=== PATIENT | female | born 1940 | race Caucasian/White ===

== ENCOUNTER 2018-10-03 21:57 | Inpatient (IN) | payer MEDICARE, OTHER ==
[~2018-10-03] VITALS: Ht 160 cm; Wt 47.2 kg
--- NOTE | 2018-10-03 22:05 | NUR ---
ED Nurse Note: PT BIBA SQU[facility] from home c/o ALOC and generalized weakness, unable to care for herself, cannot remember last 24hr.
--- NOTE | 2018-10-03 22:10 | NUR ---
ED Nurse Note: IV ACCESS ESTABLISHED. BLOOD AND URINE COLLECTED; SENT DOWN TO LAB.
[2018-10-03 22:20] VITALS: BP 145/65
[2018-10-03] MEDS ORDERED: SLEEP AID25 MG PO (22:24)
[2018-10-03] MEDS ORDERED: ZETIA10 MG ORAL (22:24)
[2018-10-03] MEDS ORDERED: NORVASC5 MG ORAL (22:24)
[2018-10-03] MEDS ORDERED: METOPROLOL TART25 MG ORAL (22:24)
[2018-10-03] MEDS ORDERED: ASPIRIN-LOW81 MG ORAL (22:24)
[2018-10-03] MEDS ORDERED: NITROGLYCERIN2.5 MG SL (22:24)
[2018-10-03] MEDS ORDERED: MINOCYCLINE HCL50 MG PO (22:24)
[2018-10-03 22:49] LABS: APPEARANCE,URINE CLEAR; BILIRUBIN, URINE NEGATIVE (NEGATIVE); COLOR,URINE BROWN; GLUCOSE, URINE (UA) NEGATIVE (NEGATIVE); KETONES,URINE 2+ (NEGATIVE); LEUKOCYTE ESTERASE ,URINE 1+ (NEGATIVE); NITRITE,URINE NEGATIVE (NEGATIVE); PH,URINE 5 (4.5-8.0); PROTEIN,URINE 2+ (NEGATIVE); UROBILINOGEN,URINE NORMAL MG/DL (0.0-1.0)
[2018-10-03 22:50] LABS: BASOPHILS % (AUTO) 0.9 % (0.0-2.0); EOSINOPHILS % (AUTO) 0.2 % (0.0-3.0); HEMATOCRIT 48.7 % (37.0-47.0); HEMOGLOBIN 15.7 G/DL (12.0-16.0); LYMPHOCYTES % (AUTO) 9.8 % (20.0-45.0); MEAN CORPUSCULAR VOLUME 101 FL (80-99); MONOCYTES % (AUTO) 9.5 % (1.0-10.0); NEUTROPHILS % (AUTO) 79.7 % (45.0-75.0); PLATELET COUNT 283 K/UL (150-450); RED BLOOD COUNT 4.84 M/UL (4.20-5.40); RED CELL DISTRIBUTION WIDTH 14.5 % (11.6-14.8)
[2018-10-03 23:08] LABS: ANION GAP 4 mmol/L (5-15); BLOOD UREA NITROGEN 39 mg/dL (7-18); CALCIUM 9.5 MG/DL (8.5-10.1); CARBON DIOXIDE 38 MMOL/L (21-32); CHLORIDE 106 MMOL/L (98-107); CREATININE 0.8 MG/DL (0.55-1.30); POTASSIUM 4.2 MMOL/L (3.5-5.1); SODIUM 148 MMOL/L (136-145)
[2018-10-03 23:21] LABS: ASPARTATE AMINO TRANSFERASE 35 U/L (15-37); BILIRUBIN,TOTAL 0.5 MG/DL (0.2-1.0)
[2018-10-03 23:22] LABS: ALANINE AMINOTRANSFERASE 37 U/L (12-78); ALBUMIN 3.2 G/DL (3.4-5.0); ALBUMIN/GLOBULIN RATIO 0.9 (1.0-2.7); ALKALINE PHOSPHATASE 64 U/L (46-116); CKMB 7.9 NG/ML (0.0-3.6); CREATINE KINASE 139 U/L (26-308)
--- NOTE | 2018-10-03 23:26 | NUR ---
ED Nurse Note: RT AT BEDSIDE
[2018-10-03 23:30] VITALS: BP 163/78
[2018-10-03] MEDS ORDERED: Solu-MEDROL 125mg Inj IVP ONE (23:30)
[2018-10-03] MEDS ORDERED: Albuterol ud Inhalation HHN ONE (23:30)
[2018-10-03] MEDS ORDERED: Ipratropium 0.02% Inh Soln 2.5ml UD HHN ONE (23:30)
[2018-10-04] VITALS (20 sets, daily range): BP systolic 93–154; BP diastolic 56–89
--- NOTE | 2018-10-04 00:12 | NUR ---
ED Nurse Note: PATIENT REFUSED ASPIRIN. EXPLAINED RISK AND BENEFITS X3; PATIENT STILL REFUES. ERMD MADE AWARE. NO NEW ORDERS AT THIS TIME.
--- NOTE | 2018-10-04 02:00 | NUR ---
ED Nurse Note: DIANE PT PTT; SENT DOWN TO LAB.
--- NOTE | 2018-10-04 02:07 | NUR ---
ED Nurse Note: TELEPHONE REPORT GIVEN TO SLOANE DUMONT. PATIENT TO BE ADMITTED TO SDU 244-2 UNDER THE CARE OF MD RHIANNA. ENDORSED PENDING PT PTT; WILL UPDATE WHEN ERMD GIVES CLEARANCE FOR TRANSFER TO FLOOR.
[2018-10-04 02:33] LABS: INR 1.2 (0.9-1.1)
[2018-10-04] MEDS ORDERED: Heparin 25,000u/D5W 500ml 500 ML IV SCH ×3 (02:45→12:40)
[2018-10-04] MEDS ORDERED: Heparin 5000 units/ml inj IV ONE (02:45)
--- NOTE | 2018-10-04 02:50 | NUR ---
TRANSFER TO FLOOR: Patient transferred to SDU 244-2 as ordered, per MD RHIANNA. Report given to SLOANE DUMONT. HEPARIN DRIP ENDORSED. PATIENT IN STABLE CONDITION. AOR4. NAD. VSS. BELONGINGS LIST COMPLETED WITH RECEIVING RN.
--- NOTE | 2018-10-04 03:00 | NUR ---
NURSE NOTES: Admission from ER, Receiving report from Dewey Henderson RN. Patient is awake in bed, drowsy, confused, but able to talk. Pt has redness on her sacral, changed dressing with optifoam per protocol, pt bathed and position changed. Pt on NC on 4L saturating at 97%, applied tele monitor, no sign on acute distress at this time. Pt denied pain. Bed at its lowest position, call light in reach, and 3 bed rails up. Admission instruction was give. Belongings accounted for, recorded and at bedside. Smoking cessation applied. Patient's home medication was sent to pharmacy and patient was informed. Left forearm 20g IV site intact, right AC 20G IV site patent with no sign of infiltrate. Heparan drip running at 12U/kg/hr due to elevated Troponin level, 1.881. No sign of active bleeding observed. Left messages with Dr. Romo for admission order. Will continue to monitor.
--- NOTE | 2018-10-04 03:04 | Emergency Room Report ---
History of Present Illness General Chief Complaint: Generalized Weakness Source: Patient, EMS Present Illness HPI 78-year-old female presents ED for evaluation. Brought in by EMS from home. Noted to be feeling weak. States that she woke up after sleeping for 2 days. States that she lives alone. Denies fevers or chills. O2 sats low. Denies chest pain or shortness of breath. Patient states that her symptoms are because of Lyme disease. States she has not been adequately treated for this. Is currently on minocycline. Denies sick contacts or recent travel. No other aggravating relieving factors. Denies any other associated symptoms Allergies: Coded Allergies: RAMIPRIL (Verified Allergy, Unknown, 10/03/18) Uncoded Allergies: SULFA (Allergy, Unknown, 10/03/18) Patient History Past Medical History: HTN, COPD Past Surgical History: none Pertinent Family History: none Social History: Denies: smoking, alcohol use, drug use Now: No Immunizations: UTD Reviewed Nursing Documentation: PMH: Agreed; PSxH: Agreed Nursing Documentation-PMH Past Medical History: No History, Except For Hx Hypertension: Yes Review of Systems All Other Systems: negative except mentioned in HPI Physical Exam Vital Signs Date Time Temp Pulse Resp B/P (MAP) Pulse Ox O2 Delivery O2 Flow Rate FiO2 10/03/18 21:57 98.1 84 20 94 Nasal Cannula 4.0 10/03/18 22:20 145/65 10/03/18 23:55 28 Sp02 EP Interpretation: reviewed, normal General Appearance: GCS 15, non-toxic, mild distress, cachetic, thin Head: normocephalic, atraumatic Eyes: bilateral eye normal inspection, bilateral eye PERRL ENT: hearing grossly normal, normal pharynx, no angioedema, normal voice Neck: full range of motion, supple/symm/no masses Respiratory: decreased breath sounds, accessory muscle use, speaking full sentences Cardiovascular #1: regular rate, rhythm, no edema Cardiovascular #2: 2+ carotid (R), 2+ carotid (L), 2+ radial (R), 2+ radial (L) , 2+ dorsalis pedis (R), 2+ dorsalis pedis (L) Gastrointestinal: normal bowel sounds, non tender, soft, non-distended, no guarding, no rebound Rectal: deferred Genitourinary: normal inspection, no CVA tenderness Musculoskeletal: back normal, gait/station normal, normal range of motion, non- tender Neurologic: alert, oriented x3, responsive, motor strength/tone normal, sensory intact, speech normal Psychiatric: judgement/insight normal, memory normal, mood/affect normal, no suicidal/homicidal ideation Reflexes: 3+ bicep (R), 3+ bicep (L), 3+ tricep (R), 3+ tricep (L), 3+ knee (R) , 3+ knee (L) Skin: normal color, no rash, warm/dry, well hydrated Lymphatic: no adenopathy Procedures Critical Care Time Critical Care Time i. I feel this is a highly complex case requiring extensive working including EKG/Rhythm strip, Xray/CT/US, Blood/urine lab work, repeat exams while in ED, and administration of strong opiates/narcotics for pain control, admission to hospital or close patient follow up. Total time: 50 min bedside evaluation and treatment excludes procedures (EKG). Reason for critical care: NSTEMI, COPD Possible complications: hypotension, hypertension, OK, shock, arrhythmias, metabolic acidosis, end organ damage, respiratory failure. Interventions: labs, EKG, CXR, nebs. coags. abx. heparin Course: patient presenting with weakness. SOB. from home. O2 sats low. given breathing treatments. CXR shows hyperinflated lungs. Trop 1.887. patient denies chest pain. abx given. IVFs given. started on heparin. patient refused aspirin. Consultations: nursing staff, EMS, family Performed by: Dr Buckner Tolerated well condition = serious j. because of unstable vital signs this patient had a condition that could potentially threaten life or limb. I feel this is a critical patient who required my full attention while patient was considered critical. Total Critical Care Time excluding procedures was greater than 50 minutes Medical Decision Making Diagnostic Impression: Primary Impression: Episode of generalized weakness Additional Impressions: NSTEMI (non-ST elevated myocardial infarction) COPD (chronic obstructive pulmonary disease) Qualified Codes: J44.9 - Chronic obstructive pulmonary disease, unspecified ER Course Hospital Course 78 yo F presents with weakness, SOB. Differential diagnoses include: OK/unstable angina, contusion, muscle strain, PTX, rib fracture Clinical course placed on stretcher. After initial history and physical I ordered breathing treatments, labs, EKG, chest x-ray, IV fluids labs reviewed- noted leukocytosis, electrolytes ok, trop 1.887, BNP elevated EKG- NSR, no acute ischemic changes interpreted by me Chest x-ray- hyperinflated lungs Patient denies chest pain. Patient refuses aspirin. Heparin started. Antibiotics given. Case discussed with Dr. Naranjo and he agreed to accept the patient to his service for further care and support I. I feel this is a highly complex case requiring extensive working including EKG/Rhythm strip, Xray/CT/US, Blood/urine lab work, repeat exams while in ED, and administration of strong opiates/narcotics for pain control, admission to hospital or close patient follow up. Diagnosis - NSTEMI, episode of generalized weakness, COPD admitted to [facility] in serious condition Labs Test 10/03/18 22:00 10/04/18 02:00 White Blood Count 14.0 K/UL (4.8-10.8) Red Blood Count 4.84 M/UL (4.20-5.40) Hemoglobin 15.7 G/DL (12.0-16.0) Hematocrit 48.7 % (37.0-47.0) Mean Corpuscular Volume 101 FL (80-99) Mean Corpuscular Hemoglobin 32.4 PG (27.0-31.0) Mean Corpuscular Hemoglobin Concent 32.2 G/DL (32.0-36.0) Red Cell Distribution Width 14.5 % (11.6-14.8) Platelet Count 283 K/UL (150-450) Mean Platelet Volume 7.0 FL (6.5-10.1) Neutrophils (%) (Auto) 79.7 % (45.0-75.0) Lymphocytes (%) (Auto) 9.8 % (20.0-45.0) Monocytes (%) (Auto) 9.5 % (1.0-10.0) Eosinophils (%) (Auto) 0.2 % (0.0-3.0) Basophils (%) (Auto) 0.9 % (0.0-2.0) Urine Color Brown Urine Appearance Clear Urine pH 5 (4.5-8.0) Urine Specific [place] 1.020 (1.005-1.035) Urine Protein 2+ (NEGATIVE) Urine Glucose (UA) Negative (NEGATIVE) Urine Ketones 2+ (NEGATIVE) Urine Blood Negative (NEGATIVE) Urine Nitrite Negative (NEGATIVE) Urine Bilirubin Negative (NEGATIVE) Urine Urobilinogen Normal MG/DL (0.0-1.0) Urine Leukocyte Esterase 1+ (NEGATIVE) Urine RBC 0 /HPF (0 - 2) Urine WBC 0-2 /HPF (0 - 2) Urine Squamous Epithelial Cells None /LPF (NONE/OCC) Urine Bacteria Occasional /HPF (NONE) Sodium Level 148 MMOL/L (136-145) Potassium Level 4.2 MMOL/L (3.5-5.1) Chloride Level 106 MMOL/L (98-107) Carbon Dioxide Level 38 MMOL/L (21-32) Anion Gap 4 mmol/L (5-15) Blood Urea Nitrogen 39 mg/dL (7-18) Creatinine 0.8 MG/DL (0.55-1.30) Estimat Glomerular Filtration Rate mL/min (>60) Glucose Level 115 MG/DL (74-106) Lactic Acid Level 1.80 mmol/L (0.4-2.0) Calcium Level 9.5 MG/DL (8.5-10.1) Total Bilirubin 0.5 MG/DL (0.2-1.0) Aspartate Amino Transf (AST/SGOT) 35 U/L (15-37) Alanine Aminotransferase (ALT/SGPT) 37 U/L (12-78) Alkaline Phosphatase 64 U/L (46-116) Total Creatine Kinase 139 U/L (26-308) Creatine Kinase MB 7.9 NG/ML (0.0-3.6) Creatine Kinase MB Relative Index 5.6 Troponin I 1.887 ng/mL (0.000-0.056) Pro-B-Type Natriuretic Peptide 7008 pg/mL (0-125) Total Protein 6.8 G/DL (6.4-8.2) Albumin 3.2 G/DL (3.4-5.0) Globulin 3.6 g/dL Albumin/Globulin Ratio 0.9 (1.0-2.7) Urine Opiates Screen Negative (NEGATIVE) Urine Barbiturates Screen Negative (NEGATIVE) Phencyclidine (PCP) Screen Negative (NEGATIVE) Urine Amphetamines Screen Negative (NEGATIVE) Urine Benzodiazepines Screen Negative (NEGATIVE) Urine Cocaine Screen Negative (NEGATIVE) Urine Marijuana (THC) Screen Negative (NEGATIVE) Prothrombin Time 12.2 SEC (9.30-11.50) Prothromb Time International Ratio 1.2 (0.9-1.1) Activated Partial Thromboplast Time 30 SEC (23-33) EKG Diagnostic Results Rate: normal Rhythm: NSR ST Segments: no acute changes ASA given to the pt in ED: No - patient refused Rhythm Strip Diag. Results EP Interpretation: yes Rhythm: NSR, no PVC's, no ectopy Chest X-Ray Diagnostic Results Chest X-Ray Diagnostic Results : Chest X-Ray Ordered: Yes # of Views/Limited/Complete: 1 View Indication: Shortness of Breath EP Interpretation: Yes Interpretation: no consolidation, no effusion, no pneumothorax, other - hyperinflated lungs Impression: Other - copd Electronically Signed by: Electronically signed by Richie Buckner MD Last Vital Signs Date Time Temp Pulse Resp B/P (MAP) Pulse Ox O2 Delivery O2 Flow Rate FiO2 /09/19 01:00 98.1 88 18 120/68 98 Nasal Cannula 2.0 28 Status: improved Disposition: ADMITTED INPATIENT Condition: Serious Referrals: NOT CHOSEN IPA/,REFERRING (PCP) Richie Buckner MD October 04, 2018 03:04
--- NOTE | 2018-10-04 05:00 | NUR ---
NURSE NOTES: Patient sleeping on bed with no signs of distress. Vital sign stable with saturation at 96% with NC set at 4L. Will continue to monitor patient. Waiting for call back from MD for admission orders. Continue care of plan.
--- NOTE | 2018-10-04 05:45 | NUR ---
NURSE NOTES: Patient is lethargic with no response to verbal or mild pain. Pt opens eye to deep pain only. BP 128/62, temp 97.8, pulse 74, O2 sat 96, BS 137. Cardio monitor with SR at this time. Called ELECTRONICS TECHNOLOGY INSTRUCTOR. Collected ABG. 12 lead EKG applied to patient. Left message with Dr. Naranjo regarding patients change in condition.
--- NOTE | 2018-10-04 05:55 | NUR ---
NURSE NOTES: ABG pH 6.979, PCO1 155.7, PO2 110.9, HCO3 35.8, O2 saturation 95.9. AUTO DAMAGE ADJUSTER recommended transfer to ICU to intubate patient. Dr Naranjo called and left message as well as Dr Romo and awaiting call back. Patient transfer to ICU and report given to Robbie ANTON.
--- NOTE | 2018-10-04 06:00 | NUR ---
ORTHOPAEDIC DOCTOR Note: ORTHOPAEDIC DOCTOR was called at 0545 by sdu, and notified MD dr. quintana. Pt transferred to [id number] at . See ORTHOPAEDIC DOCTOR documentation form for full report.test lead called because of change in level of consciousness, very hard to arouse, abg, ekg done.
--- NOTE | 2018-10-04 06:10 | NUR ---
RESPIRATORY NOTE: Called to pt's room to assess pt. Per RN, pt became harder to arouse. Pt initially on 2L NC, alert/awake/talking, vitals on 2L w/in normal limits. Pt responds to pain, but still not able to arouse. Stat ABG drawn. pH & pCO2 results are critical (see lab for results). ASSEMBLER PRODUCTION LINE was called. Pt intubated by MD Dudley w/ ETT 7.5 @ 22cm lipline, secured by anchorfast. Pt placed on ventilator w/ settings: AC 22, 450VT, 100%, no PEEP. FiO2 to be titrated. B/S virgilio. clear, nonproductive cough. Vent plugged into red outlet, ambubag at bedside. Will continue to monitor pt.
--- NOTE | 2018-10-04 06:28 | NUR ---
NURSE NOTES: Patient received report from Juan R ANTON. Patient transferred to the ICU after RETAIL SELLING FLOOR LEADER was initiated. Patient was found to be lethargic and non verbal. When patient transferred to [facility] from ER, patient was verbal and able to communicate. ABG was done, CO2 was noted to be at 155 and ph 6.9. Patient did not respond to sternal rub, patient then was transferred to ICU where patient was intubated be ER MD. ETT 7.5/22cm, AC 22, 450tv, 100%, no peep. EKG was done, and showed abnormal EKG, see chart. Patient is on heparin gtt for NSTEMI. Patient has peripheral IV lines, bilateral AC 20G running heparin gtt and Barnhart catheter and OGT inserted. Allergies was noted. Patient skin is intact, no open wounds or DTI.
--- NOTE | 2018-10-04 06:40 | NUR ---
NURSE NOTES: CXR was done for post intubation and OGT placement VRE, CRE and MRSA swabs were also collected and sent.
--- NOTE | 2018-10-04 06:57 | NUR ---
NURSE NOTES: urine and sputum culture collected and sent to lab.
--- NOTE | 2018-10-04 07:02 | Emergency Room Report ---
History of Present Illness General Chief Complaint: Generalized Weakness Source: Patient, Medical Record Present Illness Allergies: Coded Allergies: RAMIPRIL (Verified Allergy, Unknown, 10/03/18) Uncoded Allergies: SULFA (Allergy, Unknown, 10/03/18) Patient History Now: No Nursing Documentation-[facility] Past Medical History: No History, Except For Hx Cardiac Problems: Yes Hx Hypertension: Yes Hx Cancer: No Hx Gastrointestinal Problems: No Hx Neurological Problems: No Physical Exam Vital Signs Date Time Temp Pulse Resp B/P (MAP) Pulse Ox O2 Delivery O2 Flow Rate FiO2 10/03/18 21:57 98.1 84 20 94 Nasal Cannula 4.0 10/03/18 22:20 145/65 10/03/18 23:55 28 Procedures Critical Care Time Critical Care Time i. I feel this is a highly complex case requiring extensive working including EKG/Rhythm strip, Xray/CT/US, Blood/urine lab work, repeat exams while in ED, and administration of strong opiates/narcotics for pain control, admission to hospital or close patient follow up. Total time: 30 min bedside evaluation and treatment excludes procedures (EKG). Reason for critical care: unresponsive. COPD. hypercapnia. acidosis Possible complications: hypotension, hypertension, CT, shock, arrhythmias, metabolic acidosis, end organ damage, respiratory failure. Interventions: ABG. intubation Course: patient became unresponsive. rapid response called. COPD. ABG shows acidosis, with hypercapnia. i evaluated patient and intubated Consultations: nursing staff, EMS, family Performed by: Dr Buckner Tolerated well condition = critical j. because of unstable vital signs this patient had a condition that could potentially threaten life or limb. I feel this is a critical patient who required my full attention while patient was considered critical. Total Critical Care Time excluding procedures was greater than 35 minutes Medical Decision Making Diagnostic Impression: Primary Impression: Episode of generalized weakness Additional Impressions: COPD (chronic obstructive pulmonary disease) Qualified Codes: J44.9 - Chronic obstructive pulmonary disease, unspecified NSTEMI (non-ST elevated myocardial infarction) ER Course I was called to evaluate this patient. rapid response called. h/o COPD. ABG performed which showed significant acidosis and hypercapnia. I evaluated the patient and made decision to intubate. patient intubated without difficulty. admitting physicians informed. Last Vital Signs Date Time Temp Pulse Resp B/P (MAP) Pulse Ox O2 Delivery O2 Flow Rate FiO2 10/04/18 06:10 97.8 85 22 93/61 (72) 97 10/04/18 06:00 Mechanical Ventilator 10/04/18 06:00 100 10/04/18 03:30 3.0 Status: improved Disposition: ADMITTED INPATIENT Condition: Critical Referrals: NOT CHOSEN IPA/,REFERRING (PCP) Richie Buckner MD October 04, 2018 07:02
--- NOTE | 2018-10-04 07:02 | Diagnostic Imaging Report ---
EXAM: XR Chest, 1 View CLINICAL HISTORY: S/P INTUB TECHNIQUE: Frontal view of the chest. COMPARISON: October 03, 2018 chest x-ray FINDINGS: Lungs: See below. Pleural space: Mild cardiac enlargement and prominence of the pulmonary vasculature is noted. No pneumothorax or pleural effusion. No focal infiltrates. No acute or aggressive osseous lesions. Heart: Unremarkable. No cardiomegaly. Mediastinum: Unremarkable. Bones/joints: Unremarkable. Tubes, lines and devices: Hyperinflated lungs showing interval endotracheal intubation with ET tube terminating 4.8 cm above the samreen, and placement of an enteric tube that passes below the diaphragms. Tip terminates in the left upper quadrant abdomen in apparent satisfactory position. IMPRESSION: Satisfactory interval endotracheal intubation with ET tube tip terminating 4.8 cm above the samreen, in satisfactory placement of an enteric tube terminating in the left upper quadrant abdomen.
--- NOTE | 2018-10-04 07:04 | NUR ---
NURSE NOTES: stat cbc/cmp/troponin ordered and collected.
[2018-10-04 07:26] LABS: HEMOGLOBIN 14.4 G/DL (12.0-16.0); MEAN CORPUSCULAR VOLUME 106 FL (80-99); PLATELET COUNT 247 K/UL (150-450); RED BLOOD COUNT 4.36 M/UL (4.20-5.40); RED CELL DISTRIBUTION WIDTH 15.1 % (11.6-14.8); WHITE BLOOD COUNT 15.4 K/UL (4.8-10.8)
--- NOTE | 2018-10-04 07:30 | NUR ---
NURSE NOTES: Received the patient from SLOANE Silva. s/p FINE PATCHER this morning, transferred from SDU. Patient opens eyes spontaneously, able to follow simple commands, able to communicate by nodding. Patient is orally intubated, ETT size 7.5, 22cm at lip line. AC 22, TV 450, FIO2 100%, PEEP 0, O2 sat 100%. No acute distress noted. SR noted on the monitor. OGT intact, pt kept NPO. HOB kept elevated. Barnhart cath intact, draining rex urine by gravity. Left AC 20G and right AC 20G intact, running 12units/kg/hr. No active bleeding noted. On bilateral soft wrist restraints. no skin breakdown noted. pulses present. Bed in lowest position, locked, side rails upx2. bed alarm on. call light within reach. Will continue to monitor. Addendum: 10/05/18 at 0726 by JIM GUPTA RN running heparin drip at 12units/kg/hr
[2018-10-04 07:37] LABS: ANION GAP 8 mmol/L (5-15); BLOOD UREA NITROGEN 36 mg/dL (7-18); CALCIUM 8.5 MG/DL (8.5-10.1); CARBON DIOXIDE 31 MMOL/L (21-32); CHLORIDE 111 MMOL/L (98-107); CREATININE 0.6 MG/DL (0.55-1.30); SODIUM 150 MMOL/L (136-145)
[2018-10-04 07:41] LABS: ALANINE AMINOTRANSFERASE 166 U/L (12-78); ALBUMIN 2.9 G/DL (3.4-5.0); ALBUMIN/GLOBULIN RATIO 0.9 (1.0-2.7); ALKALINE PHOSPHATASE 248 U/L (46-116); ASPARTATE AMINO TRANSFERASE 204 U/L (15-37); BILIRUBIN,TOTAL 0.9 MG/DL (0.2-1.0)
--- NOTE | 2018-10-04 07:55 | NUR ---
NURSE NOTES: vent settings changed to AC 16, TV 600, FIO2 55%, PEEP 0.
[2018-10-04] MEDS ORDERED: Morphine Sulfate 2mg/ml Inj(IV/IM USE ONLY) IVP PRN (08:00)
[2018-10-04] MEDS ORDERED: Nitroglycerin Subl 0.4mg tab SL PRN (08:00)
[2018-10-04] MEDS ORDERED: Albuterol/Ipratropium 3ml neb HHN PRN ×2 (08:00)
[2018-10-04] MEDS ORDERED: Morphine Sulfate 4mg/ml Inj (IV USE ONLY) IVP PRN (08:00)
[2018-10-04] MEDS ORDERED: Dextrose 50% 25ml Syringe IV PRN (08:00)
[2018-10-04] MEDS ORDERED: D5 1/2NS 1,000 ML IV SCH (08:00)
--- NOTE | 2018-10-04 08:10 | NUR ---
NURSE NOTES: Left a message to Dr. Romo regarding trop level 1.369 and heparin gtt and sq order, awaiting for callback.
--- NOTE | 2018-10-04 08:35 | NUR ---
NURSE NOTES: Dr. Naranjo here to see the patient, MD updated on pt's status. No New orders at this time.
--- NOTE | 2018-10-04 08:56 | Pulmonolgy Critical Care Note ---
Critical Care - Asmt/Plan Assessment/Plan: ASSESSMENT acute hypoxemic hypecapnic RF requiring intubation NSTEMI leukocytosis, possible sepsis COPD exacerbation REBECCA likely due to dehydration Hypernatremia Transaminitis Hx of HTN Lyme disease severe protein calorie malnutrition PLAN OF CARE ICU vent care, pulm toilet ( CPT and HHN) fup with ABG and CXR, optimize settings accordingly steroids and taper slowly Heparin gtt ECHO today troponin in am Nitro prn cardio eval pending hold on beta blockage for now due to COPD exacerbation lipid panel in am empiric abx fup with cx ID consult pending include Rx for Lyme disease as per ID recs ( was on Minocycline) gentle IVF, monitor renal paarmnerts and lytes , correct lytes prn , avoid nephrotoxic trend LFT, hepatitis panel hold statin due to elevated LFT GI prophylaxis BS management with SSI prn ( on steroids), check HgA1c nutritional support with NGT feeding, aspiration precautions dietary eval re protein supplements supportive care case discussed and evaluated by supervising physician Critical Care - Objective Last 24 Hour Vital Signs Date Time Temp Pulse Resp B/P (MAP) Pulse Ox O2 Delivery O2 Flow Rate FiO2 10/04/18 08:01 55 10/04/18 07:05 89 22 100 10/04/18 07:00 88 22 128/70 (89) 100 10/04/18 06:10 97.8 85 22 93/61 (72) 97 10/04/18 06:00 Mechanical Ventilator 10/04/18 06:00 97 22 100 10/04/18 06:00 100 10/04/18 06:00 87 10/04/18 06:00 89 22 Mechanical Ventilator 100 10/04/18 04:00 81 10/04/18 04:00 Nasal Cannula 4.0 10/04/18 03:30 Nasal Cannula 3.0 10/04/18 03:11 87 10/04/18 02:50 98.1 88 18 120/68 98 Nasal Cannula 2.0 28 10/04/18 02:00 98.1 84 18 133/86 98 Nasal Cannula 2.0 28 10/04/18 01:00 98.1 88 18 120/68 98 Nasal Cannula 2.0 28 10/03/18 23:55 74 18 98 Nasal Cannula 2.0 28 10/03/18 23:32 68 24 Nasal Cannula 4.0 10/03/18 23:32 68 24 Nasal Cannula 4.0 10/03/18 23:30 98.1 79 20 163/78 94 Nasal Cannula 4.0 10/03/18 22:20 98.1 84 20 145/65 94 Nasal Cannula 4.0 10/03/18 22:20 84 20 Nasal Cannula 4.0 10/03/18 21:57 98.1 84 20 94 Nasal Cannula 4.0 Status: sedated Condition: critical HEENT: atraumatic, other - OP with ET in palce, intact ; NGT Lungs: rhonchi - at bases , wheezing - scattered Heart: HR/BP stable Abdomen: soft, non-tender, active bowel sounds Extremities: no C/C/E Critical Care - Subjective ROS Limited/Unobtainable: Yes Interval Events: intubated on ICU Condition: critical EKG Rhythm: Sinus Rhythm FI02: 55 Vent Support Breath Rate: 16 Vent Support Mode: AC Vent Tidal Volume: 600 Sputum Amount: None PEEP: 0.0 PIP: 24 Fluids: D51/2 NS at 50 Drips: heparin gtt I&O: Intake and Output 10/03/18 10/04/18 19:00 07:00 Intake Total 1331.026 ml Output Total 60 ml Balance 1271.026 ml Intake IV Total 1331.026 ml Output Urine Total 60 ml # Voids 1 CXR: 10/03 Hyperinflated lungs showing interval endotracheal intubation with ET tube terminating 4.8 cm above the samreen, and placement of an enteric tube that passes below the diaphragms. ET-Tube: 7.5 ET Position: 22 Margaret Salcedo NP October 04, 2018 08:56
[2018-10-04] MEDS ORDERED: Heparin 5000 units/ml inj SUBQ SCH (09:00)
[2018-10-04] MEDS ORDERED: Pantoprazole Inj IV SCH (09:00)
[2018-10-04] MEDS: LORazepam Inj 2mg/ml 1ml IV PRN ×2 (09:01→20:18)
[2018-10-04] MEDS: Solu-MEDROL 125mg Inj IV SCH ×3 (09:02→20:18)
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
[2018-10-04] MEDS: Zosyn 3.375gm q8h **Extended infusion IVPB SCH ×4 (09:18→21:45)
--- NOTE | 2018-10-04 09:40 | NUR ---
NURSE NOTES: Spoke with pharmacist, hodan, regarding PTT level. To redraw ptt at 1200, continue heparin drip at 12unit/kg/hr. order placed.
--- NOTE | 2018-10-04 10:10 | NUR ---
NURSE NOTES: Started Jevity 1.2 at 20ml/hr via OGT, no residual. HOB kept elevated.
[2018-10-04] MEDS ORDERED: Etomidate 40mg/20ml Inj IV ONE (10:53)
[2018-10-04] MEDS ORDERED: NovoLOG Insulin Flexpen SUBQ SCH (11:30)
--- NOTE | 2018-10-04 11:30 | NUR ---
NURSE NOTES: Patient is resting in bed with eyes closed. No acute distress noted. O2 sat 100%.
--- NOTE | 2018-10-04 11:51 | Consultation ---
Consult Note Consult Note asked to eval for fluid management and electrolyte management 78-year-old female presents ED for evaluation. Brought in by EMS from home. Noted to be feeling weak. States that she woke up after sleeping for 2 days. States that she lives alone. Denies fevers or chills. O2 sats low. Denies chest pain or shortness of breath. Patient states that her symptoms are because of Lyme disease. States she has not been adequately treated for this. Is currently on minocycline. Denies sick contacts or recent travel. No other aggravating relieving factors. Denies any other associated symptoms Allergies: RAMIPRIL (Verified Allergy, Unknown, 10/03/18) SULFA (Allergy, Unknown, 10/03/18) Past Medical History: HTN, COPD Nursing Documentation-[facility] Past Medical History: No History, Except For Hx Hypertension: Yes Past Medical History: No History, Except For Hx Cardiac Problems: Yes Hx Hypertension: Yes examined in ICU intubated now on vent data reviewed Assessment/Plan Acute respiratory failure COPD Azotemia, High Na , elevated LFTs Elevated troponin Slow Hydrate Per cardiology Pulm management taper steroid as possible monitor renal parameters discussed with Robbie Gillis MD October 04, 2018 11:50
[2018-10-04 12:34] LABS: CHOLESTEROL 123 MG/DL (< 200); HDL CHOLESTEROL 41 MG/DL (40-60); TRIGLYCERIDES 73 MG/DL (30-150)
[2018-10-04] MEDS ORDERED: Heparin 5000 units/ml inj IV SCH (12:40)
[2018-10-04] MEDS: NovoLOG Insulin Flexpen SUBQ SCH ×3 (12:41→23:50)
--- NOTE | 2018-10-04 13:02 | NUR ---
NURSE NOTES: heparin iv bolus given and changed heparin drip 16unit/kg/hr. No active bleeding noted.
--- NOTE | 2018-10-04 13:10 | NUR ---
NURSE NOTES: pt's friend at bedside. Milka Gary [phone], cell [phone].
[2018-10-04] MEDS ORDERED: Piperacillin/Tazobactam 2.25 GM in D5W 55 ML IV SCH (14:00)
--- NOTE | 2018-10-04 15:30 | NUR ---
NURSE NOTES: Patient seen by Dr. Cortez. Informed MD that per pt's friend, Milka, pt had lyme disease for years. friend's contact number given to .
--- NOTE | 2018-10-04 15:53 | Cardiac Electrophysiology PN ---
Subjective Subjective [id number] Objective Last 24 Hour Vital Signs Date Time Temp Pulse Resp B/P (MAP) Pulse Ox O2 Delivery O2 Flow Rate FiO2 10/04/18 15:00 82 18 154/73 (100) 100 10/04/18 14:59 81 16 55 10/04/18 14:00 79 16 135/56 (82) 100 10/04/18 13:16 78 16 55 10/04/18 13:00 80 16 131/61 (84) 100 10/04/18 12:00 55 10/04/18 12:00 Mechanical Ventilator 10/04/18 12:00 98.6 82 16 143/67 (92) 100 10/04/18 12:00 87 10/04/18 11:08 82 16 55 10/04/18 11:00 82 16 128/59 (82) 100 10/04/18 10:00 88 16 118/89 (99) 100 10/04/18 09:00 95 16 114/59 (77) 100 10/04/18 08:57 112 18 100 10/04/18 08:01 55 10/04/18 08:00 98.5 88 16 123/61 (81) 100 10/04/18 08:00 Mechanical Ventilator 10/04/18 08:00 92 10/04/18 07:05 89 22 100 10/04/18 07:00 88 22 128/70 (89) 100 10/04/18 06:10 97.8 85 22 93/61 (72) 97 10/04/18 06:00 Mechanical Ventilator 10/04/18 06:00 97 22 100 10/04/18 06:00 100 10/04/18 06:00 87 10/04/18 06:00 89 22 Mechanical Ventilator 100 10/04/18 04:00 81 10/04/18 04:00 Nasal Cannula 4.0 10/04/18 03:30 Nasal Cannula 3.0 10/04/18 03:11 87 10/04/18 02:50 98.1 88 18 120/68 98 Nasal Cannula 2.0 28 10/04/18 02:00 98.1 84 18 133/86 98 Nasal Cannula 2.0 28 10/04/18 01:00 98.1 88 18 120/68 98 Nasal Cannula 2.0 28 10/03/18 23:55 74 18 98 Nasal Cannula 2.0 28 10/03/18 23:32 68 24 Nasal Cannula 4.0 10/03/18 23:32 68 24 Nasal Cannula 4.0 10/03/18 23:30 98.1 79 20 163/78 94 Nasal Cannula 4.0 10/03/18 22:20 98.1 84 20 145/65 94 Nasal Cannula 4.0 10/03/18 22:20 84 20 Nasal Cannula 4.0 10/03/18 21:57 98.1 84 20 94 Nasal Cannula 4.0 Intake and Output 10/03/18 10/04/18 19:00 07:00 Intake Total 1331.026 ml Output Total 60 ml Balance 1271.026 ml IV Total 1331.026 ml Output Urine Total 60 ml # Voids 1 Laboratory Tests Test 10/03/18 22:00 10/04/18 02:00 10/04/18 05:40 10/04/18 07:05 White Blood Count 14.0 K/UL (4.8-10.8) H 15.4 K/UL (4.8-10.8) H Red Blood Count 4.84 M/UL (4.20-5.40) 4.36 M/UL (4.20-5.40) Hemoglobin 15.7 G/DL (12.0-16.0) 14.4 G/DL (12.0-16.0) Hematocrit 48.7 % (37.0-47.0) H 46.0 % (37.0-47.0) Mean Corpuscular Volume 101 FL (80-99) H 106 FL (80-99) H Mean Corpuscular Hemoglobin 32.4 PG (27.0-31.0) H 33.0 PG (27.0-31.0) H Mean Corpuscular Hemoglobin Concent 32.2 G/DL (32.0-36.0) 31.3 G/DL (32.0-36.0) L Red Cell Distribution Width 14.5 % (11.6-14.8) 15.1 % (11.6-14.8) H Platelet Count 283 K/UL (150-450) 247 K/UL (150-450) Mean Platelet Volume 7.0 FL (6.5-10.1) 7.0 FL (6.5-10.1) Neutrophils (%) (Auto) 79.7 % (45.0-75.0) H % (45.0-75.0) Lymphocytes (%) (Auto) 9.8 % (20.0-45.0) L % (20.0-45.0) Monocytes (%) (Auto) 9.5 % (1.0-10.0) % (1.0-10.0) Eosinophils (%) (Auto) 0.2 % (0.0-3.0) % (0.0-3.0) Basophils (%) (Auto) 0.9 % (0.0-2.0) % (0.0-2.0) Urine Color Brown Urine Appearance Clear Urine pH 5 (4.5-8.0) Urine Specific [place] 1.020 (1.005-1.035) Urine Protein 2+ (NEGATIVE) H Urine Glucose (UA) Negative (NEGATIVE) Urine Ketones 2+ (NEGATIVE) H Urine Blood Negative (NEGATIVE) Urine Nitrite Negative (NEGATIVE) Urine Bilirubin Negative (NEGATIVE) Urine Urobilinogen Normal MG/DL (0.0-1.0) Urine Leukocyte Esterase 1+ (NEGATIVE) H Urine RBC 0 /HPF (0 - 2) Urine WBC 0-2 /HPF (0 - 2) Urine Squamous Epithelial Cells None /LPF (NONE/OCC) Urine Bacteria Occasional /HPF (NONE) Sodium Level 148 MMOL/L (136-145) H 150 MMOL/L (136-145) H Potassium Level 4.2 MMOL/L (3.5-5.1) 5.0 MMOL/L (3.5-5.1) Chloride Level 106 MMOL/L (98-107) 111 MMOL/L (98-107) H Carbon Dioxide Level 38 MMOL/L (21-32) H 31 MMOL/L (21-32) Anion Gap 4 mmol/L (5-15) L 8 mmol/L (5-15) Blood Urea Nitrogen 39 mg/dL (7-18) H 36 mg/dL (7-18) H Creatinine 0.8 MG/DL (0.55-1.30) 0.6 MG/DL (0.55-1.30) Estimat Glomerular Filtration Rate mL/min (>60) mL/min (>60) Glucose Level 115 MG/DL (74-106) H 171 MG/DL (74-106) H Lactic Acid Level 1.80 mmol/L (0.4-2.0) Calcium Level 9.5 MG/DL (8.5-10.1) 8.5 MG/DL (8.5-10.1) Total Bilirubin 0.5 MG/DL (0.2-1.0) 0.9 MG/DL (0.2-1.0) Aspartate Amino Transf (AST/SGOT) 35 U/L (15-37) 204 U/L (15-37) H Alanine Aminotransferase (ALT/SGPT) 37 U/L (12-78) 166 U/L (12-78) H Alkaline Phosphatase 64 U/L (46-116) 248 U/L (46-116) H Total Creatine Kinase 139 U/L (26-308) Creatine Kinase MB 7.9 NG/ML (0.0-3.6) H Creatine Kinase MB Relative Index 5.6 Troponin I 1.887 ng/mL (0.000-0.056) 1.369 ng/mL (0.000-0.056) Pro-B-Type Natriuretic Peptide 7008 pg/mL (0-125) H Total Protein 6.8 G/DL (6.4-8.2) 6.3 G/DL (6.4-8.2) L Albumin 3.2 G/DL (3.4-5.0) L 2.9 G/DL (3.4-5.0) L Globulin 3.6 g/dL 3.4 g/dL Albumin/Globulin Ratio 0.9 (1.0-2.7) L 0.9 (1.0-2.7) L Urine Opiates Screen Negative (NEGATIVE) Urine Barbiturates Screen Negative (NEGATIVE) Phencyclidine (PCP) Screen Negative (NEGATIVE) Urine Amphetamines Screen Negative (NEGATIVE) Urine Benzodiazepines Screen Negative (NEGATIVE) Urine Cocaine Screen Negative (NEGATIVE) Urine Marijuana (THC) Screen Negative (NEGATIVE) Prothrombin Time 12.2 SEC (9.30-11.50) H Prothromb Time International Ratio 1.2 (0.9-1.1) H Activated Partial Thromboplast Time 30 SEC (23-33) Arterial Blood pH 6.979 (7.350-7.450) Arterial Blood Partial Pressure CO2 155.7 mmHg (35.0-45.0) *H Arterial Blood Partial Pressure O2 110.9 mmHg (75.0-100.0) H Arterial Blood HCO3 35.8 mmol/L (22.0-26.0) H Arterial Blood Oxygen Saturation 95.9 % (95-100) Arterial Blood Base Excess -1.4 (-2-2) Clyde Test Positive Differential Total Cells Counted 100 Neutrophils % (Manual) 97 % (45-75) H Lymphocytes % (Manual) 2 % (20-45) L Monocytes % (Manual) 1 % (1-10) Eosinophils % (Manual) 0 % (0-3) Basophils % (Manual) 0 % (0-2) Band Neutrophils 0 % (0-8) Platelet Estimate Adequate Platelet Morphology Normal Anisocytosis 1+ Macrocytosis 1+ Test 10/04/18 07:50 10/04/18 09:00 10/04/18 11:55 Arterial Blood pH 7.347 (7.350-7.450) Arterial Blood Partial Pressure CO2 59.2 mmHg (35.0-45.0) *H Arterial Blood Partial Pressure O2 480.0 mmHg (75.0-100.0) H Arterial Blood HCO3 31.7 mmol/L (22.0-26.0) H Arterial Blood Oxygen Saturation 99.4 % (95-100) Arterial Blood Base Excess 4.3 (-2-2) H Clyde Test Positive Activated Partial Thromboplast Time 32 SEC (23-33) 32 SEC (23-33) Triglycerides Level 73 MG/DL (30-150) Cholesterol Level 123 MG/DL (< 200) LDL Cholesterol 70 mg/dL (<100) HDL Cholesterol 41 MG/DL (40-60) Cholesterol/HDL Ratio 3.0 (3.3-4.4) L Braulio Cruz MD October 04, 2018 15:53
--- NOTE | 2018-10-04 16:07 | NUR ---
NURSE NOTES: Patient is seen by Dr. Cruz. heparin gtt discontinued per MD.
--- NOTE | 2018-10-04 16:13 | Consultation ---
Consult Note Consult Note ID [id number] Celso Cortez MD October 04, 2018 16:13
--- NOTE | 2018-10-04 16:35 | NUR ---
NURSE NOTES: urine collected and sent down to lab.
--- NOTE | 2018-10-04 16:45 | History and Physical Report ---
DATE OF ADMISSION: 10/04/2018 CONSULTANTS: 1. Steven Romo M.D. 2. Braulio Cruz M.D. CHIEF COMPLAINT: Weakness and shortness of breath. BRIEF HISTORY: This is a 78-year-old female, who lives at home, presents with above shortness of breath and weakness. In the ER, became severely respiratory distress and was intubated and admitted to intensive care unit. Currently, intubated, sedated, and lethargic in ICU. REVIEW OF SYSTEMS: Unavailable. PAST MEDICAL HISTORY: Chronic obstructive pulmonary disease and weakness. PAST SURGICAL HISTORY: Unknown. MEDICATIONS: Include insulin, heparin, pantoprazole, Zosyn, albuterol, methylprednisolone, Zofran, lorazepam, and levofloxacin. ALLERGIES: Sulfa and ramipril. SOCIAL HISTORY: Unable to obtain secondary to the patient's condition. PHYSICAL EXAMINATION: GENERAL: Intubated, sedated, lethargic in intensive care unit. VITAL SIGNS: Temperature 97 degrees, pulse 89, respirations 22, and blood pressure 120/70. CARDIOVASCULAR: No murmurs. LUNGS: Poor air exchange. ABDOMEN: Bowel sounds distant. EXTREMITIES: No cyanosis, clubbing, or edema. NEUROLOGIC: The patient is flaccid in bed, not following directions. LABORATORY AND DIAGNOSTIC DATA: Labs, at this time, show white count of 15, otherwise CBC is normal. BMP shows sodium 150, chloride 111, BUN 36, and glucose 171. Troponin 1.369. Albumin 2.9. INR is 1.2. Urine tox is negative. Urinalysis, 1+ leukocyte esterase. ASSESSMENT: 1. Respiratory failure. 2. Chronic obstructive pulmonary disease. 3. Weakness. 4. Shortness of breath. 5. NSTEMI. 6. Urinary tract infection. 7. Elevated troponin. 8. Hypernatremia. 9. Diabetes mellitus. PLAN: 1. . 2. Antibiotics per Infectious Disease. 3. Troponin q.8 x3. 4. EKG in the a.m. 5. Blood pressure and blood sugar control. 6. Dietary followup. 7. ID and Nephrology evaluation. Osei Naranjo D.O. DR: LORNA JOB#: [id number] CC:
--- NOTE | 2018-10-04 17:18 | NUR ---
CASE MANAGEMENT: REVIEW 78Y/F BIBA FROM HOME CC: ALOC SI: SOB . RESPIRATORY FAILURE T 98.1 HR 87 RR 22 BP 93/61 SAT 100% MECH VENT FIO2 100 WBC 15.4 ABG: PH 6.979 PCO2 155.7 PO2 110.9 HCO3 35.8 IS: NS IVF BOLUS X1 SOLU MEDROL IV X1 ATROVENT HHN X1 ATROVENT HHN X1 ASA PO X1 LEVOFLOXACIN IV X1 PATIENT ADMITTED TO ICU 10/04/2018 DCP: PATIENT IS FROM HOME
--- NOTE | 2018-10-04 17:40 | NUR ---
NURSE NOTES: Patient resting in bed, opens eyes spontaneously. No acute distress noted. On bilateral soft wrist restraints, patient moving both arms. no skin breakdown noted, pulses present.
[2018-10-04] MEDS: Azithromycin 500 MG in D5W 275 ML IV SCH (17:45)
--- NOTE | 2018-10-04 19:13 | NUR ---
HAND-OFF: Report given to SLOANE Alex.
--- NOTE | 2018-10-04 20:00 | NUR ---
NURSE NOTES: Received pt in no acute distress; awake, alert, restless and agitated. Orally intubated with 7.5 ETT placed over left lip at 22cm with vent settings of AC16 TV600 fiO2.45 and saturating 100%. Oral secretions pinkish. chest sounds diminished at bases. Afebrile,NSR BP 146/77. OGT in situ, TF with Jevity 1.2 infuses at 20ml/h with 0 residuals. PIV sites on right and left AC intact; IVF of D5W infuses at 75ml/h. Bilateral soft wrist restraints on; skin intact. FC patent, draining 40-50ml/h. Ativan 2mg IVP given for restlessness and agitation.
[2018-10-04] MEDS: Metoprolol Tartrate 12.5mg TAB NG SCH (20:49)
[2018-10-04] MEDS: Pantoprazole Inj IV SCH (20:49)
[2018-10-04] MEDS: Heparin 5000 units/ml inj SUBQ SCH (20:51)
--- NOTE | 2018-10-04 22:00 | NUR ---
NURSE NOTES: Calm, asleep. VSS, no distress.
[2018-10-05] VITALS (24 sets, daily range): BP systolic 103–154; BP diastolic 48–97
--- NOTE | 2018-10-05 | NUR ---
NURSE NOTES: Oral care and suctioning done. Calm, passive, asleep. Afebrile; VSS. No distress
--- NOTE | 2018-10-05 01:30 | Consultation ---
DATE OF CONSULTATION: 10/04/2018 INFECTIOUS DISEASE CONSULTATION CONSULTING PHYSICIAN: Celso Cortez M.D. REQUESTING PHYSICIANS: 1. Osei Naranjo D.O. 2. Steven Romo M.D. REASON FOR CONSULTATION: Evaluation of the patient for sepsis, possible pneumonia, and antibiotic management. HISTORY OF PRESENT ILLNESS: The patient is a 78-year-old female, who is now admitted to intensive care unit, intubated, who was initially admitted to this medical center for weakness. The patient was found to be dehydrated and has some elevation of cardiac enzymes. Later, the patient developed respiratory distress, has developed CO2 retention, was intubated, and was placed in the ICU. Repeat EKG showed T-wave changes. The patient has been started on antibiotic for aspiration pneumonia. Also, the patient has history of Lyme disease 25 years ago. Apparently, the patient is on minocycline for that. I spoke to the patient's friend, who gave me this information. However, she did not know about the details of that, ____ is a treating physician. PAST MEDICAL HISTORY: 1. History of Lyme diagnosed 25 years ago. 2. Hyperlipidemia. MEDICATIONS: Intravenous Zosyn. ALLERGIES: Sulfa and ramipril. FAMILY HISTORY: Not available. REVIEW OF SYSTEMS: Unobtainable. PHYSICAL EXAMINATION: VITAL SIGNS: Temperature 98.6, pulse 86, respiratory rate 18, and blood pressure 154/73. HEENT: Mild pale conjunctivae. No icterus. NECK: No lymphadenopathy. CHEST: Coarse breathing sounds. HEART: S1 and S2. ABDOMEN: Soft. ABDOMEN: Soft. EXTREMITIES: No cyanosis. NEUROLOGIC: Sedated. LABORATORY DATA: UA unremarkable. BUN 56. LFT, at the time of admission, normal. However, the patient has AST of 24, ALT of 166, and alkaline phosphatase of 248. Troponin 1.369. BMP 7000. ProBNP 7000. Urine tox negative. Chest x-ray, status post intubation. ASSESSMENT: The patient is a 78-year-old female with history of Lyme disease 25 years ago. 1. Possible aspiration pneumonia. Chronic obstructive pulmonary disease exacerbation. 2. Abnormal liver function tests (acute). 3. Probable non-STEMI. PLAN: 1. We will continue the patient on Zosyn. Add Zithromax for atypical coverage and chronic obstructive pulmonary disease exacerbation. 2. Monitor CBC. 3. Monitor BMP. 4. Monitor liver function tests. 5. Ultrasound of the liver. 6. Hepatitis panel and Hep C PCR. 7. Monitor cultures (blood, urine, sputum). 8. We will follow Cardiology recommendations. 9. Based on the patient's clinical course and laboratories, we will do further recommendations. 10. No need for continuing minocycline at this point. Thank you, Dr. Naranjo and Dr. Romo, for allowing me to participate in the care of this patient. I will follow the patient with you during this hospitalization. Celso Cortez M.D. DR: DAYO JOB#: [id number] CC:
--- NOTE | 2018-10-05 02:00 | NUR ---
NURSE NOTES: Remains asleep; VSS
[2018-10-05] MEDS: Solu-MEDROL 125mg Inj IV SCH ×4 (02:07→21:34)
--- NOTE | 2018-10-05 04:00 | NUR ---
NURSE NOTES: Awake and mildly restless. Restraints renewed. Complete bed bath done. No BM. Tube feeding placed on hold; pt for US abdomen today. 12 lead EKG done; NSR on the scope. Afebrile, BP stable.
[2018-10-05 04:42] LABS: HEMATOCRIT 42.8 % (37.0-47.0); HEMOGLOBIN 14.3 G/DL (12.0-16.0); MEAN CORPUSCULAR VOLUME 99 FL (80-99); PLATELET COUNT 247 K/UL (150-450); RED BLOOD COUNT 4.31 M/UL (4.20-5.40); RED CELL DISTRIBUTION WIDTH 14.3 % (11.6-14.8); WHITE BLOOD COUNT 16.7 K/UL (4.8-10.8)
[2018-10-05 05:16] LABS: ALANINE AMINOTRANSFERASE 94 U/L (12-78); ALBUMIN 2.4 G/DL (3.4-5.0); ALBUMIN/GLOBULIN RATIO 0.8 (1.0-2.7); ALKALINE PHOSPHATASE 163 U/L (46-116); AMMONIA 17 umol/L (11-32); ANION GAP 5 mmol/L (5-15); ASPARTATE AMINO TRANSFERASE 48 U/L (15-37); BILIRUBIN,TOTAL 0.8 MG/DL (0.2-1.0); BLOOD UREA NITROGEN 28 mg/dL (7-18); CALCIUM 9.1 MG/DL (8.5-10.1); CARBON DIOXIDE 31 MMOL/L (21-32); CHLORIDE 106 MMOL/L (98-107); CREATININE 0.7 MG/DL (0.55-1.30); PHOSPHORUS 1.8 MG/DL (2.5-4.9); SODIUM 142 MMOL/L (136-145)
[2018-10-05 05:18] LABS: CREATINE KINASE 40 U/L (26-308); GAMMA GLUTAMYL TRANSPEPTIDASE 128 U/L (5-85)
[2018-10-05] MEDS: Zosyn 3.375gm q8h **Extended infusion IVPB SCH ×6 (05:46→21:34)
[2018-10-05] MEDS: NovoLOG Insulin Flexpen SUBQ SCH ×4 (05:47→23:27)
--- NOTE | 2018-10-05 07:14 | NUR ---
HAND-OFF: Report given to Curly ANTON.
--- NOTE | 2018-10-05 07:23 | NUR ---
NURSE NOTES: Received the patient from SLOANE Alex. Patient resting in bed with eyes closed. Patient is orally intubated, ETT size 7.5, 22cm at lip line. AC 22, TV 450, FIO2 100%, PEEP 0, O2 sat 100%. No acute distress noted. SR noted on the monitor. OGT intact, pt kept NPO for ABD US. HOB kept elevated. Barnhart cath intact, draining yellow urine by gravity. Right AC 20G intact, running D5W at 75ml/hr. On bilateral soft wrist restraints. no skin breakdown noted. pulses present. Bed in lowest position, locked, side rails upx2. bed alarm on. call light within reach. Will continue to monitor.
--- NOTE | 2018-10-05 07:30 | NUR ---
RESPIRATORY NOTE: Received pt on ordered vent settings. Pt endotracheal tube is patent and secured. Suctioned pt prn. vent alarms are on and audible. Vent is plugged into red outlet. Will monitor pt progress.
--- NOTE | 2018-10-05 08:07 | Pulmonolgy Critical Care Note ---
Critical Care - Asmt/Plan Assessment/Plan: ASSESSMENT acute hypoxemic hypecapnic RF requiring intubation elevated troponin, possible NSTEMI leukocytosis, possible sepsis COPD exacerbation REBECCA likely due to dehydration Hypernatremia -resolved Transaminitis Hx of HTN Lyme disease severe protein calorie malnutrition PLAN OF CARE ICU vent care, pulm toilet ( CPT and HHN) fup with ABG and CXR, optimize settings accordingly plan to start weaning protocol in am if stable ABG taper steroids and taper slowly off Heparin gtt as per cardio cardio follows troponin trending down, ECHO with pEF 55-60%, no WMA Nitro prn a/PLT therapy, BB lwo dose, cautiously due to COPD lipid panel stable restarted statin since LFT trending down empiric abx fup with cx UCX and BCX prel negative SCX pending ID follows also on Azithromycin ( for Lyme disease) include Rx for Lyme disease as per ID recs ( was on Minocycline) IVF with D5W, monitor renal paarmnerts and lytes , correct lytes prn , avoid nephrotoxic hyper Na resolved BUN trending down replace K, Mg stable trend LFT-trending down hepatitis panel pending DVT, GI prophylaxis BS management with SSI prn ( on steroids), HgA1c -6.2 nutritional support with NGT feeding, aspiration precautions dietary eval re protein supplements supportive care case discussed and evaluated by supervising physician Critical Care - Objective Last 24 Hour Vital Signs Date Time Temp Pulse Resp B/P (MAP) Pulse Ox O2 Delivery O2 Flow Rate FiO2 10/05/18 07:30 80 16 45 10/05/18 07:00 69 20 120/58 (78) 100 10/05/18 06:03 80 24 127/85 (99) 100 10/05/18 05:00 82 18 134/70 (91) 100 10/05/18 04:51 68 16 45 10/05/18 04:00 Mechanical Ventilator 10/05/18 04:00 98.0 74 18 144/69 (94) 100 10/05/18 04:00 74 10/05/18 04:00 45 10/05/18 03:30 67 16 45 10/05/18 03:00 66 16 134/60 (84) 100 10/05/18 02:00 69 16 127/66 (86) 100 10/05/18 01:30 70 16 45 10/05/18 01:00 75 17 143/64 (90) 100 10/05/18 00:00 Mechanical Ventilator 10/05/18 00:00 97.9 74 16 154/67 (96) 100 10/05/18 00:00 74 10/04/18 23:22 69 16 45 10/04/18 23:00 70 16 152/65 (94) 100 10/04/18 22:00 72 16 148/66 (93) 100 10/04/18 21:30 90 16 45 10/04/18 21:00 78 16 129/60 (83) 100 10/04/18 20:49 81 145/77 10/04/18 20:00 45 10/04/18 20:00 94 10/04/18 20:00 98.5 94 18 146/77 (100) 100 10/04/18 20:00 Mechanical Ventilator 10/04/18 19:30 93 16 45 10/04/18 19:00 88 17 145/72 (96) 100 10/04/18 18:00 89 18 153/73 (99) 100 10/04/18 17:20 84 16 45 10/04/18 17:00 85 21 145/69 (94) 100 10/04/18 16:00 83 10/04/18 16:00 Mechanical Ventilator 10/04/18 16:00 55 10/04/18 16:00 98.6 84 17 144/67 (92) 100 10/04/18 15:00 82 18 154/73 (100) 100 10/04/18 14:59 81 16 55 10/04/18 14:00 79 16 135/56 (82) 100 10/04/18 13:16 78 16 55 10/04/18 13:00 80 16 131/61 (84) 100 10/04/18 12:00 55 10/04/18 12:00 Mechanical Ventilator 10/04/18 12:00 98.6 82 16 143/67 (92) 100 10/04/18 12:00 87 10/04/18 11:08 82 16 55 10/04/18 11:00 82 16 128/59 (82) 100 10/04/18 10:00 88 16 118/89 (99) 100 10/04/18 09:00 95 16 114/59 (77) 100 10/04/18 08:57 112 18 100 Objective: Status: sedated Condition: critical HEENT: atraumatic, OP with ET in place, intact ; NGT Lungs: rhonchi at bases , few scattered wheezes Heart: HR/BP stable Abdomen: soft, non-tender, active bowel sounds Extremities: no C/C/E Micro: Microbiology Date/Time Source Procedure Growth Status 10/03/18 22:05 Blood Blood Culture - Preliminary NO GROWTH AFTER 24 HOURS Resulted 10/03/18 22:00 Blood Blood Culture - Preliminary NO GROWTH AFTER 24 HOURS Resulted 10/04/18 06:00 Sputum Gram Stain - Final Resulted 10/04/18 06:00 Sputum Sputum Culture Pending Resulted 10/04/18 06:00 Indwelling Cath Urine Culture - Preliminary NO GROWTH AFTER 24 HOURS Resulted Accucheck: 288 Critical Care - Subjective ROS Limited/Unobtainable: Yes Interval Events: remains intubated leukocytosis is small trend up, afebrile ABG stable on current settings potassium 3.0 proBNP trending down troponin trending down hepatin drip discontinued by glacing machine tender Condition: critical FI02: 45 Vent Support Breath Rate: 16 Vent Support Mode: AC Vent Tidal Volume: 600 Sputum Amount: Small PEEP: 0.0 PIP: 28 Tube Feeding Amount: 0 I&O: Intake and Output 10/04/18 10/05/18 19:00 07:00 Intake Total 1522.067 ml 1200.0 ml Output Total 850 ml 400 ml Balance 672.067 ml 800.0 ml Intake Free Water 200 ml IV Total 1122.067 ml 1010.0 ml Tube Feeding 200 ml 160 ml Other 30 ml Output Urine Total 850 ml 400 ml CXR: Hyperinflated lungs showing interval endotracheal intubation with ET tube terminating 4.8 cm above the samreen, and placement of an enteric tube that passes below the diaphragms. Tip terminates in the left upper quadrant abdomen in apparent satisfactory position. ET-Tube: 7.5 ET Position: 22 Margaret Salcedo NP October 05, 2018 08:07
[2018-10-05] MEDS: Pantoprazole Inj IV SCH ×2 (08:14→20:46)
[2018-10-05] MEDS: Metoprolol Tartrate 12.5mg TAB NG SCH ×2 (08:14→20:47)
[2018-10-05] MEDS: Aspirin Baby 81mg NG SCH (08:14)
[2018-10-05] MEDS: Heparin 5000 units/ml inj SUBQ SCH (08:16)
--- NOTE | 2018-10-05 08:40 | NUR ---
NURSE NOTES: Dr. Naranjo at bedside to assess the patient. Patient is awake and alert, anxious. Patient is able to follow commands, but impulsive and non-compliant. Patient on bilateral soft wrist restraints.
--- NOTE | 2018-10-05 08:48 | General Progress Note ---
Assessment/Plan Problem List: (1) Respiratory failure ICD Codes: J96.90 - Respiratory failure, unspecified, unspecified whether with hypoxia or hypercapnia SNOMED: 197609863 (2) UTI (urinary tract infection) ICD Codes: N39.0 - Urinary tract infection, site not specified SNOMED: 52067532 (3) Diabetes ICD Codes: E11.9 - Type 2 diabetes mellitus without complications SNOMED: 00329031 (4) Malnutrition ICD Codes: E46 - Unspecified protein-calorie malnutrition SNOMED: 70821182 (5) SOB (shortness of breath) ICD Codes: R06.02 - Shortness of breath SNOMED: 429384339 (6) COPD (chronic obstructive pulmonary disease) ICD Codes: J44.9 - Chronic obstructive pulmonary disease, unspecified SNOMED: 87183222 Qualifiers: Qualified Codes: J44.9 - Chronic obstructive pulmonary disease, unspecified (7) NSTEMI (non-ST elevated myocardial infarction) ICD Codes: I21.4 - Non-ST elevation (NSTEMI) myocardial infarction SNOMED: 09364506 (8) Episode of generalized weakness ICD Codes: R53.1 - Weakness SNOMED: 89579866 Status: unchanged Assessment/Plan: vent abx pain control cardio f/u cbc bmp am Subjective Constitutional: Reports: weakness Allergies: Coded Allergies: RAMIPRIL (Verified Allergy, Unknown, 10/03/18) Uncoded Allergies: SULFA (Allergy, Unknown, 10/03/18) All Systems: reviewed and negative except above Subjective intubated sl agitated in icu Objective Last 24 Hour Vital Signs Date Time Temp Pulse Resp B/P (MAP) Pulse Ox O2 Delivery O2 Flow Rate FiO2 10/05/18 08:14 81 146/64 10/05/18 08:00 97.6 82 19 146/64 (91) 100 10/05/18 08:00 35 10/05/18 07:30 80 16 45 10/05/18 07:00 69 20 120/58 (78) 100 10/05/18 06:03 80 24 127/85 (99) 100 10/05/18 05:00 82 18 134/70 (91) 100 10/05/18 04:51 68 16 45 10/05/18 04:00 Mechanical Ventilator 10/05/18 04:00 98.0 74 18 144/69 (94) 100 10/05/18 04:00 74 10/05/18 04:00 45 10/05/18 03:30 67 16 45 10/05/18 03:00 66 16 134/60 (84) 100 10/05/18 02:00 69 16 127/66 (86) 100 10/05/18 01:30 70 16 45 10/05/18 01:00 75 17 143/64 (90) 100 10/05/18 00:00 Mechanical Ventilator 10/05/18 00:00 97.9 74 16 154/67 (96) 100 10/05/18 00:00 74 10/04/18 23:22 69 16 45 10/04/18 23:00 70 16 152/65 (94) 100 10/04/18 22:00 72 16 148/66 (93) 100 10/04/18 21:30 90 16 45 10/04/18 21:00 78 16 129/60 (83) 100 10/04/18 20:49 81 145/77 10/04/18 20:00 45 10/04/18 20:00 94 10/04/18 20:00 98.5 94 18 146/77 (100) 100 10/04/18 20:00 Mechanical Ventilator 10/04/18 19:30 93 16 45 10/04/18 19:00 88 17 145/72 (96) 100 10/04/18 18:00 89 18 153/73 (99) 100 10/04/18 17:20 84 16 45 10/04/18 17:00 85 21 145/69 (94) 100 10/04/18 16:00 83 10/04/18 16:00 Mechanical Ventilator 10/04/18 16:00 55 10/04/18 16:00 98.6 84 17 144/67 (92) 100 10/04/18 15:00 82 18 154/73 (100) 100 10/04/18 14:59 81 16 55 10/04/18 14:00 79 16 135/56 (82) 100 10/04/18 13:16 78 16 55 10/04/18 13:00 80 16 131/61 (84) 100 10/04/18 12:00 55 10/04/18 12:00 Mechanical Ventilator 10/04/18 12:00 98.6 82 16 143/67 (92) 100 10/04/18 12:00 87 10/04/18 11:08 82 16 55 10/04/18 11:00 82 16 128/59 (82) 100 10/04/18 10:00 88 16 118/89 (99) 100 10/04/18 09:00 95 16 114/59 (77) 100 10/04/18 08:57 112 18 100 Intake and Output 10/04/18 10/05/18 19:00 07:00 Intake Total 1522.067 ml 1200.0 ml Output Total 850 ml 400 ml Balance 672.067 ml 800.0 ml Intake Free Water 200 ml IV Total 1122.067 ml 1010.0 ml Tube Feeding 200 ml 160 ml Other 30 ml Output Urine Total 850 ml 400 ml Laboratory Tests 10/04/18 09:00: Activated Partial Thromboplast Time 32 10/04/18 11:55: Activated Partial Thromboplast Time 32, Triglycerides Level 73, Cholesterol Level 123, LDL Cholesterol 70, HDL Cholesterol 41, Cholesterol/HDL Ratio 3.0L 10/04/18 16:30: Urine Legionella Antigen [Pending] 10/04/18 18:55: Legionella pneumophila Group 1 Ab [Pending], Legionella pneumophilia IgM Group 1 [Pending] 10/05/18 04:00: White Blood Count 16.7H, Red Blood Count 4.31, Hemoglobin 14.3, Hematocrit 42.8 , Mean Corpuscular Volume 99, Mean Corpuscular Hemoglobin 33.1H, Mean Corpuscular Hemoglobin Concent 33.3, Red Cell Distribution Width 14.3, Platelet Count 247, Mean Platelet Volume 7.6, Neutrophils (%) (Auto) , Lymphocytes (%) ( Auto) , Monocytes (%) (Auto) , Eosinophils (%) (Auto) , Basophils (%) (Auto) , Neutrophils % (Manual) [Pending], Lymphocytes % (Manual) [Pending], Platelet Estimate [Pending], Platelet Morphology [Pending], Erythrocyte Sedimentation Rate 10, Sodium Level 142, Potassium Level 3.0L, Chloride Level 106, Carbon Dioxide Level 31, Anion Gap 5, Blood Urea Nitrogen 28H, Creatinine 0.7, Estimat Glomerular Filtration Rate , Glucose Level 288#H, Hemoglobin A1c 6.2H, Uric Acid 4.6, Calcium Level 9.1, Phosphorus Level 1.8L, Magnesium Level 2.0, Ferritin 121, Total Bilirubin 0.8, Gamma Glutamyl Transpeptidase 128H, Aspartate Amino Transf (AST/SGOT) 48H, Alanine Aminotransferase (ALT/SGPT) 94H, Alkaline Phosphatase 163H, Ammonia 17, Total Creatine Kinase 40, Troponin I 1.430H, C-Reactive Protein, Quantitative 3.8H, Pro-B-Type Natriuretic Peptide 2974H, Total Protein 5.5L, Albumin 2.4L, Globulin 3.1, Albumin/Globulin Ratio 0.8L, Vitamin B12 Level 1123H, Folate 13.4, Thyroid Stimulating Hormone (TSH) 2.039, Hepatitis A IgM Antibody [Pending], Hepatitis B Surface Antigen [Pending] , Hepatitis B Core IgM Antibody [Pending], Hepatitis C Antibody [Pending] Height (Feet): 5 Height (Inches): 3.00 Weight (Pounds): 106 General Appearance: lethargic EENT: normal ENT inspection Neck: normal alignment Cardiovascular: normal peripheral pulses, normal rate, regular rhythm Respiratory/Chest: chest wall non-tender, lungs clear, normal breath sounds Abdomen: normal bowel sounds, non tender, soft Genitourinary/Rectal: heme negative stool Edema: no edema noted Arm (L), no edema noted Arm (R), no edema noted Leg (L), no edema noted Leg (R), no edema noted Pedal (L), no edema noted Pedal (R), no edema noted Generalized Neurologic: motor weakness Skin: normal pigmentation, warm/dry Osei Naranjo October 05, 2018 08:48
--- NOTE | 2018-10-05 09:35 | NUR ---
NURSE NOTES: ABG and abnormal lab results reported to MOO Robles. No new orders at this time.
--- NOTE | 2018-10-05 09:46 | NUR ---
RD ASSESSMENT & RECOMMENDATIONS SEE CARE ACTIVITY FOR COMPLETE ASSESSMENT DAILY ESTIMATED NEEDS: Needs based on Critical care, wound, wasting 49kg 25-30 kcals/kg 8568-4576 total kcals 1.25-2 g protein/kg 61-98 g total protein 25-30 mL/kg 2022-5413 total fluid mLs NUTRITION DIAGNOSIS: 1) Swallowing difficulty r/t resp status as evidenced by s/p RR, now orally intubated, on NGT feeds. 2) Altered nutrition related lab values r/t hyperglycemia as evidenced by elev BG (288), A1C 6.2, on D5 + steroidal meds. CURRENT TF: Jevity 1.2 @20ml ENTERAL NUTRITION RECOMMENDATIONS: REC TF CHANGE TO-> GLUCERNA 1.2 @50ML/HR x24HRS to provide 1200ml, 1440 kcal, 72g pro, 966ml free H2O - For improved glycemic control and to better meet est needs, rec TF change to Glucerna 1.2. - Start TF @20ml/hr for 6 hrs. Advance as tolerated 10ml/hr 24-6 hrs to goal - Flush per MD/ HOB over 30 degrees ------ ADDITIONAL RECOMMENDATIONS: 1) TF recs as above 2) Monitor BG, need for long acting insulin 3) Check lytes daily, replete as needed (LOW K, PHOS) 4) F/up w/ WC eval-> sacral partial thickness per documentation Add GAMAL BID via NGT 5) RECALIBRATE bed scale for accurate CBW
--- NOTE | 2018-10-05 11:50 | NUR ---
NURSE NOTES: Patient is awake, alert and oriented, communicating by writing. No acute distress noted. pt's friend at bedside. VSS.
--- NOTE | 2018-10-05 12:30 | NUR ---
NURSE NOTES: Patient reported that she is allergic to heparin by writing. Notified MOO Robles. Heaprin sq was discontinued.
--- NOTE | 2018-10-05 13:20 | NUR ---
NURSE NOTES: unable to perform ABD US today, tube feeding resumed. HOB kept elevated.
--- NOTE | 2018-10-05 14:30 | NUR ---
NURSE NOTES: Inserted left forearm 22G IV.
--- NOTE | 2018-10-05 15:00 | NUR ---
NURSE NOTES: Placed SCDs on bilateral lower extremities
[2018-10-05] MEDS ORDERED: Potassium Phosphate 30 MM in NS 275 ML IV SCH (16:00)
--- NOTE | 2018-10-05 16:50 | Nephrology Progress Note ---
Assessment/Plan Problem List: (1) Azotemia (2) NSTEMI (non-ST elevated myocardial infarction) (3) Respiratory failure (4) COPD (chronic obstructive pulmonary disease) Assessment Acute respiratory failure COPD Azotemia, High Na , elevated LFTs Elevated troponin Plan Slow Hydrate Per cardiology Pulm management taper steroid as possible monitor renal parameters discussed with RN Subjective ROS Limited/Unobtainable: Yes Objective Objective Last 24 Hour Vital Signs Date Time Temp Pulse Resp B/P (MAP) Pulse Ox O2 Delivery O2 Flow Rate FiO2 10/05/18 16:00 35 10/05/18 16:00 97.4 90 20 147/73 (97) 100 10/05/18 16:00 90 10/05/18 15:24 93 16 45 10/05/18 15:00 87 23 140/61 (87) 100 10/05/18 14:00 82 26 139/65 (89) 100 10/05/18 13:04 88 16 45 10/05/18 13:00 87 19 141/67 (91) 100 10/05/18 12:00 Mechanical Ventilator 10/05/18 12:00 35 10/05/18 12:00 98.2 88 22 153/78 (103) 100 10/05/18 12:00 94 10/05/18 11:07 74 16 45 10/05/18 11:00 90 20 108/89 (95) 99 10/05/18 10:00 65 16 120/60 (80) 100 10/05/18 09:16 72 16 45 10/05/18 09:00 74 18 131/48 (75) 100 10/05/18 08:14 81 146/64 10/05/18 08:00 79 10/05/18 08:00 97.6 82 19 146/64 (91) 100 10/05/18 08:00 Mechanical Ventilator 10/05/18 08:00 35 10/05/18 07:30 80 16 45 10/05/18 07:00 69 20 120/58 (78) 100 10/05/18 06:03 80 24 127/85 (99) 100 10/05/18 05:00 82 18 134/70 (91) 100 10/05/18 04:51 68 16 45 10/05/18 04:00 Mechanical Ventilator 10/05/18 04:00 98.0 74 18 144/69 (94) 100 10/05/18 04:00 74 10/05/18 04:00 45 10/05/18 03:30 67 16 45 10/05/18 03:00 66 16 134/60 (84) 100 10/05/18 02:00 69 16 127/66 (86) 100 10/05/18 01:30 70 16 45 10/05/18 01:00 75 17 143/64 (90) 100 10/05/18 00:00 Mechanical Ventilator 10/05/18 00:00 97.9 74 16 154/67 (96) 100 10/05/18 00:00 74 10/04/18 23:22 69 16 45 10/04/18 23:00 70 16 152/65 (94) 100 10/04/18 22:00 72 16 148/66 (93) 100 10/04/18 21:30 90 16 45 10/04/18 21:00 78 16 129/60 (83) 100 10/04/18 20:49 81 145/77 10/04/18 20:00 45 10/04/18 20:00 94 10/04/18 20:00 98.5 94 18 146/77 (100) 100 10/04/18 20:00 Mechanical Ventilator 10/04/18 19:30 93 16 45 10/04/18 19:00 88 17 145/72 (96) 100 10/04/18 18:00 89 18 153/73 (99) 100 10/04/18 17:20 84 16 45 10/04/18 17:00 85 21 145/69 (94) 100 Intake and Output 10/04/18 10/05/18 19:00 07:00 Intake Total 1522.067 ml 1200.0 ml Output Total 850 ml 400 ml Balance 672.067 ml 800.0 ml Intake Free Water 200 ml IV Total 1122.067 ml 1010.0 ml Tube Feeding 200 ml 160 ml Other 30 ml Output Urine Total 850 ml 400 ml Laboratory Tests 10/04/18 18:55: Legionella pneumophila Group 1 Ab [Pending], Legionella pneumophilia IgM Group 1 [Pending] 10/05/18 04:00: White Blood Count 16.7H, Red Blood Count 4.31, Hemoglobin 14.3, Hematocrit 42.8 , Mean Corpuscular Volume 99, Mean Corpuscular Hemoglobin 33.1H, Mean Corpuscular Hemoglobin Concent 33.3, Red Cell Distribution Width 14.3, Platelet Count 247, Mean Platelet Volume 7.6, Neutrophils (%) (Auto) , Lymphocytes (%) ( Auto) , Monocytes (%) (Auto) , Eosinophils (%) (Auto) , Basophils (%) (Auto) , Differential Total Cells Counted 100, Neutrophils % (Manual) 94H, Lymphocytes % (Manual) 3L, Monocytes % (Manual) 3, Eosinophils % (Manual) 0, Basophils % ( Manual) 0, Band Neutrophils 0, Platelet Estimate Adequate, Platelet Morphology Normal, Anisocytosis 1+, Erythrocyte Sedimentation Rate 10, Sodium Level 142, Potassium Level 3.0L, Chloride Level 106, Carbon Dioxide Level 31, Anion Gap 5, Blood Urea Nitrogen 28H, Creatinine 0.7, Estimat Glomerular Filtration Rate , Glucose Level 288#H, Hemoglobin A1c 6.2H, Uric Acid 4.6, Calcium Level 9.1, Phosphorus Level 1.8L, Magnesium Level 2.0, Ferritin 121, Total Bilirubin 0.8, Gamma Glutamyl Transpeptidase 128H, Aspartate Amino Transf (AST/SGOT) 48H, Alanine Aminotransferase (ALT/SGPT) 94H, Alkaline Phosphatase 163H, Ammonia 17, Total Creatine Kinase 40, Troponin I 1.430H, C-Reactive Protein, Quantitative 3.8H, Pro-B-Type Natriuretic Peptide 2974H, Total Protein 5.5L, Albumin 2.4L, Globulin 3.1, Albumin/Globulin Ratio 0.8L, Vitamin B12 Level 1123H, Folate 13.4 , Thyroid Stimulating Hormone (TSH) 2.039, Hepatitis A IgM Antibody [Pending], Hepatitis B Surface Antigen [Pending], Hepatitis B Core IgM Antibody [Pending], Hepatitis C Antibody [Pending] 10/05/18 09:06: Arterial Blood pH 7.504H, Arterial Blood Partial Pressure CO2 38.9, Arterial Blood Partial Pressure O2 99.2, Arterial Blood HCO3 29.9H, Arterial Blood Oxygen Saturation 97.9, Arterial Blood Base Excess 6.4H, Clyde Test Positive Height (Feet): 5 Height (Inches): 3.00 Weight (Pounds): 106 General Appearance: no apparent distress, agitated - at times EENT: other - vented Cardiovascular: tachycardia Respiratory/Chest: decreased breath sounds Abdomen: distended Fouladian,Robbie MD October 05, 2018 16:50
--- NOTE | 2018-10-05 17:11 | NUR ---
NURSE NOTES: Patient resting in bed with eyes closed. no acute distress noted. VSS. Will continue to monitor.
[2018-10-05] MEDS: Azithromycin 500 MG in D5W 275 ML IV SCH (17:43)
[2018-10-05] MEDS: Nitroglycerin Patch 0.4mg TDERMAL SCH (17:43)
--- NOTE | 2018-10-05 17:49 | Cardiac Electrophysiology PN ---
Assessment/Plan Assessment/Plan 1. NSTEMI. likely type 2. No acute ECG changes. EF nl and no WMA. On aspirin, Lopressor and lipitor 2. Resp Failure on the vent. 3. Lyme's disease 4. sepsis on Abx per ID Subjective Subjective Intubated in ICU. Failed weaning. Alert and responsive. RN at bedside Objective Last 24 Hour Vital Signs Date Time Temp Pulse Resp B/P (MAP) Pulse Ox O2 Delivery O2 Flow Rate FiO2 10/05/18 17:00 102 19 140/97 (111) 100 10/05/18 16:00 35 10/05/18 16:00 97.4 90 20 147/73 (97) 100 10/05/18 16:00 90 10/05/18 16:00 Mechanical Ventilator 10/05/18 15:24 93 16 45 10/05/18 15:00 87 23 140/61 (87) 100 10/05/18 14:00 82 26 139/65 (89) 100 10/05/18 13:04 88 16 45 10/05/18 13:00 87 19 141/67 (91) 100 10/05/18 12:00 Mechanical Ventilator 10/05/18 12:00 35 10/05/18 12:00 98.2 88 22 153/78 (103) 100 10/05/18 12:00 94 10/05/18 11:07 74 16 45 10/05/18 11:00 90 20 108/89 (95) 99 10/05/18 10:00 65 16 120/60 (80) 100 10/05/18 09:16 72 16 45 10/05/18 09:00 74 18 131/48 (75) 100 10/05/18 08:14 81 146/64 10/05/18 08:00 79 10/05/18 08:00 97.6 82 19 146/64 (91) 100 10/05/18 08:00 Mechanical Ventilator 10/05/18 08:00 35 10/05/18 07:30 80 16 45 10/05/18 07:00 69 20 120/58 (78) 100 10/05/18 06:03 80 24 127/85 (99) 100 10/05/18 05:00 82 18 134/70 (91) 100 10/05/18 04:51 68 16 45 10/05/18 04:00 Mechanical Ventilator 10/05/18 04:00 98.0 74 18 144/69 (94) 100 10/05/18 04:00 74 10/05/18 04:00 45 10/05/18 03:30 67 16 45 10/05/18 03:00 66 16 134/60 (84) 100 10/05/18 02:00 69 16 127/66 (86) 100 10/05/18 01:30 70 16 45 10/05/18 01:00 75 17 143/64 (90) 100 10/05/18 00:00 Mechanical Ventilator 10/05/18 00:00 97.9 74 16 154/67 (96) 100 10/05/18 00:00 74 10/04/18 23:22 69 16 45 10/04/18 23:00 70 16 152/65 (94) 100 10/04/18 22:00 72 16 148/66 (93) 100 10/04/18 21:30 90 16 45 10/04/18 21:00 78 16 129/60 (83) 100 10/04/18 20:49 81 145/77 10/04/18 20:00 45 10/04/18 20:00 94 10/04/18 20:00 98.5 94 18 146/77 (100) 100 10/04/18 20:00 Mechanical Ventilator 10/04/18 19:30 93 16 45 10/04/18 19:00 88 17 145/72 (96) 100 10/04/18 18:00 89 18 153/73 (99) 100 Intake and Output 10/04/18 10/05/18 19:00 07:00 Intake Total 1522.067 ml 1200.0 ml Output Total 850 ml 400 ml Balance 672.067 ml 800.0 ml Intake Free Water 200 ml IV Total 1122.067 ml 1010.0 ml Tube Feeding 200 ml 160 ml Other 30 ml Output Urine Total 850 ml 400 ml Laboratory Tests Test 10/04/18 18:55 10/05/18 04:00 10/05/18 09:06 Legionella pneumophila Group 1 Ab Pending Legionella pneumophilia IgM Group 1 Pending White Blood Count 16.7 K/UL (4.8-10.8) H Red Blood Count 4.31 M/UL (4.20-5.40) Hemoglobin 14.3 G/DL (12.0-16.0) Hematocrit 42.8 % (37.0-47.0) Mean Corpuscular Volume 99 FL (80-99) Mean Corpuscular Hemoglobin 33.1 PG (27.0-31.0) H Mean Corpuscular Hemoglobin Concent 33.3 G/DL (32.0-36.0) Red Cell Distribution Width 14.3 % (11.6-14.8) Platelet Count 247 K/UL (150-450) Mean Platelet Volume 7.6 FL (6.5-10.1) Neutrophils (%) (Auto) % (45.0-75.0) Lymphocytes (%) (Auto) % (20.0-45.0) Monocytes (%) (Auto) % (1.0-10.0) Eosinophils (%) (Auto) % (0.0-3.0) Basophils (%) (Auto) % (0.0-2.0) Differential Total Cells Counted 100 Neutrophils % (Manual) 94 % (45-75) H Lymphocytes % (Manual) 3 % (20-45) L Monocytes % (Manual) 3 % (1-10) Eosinophils % (Manual) 0 % (0-3) Basophils % (Manual) 0 % (0-2) Band Neutrophils 0 % (0-8) Platelet Estimate Adequate Platelet Morphology Normal Anisocytosis 1+ Erythrocyte Sedimentation Rate 10 MM/HR (0-30) Sodium Level 142 MMOL/L (136-145) Potassium Level 3.0 MMOL/L (3.5-5.1) L Chloride Level 106 MMOL/L (98-107) Carbon Dioxide Level 31 MMOL/L (21-32) Anion Gap 5 mmol/L (5-15) Blood Urea Nitrogen 28 mg/dL (7-18) H Creatinine 0.7 MG/DL (0.55-1.30) Estimat Glomerular Filtration Rate mL/min (>60) Glucose Level 288 MG/DL (74-106) #H Hemoglobin A1c 6.2 % (4.3-6.0) H Uric Acid 4.6 MG/DL (2.6-7.2) Calcium Level 9.1 MG/DL (8.5-10.1) Phosphorus Level 1.8 MG/DL (2.5-4.9) L Magnesium Level 2.0 MG/DL (1.8-2.4) Ferritin 121 NG/ML (8-388) Total Bilirubin 0.8 MG/DL (0.2-1.0) Gamma Glutamyl Transpeptidase 128 U/L (5-85) H Aspartate Amino Transf (AST/SGOT) 48 U/L (15-37) H Alanine Aminotransferase (ALT/SGPT) 94 U/L (12-78) H Alkaline Phosphatase 163 U/L (46-116) H Ammonia 17 umol/L (11-32) Total Creatine Kinase 40 U/L (26-308) Troponin I 1.430 ng/mL (0.000-0.056) C-Reactive Protein, Quantitative 3.8 mg/dL (0.00-0.90) H Pro-B-Type Natriuretic Peptide 2974 pg/mL (0-125) H Total Protein 5.5 G/DL (6.4-8.2) L Albumin 2.4 G/DL (3.4-5.0) L Globulin 3.1 g/dL Albumin/Globulin Ratio 0.8 (1.0-2.7) L Vitamin B12 Level 1123 PG/ML (193-986) H Folate 13.4 NG/ML (8.6-58.9) Thyroid Stimulating Hormone (TSH) 2.039 uiU/mL (0.358-3.740) Hepatitis A IgM Antibody Pending Hepatitis B Surface Antigen Pending Hepatitis B Core IgM Antibody Pending Hepatitis C Antibody Pending Arterial Blood pH 7.504 (7.350-7.450) Arterial Blood Partial Pressure CO2 38.9 mmHg (35.0-45.0) Arterial Blood Partial Pressure O2 99.2 mmHg (75.0-100.0) Arterial Blood HCO3 29.9 mmol/L (22.0-26.0) H Arterial Blood Oxygen Saturation 97.9 % (95-100) Arterial Blood Base Excess 6.4 (-2-2) H Clyde Test Positive Microbiology Date/Time Source Procedure Growth Status 10/03/18 22:05 Blood Blood Culture - Preliminary NO GROWTH AFTER 24 HOURS Resulted 10/03/18 22:00 Blood Blood Culture - Preliminary NO GROWTH AFTER 24 HOURS Resulted 10/04/18 06:00 Sputum Gram Stain - Final Resulted 10/04/18 06:00 Sputum Sputum Culture Pending Resulted 10/04/18 06:00 Indwelling Cath Urine Culture - Preliminary NO GROWTH AFTER 24 HOURS Resulted Objective Status: sedated Condition: critical HEENT: No JVD. Orally intubated. NGT Lungs: rhonchi at bases , few scattered wheezes Heart: HR/BP stable Abdomen: soft, non-tender, active bowel sounds Extremities: no C/C/E Braulio Cruz MD October 05, 2018 17:49
--- NOTE | 2018-10-05 18:09 | NUR ---
NURSE NOTES: Patient alert and oriented, able to follow commands, but impulsive, attempts to reach for ETT. On bilateral soft wrist restraints, no skin breakdown noted, pulses present. Patient education on restraints given.
--- NOTE | 2018-10-05 19:00 | NUR ---
HAND-OFF: Report given to SLOANE Alex.
--- NOTE | 2018-10-05 19:25 | NUR ---
RESPIRATORY NOTE: Patient received mechanically ventilated on PB 840 with current ordered vent settings. Patient is orally intubated with ETT tube size 7.5 with 22cm at the lip line that is secured with an anchor fast. Vent alarms are functional and audible. There is an ambu bag available at the bedside and the vent is connected to a red outlet. Patient appears comfortable at this time. Will continue to monitor.
--- NOTE | 2018-10-05 19:30 | NUR ---
NURSE NOTES: Received pt in no acute distress; awake, alert, oriented x3 but very anxious and slightly restless. Currently denies any pain, denies SOB. Remains orally intubated with #7.5 ETT placed over left lip at 22cm with vent settings of AC16 TV600 fiO2.35 with sats at 99-100%. Chest sounds with scattered rhonchi,secretions small amt white. OGT in situ and TF with Glucerna 1,2 running at 20ml/h with 0 residuals. PIV site on LFA patent with IVF of D5W running at 75ml/h. KPhos infusing via RAC at 47.5ml/h. Pt communicates by writing. Bilat soft wrist restraints maintained as pt tends to be impulsive. FC intact, UOP 30-35ml/h. Plan of care explained. Will continue to monitor
[2018-10-05] MEDS: LORazepam Inj 2mg/ml 1ml IV PRN (20:47)
--- NOTE | 2018-10-05 20:47 | NUR ---
NURSE NOTES: Restless, agitated, attempting to get up. Ativan 2mg IVP given
--- NOTE | 2018-10-05 22:00 | NUR ---
NURSE NOTES: Sleeping. No distress. Oral care and suctioning done. Tolerating TF.
--- NOTE | 2018-10-05 23:54 | Diagnostic Imaging Report ---
EXAM: XR Chest, 1 View CLINICAL HISTORY: DYSPNEA TECHNIQUE: Frontal view of the chest. COMPARISON: Chest x-ray, 10/04/18 613 FINDINGS: Lungs: Hyperinflated lungs of COPD. Mild interstitial/vascular, slightly improved. Pleural space: Unremarkable. No pneumothorax. Heart: Mild cardiomegaly. Mediastinum: Unremarkable. Bones/joints: Unremarkable. Tubes, lines and devices: Stable endotracheal tube and NG tube. IMPRESSION: Hyperinflated lungs of COPD. Mild interstitial/vascular prominence, slightly improved.
[2018-10-06] VITALS (24 sets, daily range): BP systolic 80–168; BP diastolic 44–99
--- NOTE | 2018-10-06 | NUR ---
NURSE NOTES: Calm, passive, asleep. Afebrile, BP stable; NSR. No distress. UOP picking up
--- NOTE | 2018-10-06 01:12 | NUR ---
NURSE NOTES: Awake, agitated and c/o pain/discomfort. Squirming,arched and difficult to comfort. Morphine 2mg IVP given
--- NOTE | 2018-10-06 02:00 | NUR ---
NURSE NOTES: TF held, pt for US of abdomen this morning. Sleeping, no distress.
--- NOTE | 2018-10-06 04:00 | NUR ---
NURSE NOTES: Had 1 small formed BM. Bathed, linen changed. Sacral area clean, dry, no redness noted. PIV sites intact. afebrile, BP stable; NSR. TF on hold. Non behavioral restraints renewed
[2018-10-06 05:01] LABS: HEMATOCRIT 41.7 % (37.0-47.0); HEMOGLOBIN 13.8 G/DL (12.0-16.0); MEAN CORPUSCULAR VOLUME 100 FL (80-99); PLATELET COUNT 247 K/UL (150-450); RED BLOOD COUNT 4.19 M/UL (4.20-5.40); RED CELL DISTRIBUTION WIDTH 14.5 % (11.6-14.8)
[2018-10-06 05:32] LABS: ALANINE AMINOTRANSFERASE 66 U/L (12-78); ALBUMIN 2.3 G/DL (3.4-5.0); ALBUMIN/GLOBULIN RATIO 0.7 (1.0-2.7); ALKALINE PHOSPHATASE 127 U/L (46-116); ANION GAP 5 mmol/L (5-15); ASPARTATE AMINO TRANSFERASE 21 U/L (15-37); BILIRUBIN,TOTAL 0.7 MG/DL (0.2-1.0); BLOOD UREA NITROGEN 21 mg/dL (7-18); CALCIUM 8.9 MG/DL (8.5-10.1); CARBON DIOXIDE 31 MMOL/L (21-32); CHLORIDE 102 MMOL/L (98-107); CREATININE 0.7 MG/DL (0.55-1.30); PHOSPHORUS 3.6 MG/DL (2.5-4.9); SODIUM 138 MMOL/L (136-145)
[2018-10-06 05:34] LABS: WHITE BLOOD COUNT 22.9 K/UL (4.8-10.8)
[2018-10-06] MEDS: Solu-MEDROL 125mg Inj IV SCH (05:40)
[2018-10-06] MEDS: Zosyn 3.375gm q8h **Extended infusion IVPB SCH ×6 (05:41→20:23)
[2018-10-06] MEDS: NovoLOG Insulin Flexpen SUBQ SCH ×4 (05:42→23:28)
--- NOTE | 2018-10-06 06:00 | NUR ---
NURSE NOTES: Extremely restless;agitated. Held off on sedation in lieu of weaning. Reassured, restraints maintained. Repositioned for comfort. Lab reports WBC of 22.9; called to Dr Cortez, awaiting response.
--- NOTE | 2018-10-06 07:19 | NUR ---
HAND-OFF: Report given to Jeffrey Nuñez RN.
--- NOTE | 2018-10-06 07:20 | NUR ---
NURSE NOTES: Report received from Isai ANTON. Pt alert and oriented x4, able to make needs known by writing. Pt very agitated and restless this am given, ativan prn anxiety. Pt connected to bus monitor, SR. Pt orally intubated with ETT 7.5, 22 cm at the lip line, Ac 16, TV 600, 35% fiO2 and 0 PEEP. OGT clamped, TF on hold for abdominal US today. Barnhart noted and intact draining clear, yellow urine to gravity. LFA 22 G noted and intact and RAC 20G with D5W @ 75 cc/hr. Bilateral wrist restraints noted, pt continues to attempt to get oob and pull out lines and tubes. Safety measures in place with bed locked and in lowest position, side rails x 3 up and bed alarm on. Will continue to monitor and contiue plan of care.
[2018-10-06] MEDS: LORazepam Inj 2mg/ml 1ml IV PRN ×4 (07:21→21:50)
--- NOTE | 2018-10-06 08:15 | Consultation ---
DATE OF CONSULTATION: 10/04/2018 CARDIOLOGY CONSULTATION CONSULTING PHYSICIAN: Braulio Cruz M.D. REFERRING PHYSICIAN: Osei Naranjo D.O. REASON FOR CONSULTATION: [id number] myocardial infarction. HISTORY OF PRESENT ILLNESS: The patient is a 78-year-old lady with history of hypertension and chronic obstructive pulmonary disease, was brought to the emergency room from home for feeling weak. The patient stated that she woke up after sleeping for two days. The patient lives at home alone. 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 The patient believes that her symptoms are because of Lyme disease and has not been adequately treated for this. The patient is on Minocycline. Denies any recent travel. The patient initially was admitted to [facility] and then had a respiratory failure and was intubated and brought to intensive care unit. Her troponin was also elevated and EKG showed lateral ST wave abnormalities. At the time of my evaluation, the patient is intubated in the intensive care unit and is not able to provide any information. PAST MEDICAL HISTORY: 1. Hypertension. 2. Chronic obstructive pulmonary disease. ALLERGIES: She is allergic to sulfa and ramipril. SOCIAL HISTORY: She lives at home. She is a psychologist. Does not smoke or drink alcohol. REVIEW OF SYSTEMS: Cannot be obtained. PHYSICAL EXAMINATION: VITAL SIGNS: Blood pressure 154/73, pulse 82, and respirations 18. HEAD AND NECK: She is orally intubated. 01:37 G-tube. LUNGS: Coarse rhonchi. CARDIOVASCULAR: Shows regular S1 and S2 with no gallop or murmur. ABDOMEN: Soft. EXTREMITIES: No pitting edema. LABORATORY AND DIAGNOSTIC DATA: Her labs show white count of 15.4, hemoglobin of 14.4, hematocrit of 46, and platelet count of 247,000. Sodium 142, potassium is 5, BUN of 30, creatinine 0.6, and glucose of 171. Her troponin is 1.88 and 1.369. Her BNP is more than 7000. AST, ALT, and alkaline phosphatase were elevated. Her urine toxicology screen was negative. INR is 1.2. Urinalysis was negative. ASSESSMENT AND PLAN: 1. [id number] myocardial infarction by elevated troponin and abnormal electrocardiogram. The troponin levels are coming down. I will discontinue heparin. Start the patient on aspirin and beta-gladys and statin. After stabilization, the patient likely would need cardiac catheterization for further evaluation. An echocardiogram was also performed that showed ejection fraction 55 to 60 percent. 2. Respiratory failure. Currently, on the ventilator. 3. Hypernatremia and azotemia. On IV fluid per Dr. Garza. 4. Elevated liver function tests. 5. History of Lyme disease. Thank you very much, Dr. Naranjo, for allowing me to participate in the care of this patient. Please do not hesitate to contact me for any questions regarding my evaluation. Braulio Cruz M.D. DR: [facility] JOB#: [id number] CC:
[2018-10-06] MEDS: Aspirin Baby 81mg NG SCH (08:16)
[2018-10-06] MEDS: Pantoprazole Inj IV SCH ×2 (08:16→20:22)
[2018-10-06] MEDS: Metoprolol Tartrate 12.5mg TAB NG SCH (08:17)
--- NOTE | 2018-10-06 09:41 | NUR ---
RADIOLOGY DEPT., CHEST X-RAY DONE.-P.DYE
--- NOTE | 2018-10-06 10:39 | NUR ---
NURSE NOTES: Dr Romo here to see pt. Pt getting abdominal US. No acute distress. Will continue to monitor.
--- NOTE | 2018-10-06 10:52 | Pulmonolgy Critical Care Note ---
Critical Care - Asmt/Plan Problems: (1) Acute respiratory failure (2) COPD (chronic obstructive pulmonary disease) (3) Diabetes (4) Severe protein-calorie malnutrition Respiratory: monitor respiratory rate, adjust FIO2, CXR Cardiac: continue to monitor HR/BP Renal: F/U I&O Infectious Disease: check cultures, continue antibiotics Gastrointestinal: continue feedings/current rate Endocrine: monitor blood sugar Hematologic: monitor H/H, transfuse if hgb<8.5 Neurologic: PRN Ativan, keep patient comfortable Affect: PRN ativan Prophylaxis: Protonix, Heparin Time Spent (Minutes): 40 Notes Reviewed: laborer [facility] house, cardio, ID Discussed with: nurses, consultants, director of casework departmentmortgage branch manager - Objective Last 24 Hour Vital Signs Date Time Temp Pulse Resp B/P (MAP) Pulse Ox O2 Delivery O2 Flow Rate FiO2 10/06/18 09:15 105 16 45 10/06/18 09:00 62 16 145/69 (94) 100 10/06/18 08:17 115 80/44 10/06/18 08:00 35 10/06/18 08:00 Mechanical Ventilator 10/06/18 08:00 76 10/06/18 08:00 97.7 71 16 93/53 (66) 100 10/06/18 07:07 115 17 45 10/06/18 07:00 86 16 80/44 (56) 99 10/06/18 06:04 104 16 152/70 (97) 100 10/06/18 05:15 68 16 45 10/06/18 05:00 71 18 112/64 (80) 100 10/06/18 04:00 Mechanical Ventilator 10/06/18 04:00 81 10/06/18 04:00 35 10/06/18 04:00 97.8 81 21 150/77 (101) 100 10/06/18 03:12 60 16 45 10/06/18 03:00 60 16 129/60 (83) 100 10/06/18 02:00 61 16 115/68 (84) 100 10/06/18 01:22 97 17 45 10/06/18 01:00 79 16 168/84 (112) 100 10/06/18 00:00 97.9 79 17 139/69 (92) 100 10/06/18 00:00 79 10/06/18 00:00 35 10/06/18 00:00 Mechanical Ventilator 10/05/18 23:18 83 16 45 10/05/18 23:00 84 19 143/91 (108) 100 10/05/18 22:00 69 16 103/54 (70) 100 10/05/18 21:00 95 17 117/88 (98) 100 10/05/18 20:53 104 16 45 10/05/18 20:47 103 130/89 10/05/18 20:00 35 10/05/18 20:00 Mechanical Ventilator 10/05/18 20:00 98.5 105 16 130/89 (103) 100 10/05/18 20:00 105 10/05/18 19:21 102 16 45 10/05/18 19:00 108 20 146/69 (94) 100 10/05/18 18:00 114 21 151/68 (95) 100 10/05/18 17:43 140/97 10/05/18 17:01 86 16 45 10/05/18 17:00 102 19 140/97 (111) 100 10/05/18 16:00 35 10/05/18 16:00 97.4 90 20 147/73 (97) 100 10/05/18 16:00 90 10/05/18 16:00 Mechanical Ventilator 10/05/18 15:24 93 16 45 10/05/18 15:00 87 23 140/61 (87) 100 10/05/18 14:00 82 26 139/65 (89) 100 10/05/18 13:04 88 16 45 10/05/18 13:00 87 19 141/67 (91) 100 10/05/18 12:00 Mechanical Ventilator 10/05/18 12:00 35 10/05/18 12:00 98.2 88 22 153/78 (103) 100 10/05/18 12:00 94 10/05/18 11:07 74 16 45 10/05/18 11:00 90 20 108/89 (95) 99 Status: awake HEENT: atraumatic Neck: full ROM Lungs: clear Heart: HR/BP stable, regular Abdomen: soft, non-tender Extremities: no C/C/E, edema Decubiti: location Micro: Microbiology Date/Time Source Procedure Growth Status 10/03/18 22:05 Blood Blood Culture - Preliminary NO GROWTH AFTER 48 HOURS Resulted 10/03/18 22:00 Blood Blood Culture - Preliminary NO GROWTH AFTER 48 HOURS Resulted 10/04/18 06:20 Nasal Nares MRSA Culture - Final NO METHICILLIN RESISTANT STAPH AUREUS... Complete 10/04/18 06:00 Sputum Gram Stain - Final Complete 10/04/18 06:00 Sputum Sputum Culture - Final NORMAL UPPER RESPIRATORY ART PRESENT Complete 10/04/18 06:00 Indwelling Cath Urine Culture - Final NO GROWTH AFTER 48 HOURS Complete 10/04/18 06:20 Rectum VRE Culture - Final NO VANCOMYCIN RESISTANT ENTEROCOCCUS ... Complete 10/04/18 06:20 Rectum - Final NO CARBAPENEM-RESISTANT ENTEROBACTERI... Complete Accucheck: 161 Critical Care - Subjective ROS Limited/Unobtainable: No Condition: critical EKG Rhythm: Sinus Rhythm FI02: 45 Vent Support Breath Rate: 16 Vent Support Mode: AC Vent Tidal Volume: 600 Sputum Amount: Scant PEEP: 0.0 PIP: 20 Tube Feeding Amount: 0 I&O: Intake and Output 10/05/18 10/06/18 19:00 07:00 Intake Total 2059.0 ml 1265.0 ml Output Total 355 ml 665 ml Balance 1704.0 ml 600.0 ml Intake Free Water 110 ml 60 ml IV Total 1909.0 ml 1105.0 ml Tube Feeding 40 ml 100 ml Output Urine Total 355 ml 665 ml # Bowel Movements 1 CXR: clear ET-Tube: 7.5 ET Position: 22 Labs: Laboratory Tests Test 10/06/18 03:50 10/06/18 08:20 White Blood Count 22.9 K/UL (4.8-10.8) *H Red Blood Count 4.19 M/UL (4.20-5.40) L Hemoglobin 13.8 G/DL (12.0-16.0) Hematocrit 41.7 % (37.0-47.0) Mean Corpuscular Volume 100 FL (80-99) H Mean Corpuscular Hemoglobin 33.0 PG (27.0-31.0) H Mean Corpuscular Hemoglobin Concent 33.2 G/DL (32.0-36.0) Red Cell Distribution Width 14.5 % (11.6-14.8) Platelet Count 247 K/UL (150-450) Mean Platelet Volume 8.2 FL (6.5-10.1) Neutrophils (%) (Auto) % (45.0-75.0) Lymphocytes (%) (Auto) % (20.0-45.0) Monocytes (%) (Auto) % (1.0-10.0) Eosinophils (%) (Auto) % (0.0-3.0) Basophils (%) (Auto) % (0.0-2.0) Differential Total Cells Counted 100 Neutrophils % (Manual) 96 % (45-75) H Lymphocytes % (Manual) 2 % (20-45) L Monocytes % (Manual) 2 % (1-10) Eosinophils % (Manual) 0 % (0-3) Basophils % (Manual) 0 % (0-2) Band Neutrophils 0 % (0-8) Platelet Estimate Adequate Platelet Morphology Normal Red Blood Cell Morphology Normal Sodium Level 138 MMOL/L (136-145) Potassium Level 4.0 MMOL/L (3.5-5.1) Chloride Level 102 MMOL/L (98-107) Carbon Dioxide Level 31 MMOL/L (21-32) Anion Gap 5 mmol/L (5-15) Blood Urea Nitrogen 21 mg/dL (7-18) H Creatinine 0.7 MG/DL (0.55-1.30) Estimat Glomerular Filtration Rate mL/min (>60) Glucose Level 161 MG/DL (74-106) #H Uric Acid 2.8 MG/DL (2.6-7.2) Calcium Level 8.9 MG/DL (8.5-10.1) Phosphorus Level 3.6 MG/DL (2.5-4.9) Magnesium Level 2.0 MG/DL (1.8-2.4) Total Bilirubin 0.7 MG/DL (0.2-1.0) Aspartate Amino Transf (AST/SGOT) 21 U/L (15-37) Alanine Aminotransferase (ALT/SGPT) 66 U/L (12-78) Alkaline Phosphatase 127 U/L (46-116) H C-Reactive Protein, Quantitative 1.7 mg/dL (0.00-0.90) H Pro-B-Type Natriuretic Peptide 2696 pg/mL (0-125) H Total Protein 5.4 G/DL (6.4-8.2) L Albumin 2.3 G/DL (3.4-5.0) L Globulin 3.1 g/dL Albumin/Globulin Ratio 0.7 (1.0-2.7) L Arterial Blood pH 7.470 (7.350-7.450) Arterial Blood Partial Pressure CO2 34.4 mmHg (35.0-45.0) L Arterial Blood Partial Pressure O2 90.0 mmHg (75.0-100.0) Arterial Blood HCO3 24.5 mmol/L (22.0-26.0) Arterial Blood Oxygen Saturation 96.9 % (95-100) Arterial Blood Base Excess 1.3 (-2-2) Clyde Test Positive Steven Romo MD October 06, 2018 10:52
[2018-10-06] MEDS ORDERED: NS 275ml ONE (11:20)
[2018-10-06] MEDS ORDERED: Sterile Water Irrig 1000ml IRRIG ONE (11:21)
--- NOTE | 2018-10-06 11:55 | Cardiac Electrophysiology PN ---
Assessment/Plan Assessment/Plan 1. NSTEMI. likely type 2. No acute ECG changes. EF nl and no WMA. On aspirin and lipitor. DC Lopressor in view of Low BP 2. Resp Failure on the vent. 3. Lyme's disease 4. Sepsis on Abx per ID Subjective Subjective Sedated and Intubated in ICU on the vent. No SVT or VT. RN at bedside Objective Last 24 Hour Vital Signs Date Time Temp Pulse Resp B/P (MAP) Pulse Ox O2 Delivery O2 Flow Rate FiO2 10/06/18 11:16 70 16 45 10/06/18 11:00 71 17 138/71 (93) 100 10/06/18 10:00 65 16 162/82 (108) 100 10/06/18 09:15 105 16 45 10/06/18 09:00 62 16 145/69 (94) 100 10/06/18 08:17 115 80/44 10/06/18 08:00 35 10/06/18 08:00 Mechanical Ventilator 10/06/18 08:00 76 10/06/18 08:00 97.7 71 16 93/53 (66) 100 10/06/18 07:07 115 17 45 10/06/18 07:00 86 16 80/44 (56) 99 10/06/18 06:04 104 16 152/70 (97) 100 10/06/18 05:15 68 16 45 10/06/18 05:00 71 18 112/64 (80) 100 10/06/18 04:00 Mechanical Ventilator 10/06/18 04:00 81 10/06/18 04:00 35 10/06/18 04:00 97.8 81 21 150/77 (101) 100 10/06/18 03:12 60 16 45 10/06/18 03:00 60 16 129/60 (83) 100 10/06/18 02:00 61 16 115/68 (84) 100 10/06/18 01:22 97 17 45 10/06/18 01:00 79 16 168/84 (112) 100 10/06/18 00:00 97.9 79 17 139/69 (92) 100 10/06/18 00:00 79 10/06/18 00:00 35 10/06/18 00:00 Mechanical Ventilator 10/05/18 23:18 83 16 45 10/05/18 23:00 84 19 143/91 (108) 100 10/05/18 22:00 69 16 103/54 (70) 100 10/05/18 21:00 95 17 117/88 (98) 100 10/05/18 20:53 104 16 45 10/05/18 20:47 103 130/89 10/05/18 20:00 35 10/05/18 20:00 Mechanical Ventilator 10/05/18 20:00 98.5 105 16 130/89 (103) 100 10/05/18 20:00 105 10/05/18 19:21 102 16 45 10/05/18 19:00 108 20 146/69 (94) 100 10/05/18 18:00 114 21 151/68 (95) 100 10/05/18 17:43 140/97 10/05/18 17:01 86 16 45 10/05/18 17:00 102 19 140/97 (111) 100 10/05/18 16:00 35 10/05/18 16:00 97.4 90 20 147/73 (97) 100 10/05/18 16:00 90 10/05/18 16:00 Mechanical Ventilator 10/05/18 15:24 93 16 45 10/05/18 15:00 87 23 140/61 (87) 100 10/05/18 14:00 82 26 139/65 (89) 100 10/05/18 13:04 88 16 45 10/05/18 13:00 87 19 141/67 (91) 100 10/05/18 12:00 Mechanical Ventilator 10/05/18 12:00 35 10/05/18 12:00 98.2 88 22 153/78 (103) 100 10/05/18 12:00 94 Intake and Output 10/05/18 10/06/18 19:00 07:00 Intake Total 2059.0 ml 1265.0 ml Output Total 355 ml 665 ml Balance 1704.0 ml 600.0 ml Intake Free Water 110 ml 60 ml IV Total 1909.0 ml 1105.0 ml Tube Feeding 40 ml 100 ml Output Urine Total 355 ml 665 ml # Bowel Movements 1 Laboratory Tests Test 10/06/18 03:50 10/06/18 08:20 White Blood Count 22.9 K/UL (4.8-10.8) *H Red Blood Count 4.19 M/UL (4.20-5.40) L Hemoglobin 13.8 G/DL (12.0-16.0) Hematocrit 41.7 % (37.0-47.0) Mean Corpuscular Volume 100 FL (80-99) H Mean Corpuscular Hemoglobin 33.0 PG (27.0-31.0) H Mean Corpuscular Hemoglobin Concent 33.2 G/DL (32.0-36.0) Red Cell Distribution Width 14.5 % (11.6-14.8) Platelet Count 247 K/UL (150-450) Mean Platelet Volume 8.2 FL (6.5-10.1) Neutrophils (%) (Auto) % (45.0-75.0) Lymphocytes (%) (Auto) % (20.0-45.0) Monocytes (%) (Auto) % (1.0-10.0) Eosinophils (%) (Auto) % (0.0-3.0) Basophils (%) (Auto) % (0.0-2.0) Differential Total Cells Counted 100 Neutrophils % (Manual) 96 % (45-75) H Lymphocytes % (Manual) 2 % (20-45) L Monocytes % (Manual) 2 % (1-10) Eosinophils % (Manual) 0 % (0-3) Basophils % (Manual) 0 % (0-2) Band Neutrophils 0 % (0-8) Platelet Estimate Adequate Platelet Morphology Normal Red Blood Cell Morphology Normal Sodium Level 138 MMOL/L (136-145) Potassium Level 4.0 MMOL/L (3.5-5.1) Chloride Level 102 MMOL/L (98-107) Carbon Dioxide Level 31 MMOL/L (21-32) Anion Gap 5 mmol/L (5-15) Blood Urea Nitrogen 21 mg/dL (7-18) H Creatinine 0.7 MG/DL (0.55-1.30) Estimat Glomerular Filtration Rate mL/min (>60) Glucose Level 161 MG/DL (74-106) #H Uric Acid 2.8 MG/DL (2.6-7.2) Calcium Level 8.9 MG/DL (8.5-10.1) Phosphorus Level 3.6 MG/DL (2.5-4.9) Magnesium Level 2.0 MG/DL (1.8-2.4) Total Bilirubin 0.7 MG/DL (0.2-1.0) Aspartate Amino Transf (AST/SGOT) 21 U/L (15-37) Alanine Aminotransferase (ALT/SGPT) 66 U/L (12-78) Alkaline Phosphatase 127 U/L (46-116) H C-Reactive Protein, Quantitative 1.7 mg/dL (0.00-0.90) H Pro-B-Type Natriuretic Peptide 2696 pg/mL (0-125) H Total Protein 5.4 G/DL (6.4-8.2) L Albumin 2.3 G/DL (3.4-5.0) L Globulin 3.1 g/dL Albumin/Globulin Ratio 0.7 (1.0-2.7) L Arterial Blood pH 7.470 (7.350-7.450) Arterial Blood Partial Pressure CO2 34.4 mmHg (35.0-45.0) L Arterial Blood Partial Pressure O2 90.0 mmHg (75.0-100.0) Arterial Blood HCO3 24.5 mmol/L (22.0-26.0) Arterial Blood Oxygen Saturation 96.9 % (95-100) Arterial Blood Base Excess 1.3 (-2-2) Clyde Test Positive Microbiology Date/Time Source Procedure Growth Status 10/03/18 22:05 Blood Blood Culture - Preliminary NO GROWTH AFTER 48 HOURS Resulted 10/03/18 22:00 Blood Blood Culture - Preliminary NO GROWTH AFTER 48 HOURS Resulted 10/04/18 06:20 Nasal Nares MRSA Culture - Final NO METHICILLIN RESISTANT STAPH AUREUS... Complete 10/04/18 06:00 Sputum Gram Stain - Final Complete 10/04/18 06:00 Sputum Sputum Culture - Final NORMAL UPPER RESPIRATORY ART PRESENT Complete 10/04/18 06:00 Indwelling Cath Urine Culture - Final NO GROWTH AFTER 48 HOURS Complete 10/04/18 06:20 Rectum VRE Culture - Final NO VANCOMYCIN RESISTANT ENTEROCOCCUS ... Complete 10/04/18 06:20 Rectum - Final NO CARBAPENEM-RESISTANT ENTEROBACTERI... Complete Objective Status: sedated Condition: critical HEENT: No JVD. Orally intubated. NGT Lungs: rhonchi at bases , few scattered wheezes Heart: RRR, No G/R/M Abdomen: soft, non-tender, active bowel sounds Extremities: no C/C/E Braulio Cruz MD October 06, 2018 11:55
--- NOTE | 2018-10-06 12:14 | Diagnostic Imaging Report ---
Indication:Abdominal pain Technique: Grayscale and duplex Doppler imaging of the abdomen performed. Comparison: None Findings: The liver is unremarkable. There is a 1.2 cm cyst in the left lobe of the liver. The gallbladder is unremarkable. The demonstrated part of the pancreas shows no obvious abnormalities. Aorta is calcified and ectatic. There is trace ascites. The kidneys a slightly echogenic. Correlate clinically. The spleen is normal in size. There is no biliary ductal dilatation identified. Subcentimeter cysts noted in the right kidney. Doppler evaluation of the main portal vein shows patency. There are small bilateral pleural effusions. No hydronephrosis seen. CBD is 4 mm. A Barnhart catheter is noted. Impression: Trace ascites. Bilateral pleural effusions Possible medical renal disease. Correlate clinically. Liver cyst. Tiny right renal cysts. Atherosclerotic vascular disease
--- NOTE | 2018-10-06 12:30 | NUR ---
NURSE NOTES: Pt agitated. Attempting to pull out lines and climb OOB. VSS. Will continue to monitor.
--- NOTE | 2018-10-06 12:43 | Diagnostic Imaging Report ---
Indication: Dyspnea Comparison: 10/05/2018 A single view chest radiograph was obtained. Findings: Tubes and lines are stable and satisfactory. Heart size is stable. Lungs remain clear. IMPRESSION: No change from one day earlier
--- NOTE | 2018-10-06 13:17 | NUR ---
RESPIRATORY NOTE: RECEIVED PT ON CURRENT VENT SETTINGS AC 16 600 FIO2 35%. PT DAVONTE CURRENT VENT SETTINGS WELL. ETT 7.5 AT 22LIPLINE SECURE AND PATENT. SX SMALL THIN CLEAR/FORTHY SECRETIONS. NO RESP DISTRESS NOTED. VENT PLUGGED INTO RED OUTLET. ALARMS ON AND AUDIBLE. SPARE TRACH AND AMBU BAG AT BEDSIDE. WILL CONTINUE MONITORING PT.
--- NOTE | 2018-10-06 13:49 | General Progress Note ---
Assessment/Plan Problem List: (1) UTI (urinary tract infection) ICD Codes: N39.0 - Urinary tract infection, site not specified SNOMED: 63693227 (2) Diabetes ICD Codes: E11.9 - Type 2 diabetes mellitus without complications SNOMED: 31986402 (3) COPD (chronic obstructive pulmonary disease) ICD Codes: J44.9 - Chronic obstructive pulmonary disease, unspecified SNOMED: 68752050 Qualifiers: Qualified Codes: J44.9 - Chronic obstructive pulmonary disease, unspecified (4) NSTEMI (non-ST elevated myocardial infarction) ICD Codes: I21.4 - Non-ST elevation (NSTEMI) myocardial infarction SNOMED: 72555878 (5) Episode of generalized weakness ICD Codes: R53.1 - Weakness SNOMED: 69178930 Status: unchanged Assessment/Plan: vent abx pain control cardio f/u cbc bmp am ltach eval Subjective Constitutional: Reports: weakness Allergies: Coded Allergies: HEPARIN (Verified Allergy, Unknown, 10/05/18) RAMIPRIL (Verified Allergy, Unknown, 10/03/18) SULFA (SULFONAMIDE ANTIBIOTICS) (Unverified Allergy, Unknown, 10/05/18) Uncoded Allergies: SULFA (Allergy, Unknown, 10/03/18) All Systems: reviewed and negative except above Subjective intubated sedated in icu Objective Last 24 Hour Vital Signs Date Time Temp Pulse Resp B/P (MAP) Pulse Ox O2 Delivery O2 Flow Rate FiO2 10/06/18 13:17 79 16 45 10/06/18 13:00 78 18 138/68 (91) 100 10/06/18 12:00 62 10/06/18 12:00 Mechanical Ventilator 10/06/18 12:00 97.7 62 16 138/68 (91) 100 10/06/18 12:00 35 10/06/18 11:16 70 16 45 10/06/18 11:00 71 17 138/71 (93) 100 10/06/18 10:00 65 16 162/82 (108) 100 10/06/18 09:15 105 16 45 10/06/18 09:00 62 16 145/69 (94) 100 10/06/18 08:17 115 80/44 10/06/18 08:00 35 10/06/18 08:00 Mechanical Ventilator 10/06/18 08:00 76 10/06/18 08:00 97.7 71 16 93/53 (66) 100 10/06/18 07:07 115 17 45 10/06/18 07:00 86 16 80/44 (56) 99 10/06/18 06:04 104 16 152/70 (97) 100 10/06/18 05:15 68 16 45 10/06/18 05:00 71 18 112/64 (80) 100 10/06/18 04:00 Mechanical Ventilator 10/06/18 04:00 81 10/06/18 04:00 35 10/06/18 04:00 97.8 81 21 150/77 (101) 100 10/06/18 03:12 60 16 45 10/06/18 03:00 60 16 129/60 (83) 100 10/06/18 02:00 61 16 115/68 (84) 100 10/06/18 01:22 97 17 45 10/06/18 01:00 79 16 168/84 (112) 100 10/06/18 00:00 97.9 79 17 139/69 (92) 100 10/06/18 00:00 79 10/06/18 00:00 35 10/06/18 00:00 Mechanical Ventilator 10/05/18 23:18 83 16 45 10/05/18 23:00 84 19 143/91 (108) 100 10/05/18 22:00 69 16 103/54 (70) 100 10/05/18 21:00 95 17 117/88 (98) 100 10/05/18 20:53 104 16 45 10/05/18 20:47 103 130/89 10/05/18 20:00 35 10/05/18 20:00 Mechanical Ventilator 10/05/18 20:00 98.5 105 16 130/89 (103) 100 10/05/18 20:00 105 10/05/18 19:21 102 16 45 10/05/18 19:00 108 20 146/69 (94) 100 10/05/18 18:00 114 21 151/68 (95) 100 10/05/18 17:43 140/97 10/05/18 17:01 86 16 45 10/05/18 17:00 102 19 140/97 (111) 100 10/05/18 16:00 35 10/05/18 16:00 97.4 90 20 147/73 (97) 100 10/05/18 16:00 90 10/05/18 16:00 Mechanical Ventilator 10/05/18 15:24 93 16 45 10/05/18 15:00 87 23 140/61 (87) 100 10/05/18 14:00 82 26 139/65 (89) 100 Intake and Output 10/05/18 10/06/18 19:00 07:00 Intake Total 2059.0 ml 1265.0 ml Output Total 355 ml 665 ml Balance 1704.0 ml 600.0 ml Intake Free Water 110 ml 60 ml IV Total 1909.0 ml 1105.0 ml Tube Feeding 40 ml 100 ml Output Urine Total 355 ml 665 ml # Bowel Movements 1 Laboratory Tests 10/06/18 03:50: White Blood Count 22.9*H, Red Blood Count 4.19L, Hemoglobin 13.8, Hematocrit 41.7, Mean Corpuscular Volume 100H, Mean Corpuscular Hemoglobin 33.0H, Mean Corpuscular Hemoglobin Concent 33.2, Red Cell Distribution Width 14.5, Platelet Count 247, Mean Platelet Volume 8.2, Neutrophils (%) (Auto) , Lymphocytes (%) ( Auto) , Monocytes (%) (Auto) , Eosinophils (%) (Auto) , Basophils (%) (Auto) , Differential Total Cells Counted 100, Neutrophils % (Manual) 96H, Lymphocytes % (Manual) 2L, Monocytes % (Manual) 2, Eosinophils % (Manual) 0, Basophils % ( Manual) 0, Band Neutrophils 0, Platelet Estimate Adequate, Platelet Morphology Normal, Red Blood Cell Morphology Normal, Sodium Level 138, Potassium Level 4.0 , Chloride Level 102, Carbon Dioxide Level 31, Anion Gap 5, Blood Urea Nitrogen 21H, Creatinine 0.7, Estimat Glomerular Filtration Rate , Glucose Level 161#H, Uric Acid 2.8, Calcium Level 8.9, Phosphorus Level 3.6, Magnesium Level 2.0, Total Bilirubin 0.7, Aspartate Amino Transf (AST/SGOT) 21, Alanine Aminotransferase (ALT/SGPT) 66, Alkaline Phosphatase 127H, C-Reactive Protein, Quantitative 1.7H, Pro-B-Type Natriuretic Peptide 2696H, Total Protein 5.4L, Albumin 2.3L, Globulin 3.1, Albumin/Globulin Ratio 0.7L 10/06/18 08:20: Arterial Blood pH 7.470H, Arterial Blood Partial Pressure CO2 34.4L, Arterial Blood Partial Pressure O2 90.0, Arterial Blood HCO3 24.5, Arterial Blood Oxygen Saturation 96.9, Arterial Blood Base Excess 1.3, Clyde Test Positive Height (Feet): 5 Height (Inches): 3.00 Weight (Pounds): 108 General Appearance: lethargic EENT: normal ENT inspection Neck: normal alignment Cardiovascular: normal peripheral pulses, normal rate, regular rhythm Respiratory/Chest: chest wall non-tender, lungs clear, normal breath sounds Abdomen: normal bowel sounds, non tender, soft Extremities: normal inspection Edema: no edema noted Arm (L), no edema noted Arm (R), no edema noted Leg (L), no edema noted Leg (R), no edema noted Pedal (L), no edema noted Pedal (R), no edema noted Generalized Neurologic: motor weakness Skin: normal pigmentation, warm/dry Osei Naranjo DO October 06, 2018 13:49
--- NOTE | 2018-10-06 14:10 | Infectious Diseases Prog Note ---
Assessment/Plan Assessment/Plan ASSESSMENT: The patient is a 78-year-old female with history of Lyme disease 25 years ago. 1. Possible aspiration pneumonia. Chronic obstructive pulmonary disease exacerbation. -CXR: Lungs remain clear. -sp cx normal resp storm 2. Abnormal liver function tests (acute), SP -hep serologies neg -Abd US: Trace ascites.Bilateral pleural effusions. Possible medical renal disease. Correlate clinically. Liver cyst. Tiny right renal cysts. Atherosclerotic vascular disease 3. Probable non-STEMI. 4. Leukocytosis, increased (s/p high dose steroids) -u/a neg, ucx NTD -Bcx NTD PLAN: 1. We will continue the patient on Zosyn #3 and Zithromax #3for atypical coverage and chronic obstructive pulmonary disease exacerbation. -10/04 SP LEvaquin #2 2. Monitor CBC. 3. Monitor BMP. 4. Monitor liver function tests. 5. Influenza sc, Cdiff if diarrhea 6. f/u Hep C PCR. 7. Monitor cultures (blood, urine, sputum). 8. We will follow Cardiology recommendations. 9. Based on the patient's clinical course and laboratories, we will do further recommendations. 10. No need for continuing minocycline at this point. : Subjective Allergies: Coded Allergies: HEPARIN (Verified Allergy, Unknown, 10/05/18) RAMIPRIL (Verified Allergy, Unknown, 10/03/18) SULFA (SULFONAMIDE ANTIBIOTICS) (Unverified Allergy, Unknown, 10/05/18) Uncoded Allergies: SULFA (Allergy, Unknown, 10/03/18) Subjective afebrile at 40% wbc increased high dose steroids d/c'ed today cx NTD Objective Vital Signs Last 24 Hour Vital Signs Date Time Temp Pulse Resp B/P (MAP) Pulse Ox O2 Delivery O2 Flow Rate FiO2 10/06/18 13:17 79 16 45 10/06/18 13:00 78 18 138/68 (91) 100 10/06/18 12:00 62 10/06/18 12:00 Mechanical Ventilator 10/06/18 12:00 97.7 62 16 138/68 (91) 100 10/06/18 12:00 35 10/06/18 11:16 70 16 45 10/06/18 11:00 71 17 138/71 (93) 100 10/06/18 10:00 65 16 162/82 (108) 100 10/06/18 09:15 105 16 45 10/06/18 09:00 62 16 145/69 (94) 100 10/06/18 08:17 115 80/44 10/06/18 08:00 35 10/06/18 08:00 Mechanical Ventilator 10/06/18 08:00 76 10/06/18 08:00 97.7 71 16 93/53 (66) 100 10/06/18 07:07 115 17 45 10/06/18 07:00 86 16 80/44 (56) 99 10/06/18 06:04 104 16 152/70 (97) 100 10/06/18 05:15 68 16 45 10/06/18 05:00 71 18 112/64 (80) 100 10/06/18 04:00 Mechanical Ventilator 10/06/18 04:00 81 10/06/18 04:00 35 10/06/18 04:00 97.8 81 21 150/77 (101) 100 10/06/18 03:12 60 16 45 10/06/18 03:00 60 16 129/60 (83) 100 10/06/18 02:00 61 16 115/68 (84) 100 10/06/18 01:22 97 17 45 10/06/18 01:00 79 16 168/84 (112) 100 10/06/18 00:00 97.9 79 17 139/69 (92) 100 10/06/18 00:00 79 10/06/18 00:00 35 10/06/18 00:00 Mechanical Ventilator 10/05/18 23:18 83 16 45 10/05/18 23:00 84 19 143/91 (108) 100 10/05/18 22:00 69 16 103/54 (70) 100 10/05/18 21:00 95 17 117/88 (98) 100 10/05/18 20:53 104 16 45 10/05/18 20:47 103 130/89 10/05/18 20:00 35 10/05/18 20:00 Mechanical Ventilator 10/05/18 20:00 98.5 105 16 130/89 (103) 100 10/05/18 20:00 105 10/05/18 19:21 102 16 45 10/05/18 19:00 108 20 146/69 (94) 100 10/05/18 18:00 114 21 151/68 (95) 100 10/05/18 17:43 140/97 10/05/18 17:01 86 16 45 10/05/18 17:00 102 19 140/97 (111) 100 10/05/18 16:00 35 10/05/18 16:00 97.4 90 20 147/73 (97) 100 10/05/18 16:00 90 10/05/18 16:00 Mechanical Ventilator 10/05/18 15:24 93 16 45 10/05/18 15:00 87 23 140/61 (87) 100 10/05/18 14:00 82 26 139/65 (89) 100 Height (Feet): 5 Height (Inches): 3.00 Weight (Pounds): 108 Objective HEENT: Mild pale conjunctivae. No icterus. NECK: No lymphadenopathy. CHEST: Coarse breathing sounds. HEART: S1 and S2. ABDOMEN: Soft. ABDOMEN: Soft. EXTREMITIES: No cyanosis. NEUROLOGIC: Sedated. Microbiology Date/Time Source Procedure Growth Status 10/03/18 22:05 Blood Blood Culture - Preliminary NO GROWTH AFTER 48 HOURS Resulted 10/03/18 22:00 Blood Blood Culture - Preliminary NO GROWTH AFTER 48 HOURS Resulted 10/04/18 06:20 Nasal Nares MRSA Culture - Final NO METHICILLIN RESISTANT STAPH AUREUS... Complete 10/04/18 06:00 Sputum Gram Stain - Final Complete 10/04/18 06:00 Sputum Sputum Culture - Final NORMAL UPPER RESPIRATORY STORM PRESENT Complete 10/04/18 06:00 Indwelling Cath Urine Culture - Final NO GROWTH AFTER 48 HOURS Complete 10/04/18 06:20 Rectum VRE Culture - Final NO VANCOMYCIN RESISTANT ENTEROCOCCUS ... Complete 10/04/18 06:20 Rectum - Final NO CARBAPENEM-RESISTANT ENTEROBACTERI... Complete Laboratory Tests Test 10/06/18 03:50 10/06/18 08:20 White Blood Count 22.9 K/UL (4.8-10.8) *H Red Blood Count 4.19 M/UL (4.20-5.40) L Hemoglobin 13.8 G/DL (12.0-16.0) Hematocrit 41.7 % (37.0-47.0) Mean Corpuscular Volume 100 FL (80-99) H Mean Corpuscular Hemoglobin 33.0 PG (27.0-31.0) H Mean Corpuscular Hemoglobin Concent 33.2 G/DL (32.0-36.0) Red Cell Distribution Width 14.5 % (11.6-14.8) Platelet Count 247 K/UL (150-450) Mean Platelet Volume 8.2 FL (6.5-10.1) Neutrophils (%) (Auto) % (45.0-75.0) Lymphocytes (%) (Auto) % (20.0-45.0) Monocytes (%) (Auto) % (1.0-10.0) Eosinophils (%) (Auto) % (0.0-3.0) Basophils (%) (Auto) % (0.0-2.0) Differential Total Cells Counted 100 Neutrophils % (Manual) 96 % (45-75) H Lymphocytes % (Manual) 2 % (20-45) L Monocytes % (Manual) 2 % (1-10) Eosinophils % (Manual) 0 % (0-3) Basophils % (Manual) 0 % (0-2) Band Neutrophils 0 % (0-8) Platelet Estimate Adequate Platelet Morphology Normal Red Blood Cell Morphology Normal Sodium Level 138 MMOL/L (136-145) Potassium Level 4.0 MMOL/L (3.5-5.1) Chloride Level 102 MMOL/L (98-107) Carbon Dioxide Level 31 MMOL/L (21-32) Anion Gap 5 mmol/L (5-15) Blood Urea Nitrogen 21 mg/dL (7-18) H Creatinine 0.7 MG/DL (0.55-1.30) Estimat Glomerular Filtration Rate mL/min (>60) Glucose Level 161 MG/DL (74-106) #H Uric Acid 2.8 MG/DL (2.6-7.2) Calcium Level 8.9 MG/DL (8.5-10.1) Phosphorus Level 3.6 MG/DL (2.5-4.9) Magnesium Level 2.0 MG/DL (1.8-2.4) Total Bilirubin 0.7 MG/DL (0.2-1.0) Aspartate Amino Transf (AST/SGOT) 21 U/L (15-37) Alanine Aminotransferase (ALT/SGPT) 66 U/L (12-78) Alkaline Phosphatase 127 U/L (46-116) H C-Reactive Protein, Quantitative 1.7 mg/dL (0.00-0.90) H Pro-B-Type Natriuretic Peptide 2696 pg/mL (0-125) H Total Protein 5.4 G/DL (6.4-8.2) L Albumin 2.3 G/DL (3.4-5.0) L Globulin 3.1 g/dL Albumin/Globulin Ratio 0.7 (1.0-2.7) L Arterial Blood pH 7.470 (7.350-7.450) Arterial Blood Partial Pressure CO2 34.4 mmHg (35.0-45.0) L Arterial Blood Partial Pressure O2 90.0 mmHg (75.0-100.0) Arterial Blood HCO3 24.5 mmol/L (22.0-26.0) Arterial Blood Oxygen Saturation 96.9 % (95-100) Arterial Blood Base Excess 1.3 (-2-2) Clyde Test Positive Current Medications Medications (Trade) Dose Ordered Sig/Aleah Route PRN Reason Start Time Stop Time Status Last Admin Dose Admin Albuterol/ Ipratropium (Albuterol/ Ipratropium) 3 ml Q4H PRN HHN dyspnea 10/04/18 08:00 10/09/18 07:59 Aspirin (ASA) 81 mg DAILY NG 10/05/18 09:00 11/04/18 08:59 10/05/18 08:14 Atorvastatin Calcium (Lipitor) 10 mg BEDTIME ORAL 10/04/18 21:00 11/03/18 20:59 10/05/18 20:47 Azithromycin 500 mg/Dextrose 275 ml @ 275 mls/hr Q24H IV 10/04/18 18:00 10/10/18 18:59 10/05/18 17:43 Dextrose (Dextrose 50%) 25 ml Q30M PRN IV Hypoglycemia 10/04/18 08:00 11/03/18 07:53 Dextrose (Dextrose 50%) 50 ml Q30M PRN IV hypoglycemia 10/04/18 08:00 11/03/18 07:59 Insulin Aspart (NovoLOG) Q6HR SUBQ 10/04/18 12:00 11/03/18 11:29 10/06/18 05:42 Lorazepam (Ativan 2mg/ml 1ml) 2 mg Q4H PRN IV For Anxiety 10/04/18 08:00 10/11/18 07:59 10/06/18 12:28 Morphine Sulfate (Morphine Sulfate) 2 mg Q4H PRN IVP Moderate Pain (Pain Scale 4-6) 10/04/18 08:00 10/11/18 07:59 10/06/18 01:12 Morphine Sulfate (Morphine Sulfate) 4 mg Q4H PRN IVP Severe Pain (Pain Scale 7-10) 10/04/18 08:00 10/11/18 07:59 Nitroglycerin (Ntg) 1 patch Q24H TDERMAL 10/05/18 18:00 11/04/18 17:59 10/05/18 17:43 Pantoprazole (Protonix) 40 mg Q12HR IV 10/04/18 21:00 11/03/18 08:59 10/06/18 08:16 Piperacillin Sod/ Tazobactam Sod 3.375 gm/Sodium Chloride 110 ml @ 27.5 mls/hr EVERY 8 HOURS IVPB 10/04/18 09:00 10/11/18 08:59 10/06/18 05:41 Clementina Flor M.D. October 06, 2018 14:10
--- NOTE | 2018-10-06 15:04 | NUR ---
NURSE NOTES: Turned and repositioned pt. VSS. No acute distress. Will continue to monitor.
--- NOTE | 2018-10-06 17:00 | NUR ---
NURSE NOTES: Pt restless and agitated. VSS. Given another dose of ativan. Will continue to monitor.
[2018-10-06] MEDS: Azithromycin 500 MG in D5W 275 ML IV SCH (17:20)
[2018-10-06] MEDS: Nitroglycerin Patch 0.4mg TDERMAL SCH (17:21)
--- NOTE | 2018-10-06 17:57 | Nephrology Progress Note ---
Assessment/Plan Problem List: (1) NSTEMI (non-ST elevated myocardial infarction) (2) COPD (chronic obstructive pulmonary disease) Assessment Acute respiratory failure COPD Azotemia, High Na , elevated LFTs Elevated troponin Plan Slow Hydrate Per cardiology Pulm management taper steroid as possible monitor renal parameters discussed with RN Subjective ROS Limited/Unobtainable: Yes Objective Objective Last 24 Hour Vital Signs Date Time Temp Pulse Resp B/P (MAP) Pulse Ox O2 Delivery O2 Flow Rate FiO2 10/06/18 17:21 153/72 10/06/18 17:08 91 16 35 10/06/18 17:00 90 16 153/72 (99) 100 10/06/18 16:00 82 10/06/18 16:00 Mechanical Ventilator 10/06/18 16:00 98.0 99 17 139/76 (97) 100 10/06/18 16:00 35 10/06/18 15:12 84 16 35 10/06/18 15:00 84 16 161/76 (104) 100 10/06/18 14:00 102 19 119/82 (94) 99 10/06/18 13:17 79 16 35 10/06/18 13:00 78 18 138/68 (91) 100 10/06/18 12:00 62 10/06/18 12:00 Mechanical Ventilator 10/06/18 12:00 97.7 62 16 138/68 (91) 100 10/06/18 12:00 35 10/06/18 11:16 70 16 45 10/06/18 11:00 71 17 138/71 (93) 100 10/06/18 10:00 65 16 162/82 (108) 100 10/06/18 09:15 105 16 45 10/06/18 09:00 62 16 145/69 (94) 100 10/06/18 08:17 115 80/44 10/06/18 08:00 35 10/06/18 08:00 Mechanical Ventilator 10/06/18 08:00 76 10/06/18 08:00 97.7 71 16 93/53 (66) 100 10/06/18 07:07 115 17 45 10/06/18 07:00 86 16 80/44 (56) 99 10/06/18 06:04 104 16 152/70 (97) 100 10/06/18 05:15 68 16 45 10/06/18 05:00 71 18 112/64 (80) 100 10/06/18 04:00 Mechanical Ventilator 10/06/18 04:00 81 10/06/18 04:00 35 10/06/18 04:00 97.8 81 21 150/77 (101) 100 10/06/18 03:12 60 16 45 10/06/18 03:00 60 16 129/60 (83) 100 10/06/18 02:00 61 16 115/68 (84) 100 10/06/18 01:22 97 17 45 10/06/18 01:00 79 16 168/84 (112) 100 10/06/18 00:00 97.9 79 17 139/69 (92) 100 10/06/18 00:00 79 10/06/18 00:00 35 10/06/18 00:00 Mechanical Ventilator 10/05/18 23:18 83 16 45 10/05/18 23:00 84 19 143/91 (108) 100 10/05/18 22:00 69 16 103/54 (70) 100 10/05/18 21:00 95 17 117/88 (98) 100 10/05/18 20:53 104 16 45 10/05/18 20:47 103 130/89 10/05/18 20:00 35 10/05/18 20:00 Mechanical Ventilator 10/05/18 20:00 98.5 105 16 130/89 (103) 100 10/05/18 20:00 105 10/05/18 19:21 102 16 45 10/05/18 19:00 108 20 146/69 (94) 100 10/05/18 18:00 114 21 151/68 (95) 100 Intake and Output 10/05/18 10/06/18 19:00 07:00 Intake Total 2059.0 ml 1265.0 ml Output Total 355 ml 665 ml Balance 1704.0 ml 600.0 ml Intake Free Water 110 ml 60 ml IV Total 1909.0 ml 1105.0 ml Tube Feeding 40 ml 100 ml Output Urine Total 355 ml 665 ml # Bowel Movements 1 Laboratory Tests 10/06/18 03:50: White Blood Count 22.9*H, Red Blood Count 4.19L, Hemoglobin 13.8, Hematocrit 41.7, Mean Corpuscular Volume 100H, Mean Corpuscular Hemoglobin 33.0H, Mean Corpuscular Hemoglobin Concent 33.2, Red Cell Distribution Width 14.5, Platelet Count 247, Mean Platelet Volume 8.2, Neutrophils (%) (Auto) , Lymphocytes (%) ( Auto) , Monocytes (%) (Auto) , Eosinophils (%) (Auto) , Basophils (%) (Auto) , Differential Total Cells Counted 100, Neutrophils % (Manual) 96H, Lymphocytes % (Manual) 2L, Monocytes % (Manual) 2, Eosinophils % (Manual) 0, Basophils % ( Manual) 0, Band Neutrophils 0, Platelet Estimate Adequate, Platelet Morphology Normal, Red Blood Cell Morphology Normal, Sodium Level 138, Potassium Level 4.0 , Chloride Level 102, Carbon Dioxide Level 31, Anion Gap 5, Blood Urea Nitrogen 21H, Creatinine 0.7, Estimat Glomerular Filtration Rate , Glucose Level 161#H, Uric Acid 2.8, Calcium Level 8.9, Phosphorus Level 3.6, Magnesium Level 2.0, Total Bilirubin 0.7, Aspartate Amino Transf (AST/SGOT) 21, Alanine Aminotransferase (ALT/SGPT) 66, Alkaline Phosphatase 127H, C-Reactive Protein, Quantitative 1.7H, Pro-B-Type Natriuretic Peptide 2696H, Total Protein 5.4L, Albumin 2.3L, Globulin 3.1, Albumin/Globulin Ratio 0.7L 10/06/18 08:20: Arterial Blood pH 7.470H, Arterial Blood Partial Pressure CO2 34.4L, Arterial Blood Partial Pressure O2 90.0, Arterial Blood HCO3 24.5, Arterial Blood Oxygen Saturation 96.9, Arterial Blood Base Excess 1.3, Clyde Test Positive Height (Feet): 5 Height (Inches): 3.00 Weight (Pounds): 108 General Appearance: no apparent distress, other - sedated Cardiovascular: tachycardia Respiratory/Chest: decreased breath sounds Abdomen: soft Robbie Garza MD October 06, 2018 17:57
--- NOTE | 2018-10-06 18:46 | NUR ---
CASE MANAGEMENT: REVIEW SI: SOB . RESPIRATORY FAILURE T 98.0 HR 99 RR 16 BP 153/72 SAT 100% MECH VENT FIO2 35 WBC 22.9 BUN 21 BNP 2696 IS: AZITHROMYCIN IV Q24HR ZOSYN IV Q8HR ATIVAN IV PRN ICU STATUS DCP: PATIENT IS FROM HOME
--- NOTE | 2018-10-06 19:11 | NUR ---
CASE MANAGEMENT: DCPNOTE PER MD ORDER PATIENT REFERRED TO EUSEBIO DOMINGO CM WILL FOLLOW UP
--- NOTE | 2018-10-06 19:15 | NUR ---
HAND-OFF: Report given to Ricardo ANTON.
--- NOTE | 2018-10-06 20:00 | NUR ---
NURSE NOTES: Report received from Savannah RN. Pt alert and oriented x4, able to make needs known by writing. Pt very agitated and restless, ativan prn given. 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 Pt orally intubated with ETT 7.5, 22 cm at the lip line, Ac 16, TV 600, 35% fiO2 and 0 PEEP. OGT clamped, TF on hold for abdominal US today. Barnhart noted and intact draining clear, yellow urine to gravity. LFA 22 G noted and intact and RAC 20G with D5W @ 75 cc/hr. Bilateral wrist restraints noted, pt continues to attempt to get oob and pull out lines and tubes. Safety measures in place with bed locked and in lowest position, side rails x 3 up and bed alarm on. Will continue to monitor and contiue plan of care.
--- NOTE | 2018-10-06 22:00 | NUR ---
NURSE NOTES: Patient repositioned and given oral care. Releases restraints to give patient active range of motions to her arms. Pulses noted, no swelling at wrist sites, skin remains intact. NO BM yet. IV lines remains intact.
[2018-10-07] VITALS (24 sets, daily range): BP systolic 118–172; BP diastolic 67–97
--- NOTE | 2018-10-07 | NUR ---
NURSE NOTES: Repositioned and given oral care. Passive range of motion provided. Patient Vitals remains stable, afebrile. Will continue to monitor.
--- NOTE | 2018-10-07 02:00 | NUR ---
NURSE NOTES: Patient repositioned. Patient is agitated at times but vitals remains stable. No BM yet. Feeds ongoing. IV remains patent and intact.
--- NOTE | 2018-10-07 04:00 | NUR ---
NURSE NOTES: Patient cleaned and repositioned. 60ml h2o flush. Patient is wide awake and able to write needs. Passive range of motion given, blood drawn and sent to lab.
[2018-10-07 05:33] LABS: HEMATOCRIT 44.3 % (37.0-47.0); HEMOGLOBIN 14.6 G/DL (12.0-16.0); MEAN CORPUSCULAR VOLUME 98 FL (80-99); PLATELET COUNT 247 K/UL (150-450); RED BLOOD COUNT 4.51 M/UL (4.20-5.40); RED CELL DISTRIBUTION WIDTH 14.3 % (11.6-14.8)
[2018-10-07 05:41] LABS: WHITE BLOOD COUNT 23.3 K/UL (4.8-10.8)
[2018-10-07] MEDS: NovoLOG Insulin Flexpen SUBQ SCH ×3 (05:43→17:58)
[2018-10-07] MEDS: Zosyn 3.375gm q8h **Extended infusion IVPB SCH ×4 (05:43→18:22)
--- NOTE | 2018-10-07 06:00 | NUR ---
NURSE NOTES: Patient repositioned. New linen applied. Vitals remains stable.
[2018-10-07 06:06] LABS: ALANINE AMINOTRANSFERASE 60 U/L (12-78); ALBUMIN 2.5 G/DL (3.4-5.0); ALBUMIN/GLOBULIN RATIO 0.8 (1.0-2.7); ALKALINE PHOSPHATASE 111 U/L (46-116); ANION GAP 6 mmol/L (5-15); ASPARTATE AMINO TRANSFERASE 27 U/L (15-37); BILIRUBIN,TOTAL 0.9 MG/DL (0.2-1.0); BLOOD UREA NITROGEN 14 mg/dL (7-18); CALCIUM 9.1 MG/DL (8.5-10.1); CARBON DIOXIDE 31 MMOL/L (21-32); CHLORIDE 106 MMOL/L (98-107); CREATININE 0.6 MG/DL (0.55-1.30); PHOSPHORUS 3.4 MG/DL (2.5-4.9); POTASSIUM 3.5 MMOL/L (3.5-5.1); SODIUM 142 MMOL/L (136-145)
--- NOTE | 2018-10-07 07:00 | NUR ---
Received Patient on Vent settings ACVC RR 16, VT 600, FIO2 30%, PEEP +0. Intubated with a 7.5 ETT with a lip line at 22cm, secured by anchorfast. Bilateral clear breath sounds heard throughout lung ortiz. Suction small amount of thick yellow secretions. Alarms are on and audible. Vent plugged into red outlet. Will continue to closely monitor throughout the day.
--- NOTE | 2018-10-07 08:00 | NUR ---
NURSE NOTES: Received patient opens eyes, makes needs known by pointing, writing. 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 Intubated on 10/04. ETT 7.5 22 cm lipline AC 16 VT 600 Fio2 35% no peep. Yesterday did not tolerate weaning. OGT Jevity 1.2 at 20 no residual noted. Krueger intact SKin intact. L forearm 22, R wrist 20. WBC count reported to Dr. Jung. Lung sounds diminished bilaterally. No distress noted at this time. Will continue plan of care. Bilat restraints intact. Peripheral pulses present, active range of motion present, bed on lowest position, bed alarm on for safety. No new orders at this time. Will continue to monitor patient.
--- NOTE | 2018-10-07 09:03 | NUR ---
Weaning criteria passed. Weaning started at 902. PS +8 PEEP +0 FIO2 30%. RN Macie aware. Will continue to closely monitor.
[2018-10-07] MEDS: Pantoprazole Inj IV SCH ×2 (09:13→21:07)
[2018-10-07] MEDS: Aspirin Baby 81mg NG SCH (09:13)
--- NOTE | 2018-10-07 09:14 | NUR ---
Weaning stopped at 0914 due to increase in BP. Rn Ani aware. Placed back onto previous settings.
--- NOTE | 2018-10-07 10:02 | NUR ---
NURSE NOTES: Patient turned and repositioned. No new orders at this time. Will continue to monitor patient.
--- NOTE | 2018-10-07 10:09 | NUR ---
RADIOLOGY DEPT., CHEST X-RAY COMPLETED.-P.DYE
--- NOTE | 2018-10-07 10:40 | Cardiac Electrophysiology PN ---
Assessment/Plan Assessment/Plan 1. NSTEMI. likely type 2. No acute ECG changes. EF nl and no WMA. On aspirin and lipitor. 2. Resp Failure on the vent. 3. Lyme's disease 4. Sepsis on Abx per ID Subjective Subjective Sedated and Intubated in ICU. No SVT or VT. RN at bedside Objective Last 24 Hour Vital Signs Date Time Temp Pulse Resp B/P (MAP) Pulse Ox O2 Delivery O2 Flow Rate FiO2 10/07/18 10:33 71 16 30 10/07/18 09:17 100 10/07/18 09:14 84 16 30 10/07/18 09:03 92 14 30 30 10/07/18 09:00 74 20 140/75 (96) 100 10/07/18 08:00 78 10/07/18 08:00 99.2 84 20 138/70 (92) 100 10/07/18 08:00 Mechanical Ventilator 10/07/18 08:00 35 10/07/18 07:03 72 16 30 10/07/18 07:00 77 20 130/68 (88) 100 10/07/18 06:00 70 20 134/71 (92) 100 10/07/18 05:24 93 16 30 35 10/07/18 05:00 96 22 172/90 (117) 100 10/07/18 04:00 Mechanical Ventilator 10/07/18 04:00 79 10/07/18 04:00 35 10/07/18 04:00 99.0 80 19 145/85 (105) 100 10/07/18 03:05 92 18 30 35 10/07/18 03:00 100.1 97 19 137/67 (90) 100 10/07/18 02:00 96 19 133/75 (94) 100 10/07/18 01:00 103 19 152/81 (104) 100 10/07/18 00:49 106 16 30 35 10/07/18 00:00 Mechanical Ventilator 10/07/18 00:00 35 10/07/18 00:00 99.6 104 17 118/78 (91) 100 10/07/18 00:00 116 10/06/18 23:00 102 15 151/75 (100) 100 10/06/18 22:50 104 16 30 35 10/06/18 22:00 94 16 130/76 (94) 100 10/06/18 21:09 80 16 30 35 10/06/18 21:00 80 16 138/72 (94) 100 10/06/18 20:00 35 10/06/18 20:00 70 10/06/18 20:00 98.9 70 14 116/61 (79) 100 10/06/18 20:00 Mechanical Ventilator 10/06/18 19:29 86 16 30 35 10/06/18 19:00 94 16 156/78 (104) 100 10/06/18 18:00 91 20 140/99 (113) 100 10/06/18 17:21 153/72 10/06/18 17:08 91 16 35 10/06/18 17:00 90 16 153/72 (99) 100 10/06/18 16:00 82 10/06/18 16:00 Mechanical Ventilator 10/06/18 16:00 98.0 99 17 139/76 (97) 100 10/06/18 16:00 35 10/06/18 15:12 84 16 35 10/06/18 15:00 84 16 161/76 (104) 100 10/06/18 14:00 102 19 119/82 (94) 99 10/06/18 13:17 79 16 35 10/06/18 13:00 78 18 138/68 (91) 100 10/06/18 12:00 62 10/06/18 12:00 Mechanical Ventilator 10/06/18 12:00 97.7 62 16 138/68 (91) 100 10/06/18 12:00 35 10/06/18 11:16 70 16 45 10/06/18 11:00 71 17 138/71 (93) 100 Intake and Output 10/06/18 10/07/18 19:00 07:00 Intake Total 545 ml 460 ml Output Total 420 ml 780 ml Balance 125 ml -320 ml Intake Free Water 110 ml IV Total 385 ml 110 ml Tube Feeding 160 ml 240 ml Output Urine Total 420 ml 780 ml Laboratory Tests Test 10/07/18 04:15 10/07/18 08:00 White Blood Count 23.3 K/UL (4.8-10.8) *H Red Blood Count 4.51 M/UL (4.20-5.40) Hemoglobin 14.6 G/DL (12.0-16.0) Hematocrit 44.3 % (37.0-47.0) Mean Corpuscular Volume 98 FL (80-99) Mean Corpuscular Hemoglobin 32.5 PG (27.0-31.0) H Mean Corpuscular Hemoglobin Concent 33.0 G/DL (32.0-36.0) Red Cell Distribution Width 14.3 % (11.6-14.8) Platelet Count 247 K/UL (150-450) Mean Platelet Volume 7.9 FL (6.5-10.1) Neutrophils (%) (Auto) % (45.0-75.0) Lymphocytes (%) (Auto) % (20.0-45.0) Monocytes (%) (Auto) % (1.0-10.0) Eosinophils (%) (Auto) % (0.0-3.0) Basophils (%) (Auto) % (0.0-2.0) Differential Total Cells Counted 100 Neutrophils % (Manual) 86 % (45-75) H Lymphocytes % (Manual) 6 % (20-45) L Monocytes % (Manual) 8 % (1-10) Eosinophils % (Manual) 0 % (0-3) Basophils % (Manual) 0 % (0-2) Band Neutrophils 0 % (0-8) Platelet Estimate Adequate Platelet Morphology Normal Red Blood Cell Morphology Normal Sodium Level 142 MMOL/L (136-145) Potassium Level 3.5 MMOL/L (3.5-5.1) Chloride Level 106 MMOL/L (98-107) Carbon Dioxide Level 31 MMOL/L (21-32) Anion Gap 6 mmol/L (5-15) Blood Urea Nitrogen 14 mg/dL (7-18) Creatinine 0.6 MG/DL (0.55-1.30) Estimat Glomerular Filtration Rate mL/min (>60) Glucose Level 80 MG/DL (74-106) Calcium Level 9.1 MG/DL (8.5-10.1) Phosphorus Level 3.4 MG/DL (2.5-4.9) Magnesium Level 2.0 MG/DL (1.8-2.4) Total Bilirubin 0.9 MG/DL (0.2-1.0) Aspartate Amino Transf (AST/SGOT) 27 U/L (15-37) Alanine Aminotransferase (ALT/SGPT) 60 U/L (12-78) Alkaline Phosphatase 111 U/L (46-116) Total Protein 5.7 G/DL (6.4-8.2) L Albumin 2.5 G/DL (3.4-5.0) L Globulin 3.2 g/dL Albumin/Globulin Ratio 0.8 (1.0-2.7) L Arterial Blood pH 7.526 (7.350-7.450) Arterial Blood Partial Pressure CO2 32.2 mmHg (35.0-45.0) L Arterial Blood Partial Pressure O2 68.6 mmHg (75.0-100.0) L Arterial Blood HCO3 26.1 mmol/L (22.0-26.0) H Arterial Blood Oxygen Saturation 94.7 % (95-100) L Arterial Blood Base Excess 3.9 (-2-2) H Clyde Test Positive Objective HEENT: No JVD. Orally intubated. NGT Lungs: rhonchi at bases , few scattered wheezes Heart: RRR, No G/R/M Abdomen: soft, non-tender, active bowel sounds Extremities: no C/C/E Braulio Cruz MD October 07, 2018 10:40
--- NOTE | 2018-10-07 11:00 | Pulmonolgy Critical Care Note ---
Critical Care - Asmt/Plan Problems: (1) Acute respiratory failure (2) COPD (chronic obstructive pulmonary disease) (3) Diabetes (4) Severe protein-calorie malnutrition Respiratory: monitor respiratory rate, adjust FIO2, CXR Cardiac: start pressors, continue pressors, continue to monitor HR/BP Renal: F/U I&O, check electrolytes Infectious Disease: check cultures, add antibiotics Gastrointestinal: continue feedings/current rate Endocrine: monitor blood sugar, check HgA1C Hematologic: monitor H/H Neurologic: PRN Morphine Affect: PRN ativan Prophylaxis: Heparin Time Spent (Minutes): 40 Notes Reviewed: airset caster, cardio, renal Discussed with: nurses, consultants, case managersmanager of tires sales - Objective Last 24 Hour Vital Signs Date Time Temp Pulse Resp B/P (MAP) Pulse Ox O2 Delivery O2 Flow Rate FiO2 10/07/18 10:33 71 16 30 10/07/18 09:17 100 10/07/18 09:14 84 16 30 10/07/18 09:03 92 14 30 30 10/07/18 09:00 74 20 140/75 (96) 100 10/07/18 08:00 78 10/07/18 08:00 99.2 84 20 138/70 (92) 100 10/07/18 08:00 Mechanical Ventilator 10/07/18 08:00 35 10/07/18 07:03 72 16 30 10/07/18 07:00 77 20 130/68 (88) 100 10/07/18 06:00 70 20 134/71 (92) 100 10/07/18 05:24 93 16 30 35 10/07/18 05:00 96 22 172/90 (117) 100 10/07/18 04:00 Mechanical Ventilator 10/07/18 04:00 79 10/07/18 04:00 35 10/07/18 04:00 99.0 80 19 145/85 (105) 100 10/07/18 03:05 92 18 30 35 10/07/18 03:00 100.1 97 19 137/67 (90) 100 10/07/18 02:00 96 19 133/75 (94) 100 10/07/18 01:00 103 19 152/81 (104) 100 10/07/18 00:49 106 16 30 35 10/07/18 00:00 Mechanical Ventilator 10/07/18 00:00 35 10/07/18 00:00 99.6 104 17 118/78 (91) 100 10/07/18 00:00 116 10/06/18 23:00 102 15 151/75 (100) 100 10/06/18 22:50 104 16 30 35 10/06/18 22:00 94 16 130/76 (94) 100 10/06/18 21:09 80 16 30 35 10/06/18 21:00 80 16 138/72 (94) 100 10/06/18 20:00 35 10/06/18 20:00 70 10/06/18 20:00 98.9 70 14 116/61 (79) 100 10/06/18 20:00 Mechanical Ventilator 10/06/18 19:29 86 16 30 35 10/06/18 19:00 94 16 156/78 (104) 100 10/06/18 18:00 91 20 140/99 (113) 100 10/06/18 17:21 153/72 10/06/18 17:08 91 16 35 10/06/18 17:00 90 16 153/72 (99) 100 10/06/18 16:00 82 10/06/18 16:00 Mechanical Ventilator 10/06/18 16:00 98.0 99 17 139/76 (97) 100 10/06/18 16:00 35 10/06/18 15:12 84 16 35 10/06/18 15:00 84 16 161/76 (104) 100 10/06/18 14:00 102 19 119/82 (94) 99 10/06/18 13:17 79 16 35 10/06/18 13:00 78 18 138/68 (91) 100 10/06/18 12:00 62 10/06/18 12:00 Mechanical Ventilator 10/06/18 12:00 97.7 62 16 138/68 (91) 100 10/06/18 12:00 35 10/06/18 11:16 70 16 45 10/06/18 11:00 71 17 138/71 (93) 100 Status: awake Condition: critical HEENT: atraumatic, normocephalic Neck: full ROM Lungs: clear Heart: HR/BP stable Abdomen: soft, non-tender, feeding tube Extremities: edema Accucheck: 88 Critical Care - Subjective ROS Limited/Unobtainable: Yes Condition: critical EKG Rhythm: Sinus Rhythm FI02: 30 Vent Support Breath Rate: 16 Vent Support Mode: AC Vent Tidal Volume: 600 Sputum Amount: Scant PEEP: 0.0 PIP: 32 Tube Feeding Amount: 20 I&O: Intake and Output 10/06/18 10/07/18 19:00 07:00 Intake Total 545 ml 460 ml Output Total 420 ml 780 ml Balance 125 ml -320 ml Intake Free Water 110 ml IV Total 385 ml 110 ml Tube Feeding 160 ml 240 ml Output Urine Total 420 ml 780 ml CXR: ET in good position ET-Tube: 7.5 ET Position: 22 Labs: Laboratory Tests Test 10/07/18 04:15 10/07/18 08:00 White Blood Count 23.3 K/UL (4.8-10.8) *H Red Blood Count 4.51 M/UL (4.20-5.40) Hemoglobin 14.6 G/DL (12.0-16.0) Hematocrit 44.3 % (37.0-47.0) Mean Corpuscular Volume 98 FL (80-99) Mean Corpuscular Hemoglobin 32.5 PG (27.0-31.0) H Mean Corpuscular Hemoglobin Concent 33.0 G/DL (32.0-36.0) Red Cell Distribution Width 14.3 % (11.6-14.8) Platelet Count 247 K/UL (150-450) Mean Platelet Volume 7.9 FL (6.5-10.1) Neutrophils (%) (Auto) % (45.0-75.0) Lymphocytes (%) (Auto) % (20.0-45.0) Monocytes (%) (Auto) % (1.0-10.0) Eosinophils (%) (Auto) % (0.0-3.0) Basophils (%) (Auto) % (0.0-2.0) Differential Total Cells Counted 100 Neutrophils % (Manual) 86 % (45-75) H Lymphocytes % (Manual) 6 % (20-45) L Monocytes % (Manual) 8 % (1-10) Eosinophils % (Manual) 0 % (0-3) Basophils % (Manual) 0 % (0-2) Band Neutrophils 0 % (0-8) Platelet Estimate Adequate Platelet Morphology Normal Red Blood Cell Morphology Normal Sodium Level 142 MMOL/L (136-145) Potassium Level 3.5 MMOL/L (3.5-5.1) Chloride Level 106 MMOL/L (98-107) Carbon Dioxide Level 31 MMOL/L (21-32) Anion Gap 6 mmol/L (5-15) Blood Urea Nitrogen 14 mg/dL (7-18) Creatinine 0.6 MG/DL (0.55-1.30) Estimat Glomerular Filtration Rate mL/min (>60) Glucose Level 80 MG/DL (74-106) Calcium Level 9.1 MG/DL (8.5-10.1) Phosphorus Level 3.4 MG/DL (2.5-4.9) Magnesium Level 2.0 MG/DL (1.8-2.4) Total Bilirubin 0.9 MG/DL (0.2-1.0) Aspartate Amino Transf (AST/SGOT) 27 U/L (15-37) Alanine Aminotransferase (ALT/SGPT) 60 U/L (12-78) Alkaline Phosphatase 111 U/L (46-116) Total Protein 5.7 G/DL (6.4-8.2) L Albumin 2.5 G/DL (3.4-5.0) L Globulin 3.2 g/dL Albumin/Globulin Ratio 0.8 (1.0-2.7) L Arterial Blood pH 7.526 (7.350-7.450) Arterial Blood Partial Pressure CO2 32.2 mmHg (35.0-45.0) L Arterial Blood Partial Pressure O2 68.6 mmHg (75.0-100.0) L Arterial Blood HCO3 26.1 mmol/L (22.0-26.0) H Arterial Blood Oxygen Saturation 94.7 % (95-100) L Arterial Blood Base Excess 3.9 (-2-2) H Clyde Test Positive Steven Romo MD October 07, 2018 10:59
--- NOTE | 2018-10-07 11:37 | Infectious Diseases Prog Note ---
Assessment/Plan Assessment/Plan ASSESSMENT: The patient is a 78-year-old female with history of Lyme disease 25 years ago. 1. Possible aspiration pneumonia. Chronic obstructive pulmonary disease exacerbation. -CXR: Lungs remain clear. -sp cx normal resp storm 2. Abnormal liver function tests (acute), SP -hep serologies neg -Abd US: Trace ascites.Bilateral pleural effusions. Possible medical renal disease. Correlate clinically. Liver cyst. Tiny right renal cysts. Atherosclerotic vascular disease 3. Probable non-STEMI. 4. Leukocytosis, increasing (s/p high dose steroids) -u/a neg, ucx NTD -Bcx NTD Fever PLAN: 1. We will continue the patient on Zosyn #4 and Zithromax #4 for atypical coverage and chronic obstructive pulmonary disease exacerbation. Start empiric Vancomycin pending repeat cultures -5 SP LEvaquin #2 2. Monitor CBC/CMP 3. Bcx x2, u/a w/ reflex 4. Monitor liver function tests. 5. Influenza sc, Cdiff if diarrhea 6. f/u Hep C PCR. 7. Monitor cultures (blood, urine, sputum). 8. We will follow Cardiology recommendations. 9. Based on the patient's clinical course and laboratories, we will do further recommendations. 10. No need for continuing minocycline at this point. : Subjective Allergies: Coded Allergies: HEPARIN (Verified Allergy, Unknown, 10/05/18) RAMIPRIL (Verified Allergy, Unknown, 10/03/18) SULFA (SULFONAMIDE ANTIBIOTICS) (Unverified Allergy, Unknown, 10/05/18) Uncoded Allergies: SULFA (Allergy, Unknown, 10/03/18) Subjective Tm 100.1 wbc increasing Objective Vital Signs Last 24 Hour Vital Signs Date Time Temp Pulse Resp B/P (MAP) Pulse Ox O2 Delivery O2 Flow Rate FiO2 10/07/18 11:00 78 20 150/75 (100) 100 10/07/18 10:33 71 16 30 10/07/18 10:00 77 20 145/74 (97) 100 10/07/18 09:17 100 10/07/18 09:14 84 16 30 10/07/18 09:03 92 14 30 30 10/07/18 09:00 74 20 140/75 (96) 100 10/07/18 08:00 78 10/07/18 08:00 99.2 84 20 138/70 (92) 100 5/7/19 08:00 Mechanical Ventilator 10/07/18 08:00 35 10/07/18 07:03 72 16 30 10/07/18 07:00 77 20 130/68 (88) 100 10/07/18 06:00 70 20 134/71 (92) 100 10/07/18 05:24 93 16 30 35 10/07/18 05:00 96 22 172/90 (117) 100 10/07/18 04:00 Mechanical Ventilator 10/07/18 04:00 79 10/07/18 04:00 35 10/07/18 04:00 99.0 80 19 145/85 (105) 100 10/07/18 03:05 92 18 30 35 10/07/18 03:00 100.1 97 19 137/67 (90) 100 10/07/18 02:00 96 19 133/75 (94) 100 10/07/18 01:00 103 19 152/81 (104) 100 10/07/18 00:49 106 16 30 35 10/07/18 00:00 Mechanical Ventilator 10/07/18 00:00 35 10/07/18 00:00 99.6 104 17 118/78 (91) 100 10/07/18 00:00 116 10/06/18 23:00 102 15 151/75 (100) 100 10/06/18 22:50 104 16 30 35 10/06/18 22:00 94 16 130/76 (94) 100 10/06/18 21:09 80 16 30 35 10/06/18 21:00 80 16 138/72 (94) 100 10/06/18 20:00 35 10/06/18 20:00 70 10/06/18 20:00 98.9 70 14 116/61 (79) 100 10/06/18 20:00 Mechanical Ventilator 10/06/18 19:29 86 16 30 35 10/06/18 19:00 94 16 156/78 (104) 100 10/06/18 18:00 91 20 140/99 (113) 100 10/06/18 17:21 153/72 10/06/18 17:08 91 16 35 10/06/18 17:00 90 16 153/72 (99) 100 10/06/18 16:00 82 10/06/18 16:00 Mechanical Ventilator 10/06/18 16:00 98.0 99 17 139/76 (97) 100 10/06/18 16:00 35 10/06/18 15:12 84 16 35 10/06/18 15:00 84 16 161/76 (104) 100 10/06/18 14:00 102 19 119/82 (94) 99 10/06/18 13:17 79 16 35 10/06/18 13:00 78 18 138/68 (91) 100 10/06/18 12:00 62 10/06/18 12:00 Mechanical Ventilator 10/06/18 12:00 97.7 62 16 138/68 (91) 100 10/06/18 12:00 35 Height (Feet): 5 Height (Inches): 3.00 Weight (Pounds): 110 Objective HEENT: Mild pale conjunctivae. No icterus. NECK: No lymphadenopathy. CHEST: Coarse breathing sounds. HEART: S1 and S2. ABDOMEN: Soft. ABDOMEN: Soft. EXTREMITIES: No cyanosis. NEUROLOGIC: Sedated. Laboratory Tests Test 10/07/18 04:15 10/07/18 08:00 White Blood Count 23.3 K/UL (4.8-10.8) *H Red Blood Count 4.51 M/UL (4.20-5.40) Hemoglobin 14.6 G/DL (12.0-16.0) Hematocrit 44.3 % (37.0-47.0) Mean Corpuscular Volume 98 FL (80-99) Mean Corpuscular Hemoglobin 32.5 PG (27.0-31.0) H Mean Corpuscular Hemoglobin Concent 33.0 G/DL (32.0-36.0) Red Cell Distribution Width 14.3 % (11.6-14.8) Platelet Count 247 K/UL (150-450) Mean Platelet Volume 7.9 FL (6.5-10.1) Neutrophils (%) (Auto) % (45.0-75.0) Lymphocytes (%) (Auto) % (20.0-45.0) Monocytes (%) (Auto) % (1.0-10.0) Eosinophils (%) (Auto) % (0.0-3.0) Basophils (%) (Auto) % (0.0-2.0) Differential Total Cells Counted 100 Neutrophils % (Manual) 86 % (45-75) H Lymphocytes % (Manual) 6 % (20-45) L Monocytes % (Manual) 8 % (1-10) Eosinophils % (Manual) 0 % (0-3) Basophils % (Manual) 0 % (0-2) Band Neutrophils 0 % (0-8) Platelet Estimate Adequate Platelet Morphology Normal Red Blood Cell Morphology Normal Sodium Level 142 MMOL/L (136-145) Potassium Level 3.5 MMOL/L (3.5-5.1) Chloride Level 106 MMOL/L (98-107) Carbon Dioxide Level 31 MMOL/L (21-32) Anion Gap 6 mmol/L (5-15) Blood Urea Nitrogen 14 mg/dL (7-18) Creatinine 0.6 MG/DL (0.55-1.30) Estimat Glomerular Filtration Rate mL/min (>60) Glucose Level 80 MG/DL (74-106) Calcium Level 9.1 MG/DL (8.5-10.1) Phosphorus Level 3.4 MG/DL (2.5-4.9) Magnesium Level 2.0 MG/DL (1.8-2.4) Total Bilirubin 0.9 MG/DL (0.2-1.0) Aspartate Amino Transf (AST/SGOT) 27 U/L (15-37) Alanine Aminotransferase (ALT/SGPT) 60 U/L (12-78) Alkaline Phosphatase 111 U/L (46-116) Total Protein 5.7 G/DL (6.4-8.2) L Albumin 2.5 G/DL (3.4-5.0) L Globulin 3.2 g/dL Albumin/Globulin Ratio 0.8 (1.0-2.7) L Arterial Blood pH 7.526 (7.350-7.450) Arterial Blood Partial Pressure CO2 32.2 mmHg (35.0-45.0) L Arterial Blood Partial Pressure O2 68.6 mmHg (75.0-100.0) L Arterial Blood HCO3 26.1 mmol/L (22.0-26.0) H Arterial Blood Oxygen Saturation 94.7 % (95-100) L Arterial Blood Base Excess 3.9 (-2-2) H Clyde Test Positive Current Medications Medications (Trade) Dose Ordered Sig/Aleah Route PRN Reason Start Time Stop Time Status Last Admin Dose Admin Albuterol/ Ipratropium (Albuterol/ Ipratropium) 3 ml Q4H PRN HHN dyspnea 10/04/18 08:00 10/09/18 07:59 Aspirin (ASA) 81 mg DAILY NG 10/05/18 09:00 11/04/18 08:59 10/07/18 09:13 Atorvastatin Calcium (Lipitor) 10 mg BEDTIME ORAL 10/04/18 21:00 11/03/18 20:59 10/06/18 20:22 Azithromycin 500 mg/Dextrose 275 ml @ 275 mls/hr Q24H IV 10/04/18 18:00 10/10/18 18:59 10/06/18 17:20 Dextrose (Dextrose 50%) 25 ml Q30M PRN IV Hypoglycemia 10/04/18 08:00 11/03/18 07:53 Dextrose (Dextrose 50%) 50 ml Q30M PRN IV hypoglycemia 10/04/18 08:00 11/03/18 07:59 Insulin Aspart (NovoLOG) Q6HR SUBQ 10/04/18 12:00 11/03/18 11:29 10/06/18 17:24 Lorazepam (Ativan 2mg/ml 1ml) 2 mg Q4H PRN IV For Anxiety 10/04/18 08:00 10/11/18 07:59 10/06/18 21:50 Morphine Sulfate (Morphine Sulfate) 2 mg Q4H PRN IVP Moderate Pain (Pain Scale 4-6) 10/04/18 08:00 10/11/18 07:59 10/06/18 01:12 Morphine Sulfate (Morphine Sulfate) 4 mg Q4H PRN IVP Severe Pain (Pain Scale 7-10) 10/04/18 08:00 10/11/18 07:59 Nitroglycerin (Ntg) 1 patch Q24H TDERMAL 10/05/18 18:00 11/04/18 17:59 10/06/18 17:21 Pantoprazole (Protonix) 40 mg Q12HR IV 10/04/18 21:00 11/03/18 08:59 10/07/18 09:13 Piperacillin Sod/ Tazobactam Sod 3.375 gm/Sodium Chloride 110 ml @ 27.5 mls/hr EVERY 8 HOURS IVPB 10/04/18 09:00 10/11/18 08:59 10/07/18 05:43 Clementina Flor M.D. October 07, 2018 11:37
--- NOTE | 2018-10-07 11:40 | NUR ---
NURSE NOTES: Restraints removed one at a time to allow active range of motion. Peripheral pulses present. Patient continues to reach for tubes despite bedside education to not pull on devices. Restraints will remain on.
--- NOTE | 2018-10-07 11:41 | NUR ---
NURSE NOTES: Received patient opens eyes, makes needs known by pointing, writing. Patient case monitor showing SR. Intubated on 10/04. ETT 7.5 22 cm lipline AC 16 VT 600 Fio2 35% no peep. Yesterday did not tolerate weaning. OGT Jevity 1.2 at 20 no residual noted. Krueger intact SKin intact. L forearm 22, R wrist 20. WBC count reported to Dr. Jung. Lung sounds diminished bilaterally. No distress noted at this time. Will continue plan of care. Bilat restraints intact. Peripheral pulses present, active range of motion present, bed on lowest position, bed alarm on for safety. No new orders at this time. Will continue to monitor patient. Addendum: 10/07/18 at 1146 by NIDA BENSON RN 8:00 AM note
--- NOTE | 2018-10-07 12:16 | Diagnostic Imaging Report ---
Indication: Dyspnea Comparison: 10/06/2018 A single view chest radiograph was obtained. Findings: Lungs remain clear. Heart is mildly enlarged. Tubes and lines are satisfactory and stable. IMPRESSION: No change from the prior day
[2018-10-07] MEDS: Vancomycin 750mg/NS 275ml IVPB SCH ×2 (14:00)
--- NOTE | 2018-10-07 14:00 | NUR ---
NURSE NOTES: a&o x3 able to make needs known. Cooperative but forgetful, reaches for tubes. Turned and repositioned. No new orders at this time.
--- NOTE | 2018-10-07 14:00 | Nephrology Progress Note ---
Assessment/Plan Problem List: (1) Severe protein-calorie malnutrition (2) NSTEMI (non-ST elevated myocardial infarction) (3) COPD (chronic obstructive pulmonary disease) (4) Acute respiratory failure Assessment Acute respiratory failure COPD Azotemia, High Na , elevated LFTs Elevated troponin Plan Slow Hydrate Per cardiology Pulm management taper steroid as possible monitor renal parameters discussed with RN Subjective ROS Limited/Unobtainable: Yes Objective Objective Last 24 Hour Vital Signs Date Time Temp Pulse Resp B/P (MAP) Pulse Ox O2 Delivery O2 Flow Rate FiO2 10/07/18 13:01 74 16 30 10/07/18 13:00 72 20 139/70 (93) 100 10/07/18 12:00 64 10/07/18 12:00 99.0 80 20 135/78 (97) 100 10/07/18 12:00 Mechanical Ventilator 10/07/18 12:00 35 10/07/18 11:00 78 20 150/75 (100) 100 10/07/18 10:33 71 16 30 10/07/18 10:00 77 20 145/74 (97) 100 10/07/18 09:17 100 10/07/18 09:14 84 16 30 10/07/18 09:03 92 14 30 30 10/07/18 09:00 74 20 140/75 (96) 100 10/07/18 08:00 78 10/07/18 08:00 99.2 84 20 138/70 (92) 100 10/07/18 08:00 Mechanical Ventilator 10/07/18 08:00 35 10/07/18 07:03 72 16 30 10/07/18 07:00 77 20 130/68 (88) 100 10/07/18 06:00 70 20 134/71 (92) 100 10/07/18 05:24 93 16 30 35 10/07/18 05:00 96 22 172/90 (117) 100 10/07/18 04:00 Mechanical Ventilator 10/07/18 04:00 79 10/07/18 04:00 35 10/07/18 04:00 99.0 80 19 145/85 (105) 100 10/07/18 03:05 92 18 30 35 10/07/18 03:00 100.1 97 19 137/67 (90) 100 10/07/18 02:00 96 19 133/75 (94) 100 10/07/18 01:00 103 19 152/81 (104) 100 10/07/18 00:49 106 16 30 35 10/07/18 00:00 Mechanical Ventilator 10/07/18 00:00 35 10/07/18 00:00 99.6 104 17 118/78 (91) 100 10/07/18 00:00 116 10/06/18 23:00 102 15 151/75 (100) 100 10/06/18 22:50 104 16 30 35 10/06/18 22:00 94 16 130/76 (94) 100 10/06/18 21:09 80 16 30 35 10/06/18 21:00 80 16 138/72 (94) 100 10/06/18 20:00 35 10/06/18 20:00 70 10/06/18 20:00 98.9 70 14 116/61 (79) 100 10/06/18 20:00 Mechanical Ventilator 10/06/18 19:29 86 16 30 35 10/06/18 19:00 94 16 156/78 (104) 100 10/06/18 18:00 91 20 140/99 (113) 100 10/06/18 17:21 153/72 10/06/18 17:08 91 16 35 10/06/18 17:00 90 16 153/72 (99) 100 10/06/18 16:00 82 10/06/18 16:00 Mechanical Ventilator 10/06/18 16:00 98.0 99 17 139/76 (97) 100 10/06/18 16:00 35 10/06/18 15:12 84 16 35 10/06/18 15:00 84 16 161/76 (104) 100 10/06/18 14:00 102 19 119/82 (94) 99 Intake and Output 10/06/18 10/07/18 19:00 07:00 Intake Total 545 ml 460 ml Output Total 420 ml 780 ml Balance 125 ml -320 ml Intake Free Water 110 ml IV Total 385 ml 110 ml Tube Feeding 160 ml 240 ml Output Urine Total 420 ml 780 ml Laboratory Tests 10/07/18 04:15: White Blood Count 23.3*H, Red Blood Count 4.51, Hemoglobin 14.6, Hematocrit 44.3 , Mean Corpuscular Volume 98, Mean Corpuscular Hemoglobin 32.5H, Mean Corpuscular Hemoglobin Concent 33.0, Red Cell Distribution Width 14.3, Platelet Count 247, Mean Platelet Volume 7.9, Neutrophils (%) (Auto) , Lymphocytes (%) ( Auto) , Monocytes (%) (Auto) , Eosinophils (%) (Auto) , Basophils (%) (Auto) , Differential Total Cells Counted 100, Neutrophils % (Manual) 86H, Lymphocytes % (Manual) 6L, Monocytes % (Manual) 8, Eosinophils % (Manual) 0, Basophils % ( Manual) 0, Band Neutrophils 0, Platelet Estimate Adequate, Platelet Morphology Normal, Red Blood Cell Morphology Normal, Sodium Level 142, Potassium Level 3.5 , Chloride Level 106, Carbon Dioxide Level 31, Anion Gap 6, Blood Urea Nitrogen 14, Creatinine 0.6, Estimat Glomerular Filtration Rate , Glucose Level 80, Calcium Level 9.1, Phosphorus Level 3.4, Magnesium Level 2.0, Total Bilirubin 0.9, Aspartate Amino Transf (AST/SGOT) 27, Alanine Aminotransferase (ALT/SGPT) 60, Alkaline Phosphatase 111, Total Protein 5.7L, Albumin 2.5L, Globulin 3.2, Albumin/Globulin Ratio 0.8L 10/07/18 08:00: Arterial Blood pH 7.526H, Arterial Blood Partial Pressure CO2 32.2L, Arterial Blood Partial Pressure O2 68.6L, Arterial Blood HCO3 26.1H, Arterial Blood Oxygen Saturation 94.7L, Arterial Blood Base Excess 3.9H, Clyde Test Positive Height (Feet): 5 Height (Inches): 3.00 Weight (Pounds): 110 General Appearance: no apparent distress Objective no change Robbie Garza MD October 07, 2018 14:00
--- NOTE | 2018-10-07 14:20 | NUR ---
Social Service Note FANNIE met with patient to obtain contact information and prior medical history. Patient is alert, oriented and able to answer questions by writing and mouthing words. Patient is orally intubated. Patient's purse is at bedside. FANNIE provided purse to patient. Patient able to locate emergency contact Cal Comer [phone]. FANNIE spoke with Cal who is a friend and colleague of patient. 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 Patient doesn't have children and her only known family member Ravi Pascual her father has . Cal states she has a friend Milka who visited patient on Saturday. Cal believes her contact number is [phone]. FANNIE unable to reach Milka and leave a message. Both and patient and Cal arauz patient has received all her medical care at [facility]. Cal states patient has had a heart attack and has been debilitated by [place] disease on many occasions. Cal would like to be contact as needed. Cal states he was the person who called 911 after speaking to patient he was very concerned. Prior to admission patient lived alone and was independent. Patient may require short term rehab upon discharge. FANNIE informed MD and consults of prior medical history. Patient is a full code. Will continue to monitor and follow up.
--- NOTE | 2018-10-07 14:57 | Cardiology Report ---
APPROVED REPORT EXAM: Two-dimensional and M-mode echocardiogram with Doppler and color Doppler. INDICATION LV FUNCTION M-Mode DIMENSIONS IVSd0.9 (0.7-1.1cm)Left Atrium (MM)3.0 (1.6-4.0cm) LVDd4.6 (3.5-5.6cm)Aortic Root2.8 (2.0-3.7cm) PWd0.6 (0.7-1.1cm)Aortic Cusp Exc.1.7 (1.5-2.0cm) IVSs1.1 cm LVDs2.8 (2.5-4.0cm) PWs0.9 cm Other Information Technically limited study due to poor acoustical windows . Normal left ventricular chamber size, systolic function and wall motion to extent visualized. Left ventricular ejection fraction estimated to be 55-60%. No evidence of left ventricular hypertrophy . Anterior Echo-free space, may be due to pericardial fat or effusion. All other cardiac chamber sizes are within normal limits. Aortic valve calcification with normal cusp excursion . Mildly thickened mitral valve leaflets with normal excursion. Mild mitral annulus and aortic root calcification. Pulmonic valve not well visualized. IVC dilated at 2.3 cm without physiologic collapse suggestive of increased RA pressure. A color flow and spectral Doppler study was performed and revealed: No aortic insufficiency . Mitral diastolic velocities suggest reduced left ventricular relaxation c/w mild LV diastolic dysfunction (Grade I ) Mild mitral regurgitation. Trace tricuspid regurgitation. Tricuspid systolic velocities suggests peak right ventricular systolic pressure of 28 mmHg.
--- NOTE | 2018-10-07 15:04 | General Progress Note ---
Assessment/Plan Problem List: (1) UTI (urinary tract infection) ICD Codes: N39.0 - Urinary tract infection, site not specified SNOMED: 98043735 (2) Diabetes ICD Codes: E11.9 - Type 2 diabetes mellitus without complications SNOMED: 10522818 (3) COPD (chronic obstructive pulmonary disease) ICD Codes: J44.9 - Chronic obstructive pulmonary disease, unspecified SNOMED: 33095784 Qualifiers: Qualified Codes: J44.9 - Chronic obstructive pulmonary disease, unspecified (4) NSTEMI (non-ST elevated myocardial infarction) ICD Codes: I21.4 - Non-ST elevation (NSTEMI) myocardial infarction SNOMED: 60653870 (5) Episode of generalized weakness ICD Codes: R53.1 - Weakness SNOMED: 38678475 Status: unchanged Assessment/Plan: vent abx pain control cardio f/u cbc bmp am ltach eval Subjective Constitutional: Reports: weakness Allergies: Coded Allergies: HEPARIN (Verified Allergy, Unknown, 10/05/18) RAMIPRIL (Verified Allergy, Unknown, 10/03/18) SULFA (SULFONAMIDE ANTIBIOTICS) (Unverified Allergy, Unknown, 10/05/18) Uncoded Allergies: SULFA (Allergy, Unknown, 10/03/18) All Systems: reviewed and negative except above Subjective intubated sedated in icu Objective Last 24 Hour Vital Signs Date Time Temp Pulse Resp B/P (MAP) Pulse Ox O2 Delivery O2 Flow Rate FiO2 10/07/18 14:00 75 20 130/72 (91) 100 10/07/18 13:01 74 16 30 10/07/18 13:00 72 20 139/70 (93) 100 10/07/18 12:00 64 10/07/18 12:00 99.0 80 20 135/78 (97) 100 10/07/18 12:00 Mechanical Ventilator 10/07/18 12:00 35 10/07/18 11:00 78 20 150/75 (100) 100 10/07/18 10:33 71 16 30 10/07/18 10:00 77 20 145/74 (97) 100 10/07/18 09:17 100 10/07/18 09:14 84 16 30 10/07/18 09:03 92 14 30 30 10/07/18 09:00 74 20 140/75 (96) 100 10/07/18 08:00 78 10/07/18 08:00 99.2 84 20 138/70 (92) 100 10/07/18 08:00 Mechanical Ventilator 10/07/18 08:00 35 10/07/18 07:03 72 16 30 10/07/18 07:00 77 20 130/68 (88) 100 10/07/18 06:00 70 20 134/71 (92) 100 10/07/18 05:24 93 16 30 35 10/07/18 05:00 96 22 172/90 (117) 100 10/07/18 04:00 Mechanical Ventilator 10/07/18 04:00 79 10/07/18 04:00 35 10/07/18 04:00 99.0 80 19 145/85 (105) 100 10/07/18 03:05 92 18 30 35 10/07/18 03:00 100.1 97 19 137/67 (90) 100 10/07/18 02:00 96 19 133/75 (94) 100 10/07/18 01:00 103 19 152/81 (104) 100 10/07/18 00:49 106 16 30 35 10/07/18 00:00 Mechanical Ventilator 10/07/18 00:00 35 10/07/18 00:00 99.6 104 17 118/78 (91) 100 10/07/18 00:00 116 10/06/18 23:00 102 15 151/75 (100) 100 10/06/18 22:50 104 16 30 35 10/06/18 22:00 94 16 130/76 (94) 100 10/06/18 21:09 80 16 30 35 10/06/18 21:00 80 16 138/72 (94) 100 10/06/18 20:00 35 10/06/18 20:00 70 10/06/18 20:00 98.9 70 14 116/61 (79) 100 10/06/18 20:00 Mechanical Ventilator 10/06/18 19:29 86 16 30 35 10/06/18 19:00 94 16 156/78 (104) 100 10/06/18 18:00 91 20 140/99 (113) 100 10/06/18 17:21 153/72 10/06/18 17:08 91 16 35 10/06/18 17:00 90 16 153/72 (99) 100 10/06/18 16:00 82 10/06/18 16:00 Mechanical Ventilator 10/06/18 16:00 98.0 99 17 139/76 (97) 100 10/06/18 16:00 35 10/06/18 15:12 84 16 35 Intake and Output 10/06/18 10/07/18 19:00 07:00 Intake Total 545 ml 460 ml Output Total 420 ml 780 ml Balance 125 ml -320 ml Intake Free Water 110 ml IV Total 385 ml 110 ml Tube Feeding 160 ml 240 ml Output Urine Total 420 ml 780 ml Laboratory Tests 10/07/18 04:15: White Blood Count 23.3*H, Red Blood Count 4.51, Hemoglobin 14.6, Hematocrit 44.3 , Mean Corpuscular Volume 98, Mean Corpuscular Hemoglobin 32.5H, Mean Corpuscular Hemoglobin Concent 33.0, Red Cell Distribution Width 14.3, Platelet Count 247, Mean Platelet Volume 7.9, Neutrophils (%) (Auto) , Lymphocytes (%) ( Auto) , Monocytes (%) (Auto) , Eosinophils (%) (Auto) , Basophils (%) (Auto) , Differential Total Cells Counted 100, Neutrophils % (Manual) 86H, Lymphocytes % (Manual) 6L, Monocytes % (Manual) 8, Eosinophils % (Manual) 0, Basophils % ( Manual) 0, Band Neutrophils 0, Platelet Estimate Adequate, Platelet Morphology Normal, Red Blood Cell Morphology Normal, Sodium Level 142, Potassium Level 3.5 , Chloride Level 106, Carbon Dioxide Level 31, Anion Gap 6, Blood Urea Nitrogen 14, Creatinine 0.6, Estimat Glomerular Filtration Rate , Glucose Level 80, Calcium Level 9.1, Phosphorus Level 3.4, Magnesium Level 2.0, Total Bilirubin 0.9, Aspartate Amino Transf (AST/SGOT) 27, Alanine Aminotransferase (ALT/SGPT) 60, Alkaline Phosphatase 111, Total Protein 5.7L, Albumin 2.5L, Globulin 3.2, Albumin/Globulin Ratio 0.8L 10/07/18 08:00: Arterial Blood pH 7.526H, Arterial Blood Partial Pressure CO2 32.2L, Arterial Blood Partial Pressure O2 68.6L, Arterial Blood HCO3 26.1H, Arterial Blood Oxygen Saturation 94.7L, Arterial Blood Base Excess 3.9H, Clyde Test Positive Height (Feet): 5 Height (Inches): 3.00 Weight (Pounds): 110 General Appearance: lethargic EENT: normal ENT inspection Neck: normal alignment Cardiovascular: normal peripheral pulses, normal rate, regular rhythm Respiratory/Chest: chest wall non-tender, lungs clear, normal breath sounds Abdomen: normal bowel sounds, non tender, soft Extremities: normal inspection Edema: no edema noted Arm (L), no edema noted Arm (R), no edema noted Leg (L), no edema noted Leg (R), no edema noted Pedal (L), no edema noted Pedal (R), no edema noted Generalized Neurologic: motor weakness Skin: normal pigmentation, warm/dry Osei Naranjo DO October 07, 2018 15:04
--- NOTE | 2018-10-07 16:00 | NUR ---
NURSE NOTES: VSS no changes in patient condition will continue to monitor patient.
--- NOTE | 2018-10-07 18:00 | NUR ---
NURSE NOTES: VSS. No distress noted. Turned and repositioned. Will continue plan of care.
[2018-10-07] MEDS: Nitroglycerin Patch 0.4mg TDERMAL SCH (18:22)
--- NOTE | 2018-10-07 19:20 | NUR ---
RESPIRATORY NOTE: Received pt on AC 16, 600VT, 30%, no PEEP. Pt intubated w/ ETT 7.5 @ 22cm lipline, secured by anchorfast. Pt alert/awake, follows commands. Both hands on soft-restraints to prevent pt from self-extubation. B/S virgilio. clear, sxn minimal amounts of thick/thin, pale-yellow secretions. Vent plugged into red outlet, ambubag at bedside. Pt in no apparent distress at this time. Denies SOB/chest pain. Will continue to monitor pt.
--- NOTE | 2018-10-07 19:30 | NUR ---
NURSE NOTES: Received pt in no apparent distress. Awake, alert, oriented x3 but non verbal 2/2 ETT. Pt anxious, mildly restless. Remains orally intubated with #7.5ETT placed over left lip at 22cm with vent settings of AC16TV 600 FiO2.35 and saturating 99%. Secretions tannish small amt; chest sounds with scattered rhonchi. OGT in situ; Tf with Jevity 1.2 running at 20ml/h with 0 residuals. PIV site on RFA intact, right arm slightly swollen but IV in place, patent with good blood return. HL on LFA intact. FC patent; skin warm dry and intact. NSR, afebrile, BP stable. Pt communicates by writing. Carter soft wrist restraints maintained. will continue to monitor
[2018-10-07] MEDS: Azithromycin 500 MG in D5W 275 ML IV SCH (20:08)
--- NOTE | 2018-10-07 22:00 | NUR ---
NURSE NOTES: Calm, passive, asleep; no distress, VSS
[2018-10-08] VITALS (24 sets, daily range): BP systolic 120–190; BP diastolic 51–154
--- NOTE | 2018-10-08 | NUR ---
NURSE NOTES: Sleeps on and off; HOB elevated, frequent oral care and suctioning done. BS 99; no coverage. UOP 80-100ml/h, Tolerates feeding.Afebrile, ST on the monitor
--- NOTE | 2018-10-08 01:15 | History and Physical Report ---
DATE OF ADMISSION: 10/04/2018 ADDENDUM Apparently upon admission on 10/04/2018, the patient was initially admitted to step-down and went into respiratory arrest . A rapid response was called. She was intubated and hence transferred to ICU. Osei Nraanjo D.O. DR: LORNA JOB#: [id number] CC:
[2018-10-08] MEDS: Zosyn 3.375gm q8h **Extended infusion IVPB SCH ×6 (01:27→18:11)
[2018-10-08] MEDS: Vancomycin 750mg/NS 275ml IVPB SCH ×4 (01:31→13:37)
--- NOTE | 2018-10-08 02:00 | NUR ---
NURSE NOTES: Awake, mildly anxious. Reassured. Trial for restraint removal. Assured that if she doesn't attempt to pull the tubes, restraints will be dc'd. Pt agrees. Taught how to suction self with yankauer tip.
--- NOTE | 2018-10-08 04:00 | NUR ---
NURSE NOTES: Pt calm, cooperative and more relaxed with restraints off. DC'd restraints. Complete bed bath done. Skin intact but dry, HL on LFA dc'd as it is clotted. No BM. Denies pain. Afebrile. VSS
[2018-10-08 05:37] LABS: HEMATOCRIT 43.4 % (37.0-47.0); HEMOGLOBIN 14.3 G/DL (12.0-16.0); MEAN CORPUSCULAR VOLUME 98 FL (80-99); PLATELET COUNT 222 K/UL (150-450); RED BLOOD COUNT 4.42 M/UL (4.20-5.40); RED CELL DISTRIBUTION WIDTH 14.1 % (11.6-14.8); WHITE BLOOD COUNT 18.2 K/UL (4.8-10.8)
[2018-10-08 05:49] LABS: ALANINE AMINOTRANSFERASE 48 U/L (12-78); ALBUMIN 2.5 G/DL (3.4-5.0); ALBUMIN/GLOBULIN RATIO 0.8 (1.0-2.7); ALKALINE PHOSPHATASE 105 U/L (46-116); ANION GAP 6 mmol/L (5-15); ASPARTATE AMINO TRANSFERASE 23 U/L (15-37); BILIRUBIN,TOTAL 1.3 MG/DL (0.2-1.0); BLOOD UREA NITROGEN 11 mg/dL (7-18); CALCIUM 8.7 MG/DL (8.5-10.1); CARBON DIOXIDE 31 MMOL/L (21-32); CHLORIDE 108 MMOL/L (98-107); CREATININE 0.6 MG/DL (0.55-1.30); PHOSPHORUS 3.2 MG/DL (2.5-4.9); POTASSIUM 2.9 MMOL/L (3.5-5.1); SODIUM 144 MMOL/L (136-145)
[2018-10-08 05:50] LABS: BILIRUBIN,DIRECT 0.2 MG/DL (0.0-0.3)
[2018-10-08 05:51] LABS: AMYLASE 42 U/L (25-115)
[2018-10-08] MEDS: NovoLOG Insulin Flexpen SUBQ SCH ×4 (06:00→18:00)
--- NOTE | 2018-10-08 07:26 | NUR ---
HAND-OFF: Report given to SLOANE Lewis.
--- NOTE | 2018-10-08 07:50 | NUR ---
NURSE NOTES: Weaning started,pt put on CPAP PS 10,tolerate well.Deep breathing exercises provided.Will continue to monitor.
--- NOTE | 2018-10-08 08:10 | NUR ---
NURSE NOTES: Report received from SLOANE Alex. Asleep when received, easily arousal to verbal and tactile stimuli.ETT in place 7.10/22 left lip line , AC 16 Vt 600 Fio2 30%. On weaning trial,sedation on hold at this time.RFA peripheral line with TKO.NGT in place patent and placement intact.Residual at 5cc.Barnhart catheter intact draining yellowish urine by gravity with no apparent sediment.Turned and repositioned,mouth care done.Kept clean dry and comfortable.Call light within easy reach.Will continue to monitor.
[2018-10-08] MEDS: Aspirin Baby 81mg NG SCH (08:32)
[2018-10-08] MEDS: Pantoprazole Inj IV SCH ×2 (08:32→22:03)
--- NOTE | 2018-10-08 09:18 | NUR ---
NURSE NOTES: Seen by treatment nurse, will follow up with new orders
--- NOTE | 2018-10-08 09:20 | NUR ---
RADIOLOGY DEPT., CHEST X-RAY DONE.-P.DYE
[2018-10-08] MEDS ORDERED: Sodium Chloride for KCL Premix X 4hrs IV SCH (09:30)
--- NOTE | 2018-10-08 09:51 | NUR ---
RD ASSESSMENT & RECOMMENDATIONS SEE CARE ACTIVITY FOR COMPLETE ASSESSMENT DAILY ESTIMATED NEEDS: Needs based on Critical care, wound, wasting 49kg 25-30 kcals/kg 2274-5411 total kcals 1.25-2 g protein/kg 61-98 g total protein 25-30 mL/kg 1399-9214 total fluid mLs NUTRITION DIAGNOSIS: 1) Swallowing difficulty r/t resp status as evidenced by s/p RR, now orally intubated, on OGT feeds. 2) Altered nutrition related lab values r/t hyperglyemia as evidenced by elev BG (288-> now wnl), A1C 6.2, now off D5 + steroidal meds. CURRENT DIET: CURRENT TF: Jevity 1.2 @20ml PO DIET RECOMMENDATIONS: FIELD ENUMERATOR evaluation post extubation ENTERAL NUTRITION RECOMMENDATIONS: REC TF CHANGE TO-> GLUCERNA 1.2 @50ML/HR x24HRS to provide 1200ml, 1440 kcal, 72g pro, 966ml free H2O - For improved glycemic control and to better meet est needs, rec TF change to Glucerna 1.2. - Start TF @20ml/hr for 6 hrs. Advance as tolerated 10ml/hr 24-6 hrs to goal - Flush per MD/ HOB over 30 degrees ADDITIONAL RECOMMENDATIONS: 1) TF recs as above 2) Check lytes daily, replete as needed (LOW K) 3) RECALIBRATE bed scale for accurate CBW 4) F/up w/ WC eval-> sacral partial thickness per documentation Add GAMAL BID via OGT .
--- NOTE | 2018-10-08 10:01 | NUR ---
NURSE NOTES: Seen by Dr Romo,will follow up with new orders.Turned and repositioned,kept clean and dry.HOB elevated to prevent aspiration,mouth care provided and patient suctioned as tolerated.Will continue to monitor
--- NOTE | 2018-10-08 10:28 | Pulmonolgy Critical Care Note ---
Critical Care - Asmt/Plan Problems: (1) Acute respiratory failure (2) COPD (chronic obstructive pulmonary disease) (3) Diabetes (4) Severe protein-calorie malnutrition Respiratory: monitor respiratory rate, adjust FIO2, CXR Cardiac: continue to monitor HR/BP Renal: F/U I&O, keep IV fluid, check electrolytes Infectious Disease: check cultures, continue antibiotics Gastrointestinal: continue feedings/current rate Endocrine: monitor blood sugar, continue sliding scale insulin Hematologic: transfuse if hgb<8.5 Neurologic: PRN Ativan, PRN Morphine, keep patient comfortable Affect: PRN ativan Prophylaxis: Protonix Time Spent (Minutes): 40 Notes 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, 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, 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 Discussed with: nurses, consultants, medical case workeratm manager - Objective Last 24 Hour Vital Signs Date Time Temp Pulse Resp B/P (MAP) Pulse Ox O2 Delivery O2 Flow Rate FiO2 10/08/18 09:13 118 19 30 10/08/18 09:00 106 19 175/137 (150) 100 10/08/18 08:00 93 19 180/154 (163) 100 10/08/18 08:00 Mechanical Ventilator 10/08/18 08:00 35 10/08/18 08:00 75 10/08/18 07:57 97 12 30 30 10/08/18 07:06 97 16 30 10/08/18 07:00 98.0 104 16 121/74 (90) 98 10/08/18 06:04 104 19 156/94 (114) 100 10/08/18 05:10 102 19 30 10/08/18 05:00 106 18 140/81 (100) 96 10/08/18 04:00 98.5 98 18 142/85 (104) 99 10/08/18 04:00 35 10/08/18 04:00 98 10/08/18 04:00 Mechanical Ventilator 10/08/18 03:02 105 19 30 10/08/18 03:00 95 21 129/115 (120) 98 10/08/18 02:00 105 21 159/86 (110) 99 10/08/18 01:00 110 19 190/81 (117) 98 10/08/18 00:58 118 17 30 10/08/18 00:00 Mechanical Ventilator 10/08/18 00:00 109 10/08/18 00:00 35 10/08/18 00:00 98.1 109 17 144/81 (102) 98 10/07/18 23:12 92 16 30 10/07/18 23:00 91 26 122/72 (89) 97 10/07/18 22:00 97 16 129/67 (87) 98 10/07/18 21:00 97 16 139/71 (93) 97 10/07/18 20:45 99 16 30 10/07/18 20:00 35 10/07/18 20:00 99.0 98 16 154/97 (116) 99 10/07/18 20:00 Mechanical Ventilator 10/07/18 20:00 98 10/07/18 19:14 92 16 30 10/07/18 19:00 95 16 145/77 (99) 98 10/07/18 18:22 160/87 10/07/18 18:00 95 22 162/78 (106) 100 10/07/18 17:28 112 18 30 10/07/18 17:00 98 22 158/80 (106) 100 10/07/18 16:00 98.9 88 22 140/78 (98) 100 10/07/18 16:00 35 10/07/18 16:00 77 10/07/18 16:00 Mechanical Ventilator 10/07/18 15:16 81 16 30 10/07/18 15:00 80 22 136/75 (95) 100 10/07/18 14:00 75 20 130/72 (91) 100 10/07/18 13:01 74 16 30 10/07/18 13:00 72 20 139/70 (93) 100 10/07/18 12:00 64 10/07/18 12:00 99.0 80 20 135/78 (97) 100 10/07/18 12:00 Mechanical Ventilator 10/07/18 12:00 35 10/07/18 11:00 78 20 150/75 (100) 100 10/07/18 10:33 71 16 30 Status: awake Condition: critical, improving HEENT: atraumatic Neck: full ROM Lungs: clear Heart: HR/BP stable Abdomen: soft Extremities: no C/C/E Decubiti: location Accucheck: 98 Critical Care - Subjective ROS Limited/Unobtainable: No Condition: critical EKG Rhythm: Sinus Rhythm FI02: 30 Vent Support Breath Rate: 16 Vent Support Mode: CPAP Vent Tidal Volume: 600 Sputum Amount: Scant PEEP: 0.0 PIP: 11 Tube Feeding Amount: 20 I&O: Intake and Output 10/07/18 10/08/18 18:59 06:59 Intake Total 631.000 ml 1010.000 ml Output Total 1000 ml 900 ml Balance -369.000 ml 110.000 ml IV Total 391.000 ml 770.000 ml Tube Feeding 240 ml 240 ml Output Urine Total 1000 ml 900 ml CXR: ET ok, no change ET-Tube: 7.5 ET Position: 22 Labs: Laboratory Tests Test 10/08/18 04:05 10/08/18 07:45 10/08/18 09:34 White Blood Count 18.2 K/UL (4.8-10.8) H Red Blood Count 4.42 M/UL (4.20-5.40) Hemoglobin 14.3 G/DL (12.0-16.0) Hematocrit 43.4 % (37.0-47.0) Mean Corpuscular Volume 98 FL (80-99) Mean Corpuscular Hemoglobin 32.4 PG (27.0-31.0) H Mean Corpuscular Hemoglobin Concent 33.0 G/DL (32.0-36.0) Red Cell Distribution Width 14.1 % (11.6-14.8) Platelet Count 222 K/UL (150-450) Mean Platelet Volume 7.6 FL (6.5-10.1) Neutrophils (%) (Auto) % (45.0-75.0) Lymphocytes (%) (Auto) % (20.0-45.0) Monocytes (%) (Auto) % (1.0-10.0) Eosinophils (%) (Auto) % (0.0-3.0) Basophils (%) (Auto) % (0.0-2.0) Neutrophils % (Manual) Pending Lymphocytes % (Manual) Pending Platelet Estimate Pending Platelet Morphology Pending Sodium Level 144 MMOL/L (136-145) Potassium Level 2.9 MMOL/L (3.5-5.1) L Chloride Level 108 MMOL/L (98-107) H Carbon Dioxide Level 31 MMOL/L (21-32) Anion Gap 6 mmol/L (5-15) Blood Urea Nitrogen 11 mg/dL (7-18) Creatinine 0.6 MG/DL (0.55-1.30) Estimat Glomerular Filtration Rate mL/min (>60) Glucose Level 98 MG/DL (74-106) Calcium Level 8.7 MG/DL (8.5-10.1) Phosphorus Level 3.2 MG/DL (2.5-4.9) Magnesium Level 2.0 MG/DL (1.8-2.4) Total Bilirubin 1.3 MG/DL (0.2-1.0) H Direct Bilirubin 0.2 MG/DL (0.0-0.3) Aspartate Amino Transf (AST/SGOT) 23 U/L (15-37) Alanine Aminotransferase (ALT/SGPT) 48 U/L (12-78) Alkaline Phosphatase 105 U/L (46-116) Total Protein 5.6 G/DL (6.4-8.2) L Albumin 2.5 G/DL (3.4-5.0) L Globulin 3.1 g/dL Albumin/Globulin Ratio 0.8 (1.0-2.7) L Amylase Level 42 U/L (25-115) Lipase 151 U/L (73-393) Arterial Blood pH 7.499 (7.350-7.450) 7.406 (7.350-7.450) Arterial Blood Partial Pressure CO2 35.2 mmHg (35.0-45.0) 47.8 mmHg (35.0-45.0) H Arterial Blood Partial Pressure O2 66.4 mmHg (75.0-100.0) L 73.6 mmHg (75.0-100.0) L Arterial Blood HCO3 26.8 mmol/L (22.0-26.0) H 29.3 mmol/L (22.0-26.0) H Arterial Blood Oxygen Saturation 93.9 % (95-100) L 94.1 % (95-100) L Arterial Blood Base Excess 3.8 (-2-2) H 3.7 (-2-2) H Clyde Test Positive Positive Steven Romo MD October 08, 2018 10:28
[2018-10-08] MEDS ORDERED: Albuterol/Ipratropium 3ml neb HHN PRN ×2 (11:00→14:15)
--- NOTE | 2018-10-08 11:09 | NUR ---
NURSE NOTES: Order received from dr Romo to extubate,RT made aware
--- NOTE | 2018-10-08 11:25 | NUR ---
NURSE NOTES: Patient extubated.Deep breathing exercises provided, on oxygen mask at 50% and saturate well 98% at this time.Will continue to monitor, tolerate well.
--- NOTE | 2018-10-08 11:38 | Cardiac Electrophysiology PN ---
Assessment/Plan Assessment/Plan 1. NSTEMI. likely type 2. No acute ECG changes. EF nl and no WMA. On aspirin and lipitor. 2. Resp Failure on the vent.Extubation pending 3. Lyme's disease 4. Sepsis on Abx per ID DW RN Subjective Subjective Sedated and Intubated in ICU. No SVT or VT. RN at bedside. Extubation pending today. Objective Last 24 Hour Vital Signs Date Time Temp Pulse Resp B/P (MAP) Pulse Ox O2 Delivery O2 Flow Rate FiO2 10/08/18 11:00 105 19 128/60 (82) 100 10/08/18 10:00 106 19 159/73 (101) 100 10/08/18 09:13 118 19 30 10/08/18 09:00 106 19 175/137 (150) 100 10/08/18 08:00 93 19 180/154 (163) 100 10/08/18 08:00 Mechanical Ventilator 10/08/18 08:00 35 10/08/18 08:00 75 10/08/18 07:57 97 12 30 30 10/08/18 07:06 97 16 30 10/08/18 07:00 98.0 104 16 121/74 (90) 98 10/08/18 06:04 104 19 156/94 (114) 100 10/08/18 05:10 102 19 30 10/08/18 05:00 106 18 140/81 (100) 96 10/08/18 04:00 98.5 98 18 142/85 (104) 99 10/08/18 04:00 35 10/08/18 04:00 98 10/08/18 04:00 Mechanical Ventilator 10/08/18 03:02 105 19 30 10/08/18 03:00 95 21 129/115 (120) 98 10/08/18 02:00 105 21 159/86 (110) 99 10/08/18 01:00 110 19 190/81 (117) 98 10/08/18 00:58 118 17 30 10/08/18 00:00 Mechanical Ventilator 10/08/18 00:00 109 10/08/18 00:00 35 10/08/18 00:00 98.1 109 17 144/81 (102) 98 10/07/18 23:12 92 16 30 10/07/18 23:00 91 26 122/72 (89) 97 10/07/18 22:00 97 16 129/67 (87) 98 10/07/18 21:00 97 16 139/71 (93) 97 10/07/18 20:45 99 16 30 10/07/18 20:00 35 10/07/18 20:00 99.0 98 16 154/97 (116) 99 10/07/18 20:00 Mechanical Ventilator 10/07/18 20:00 98 10/07/18 19:14 92 16 30 10/07/18 19:00 95 16 145/77 (99) 98 10/07/18 18:22 160/87 10/07/18 18:00 95 22 162/78 (106) 100 10/07/18 17:28 112 18 30 10/07/18 17:00 98 22 158/80 (106) 100 10/07/18 16:00 98.9 88 22 140/78 (98) 100 10/07/18 16:00 35 10/07/18 16:00 77 10/07/18 16:00 Mechanical Ventilator 10/07/18 15:16 81 16 30 10/07/18 15:00 80 22 136/75 (95) 100 10/07/18 14:00 75 20 130/72 (91) 100 10/07/18 13:01 74 16 30 10/07/18 13:00 72 20 139/70 (93) 100 10/07/18 12:00 64 10/07/18 12:00 99.0 80 20 135/78 (97) 100 10/07/18 12:00 Mechanical Ventilator 10/07/18 12:00 35 Intake and Output 10/07/18 10/08/18 18:59 06:59 Intake Total 631.000 ml 1010.000 ml Output Total 1000 ml 900 ml Balance -369.000 ml 110.000 ml IV Total 391.000 ml 770.000 ml Tube Feeding 240 ml 240 ml Output Urine Total 1000 ml 900 ml Laboratory Tests Test 10/08/18 04:05 10/08/18 07:45 10/08/18 09:34 White Blood Count 18.2 K/UL (4.8-10.8) H Red Blood Count 4.42 M/UL (4.20-5.40) Hemoglobin 14.3 G/DL (12.0-16.0) Hematocrit 43.4 % (37.0-47.0) Mean Corpuscular Volume 98 FL (80-99) Mean Corpuscular Hemoglobin 32.4 PG (27.0-31.0) H Mean Corpuscular Hemoglobin Concent 33.0 G/DL (32.0-36.0) Red Cell Distribution Width 14.1 % (11.6-14.8) Platelet Count 222 K/UL (150-450) Mean Platelet Volume 7.6 FL (6.5-10.1) Neutrophils (%) (Auto) % (45.0-75.0) Lymphocytes (%) (Auto) % (20.0-45.0) Monocytes (%) (Auto) % (1.0-10.0) Eosinophils (%) (Auto) % (0.0-3.0) Basophils (%) (Auto) % (0.0-2.0) Differential Total Cells Counted 100 Neutrophils % (Manual) 77 % (45-75) H Lymphocytes % (Manual) 18 % (20-45) L Monocytes % (Manual) 4 % (1-10) Eosinophils % (Manual) 1 % (0-3) Basophils % (Manual) 0 % (0-2) Band Neutrophils 0 % (0-8) Platelet Estimate Adequate Platelet Morphology Normal Red Blood Cell Morphology Normal Sodium Level 144 MMOL/L (136-145) Potassium Level 2.9 MMOL/L (3.5-5.1) L Chloride Level 108 MMOL/L (98-107) H Carbon Dioxide Level 31 MMOL/L (21-32) Anion Gap 6 mmol/L (5-15) Blood Urea Nitrogen 11 mg/dL (7-18) Creatinine 0.6 MG/DL (0.55-1.30) Estimat Glomerular Filtration Rate mL/min (>60) Glucose Level 98 MG/DL (74-106) Calcium Level 8.7 MG/DL (8.5-10.1) Phosphorus Level 3.2 MG/DL (2.5-4.9) Magnesium Level 2.0 MG/DL (1.8-2.4) Total Bilirubin 1.3 MG/DL (0.2-1.0) H Direct Bilirubin 0.2 MG/DL (0.0-0.3) Aspartate Amino Transf (AST/SGOT) 23 U/L (15-37) Alanine Aminotransferase (ALT/SGPT) 48 U/L (12-78) Alkaline Phosphatase 105 U/L (46-116) Total Protein 5.6 G/DL (6.4-8.2) L Albumin 2.5 G/DL (3.4-5.0) L Globulin 3.1 g/dL Albumin/Globulin Ratio 0.8 (1.0-2.7) L Amylase Level 42 U/L (25-115) Lipase 151 U/L (73-393) Arterial Blood pH 7.499 (7.350-7.450) 7.406 (7.350-7.450) Arterial Blood Partial Pressure CO2 35.2 mmHg (35.0-45.0) 47.8 mmHg (35.0-45.0) H Arterial Blood Partial Pressure O2 66.4 mmHg (75.0-100.0) L 73.6 mmHg (75.0-100.0) L Arterial Blood HCO3 26.8 mmol/L (22.0-26.0) H 29.3 mmol/L (22.0-26.0) H Arterial Blood Oxygen Saturation 93.9 % (95-100) L 94.1 % (95-100) L Arterial Blood Base Excess 3.8 (-2-2) H 3.7 (-2-2) H Clyde Test Positive Positive Objective HEENT: No JVD. Orally intubated. NGT Lungs: Rhonchi at bases, few scattered wheezes Heart: RRR, No G/R/M Abdomen: soft, non-tender, active bowel sounds Extremities: no C/C/E Braulio Cruz MD October 08, 2018 11:38
--- NOTE | 2018-10-08 12:02 | Nephrology Progress Note ---
Assessment/Plan Problem List: (1) Severe protein-calorie malnutrition (2) NSTEMI (non-ST elevated myocardial infarction) (3) COPD (chronic obstructive pulmonary disease) (4) Acute respiratory failure Assessment Acute respiratory failure COPD Azotemia, High Na , elevated LFTs Elevated troponin Plan K IV Slow Hydrate Per cardiology Pulm management taper steroid as possible monitor renal parameters discussed with RN Subjective ROS Limited/Unobtainable: Yes Objective Objective Last 24 Hour Vital Signs Date Time Temp Pulse Resp B/P (MAP) Pulse Ox O2 Delivery O2 Flow Rate FiO2 10/08/18 11:41 101 22 Venturi Mask 12.0 40 10/08/18 11:40 Venturi Mask 12.0 40 10/08/18 11:38 101 22 Venturi Mask 12.0 40 10/08/18 11:36 100 10/08/18 11:25 Venturi Mask 12.0 40 10/08/18 11:00 105 19 128/60 (82) 100 10/08/18 10:00 106 19 159/73 (101) 100 10/08/18 09:13 118 19 30 10/08/18 09:00 106 19 175/137 (150) 100 10/08/18 08:00 93 19 180/154 (163) 100 10/08/18 08:00 Mechanical Ventilator 10/08/18 08:00 35 10/08/18 08:00 75 10/08/18 07:57 97 12 30 30 10/08/18 07:06 97 16 30 10/08/18 07:00 98.0 104 16 121/74 (90) 98 10/08/18 06:04 104 19 156/94 (114) 100 10/08/18 05:10 102 19 30 10/08/18 05:00 106 18 140/81 (100) 96 10/08/18 04:00 98.5 98 18 142/85 (104) 99 10/08/18 04:00 35 10/08/18 04:00 98 10/08/18 04:00 Mechanical Ventilator 10/08/18 03:02 105 19 30 10/08/18 03:00 95 21 129/115 (120) 98 10/08/18 02:00 105 21 159/86 (110) 99 10/08/18 01:00 110 19 190/81 (117) 98 5/8/19 00:58 118 17 30 10/08/18 00:00 Mechanical Ventilator 10/08/18 00:00 109 10/08/18 00:00 35 10/08/18 00:00 98.1 109 17 144/81 (102) 98 10/07/18 23:12 92 16 30 10/07/18 23:00 91 26 122/72 (89) 97 10/07/18 22:00 97 16 129/67 (87) 98 10/07/18 21:00 97 16 139/71 (93) 97 10/07/18 20:45 99 16 30 10/07/18 20:00 35 10/07/18 20:00 99.0 98 16 154/97 (116) 99 10/07/18 20:00 Mechanical Ventilator 10/07/18 20:00 98 10/07/18 19:14 92 16 30 10/07/18 19:00 95 16 145/77 (99) 98 10/07/18 18:22 160/87 10/07/18 18:00 95 22 162/78 (106) 100 10/07/18 17:28 112 18 30 10/07/18 17:00 98 22 158/80 (106) 100 10/07/18 16:00 98.9 88 22 140/78 (98) 100 10/07/18 16:00 35 10/07/18 16:00 77 10/07/18 16:00 Mechanical Ventilator 10/07/18 15:16 81 16 30 10/07/18 15:00 80 22 136/75 (95) 100 10/07/18 14:00 75 20 130/72 (91) 100 10/07/18 13:01 74 16 30 10/07/18 13:00 72 20 139/70 (93) 100 Intake and Output 10/07/18 10/08/18 18:59 06:59 Intake Total 631.000 ml 1010.000 ml Output Total 1000 ml 900 ml Balance -369.000 ml 110.000 ml IV Total 391.000 ml 770.000 ml Tube Feeding 240 ml 240 ml Output Urine Total 1000 ml 900 ml Laboratory Tests 10/08/18 04:05: White Blood Count 18.2H, Red Blood Count 4.42, Hemoglobin 14.3, Hematocrit 43.4 , Mean Corpuscular Volume 98, Mean Corpuscular Hemoglobin 32.4H, Mean Corpuscular Hemoglobin Concent 33.0, Red Cell Distribution Width 14.1, Platelet Count 222, Mean Platelet Volume 7.6, Neutrophils (%) (Auto) , Lymphocytes (%) ( Auto) , Monocytes (%) (Auto) , Eosinophils (%) (Auto) , Basophils (%) (Auto) , Differential Total Cells Counted 100, Neutrophils % (Manual) 77H, Lymphocytes % (Manual) 18L, Monocytes % (Manual) 4, Eosinophils % (Manual) 1, Basophils % ( Manual) 0, Band Neutrophils 0, Platelet Estimate Adequate, Platelet Morphology Normal, Red Blood Cell Morphology Normal, Sodium Level 144, Potassium Level 2.9L , Chloride Level 108H, Carbon Dioxide Level 31, Anion Gap 6, Blood Urea Nitrogen 11, Creatinine 0.6, Estimat Glomerular Filtration Rate , Glucose Level 98, Calcium Level 8.7, Phosphorus Level 3.2, Magnesium Level 2.0, Total Bilirubin 1.3H, Direct Bilirubin 0.2, Aspartate Amino Transf (AST/SGOT) 23, Alanine Aminotransferase (ALT/SGPT) 48, Alkaline Phosphatase 105, Total Protein 5.6L, Albumin 2.5L, Globulin 3.1, Albumin/Globulin Ratio 0.8L, Amylase Level 42 , Lipase 151 10/08/18 07:45: Arterial Blood pH 7.499H, Arterial Blood Partial Pressure CO2 35.2, Arterial Blood Partial Pressure O2 66.4L, Arterial Blood HCO3 26.8H, Arterial Blood Oxygen Saturation 93.9L, Arterial Blood Base Excess 3.8H, Clyde Test Positive 10/08/18 09:34: Arterial Blood pH 7.406, Arterial Blood Partial Pressure CO2 47.8H, Arterial Blood Partial Pressure O2 73.6L, Arterial Blood HCO3 29.3H, Arterial Blood Oxygen Saturation 94.1L, Arterial Blood Base Excess 3.7H, Clyde Test Positive Height (Feet): 5 Height (Inches): 3.00 Weight (Pounds): 109 General Appearance: no apparent distress EENT: other Cardiovascular: tachycardia Respiratory/Chest: decreased breath sounds Abdomen: distended Objective no change Robbie Garza MD October 08, 2018 12:02
--- NOTE | 2018-10-08 12:04 | NUR ---
NURSE NOTES: Patient turned and repositioned.Mouth care done,kept clean dry and comfortable.Call light within easy reach.
--- NOTE | 2018-10-08 12:10 | Diagnostic Imaging Report ---
Indication: Dyspnea Technique: XRAY Chest 1v Comparison: 10/07/2018 Findings: Endotracheal and enteric tubes stable. Heart size and mediastinal contours stable. Worsening aeration with development of hazy bilateral airspace opacities thought to be related to layering pleural effusions. No pneumothorax. Osseous structures stable. Impression: Development of hazy bibasilar opacities which may be related to layering small pleural effusions versus airspace disease. Attention on follow-up recommended. Enteric and endotracheal tubes remain in place.
[2018-10-08] MEDS ORDERED: Tubing IV Secondary IV ONE (13:24)
[2018-10-08] MEDS ORDERED: NS 275ml ONE (13:25)
--- NOTE | 2018-10-08 13:42 | General Progress Note ---
Assessment/Plan Problem List: (1) UTI (urinary tract infection) ICD Codes: N39.0 - Urinary tract infection, site not specified SNOMED: 56974894 (2) Diabetes ICD Codes: E11.9 - Type 2 diabetes mellitus without complications SNOMED: 39992749 (3) COPD (chronic obstructive pulmonary disease) ICD Codes: J44.9 - Chronic obstructive pulmonary disease, unspecified SNOMED: 70809179 Qualifiers: Qualified Codes: J44.9 - Chronic obstructive pulmonary disease, unspecified (4) NSTEMI (non-ST elevated myocardial infarction) ICD Codes: I21.4 - Non-ST elevation (NSTEMI) myocardial infarction SNOMED: 84190312 (5) Episode of generalized weakness ICD Codes: R53.1 - Weakness SNOMED: 55122014 Status: progressing Assessment/Plan: vent abx pain control cardio f/u cbc bmp am ltach eval Subjective Constitutional: Reports: weakness Respiratory: Reports: shortness of breath Allergies: Coded Allergies: HEPARIN (Verified Allergy, Unknown, 10/05/18) RAMIPRIL (Verified Allergy, Unknown, 10/03/18) SULFA (SULFONAMIDE ANTIBIOTICS) (Unverified Allergy, Unknown, 10/05/18) Uncoded Allergies: SULFA (Allergy, Unknown, 10/03/18) All Systems: reviewed and negative except above Subjective o2 mask in icu Objective Last 24 Hour Vital Signs Date Time Temp Pulse Resp B/P (MAP) Pulse Ox O2 Delivery O2 Flow Rate FiO2 10/08/18 13:00 98 19 165/70 (101) 100 10/08/18 12:00 112 10/08/18 12:00 98.0 116 16 150/74 (99) 98 10/08/18 12:00 Simple Mask 10.0 Simple Mask 10.0 10/08/18 12:00 50 10/08/18 11:41 101 22 Venturi Mask 12.0 40 10/08/18 11:40 Venturi Mask 12.0 40 10/08/18 11:38 101 22 Venturi Mask 12.0 40 10/08/18 11:36 100 10/08/18 11:25 Venturi Mask 12.0 40 10/08/18 11:00 105 19 128/60 (82) 100 10/08/18 10:00 106 19 159/73 (101) 100 10/08/18 09:13 118 19 30 10/08/18 09:00 106 19 175/137 (150) 100 10/08/18 08:00 93 19 180/154 (163) 100 10/08/18 08:00 Mechanical Ventilator 10/08/18 08:00 35 10/08/18 08:00 75 10/08/18 07:57 97 12 30 30 10/08/18 07:06 97 16 30 10/08/18 07:00 98.0 104 16 121/74 (90) 98 10/08/18 06:04 104 19 156/94 (114) 100 10/08/18 05:10 102 19 30 10/08/18 05:00 106 18 140/81 (100) 96 10/08/18 04:00 98.5 98 18 142/85 (104) 99 10/08/18 04:00 35 10/08/18 04:00 98 10/08/18 04:00 Mechanical Ventilator 10/08/18 03:02 105 19 30 10/08/18 03:00 95 21 129/115 (120) 98 10/08/18 02:00 105 21 159/86 (110) 99 10/08/18 01:00 110 19 190/81 (117) 98 10/08/18 00:58 118 17 30 10/08/18 00:00 Mechanical Ventilator 10/08/18 00:00 109 10/08/18 00:00 35 10/08/18 00:00 98.1 109 17 144/81 (102) 98 10/07/18 23:12 92 16 30 10/07/18 23:00 91 26 122/72 (89) 97 10/07/18 22:00 97 16 129/67 (87) 98 10/07/18 21:00 97 16 139/71 (93) 97 10/07/18 20:45 99 16 30 10/07/18 20:00 35 10/07/18 20:00 99.0 98 16 154/97 (116) 99 10/07/18 20:00 Mechanical Ventilator 10/07/18 20:00 98 10/07/18 19:14 92 16 30 10/07/18 19:00 95 16 145/77 (99) 98 10/07/18 18:22 160/87 10/07/18 18:00 95 22 162/78 (106) 100 10/07/18 17:28 112 18 30 10/07/18 17:00 98 22 158/80 (106) 100 10/07/18 16:00 98.9 88 22 140/78 (98) 100 10/07/18 16:00 35 10/07/18 16:00 77 10/07/18 16:00 Mechanical Ventilator 10/07/18 15:16 81 16 30 10/07/18 15:00 80 22 136/75 (95) 100 10/07/18 14:00 75 20 130/72 (91) 100 Intake and Output 10/07/18 10/08/18 19:00 07:00 Intake Total 603.500 ml 1110.000 ml Output Total 1040 ml 980 ml Balance -436.500 ml 130.000 ml Intake Free Water 100 ml IV Total 363.500 ml 770.000 ml Tube Feeding 240 ml 240 ml Output Urine Total 1040 ml 980 ml Laboratory Tests 10/08/18 04:05: White Blood Count 18.2H, Red Blood Count 4.42, Hemoglobin 14.3, Hematocrit 43.4 , Mean Corpuscular Volume 98, Mean Corpuscular Hemoglobin 32.4H, Mean Corpuscular Hemoglobin Concent 33.0, Red Cell Distribution Width 14.1, Platelet Count 222, Mean Platelet Volume 7.6, Neutrophils (%) (Auto) , Lymphocytes (%) ( Auto) , Monocytes (%) (Auto) , Eosinophils (%) (Auto) , Basophils (%) (Auto) , Differential Total Cells Counted 100, Neutrophils % (Manual) 77H, Lymphocytes % (Manual) 18L, Monocytes % (Manual) 4, Eosinophils % (Manual) 1, Basophils % ( Manual) 0, Band Neutrophils 0, Platelet Estimate Adequate, Platelet Morphology Normal, Red Blood Cell Morphology Normal, Sodium Level 144, Potassium Level 2.9L , Chloride Level 108H, Carbon Dioxide Level 31, Anion Gap 6, Blood Urea Nitrogen 11, Creatinine 0.6, Estimat Glomerular Filtration Rate , Glucose Level 98, Calcium Level 8.7, Phosphorus Level 3.2, Magnesium Level 2.0, Total Bilirubin 1.3H, Direct Bilirubin 0.2, Aspartate Amino Transf (AST/SGOT) 23, Alanine Aminotransferase (ALT/SGPT) 48, Alkaline Phosphatase 105, Total Protein 5.6L, Albumin 2.5L, Globulin 3.1, Albumin/Globulin Ratio 0.8L, Amylase Level 42 , Lipase 151 10/08/18 07:45: Arterial Blood pH 7.499H, Arterial Blood Partial Pressure CO2 35.2, Arterial Blood Partial Pressure O2 66.4L, Arterial Blood HCO3 26.8H, Arterial Blood Oxygen Saturation 93.9L, Arterial Blood Base Excess 3.8H, Clyde Test Positive 10/08/18 09:34: Arterial Blood pH 7.406, Arterial Blood Partial Pressure CO2 47.8H, Arterial Blood Partial Pressure O2 73.6L, Arterial Blood HCO3 29.3H, Arterial Blood Oxygen Saturation 94.1L, Arterial Blood Base Excess 3.7H, Clyde Test Positive Height (Feet): 5 Height (Inches): 3.00 Weight (Pounds): 109 General Appearance: lethargic EENT: normal ENT inspection Neck: non-tender, normal alignment, supple Cardiovascular: normal peripheral pulses, normal rate, regular rhythm Respiratory/Chest: chest wall non-tender, decreased breath sounds Abdomen: normal bowel sounds, non tender, soft Extremities: normal inspection Edema: no edema noted Arm (L), no edema noted Arm (R), no edema noted Leg (L), no edema noted Leg (R), no edema noted Pedal (L), no edema noted Pedal (R), no edema noted Generalized Neurologic: motor weakness Skin: normal pigmentation, warm/dry Osei Naranjo DO October 08, 2018 13:42
--- NOTE | 2018-10-08 14:07 | NUR ---
NURSE NOTES: Patient asleep,visitor at bedside.Post intubated and saturate at 98% on simple mask.Call light within easy reach.will continue to monitor.
--- NOTE | 2018-10-08 14:21 | NUR ---
NURSE NOTES:WOUND CARE NOTES:Pt presented on admission with non-blanchable erythema buttocks . At present sacrum and buttocks resolving less erythema noted. Pt denied tenderness when sacrum palpated. Both heels are pink and blanchable .no other skin concerns noted .Pt educated on wound prevention. encouraged to frequently shift and off-lift buttocks from bed . Encouraged to keep heels floated off mattress. Triad paste applied to sacral area ,covered with Optifoam drsg. Cavilon Skin Barrier applied to both heels.Each heel covered with Optifoam drsgs and both heels off-loaded with pillows. Recommendations:Apply TRiad paste to sacrum. Cover with Optifoam drsg. Change every 3 days and prn. Apply Cavilon Skin Barrier to Both heels. Cover each heel with Optifoam drsg. Change every 7 days and PRN. Encourage and assist as needed with repositioning at least every 2hours or as tolerated. Off-loasd heels with pillow. .
--- NOTE | 2018-10-08 14:54 | Cardiology Report ---
APPROVED REPORT EKG Measurement Heart [id number] HI 140P71 [id number] Normal sinus rhythm Septal infarct, age undetermined Abnormal ECG
--- NOTE | 2018-10-08 15:50 | Cardiology Report ---
APPROVED REPORT EKG Measurement Heart [id number] IN 144P80 [id number] Normal sinus rhythm Nonspecific ST and T wave abnormality Abnormal ECG
--- NOTE | 2018-10-08 16:11 | NUR ---
NURSE NOTES: ADls done,mouth care performed.HOB elevated to prevent aspiration.Kept clean and dry.Call light within easy reach.Left message to ST for swallow eval. Ice chips given to patient.
--- NOTE | 2018-10-08 18:02 | NUR ---
NURSE NOTES: ADLs sone,kept clean and dry.Turned and repositioned.Kept clean and comfortable.
[2018-10-08] MEDS: Nitroglycerin Patch 0.4mg TDERMAL SCH (18:11)
--- NOTE | 2018-10-08 18:38 | Infectious Diseases Prog Note ---
Assessment/Plan Assessment/Plan ASSESSMENT: The patient is a 78-year-old female with history of Lyme disease 25 years ago. 1. Possible aspiration pneumonia. Chronic obstructive pulmonary disease exacerbation. -10/08 CXR: Development of hazy bibasilar opacities which may be related to layering small pleural effusions versus airspace disease. Attention on follow- up recommended. -CXR: Lungs remain clear. -sp cx normal resp storm -legionella ag urine 2. Abnormal liver function tests (acute), SP -hep serologies neg -Abd US: Trace ascites.Bilateral pleural effusions. Possible medical renal disease. Correlate clinically. Liver cyst. Tiny right renal cysts. Atherosclerotic vascular disease 3. Probable non-STEMI. 4. Leukocytosis, increased (s/p high dose steroids)- now improving -u/a neg, ucx NTD -Bcx NTD Fever; improving Acute respiratory failure s/p intubation 10/04, sp extubated 10/08 PLAN: 1. We will continue the patient on Zosyn #5 and Zithromax #5/5 for atypical coverage and chronic obstructive pulmonary disease exacerbation. Start empiric Vancomycin #2 pending repeat cultures -10/04 SP LEvaquin #2 2. Monitor CBC/CMP 3. f/u Bcx x2, u/a w/ reflex 4. Monitor liver function tests. 5. Sp cx 6. f/u Hep C PCR. 7. Monitor cultures (blood, urine, sputum). 8. We will follow Cardiology recommendations. 9. Based on the patient's clinical course and laboratories, we will do further recommendations. 10. No need for continuing minocycline at this point. : Subjective Allergies: Coded Allergies: HEPARIN (Verified Allergy, Unknown, 10/05/18) RAMIPRIL (Verified Allergy, Unknown, 10/03/18) SULFA (SULFONAMIDE ANTIBIOTICS) (Unverified Allergy, Unknown, 10/05/18) Uncoded Allergies: SULFA (Allergy, Unknown, 10/03/18) Subjective afebrile >36hs wbc improving extubated today Objective Vital Signs Last 24 Hour Vital Signs Date Time Temp Pulse Resp B/P (MAP) Pulse Ox O2 Delivery O2 Flow Rate FiO2 10/08/18 18:11 168/76 10/08/18 18:00 115 24 138/76 (96) 99 10/08/18 17:10 137 22 100 Simple Mask 12.0 40 10/08/18 17:00 115 19 147/67 (93) 100 10/08/18 17:00 130 20 100 Room Air 21 10/08/18 16:00 120 10/08/18 16:00 2.0 10/08/18 16:00 97.6 108 19 169/112 (131) 100 10/08/18 16:00 Simple Mask 10.0 Simple Mask 10.0 10/08/18 15:00 112 19 171/73 (105) 100 10/08/18 14:00 101 19 130/52 (78) 100 10/08/18 13:00 98 19 165/70 (101) 100 10/08/18 12:00 112 10/08/18 12:00 98.0 116 16 150/74 (99) 98 10/08/18 12:00 Simple Mask 10.0 Simple Mask 10.0 10/08/18 12:00 50 10/08/18 11:41 101 22 Venturi Mask 12.0 40 10/08/18 11:40 Venturi Mask 12.0 40 10/08/18 11:38 101 22 Venturi Mask 12.0 40 10/08/18 11:36 100 10/08/18 11:25 Venturi Mask 12.0 40 10/08/18 11:00 105 19 128/60 (82) 100 10/08/18 10:00 106 19 159/73 (101) 100 10/08/18 09:13 118 19 30 10/08/18 09:00 106 19 175/137 (150) 100 10/08/18 08:00 93 19 180/154 (163) 100 10/08/18 08:00 Mechanical Ventilator 10/08/18 08:00 35 10/08/18 08:00 75 10/08/18 07:57 97 12 30 30 10/08/18 07:06 97 16 30 10/08/18 07:00 98.0 104 16 121/74 (90) 98 10/08/18 06:04 104 19 156/94 (114) 100 10/08/18 05:10 102 19 30 10/08/18 05:00 106 18 140/81 (100) 96 10/08/18 04:00 98.5 98 18 142/85 (104) 99 10/08/18 04:00 35 10/08/18 04:00 98 10/08/18 04:00 Mechanical Ventilator 10/08/18 03:02 105 19 30 10/08/18 03:00 95 21 129/115 (120) 98 10/08/18 02:00 105 21 159/86 (110) 99 10/08/18 01:00 110 19 190/81 (117) 98 10/08/18 00:58 118 17 30 10/08/18 00:00 Mechanical Ventilator 10/08/18 00:00 109 10/08/18 00:00 35 10/08/18 00:00 98.1 109 17 144/81 (102) 98 10/07/18 23:12 92 16 30 10/07/18 23:00 91 26 122/72 (89) 97 10/07/18 22:00 97 16 129/67 (87) 98 10/07/18 21:00 97 16 139/71 (93) 97 10/07/18 20:45 99 16 30 10/07/18 20:00 35 10/07/18 20:00 99.0 98 16 154/97 (116) 99 10/07/18 20:00 Mechanical Ventilator 10/07/18 20:00 98 10/07/18 19:14 92 16 30 10/07/18 19:00 95 16 145/77 (99) 98 Height (Feet): 5 Height (Inches): 3.00 Weight (Pounds): 109 Objective HEENT: Mild pale conjunctivae. No icterus. NECK: No lymphadenopathy. CHEST: Coarse breathing sounds. HEART: S1 and S2. ABDOMEN: Soft. ABDOMEN: Soft. EXTREMITIES: No cyanosis. NEUROLOGIC: Sedated. Laboratory Tests Test 10/08/18 04:05 10/08/18 07:45 10/08/18 09:34 White Blood Count 18.2 K/UL (4.8-10.8) H Red Blood Count 4.42 M/UL (4.20-5.40) Hemoglobin 14.3 G/DL (12.0-16.0) Hematocrit 43.4 % (37.0-47.0) Mean Corpuscular Volume 98 FL (80-99) Mean Corpuscular Hemoglobin 32.4 PG (27.0-31.0) H Mean Corpuscular Hemoglobin Concent 33.0 G/DL (32.0-36.0) Red Cell Distribution Width 14.1 % (11.6-14.8) Platelet Count 222 K/UL (150-450) Mean Platelet Volume 7.6 FL (6.5-10.1) Neutrophils (%) (Auto) % (45.0-75.0) Lymphocytes (%) (Auto) % (20.0-45.0) Monocytes (%) (Auto) % (1.0-10.0) Eosinophils (%) (Auto) % (0.0-3.0) Basophils (%) (Auto) % (0.0-2.0) Differential Total Cells Counted 100 Neutrophils % (Manual) 77 % (45-75) H Lymphocytes % (Manual) 18 % (20-45) L Monocytes % (Manual) 4 % (1-10) Eosinophils % (Manual) 1 % (0-3) Basophils % (Manual) 0 % (0-2) Band Neutrophils 0 % (0-8) Platelet Estimate Adequate Platelet Morphology Normal Red Blood Cell Morphology Normal Sodium Level 144 MMOL/L (136-145) Potassium Level 2.9 MMOL/L (3.5-5.1) L Chloride Level 108 MMOL/L (98-107) H Carbon Dioxide Level 31 MMOL/L (21-32) Anion Gap 6 mmol/L (5-15) Blood Urea Nitrogen 11 mg/dL (7-18) Creatinine 0.6 MG/DL (0.55-1.30) Estimat Glomerular Filtration Rate mL/min (>60) Glucose Level 98 MG/DL (74-106) Calcium Level 8.7 MG/DL (8.5-10.1) Phosphorus Level 3.2 MG/DL (2.5-4.9) Magnesium Level 2.0 MG/DL (1.8-2.4) Total Bilirubin 1.3 MG/DL (0.2-1.0) H Direct Bilirubin 0.2 MG/DL (0.0-0.3) Aspartate Amino Transf (AST/SGOT) 23 U/L (15-37) Alanine Aminotransferase (ALT/SGPT) 48 U/L (12-78) Alkaline Phosphatase 105 U/L (46-116) Total Protein 5.6 G/DL (6.4-8.2) L Albumin 2.5 G/DL (3.4-5.0) L Globulin 3.1 g/dL Albumin/Globulin Ratio 0.8 (1.0-2.7) L Amylase Level 42 U/L (25-115) Lipase 151 U/L (73-393) Arterial Blood pH 7.499 (7.350-7.450) 7.406 (7.350-7.450) Arterial Blood Partial Pressure CO2 35.2 mmHg (35.0-45.0) 47.8 mmHg (35.0-45.0) H Arterial Blood Partial Pressure O2 66.4 mmHg (75.0-100.0) L 73.6 mmHg (75.0-100.0) L Arterial Blood HCO3 26.8 mmol/L (22.0-26.0) H 29.3 mmol/L (22.0-26.0) H Arterial Blood Oxygen Saturation 93.9 % (95-100) L 94.1 % (95-100) L Arterial Blood Base Excess 3.8 (-2-2) H 3.7 (-2-2) H Clyde Test Positive Positive Current Medications Medications (Trade) Dose Ordered Sig/Aleah Route PRN Reason Start Time Stop Time Status Last Admin Dose Admin Albuterol/ Ipratropium (Albuterol/ Ipratropium) 3 ml Q4H PRN HHN Shortness of Breath 10/08/18 14:15 10/13/18 14:14 10/08/18 17:01 Aspirin (ASA) 81 mg DAILY NG 10/05/18 09:00 11/04/18 08:59 10/08/18 08:32 Atorvastatin Calcium (Lipitor) 10 mg BEDTIME ORAL 10/04/18 21:00 11/03/18 20:59 10/07/18 21:08 Azithromycin 500 mg/Dextrose 275 ml @ 275 mls/hr Q24H IV 10/07/18 20:00 10/10/18 20:59 10/07/18 20:08 Dextrose (Dextrose 50%) 25 ml Q30M PRN IV Hypoglycemia 10/04/18 08:00 11/03/18 07:53 Dextrose (Dextrose 50%) 50 ml Q30M PRN IV hypoglycemia 10/04/18 08:00 11/03/18 07:59 Insulin Aspart (NovoLOG) Q6HR SUBQ 10/04/18 12:00 11/03/18 11:29 10/06/18 17:24 Lorazepam (Ativan 2mg/ml 1ml) 2 mg Q4H PRN IV For Anxiety 10/04/18 08:00 10/11/18 07:59 10/06/18 21:50 Morphine Sulfate (Morphine Sulfate) 2 mg Q4H PRN IVP Moderate Pain (Pain Scale 4-6) 10/04/18 08:00 10/11/18 07:59 10/06/18 01:12 Morphine Sulfate (Morphine Sulfate) 4 mg Q4H PRN IVP Severe Pain (Pain Scale 7-10) 10/04/18 08:00 10/11/18 07:59 Nitroglycerin (Ntg) 1 patch Q24H TDERMAL 10/05/18 18:00 11/04/18 17:59 10/08/18 18:11 Pantoprazole (Protonix) 40 mg Q12HR IV 10/04/18 21:00 11/03/18 08:59 10/08/18 08:32 Piperacillin Sod/ Tazobactam Sod 3.375 gm/Sodium Chloride 110 ml @ 27.5 mls/hr Q8H IVPB 10/08/18 02:00 10/15/18 01:59 10/08/18 18:11 Vancomycin HCl (Vanco rx to dose) 1 ea DAILY PRN MISC Per rx protocol 10/07/18 11:45 11/06/18 11:44 Vancomycin HCl 750 mg/Sodium Chloride 275 ml @ 183.333 mls/hr Q12HR@0200,1400 IVPB 10/07/18 14:00 10/12/18 13:59 10/08/18 13:37 Clementina Flor M.D. October 08, 2018 18:38
--- NOTE | 2018-10-08 19:26 | NUR ---
HAND-OFF: Report given to SLOANE Deng.
[2018-10-08] MEDS: Azithromycin 500 MG in D5W 275 ML IV SCH (19:54)
--- NOTE | 2018-10-08 20:00 | NUR ---
NURSE NOTES: pt awake RESPONSE TO COMMAND ON [facility] 35 0/0 FIO2 O2SAT 95-100O/O NO ACUTE RESP DISTRESS NOTED REPOSITION AND SUCTION
--- NOTE | 2018-10-08 22:00 | NUR ---
NURSE NOTES: SLEEPING AT INTERVALVS STABLE
[2018-10-09] VITALS (24 sets, daily range): BP systolic 121–163; BP diastolic 53–117
--- NOTE | 2018-10-09 | NUR ---
NURSE NOTES: NO ACUTE DISTRESS NOTED URINARY OUT PUT GOOD
--- NOTE | 2018-10-09 | NUR ---
NURSE NOTES: CONDITION UN CHANGE BS 93 NO COVERAGE
--- NOTE | 2018-10-09 02:00 | NUR ---
NURSE NOTES: VANCO LEVEL 12.3 SAME DOSE VANCO IVPB PER PHARMACY
[2018-10-09] MEDS: Vancomycin 750mg/NS 275ml IVPB SCH ×2 (02:18)
[2018-10-09] MEDS: Zosyn 3.375gm q8h **Extended infusion IVPB SCH ×6 (02:19→17:51)
[2018-10-09 04:56] LABS: BASOPHILS % (AUTO) 0.4 % (0.0-2.0); HEMOGLOBIN 14.7 G/DL (12.0-16.0); MEAN CORPUSCULAR VOLUME 101 FL (80-99); MONOCYTES % (AUTO) 8.6 % (1.0-10.0); NEUTROPHILS % (AUTO) 83.1 % (45.0-75.0); PLATELET COUNT 217 K/UL (150-450); RED BLOOD COUNT 4.47 M/UL (4.20-5.40); RED CELL DISTRIBUTION WIDTH 14.3 % (11.6-14.8); WHITE BLOOD COUNT 15.3 K/UL (4.8-10.8)
[2018-10-09 05:29] LABS: ALANINE AMINOTRANSFERASE 45 U/L (12-78); ALBUMIN 2.5 G/DL (3.4-5.0); ALBUMIN/GLOBULIN RATIO 0.7 (1.0-2.7); ALKALINE PHOSPHATASE 90 U/L (46-116); ANION GAP 2 mmol/L (5-15); ASPARTATE AMINO TRANSFERASE 20 U/L (15-37); BILIRUBIN,TOTAL 0.8 MG/DL (0.2-1.0); BLOOD UREA NITROGEN 5 mg/dL (7-18); CALCIUM 8.7 MG/DL (8.5-10.1); CARBON DIOXIDE 35 MMOL/L (21-32); CHLORIDE 108 MMOL/L (98-107); CREATININE 0.5 MG/DL (0.55-1.30); POTASSIUM 3.7 MMOL/L (3.5-5.1); SODIUM 145 MMOL/L (136-145)
--- NOTE | 2018-10-09 08:20 | NUR ---
HAND-OFF: Report given to boni north.NURSE NOTES:
--- NOTE | 2018-10-09 08:21 | NUR ---
NURSE NOTES: Received patient from SLOANE Licea. Patient VS stable at this time with no sign of acute distress. Patient sleeping at this time. Patient on simple mask at 30% FiO2. Patient oxygen saturation stable at 98%. Patient was extubated yesterday. Her ABG this morning showed high pCO2. Will notify Dr Romo. Patient has an order for speech therapy evaluation today. Will follow up. Patient has a gayle for urine retention. Patient skin intact. Patient has one left forearm 20G PIV and one left forearm 22G PIV. Both are patent, asymptomatic, and saline locked at this time. Patient bed in low position with bed alarm on and call light in reach at this time.
--- NOTE | 2018-10-09 08:28 | NUR ---
NURSE NOTES: Notified Dr Romo regarding ABG result this morning. Dr Romo ordered BiPAP 15/5 35% FiO2. RT Vaishnavi notified and will set up the machine at this time.
--- NOTE | 2018-10-09 09:01 | NUR ---
RESPIRATORY NOTE: Placed pt on Bipap per Dr. Romo's order post ABG result. Pt is on 15/5, back up rate 12, 35% FiO2. Pt is alert, awake and follow commands. No redness or skin breakdown upon applying the mask. Gel tape in place to prevent skin breakdown. Alarms are set and audible, Bipap is plugged into the red outlet, ambu bag is at bedside. No SOB or resp distress noted, will continue to monitor pt.
--- NOTE | 2018-10-09 09:36 | NUR ---
RADIOLOGY DEPT., CHEST X-RAY DONE.-P.DYE
[2018-10-09] MEDS: Pantoprazole Inj IV SCH ×2 (09:58→21:43)
[2018-10-09] MEDS: Aspirin Baby 81mg NG SCH (09:58)
--- NOTE | 2018-10-09 10:45 | Cardiac Electrophysiology PN ---
Assessment/Plan Assessment/Plan 1. NSTEMI. likely type 2. No acute ECG changes. EF nl and no WMA. On aspirin and lipitor. 2. S/P Resp Failure, extubated 3. Lyme's disease 4. Sepsis on Abx per ID DW RN Subjective Subjective Extubated in ICU. No SVT or VT. RN at bedside. Objective Last 24 Hour Vital Signs Date Time Temp Pulse Resp B/P (MAP) Pulse Ox O2 Delivery O2 Flow Rate FiO2 10/09/18 10:36 98 99 10/09/18 09:01 97 23 96 Facial 35 10/09/18 07:00 87 18 Venturi Mask 10.0 35 10/09/18 07:00 Venturi Mask 10.0 35 10/09/18 07:00 86 18 140/59 (86) 91 10/09/18 07:00 93 Venturi Mask 10.0 35 10/09/18 06:00 84 19 130/55 (80) 94 10/09/18 05:00 86 21 126/54 (78) 95 10/09/18 04:00 110 10/09/18 04:00 30.0 10/09/18 04:00 92 21 155/70 (98) 99 10/09/18 04:00 Simple Mask 10.0 Simple Mask 10.0 10/09/18 03:00 86 19 125/59 (81) 95 10/09/18 03:00 86 19 125/59 (81) 95 10/09/18 02:00 99 17 154/62 (92) 94 10/09/18 02:00 99 17 154/62 (92) 94 10/09/18 01:00 102 22 147/60 (89) 92 10/09/18 01:00 102 22 147/60 (89) 92 10/09/18 00:00 100 25 158/67 (97) 98 10/09/18 00:00 100 25 158/67 (97) 98 10/09/18 00:00 Simple Mask 10.0 Simple Mask 10.0 10/09/18 00:00 30.0 10/09/18 00:00 112 10/08/18 23:00 93 22 132/51 (78) 95 10/08/18 22:00 102 23 148/66 (93) 10/08/18 21:00 106 21 120/61 (80) 97 10/08/18 20:56 100 Venturi Mask 10.0 35 10/08/18 20:00 101 20 Venturi Mask 10.0 35 10/08/18 20:00 Simple Mask 10.0 Simple Mask 10.0 10/08/18 20:00 97.8 106 26 156/71 (99) 100 10/08/18 20:00 Venturi Mask 10.0 35 10/08/18 20:00 110 10/08/18 20:00 2.0 10/08/18 19:00 105 23 134/60 (84) 100 10/08/18 19:00 101 27 134/60 (84) 99 10/08/18 18:11 168/76 10/08/18 18:00 115 24 138/76 (96) 99 10/08/18 17:10 137 22 100 Simple Mask 12.0 40 10/08/18 17:00 115 19 147/67 (93) 100 10/08/18 17:00 130 20 100 Room Air 21 10/08/18 16:00 120 10/08/18 16:00 2.0 10/08/18 16:00 97.6 108 19 169/112 (131) 100 10/08/18 16:00 Simple Mask 10.0 Simple Mask 10.0 10/08/18 15:00 112 19 171/73 (105) 100 10/08/18 14:00 101 19 130/52 (78) 100 10/08/18 13:00 98 19 165/70 (101) 100 10/08/18 12:00 112 10/08/18 12:00 98.0 116 16 150/74 (99) 98 10/08/18 12:00 Simple Mask 10.0 Simple Mask 10.0 10/08/18 12:00 50 10/08/18 11:41 101 22 Venturi Mask 12.0 40 10/08/18 11:40 Venturi Mask 12.0 40 10/08/18 11:38 101 22 Venturi Mask 12.0 40 10/08/18 11:36 100 10/08/18 11:25 Venturi Mask 12.0 40 10/08/18 11:00 105 19 128/60 (82) 100 Intake and Output 10/08/18 10/09/18 18:59 06:59 Intake Total 1385.000 ml 455.0 ml Output Total 3270 ml 1040 ml Balance -1885.000 ml -585.0 ml Intake Oral 50 ml 70 ml Free Water 100 ml IV Total 1135.000 ml 385.0 ml Tube Feeding 100 ml Output Urine Total 3270 ml 1040 ml # Bowel Movements 2 Laboratory Tests Test 10/09/18 01:00 10/09/18 04:30 10/09/18 06:26 Vancomycin Level Trough 12.3 ug/mL (5.0-12.0) H White Blood Count 15.3 K/UL (4.8-10.8) H Red Blood Count 4.47 M/UL (4.20-5.40) Hemoglobin 14.7 G/DL (12.0-16.0) Hematocrit 45.0 % (37.0-47.0) Mean Corpuscular Volume 101 FL (80-99) H Mean Corpuscular Hemoglobin 32.8 PG (27.0-31.0) H Mean Corpuscular Hemoglobin Concent 32.6 G/DL (32.0-36.0) Red Cell Distribution Width 14.3 % (11.6-14.8) Platelet Count 217 K/UL (150-450) Mean Platelet Volume 7.8 FL (6.5-10.1) Neutrophils (%) (Auto) 83.1 % (45.0-75.0) H Lymphocytes (%) (Auto) 7.0 % (20.0-45.0) L Monocytes (%) (Auto) 8.6 % (1.0-10.0) Eosinophils (%) (Auto) 1.0 % (0.0-3.0) Basophils (%) (Auto) 0.4 % (0.0-2.0) Sodium Level 145 MMOL/L (136-145) Potassium Level 3.7 MMOL/L (3.5-5.1) Chloride Level 108 MMOL/L (98-107) H Carbon Dioxide Level 35 MMOL/L (21-32) H Anion Gap 2 mmol/L (5-15) L Blood Urea Nitrogen 5 mg/dL (7-18) L Creatinine 0.5 MG/DL (0.55-1.30) L Estimat Glomerular Filtration Rate mL/min (>60) Glucose Level 93 MG/DL (74-106) Calcium Level 8.7 MG/DL (8.5-10.1) Phosphorus Level 3.0 MG/DL (2.5-4.9) Magnesium Level 2.0 MG/DL (1.8-2.4) Total Bilirubin 0.8 MG/DL (0.2-1.0) Aspartate Amino Transf (AST/SGOT) 20 U/L (15-37) Alanine Aminotransferase (ALT/SGPT) 45 U/L (12-78) Alkaline Phosphatase 90 U/L (46-116) Total Protein 5.9 G/DL (6.4-8.2) L Albumin 2.5 G/DL (3.4-5.0) L Globulin 3.4 g/dL Albumin/Globulin Ratio 0.7 (1.0-2.7) L Arterial Blood pH 7.323 (7.350-7.450) Arterial Blood Partial Pressure CO2 62.1 mmHg (35.0-45.0) *H Arterial Blood Partial Pressure O2 60.5 mmHg (75.0-100.0) L Arterial Blood HCO3 31.5 mmol/L (22.0-26.0) H Arterial Blood Oxygen Saturation 91.0 % (95-100) L Arterial Blood Base Excess 3.5 (-2-2) H Clyde Test Positive Microbiology Date/Time Source Procedure Growth Status 10/07/18 12:15 Blood Blood Culture - Preliminary NO GROWTH AFTER 24 HOURS Resulted 10/07/18 12:05 Blood Blood Culture - Preliminary NO GROWTH AFTER 24 HOURS Resulted 10/09/18 00:00 Sputum Induced Gram Stain - Final Resulted 10/09/18 00:00 Sputum Induced Sputum Culture Pending Resulted Objective HEENT: No JVD. Lungs: Rhonchi at bases, few scattered wheezes Heart: RRR, No G/R/M Abdomen: soft, non-tender, active bowel sounds Extremities: no C/C/E Braulio Cruz MD October 09, 2018 10:45
--- NOTE | 2018-10-09 10:52 | Nephrology Progress Note ---
Assessment/Plan Problem List: (1) Severe protein-calorie malnutrition (2) NSTEMI (non-ST elevated myocardial infarction) (3) COPD (chronic obstructive pulmonary disease) (4) Acute respiratory failure Assessment Acute respiratory failure COPD Azotemia, High Na , elevated LFTs Elevated troponin Plan extubated K IV as needed as needed Hydrate Per cardiology Pulm management taper steroid as possible monitor renal parameters discussed with RN Subjective ROS Limited/Unobtainable: No Objective Objective Last 24 Hour Vital Signs Date Time Temp Pulse Resp B/P (MAP) Pulse Ox O2 Delivery O2 Flow Rate FiO2 10/09/18 10:36 98 99 10/09/18 09:01 97 23 96 Facial 35 10/09/18 07:00 87 18 Venturi Mask 10.0 35 10/09/18 07:00 Venturi Mask 10.0 35 10/09/18 07:00 86 18 140/59 (86) 91 10/09/18 07:00 93 Venturi Mask 10.0 35 10/09/18 06:00 84 19 130/55 (80) 94 10/09/18 05:00 86 21 126/54 (78) 95 10/09/18 04:00 110 10/09/18 04:00 30.0 10/09/18 04:00 92 21 155/70 (98) 99 10/09/18 04:00 Simple Mask 10.0 Simple Mask 10.0 10/09/18 03:00 86 19 125/59 (81) 95 10/09/18 03:00 86 19 125/59 (81) 95 10/09/18 02:00 99 17 154/62 (92) 94 10/09/18 02:00 99 17 154/62 (92) 94 10/09/18 01:00 102 22 147/60 (89) 92 10/09/18 01:00 102 22 147/60 (89) 92 10/09/18 00:00 100 25 158/67 (97) 98 10/09/18 00:00 100 25 158/67 (97) 98 10/09/18 00:00 Simple Mask 10.0 Simple Mask 10.0 10/09/18 00:00 30.0 10/09/18 00:00 112 10/08/18 23:00 93 22 132/51 (78) 95 10/08/18 22:00 102 23 148/66 (93) 10/08/18 21:00 106 21 120/61 (80) 97 10/08/18 20:56 100 Venturi Mask 10.0 35 10/08/18 20:00 101 20 Venturi Mask 10.0 35 10/08/18 20:00 Simple Mask 10.0 Simple Mask 10.0 10/08/18 20:00 97.8 106 26 156/71 (99) 100 10/08/18 20:00 Venturi Mask 10.0 35 10/08/18 20:00 110 10/08/18 20:00 2.0 10/08/18 19:00 105 23 134/60 (84) 100 10/08/18 19:00 101 27 134/60 (84) 99 10/08/18 18:11 168/76 10/08/18 18:00 115 24 138/76 (96) 99 10/08/18 17:10 137 22 100 Simple Mask 12.0 40 10/08/18 17:00 115 19 147/67 (93) 100 10/08/18 17:00 130 20 100 Room Air 21 10/08/18 16:00 120 10/08/18 16:00 2.0 10/08/18 16:00 97.6 108 19 169/112 (131) 100 10/08/18 16:00 Simple Mask 10.0 Simple Mask 10.0 10/08/18 15:00 112 19 171/73 (105) 100 10/08/18 14:00 101 19 130/52 (78) 100 10/08/18 13:00 98 19 165/70 (101) 100 10/08/18 12:00 112 10/08/18 12:00 98.0 116 16 150/74 (99) 98 10/08/18 12:00 Simple Mask 10.0 Simple Mask 10.0 10/08/18 12:00 50 10/08/18 11:41 101 22 Venturi Mask 12.0 40 10/08/18 11:40 Venturi Mask 12.0 40 10/08/18 11:38 101 22 Venturi Mask 12.0 40 10/08/18 11:36 100 10/08/18 11:25 Venturi Mask 12.0 40 10/08/18 11:00 105 19 128/60 (82) 100 Intake and Output 10/08/18 10/09/18 18:59 06:59 Intake Total 1385.000 ml 455.0 ml Output Total 3270 ml 1040 ml Balance -1885.000 ml -585.0 ml Intake Oral 50 ml 70 ml Free Water 100 ml IV Total 1135.000 ml 385.0 ml Tube Feeding 100 ml Output Urine Total 3270 ml 1040 ml # Bowel Movements 2 Laboratory Tests 10/09/18 01:00: Vancomycin Level Trough 12.3H 10/09/18 04:30: White Blood Count 15.3H, Red Blood Count 4.47, Hemoglobin 14.7, Hematocrit 45.0 , Mean Corpuscular Volume 101H, Mean Corpuscular Hemoglobin 32.8H, Mean Corpuscular Hemoglobin Concent 32.6, Red Cell Distribution Width 14.3, Platelet Count 217, Mean Platelet Volume 7.8, Neutrophils (%) (Auto) 83.1H, Lymphocytes ( %) (Auto) 7.0L, Monocytes (%) (Auto) 8.6, Eosinophils (%) (Auto) 1.0, Basophils (%) (Auto) 0.4, Sodium Level 145, Potassium Level 3.7, Chloride Level 108H, Carbon Dioxide Level 35H, Anion Gap 2L, Blood Urea Nitrogen 5L, Creatinine 0.5L , Estimat Glomerular Filtration Rate , Glucose Level 93, Calcium Level 8.7, Phosphorus Level 3.0, Magnesium Level 2.0, Total Bilirubin 0.8, Aspartate Amino Transf (AST/SGOT) 20, Alanine Aminotransferase (ALT/SGPT) 45, Alkaline Phosphatase 90, Total Protein 5.9L, Albumin 2.5L, Globulin 3.4, Albumin/ Globulin Ratio 0.7L 10/09/18 06:26: Arterial Blood pH 7.323L, Arterial Blood Partial Pressure CO2 62.1*H, Arterial Blood Partial Pressure O2 60.5L, Arterial Blood HCO3 31.5H, Arterial Blood Oxygen Saturation 91.0L, Arterial Blood Base Excess 3.5H, Clyde Test Positive Height (Feet): 5 Height (Inches): 3.00 Weight (Pounds): 120 General Appearance: no apparent distress, other - now extubated Cardiovascular: tachycardia Respiratory/Chest: decreased breath sounds Abdomen: distended Objective no change Robbie Garza MD October 09, 2018 10:52
--- NOTE | 2018-10-09 11:00 | NUR ---
NURSE NOTES: Patient VS stable at this time. Patient eating a snack at this time. Patient passed her swallow evaluation. Patient is on 4L NC with saturation of 99%. Will be placed BiPAP 30min after she is finished with her snack. Patient now has a diet order. Bed in low position with bed alarm on and call light in reach at this time.
--- NOTE | 2018-10-09 11:09 | Pulmonolgy Critical Care Note ---
Critical Care - Asmt/Plan Problems: (1) Acute respiratory failure (2) COPD (chronic obstructive pulmonary disease) (3) Diabetes (4) Severe protein-calorie malnutrition Respiratory: monitor respiratory rate, adjust FIO2, other - bipap prn Cardiac: continue to monitor HR/BP Renal: F/U I&O, check electrolytes Infectious Disease: check cultures, continue antibiotics Gastrointestinal: continue feedings/current rate Endocrine: monitor blood sugar Hematologic: monitor H/H Neurologic: PRN Ativan Prophylaxis: Protonix Disposition: keep in ICU Notes Reviewed: tubular riveter, cardio, renal Critical Care - Objective Last 24 Hour Vital Signs Date Time Temp Pulse Resp B/P (MAP) Pulse Ox O2 Delivery O2 Flow Rate FiO2 10/09/18 10:36 98 99 10/09/18 09:01 97 23 96 Facial 35 10/09/18 07:00 87 18 Venturi Mask 10.0 35 10/09/18 07:00 Venturi Mask 10.0 35 10/09/18 07:00 86 18 140/59 (86) 91 10/09/18 07:00 93 Venturi Mask 10.0 35 10/09/18 06:00 84 19 130/55 (80) 94 10/09/18 05:00 86 21 126/54 (78) 95 10/09/18 04:00 110 10/09/18 04:00 30.0 10/09/18 04:00 92 21 155/70 (98) 99 10/09/18 04:00 Simple Mask 10.0 Simple Mask 10.0 10/09/18 03:00 86 19 125/59 (81) 95 10/09/18 03:00 86 19 125/59 (81) 95 10/09/18 02:00 99 17 154/62 (92) 94 10/09/18 02:00 99 17 154/62 (92) 94 10/09/18 01:00 102 22 147/60 (89) 92 10/09/18 01:00 102 22 147/60 (89) 92 10/09/18 00:00 100 25 158/67 (97) 98 10/09/18 00:00 100 25 158/67 (97) 98 10/09/18 00:00 Simple Mask 10.0 Simple Mask 10.0 10/09/18 00:00 30.0 10/09/18 00:00 112 10/08/18 23:00 93 22 132/51 (78) 95 10/08/18 22:00 102 23 148/66 (93) 10/08/18 21:00 106 21 120/61 (80) 97 10/08/18 20:56 100 Venturi Mask 10.0 35 10/08/18 20:00 101 20 Venturi Mask 10.0 35 10/08/18 20:00 Simple Mask 10.0 Simple Mask 10.0 10/08/18 20:00 97.8 106 26 156/71 (99) 100 10/08/18 20:00 Venturi Mask 10.0 35 10/08/18 20:00 110 10/08/18 20:00 2.0 10/08/18 19:00 105 23 134/60 (84) 100 10/08/18 19:00 101 27 134/60 (84) 99 10/08/18 18:11 168/76 10/08/18 18:00 115 24 138/76 (96) 99 10/08/18 17:10 137 22 100 Simple Mask 12.0 40 10/08/18 17:00 115 19 147/67 (93) 100 10/08/18 17:00 130 20 100 Room Air 21 10/08/18 16:00 120 10/08/18 16:00 2.0 10/08/18 16:00 97.6 108 19 169/112 (131) 100 10/08/18 16:00 Simple Mask 10.0 Simple Mask 10.0 10/08/18 15:00 112 19 171/73 (105) 100 10/08/18 14:00 101 19 130/52 (78) 100 10/08/18 13:00 98 19 165/70 (101) 100 10/08/18 12:00 112 10/08/18 12:00 98.0 116 16 150/74 (99) 98 10/08/18 12:00 Simple Mask 10.0 Simple Mask 10.0 10/08/18 12:00 50 10/08/18 11:41 101 22 Venturi Mask 12.0 40 10/08/18 11:40 Venturi Mask 12.0 40 10/08/18 11:38 101 22 Venturi Mask 12.0 40 10/08/18 11:36 100 10/08/18 11:25 Venturi Mask 12.0 40 Status: awake Condition: critical Neck: full ROM Lungs: clear Heart: HR/BP stable Abdomen: soft, active bowel sounds Extremities: no C/C/E Micro: Microbiology Date/Time Source Procedure Growth Status 10/07/18 12:15 Blood Blood Culture - Preliminary NO GROWTH AFTER 24 HOURS Resulted 10/07/18 12:05 Blood Blood Culture - Preliminary NO GROWTH AFTER 24 HOURS Resulted 10/09/18 00:00 Sputum Induced Gram Stain - Final Resulted 10/09/18 00:00 Sputum Induced Sputum Culture Pending Resulted Accucheck: 90 Critical Care - Subjective ROS Limited/Unobtainable: No ICU Day: 5 Interval Events: tolerating extubation eating well FI02: 35 Vent Support Breath Rate: 16 Vent Support Mode: CPAP Vent Tidal Volume: 600 Sputum Amount: None PEEP: 0.0 PIP: 11 Tube Feeding Amount: 20 I&O: Intake and Output 10/08/18 10/09/18 18:59 06:59 Intake Total 1385.000 ml 455.0 ml Output Total 3270 ml 1040 ml Balance -1885.000 ml -585.0 ml Intake Oral 50 ml 70 ml Free Water 100 ml IV Total 1135.000 ml 385.0 ml Tube Feeding 100 ml Output Urine Total 3270 ml 1040 ml # Bowel Movements 2 CXR: no change ET-Tube: 7.5 ET Position: 22 Labs: Laboratory Tests Test 10/09/18 01:00 10/09/18 04:30 10/09/18 06:26 Vancomycin Level Trough 12.3 ug/mL (5.0-12.0) H White Blood Count 15.3 K/UL (4.8-10.8) H Red Blood Count 4.47 M/UL (4.20-5.40) Hemoglobin 14.7 G/DL (12.0-16.0) Hematocrit 45.0 % (37.0-47.0) Mean Corpuscular Volume 101 FL (80-99) H Mean Corpuscular Hemoglobin 32.8 PG (27.0-31.0) H Mean Corpuscular Hemoglobin Concent 32.6 G/DL (32.0-36.0) Red Cell Distribution Width 14.3 % (11.6-14.8) Platelet Count 217 K/UL (150-450) Mean Platelet Volume 7.8 FL (6.5-10.1) Neutrophils (%) (Auto) 83.1 % (45.0-75.0) H Lymphocytes (%) (Auto) 7.0 % (20.0-45.0) L Monocytes (%) (Auto) 8.6 % (1.0-10.0) Eosinophils (%) (Auto) 1.0 % (0.0-3.0) Basophils (%) (Auto) 0.4 % (0.0-2.0) Sodium Level 145 MMOL/L (136-145) Potassium Level 3.7 MMOL/L (3.5-5.1) Chloride Level 108 MMOL/L (98-107) H Carbon Dioxide Level 35 MMOL/L (21-32) H Anion Gap 2 mmol/L (5-15) L Blood Urea Nitrogen 5 mg/dL (7-18) L Creatinine 0.5 MG/DL (0.55-1.30) L Estimat Glomerular Filtration Rate mL/min (>60) Glucose Level 93 MG/DL (74-106) Calcium Level 8.7 MG/DL (8.5-10.1) Phosphorus Level 3.0 MG/DL (2.5-4.9) Magnesium Level 2.0 MG/DL (1.8-2.4) Total Bilirubin 0.8 MG/DL (0.2-1.0) Aspartate Amino Transf (AST/SGOT) 20 U/L (15-37) Alanine Aminotransferase (ALT/SGPT) 45 U/L (12-78) Alkaline Phosphatase 90 U/L (46-116) Total Protein 5.9 G/DL (6.4-8.2) L Albumin 2.5 G/DL (3.4-5.0) L Globulin 3.4 g/dL Albumin/Globulin Ratio 0.7 (1.0-2.7) L Arterial Blood pH 7.323 (7.350-7.450) Arterial Blood Partial Pressure CO2 62.1 mmHg (35.0-45.0) *H Arterial Blood Partial Pressure O2 60.5 mmHg (75.0-100.0) L Arterial Blood HCO3 31.5 mmol/L (22.0-26.0) H Arterial Blood Oxygen Saturation 91.0 % (95-100) L Arterial Blood Base Excess 3.5 (-2-2) H Clyde Test Positive Steven Romo MD October 09, 2018 11:09
--- NOTE | 2018-10-09 11:14 | NUR ---
ST NOTE: BEDSIDE SWALLOW EVAL RECEIVED BEDSIDE SWALLOW EVAL ORDER CHART REVIEWED PRIOR THE EVALUATION PT IS A 78-YEAR-OLD FEMALE WHO WAS ADMITTED DUE TO WEAKNESS AND SHORTNESS OF BREATH. PT WAS INTUBATED FOR 3 DAYS AND EXTUBATED ON 10/08/18. PT HAS H/O LYME DISEASE, AND PER PT, IT TOOK 7-YEAR TO DIAGNOSE HER LYME DISEASE. PT REPORTED THAT SHE HAD MILD HEART ATTACK LAST YEAR AND WAS TREATED(PROBABLE DUE TO THE LYME DISEASE). PT ALSO HAS H/O HTN, SEVERE PROTEIN-CALORIE MALNUTRITION, COPD. PT LIVES AT HOME BY HERSELF. 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 PER PT, SHE GETS OLDER, NOTICED THAT HARDER FOR HER TO SWALLOW BIG PILLS, OTHERWISE, NO SWALLOWING DIFFICULTY WAS NOTED. CURRENT STATUS: PT SEEN AT BEDSIDE IN AM. PT WAS PUT BACK ON BIPAP DUE TO CO2 RETENTION. WHEN SEEING PT, BIPAP WAS REMOVED AND PT WAS PUT ON NASAL CANNULA, O2: 98%. PT ALERT, COOPERATIVE, ORIENTED, FOLLOWS DIRECTIONS. VOICE IS CLEAR; MILDLY SHORTNESS OF BREATH. ORAL MOTOR EXAMINATION: FUNCTIONAL GIVEN PO TRIALS: THIN(CUP-SELF), NECTAR THICK(CUP-SELF), PUREE(TSP) AND CRACKER. INITIAL IMPRESSION: GOOD DENTITION SLOW BUT FUNCTIONAL MASTICATION TIME, GOOD ORAL TRANSIT TIME, ADEQUATE LARYNGEAL ELEVATION, NO OVERT S/S OF ASPIRATION. OVERALL, PT'S SWALLOWING SEEMS FUNCTIONAL. HAS RISK FOR ASPIRATION DUE TO PT RESP ISSUE. RECOMMENDATIONS: 1. SLOWLY INITIATE LOW NA SOFT, EASY CHEW WITH THIN LIQUIDS. 2. ASPIRATION PRECAUTIONS 3. SKILLED ST TO FOLLOW UP 4. MODIFIED BARIUM SWALLOW STUDY ONLY IF NEEDED. D/W PT, RN, KRISTIN AND RDYONAS. PER RD, RECOMMENDED LOW NA DIET FOR NOW. IF PT EATS WELL, CONSIDER TO CHANGE TO CCHO(MEDIUM) DIET. POSTED ASPIRATION PRECAUTIONS SIGN.
--- NOTE | 2018-10-09 11:31 | Diagnostic Imaging Report ---
Indication: Dyspnea Comparison: 10/08/2018 A single view chest radiograph was obtained. Findings: The diaphragm is better seen on the current exam. Costophrenic angles are slightly blunted. Heart size remains stable. Patient has been extubated. IMPRESSION: Postextubation. Suspect small bilateral pleural effusions shifted or decreased since the last day.
[2018-10-09] MEDS: NovoLOG Insulin Flexpen SUBQ SCH ×3 (12:00→18:01)
--- NOTE | 2018-10-09 12:15 | General Progress Note ---
Assessment/Plan Problem List: (1) UTI (urinary tract infection) ICD Codes: N39.0 - Urinary tract infection, site not specified SNOMED: 97796395 (2) Diabetes ICD Codes: E11.9 - Type 2 diabetes mellitus without complications SNOMED: 06772343 (3) COPD (chronic obstructive pulmonary disease) ICD Codes: J44.9 - Chronic obstructive pulmonary disease, unspecified SNOMED: 99257973 Qualifiers: Qualified Codes: J44.9 - Chronic obstructive pulmonary disease, unspecified (4) NSTEMI (non-ST elevated myocardial infarction) ICD Codes: I21.4 - Non-ST elevation (NSTEMI) myocardial infarction SNOMED: 81977044 (5) Episode of generalized weakness ICD Codes: R53.1 - Weakness SNOMED: 41256496 Status: unchanged Assessment/Plan: vent abx pain control cardio f/u cbc bmp am ltach eval Subjective Constitutional: Reports: weakness Respiratory: Reports: shortness of breath Allergies: Coded Allergies: HEPARIN (Verified Allergy, Unknown, 10/05/18) RAMIPRIL (Verified Allergy, Unknown, 10/03/18) SULFA (SULFONAMIDE ANTIBIOTICS) (Unverified Allergy, Unknown, 10/05/18) Uncoded Allergies: SULFA (Allergy, Unknown, 10/03/18) All Systems: reviewed and negative except above Subjective o2 mask in icu Objective Last 24 Hour Vital Signs Date Time Temp Pulse Resp B/P (MAP) Pulse Ox O2 Delivery O2 Flow Rate FiO2 10/09/18 11:47 98 15 99 Facial 35 10/09/18 10:36 98 99 10/09/18 09:01 97 23 96 Facial 35 10/09/18 07:00 87 18 Venturi Mask 10.0 35 10/09/18 07:00 Venturi Mask 10.0 35 10/09/18 07:00 86 18 140/59 (86) 91 10/09/18 07:00 93 Venturi Mask 10.0 35 10/09/18 06:00 84 19 130/55 (80) 94 10/09/18 05:00 86 21 126/54 (78) 95 10/09/18 04:00 110 10/09/18 04:00 30.0 10/09/18 04:00 92 21 155/70 (98) 99 10/09/18 04:00 Simple Mask 10.0 Simple Mask 10.0 5/9/19 03:00 86 19 125/59 (81) 95 10/09/18 03:00 86 19 125/59 (81) 95 10/09/18 02:00 99 17 154/62 (92) 94 10/09/18 02:00 99 17 154/62 (92) 94 10/09/18 01:00 102 22 147/60 (89) 92 10/09/18 01:00 102 22 147/60 (89) 92 10/09/18 00:00 100 25 158/67 (97) 98 10/09/18 00:00 100 25 158/67 (97) 98 10/09/18 00:00 Simple Mask 10.0 Simple Mask 10.0 10/09/18 00:00 30.0 10/09/18 00:00 112 10/08/18 23:00 93 22 132/51 (78) 95 10/08/18 22:00 102 23 148/66 (93) 10/08/18 21:00 106 21 120/61 (80) 97 10/08/18 20:56 100 Venturi Mask 10.0 35 10/08/18 20:00 101 20 Venturi Mask 10.0 35 10/08/18 20:00 Simple Mask 10.0 Simple Mask 10.0 10/08/18 20:00 97.8 106 26 156/71 (99) 100 10/08/18 20:00 Venturi Mask 10.0 35 10/08/18 20:00 110 10/08/18 20:00 2.0 10/08/18 19:00 105 23 134/60 (84) 100 10/08/18 19:00 101 27 134/60 (84) 99 10/08/18 18:11 168/76 10/08/18 18:00 115 24 138/76 (96) 99 10/08/18 17:10 137 22 100 Simple Mask 12.0 40 10/08/18 17:00 115 19 147/67 (93) 100 10/08/18 17:00 130 20 100 Room Air 21 10/08/18 16:00 120 10/08/18 16:00 2.0 10/08/18 16:00 97.6 108 19 169/112 (131) 100 10/08/18 16:00 Simple Mask 10.0 Simple Mask 10.0 10/08/18 15:00 112 19 171/73 (105) 100 10/08/18 14:00 101 19 130/52 (78) 100 10/08/18 13:00 98 19 165/70 (101) 100 Intake and Output 10/08/18 10/09/18 18:59 06:59 Intake Total 1385.000 ml 455.0 ml Output Total 3270 ml 1040 ml Balance -1885.000 ml -585.0 ml Intake Oral 50 ml 70 ml Free Water 100 ml IV Total 1135.000 ml 385.0 ml Tube Feeding 100 ml Output Urine Total 3270 ml 1040 ml # Bowel Movements 2 Laboratory Tests 10/09/18 01:00: Vancomycin Level Trough 12.3H 10/09/18 04:30: White Blood Count 15.3H, Red Blood Count 4.47, Hemoglobin 14.7, Hematocrit 45.0 , Mean Corpuscular Volume 101H, Mean Corpuscular Hemoglobin 32.8H, Mean Corpuscular Hemoglobin Concent 32.6, Red Cell Distribution Width 14.3, Platelet Count 217, Mean Platelet Volume 7.8, Neutrophils (%) (Auto) 83.1H, Lymphocytes ( %) (Auto) 7.0L, Monocytes (%) (Auto) 8.6, Eosinophils (%) (Auto) 1.0, Basophils (%) (Auto) 0.4, Sodium Level 145, Potassium Level 3.7, Chloride Level 108H, Carbon Dioxide Level 35H, Anion Gap 2L, Blood Urea Nitrogen 5L, Creatinine 0.5L , Estimat Glomerular Filtration Rate , Glucose Level 93, Calcium Level 8.7, Phosphorus Level 3.0, Magnesium Level 2.0, Total Bilirubin 0.8, Aspartate Amino Transf (AST/SGOT) 20, Alanine Aminotransferase (ALT/SGPT) 45, Alkaline Phosphatase 90, Total Protein 5.9L, Albumin 2.5L, Globulin 3.4, Albumin/ Globulin Ratio 0.7L 10/09/18 06:26: Arterial Blood pH 7.323L, Arterial Blood Partial Pressure CO2 62.1*H, Arterial Blood Partial Pressure O2 60.5L, Arterial Blood HCO3 31.5H, Arterial Blood Oxygen Saturation 91.0L, Arterial Blood Base Excess 3.5H, Clyde Test Positive Height (Feet): 5 Height (Inches): 3.00 Weight (Pounds): 120 General Appearance: lethargic EENT: normal ENT inspection Neck: normal alignment Cardiovascular: normal peripheral pulses, normal rate, regular rhythm Respiratory/Chest: chest wall non-tender, lungs clear, normal breath sounds Abdomen: normal bowel sounds, non tender, soft Extremities: normal inspection Edema: no edema noted Arm (L), no edema noted Arm (R), no edema noted Leg (L), no edema noted Leg (R), no edema noted Pedal (L), no edema noted Pedal (R), no edema noted Generalized Neurologic: motor weakness Skin: normal pigmentation, warm/dry Osei Naranjo DO October 09, 2018 12:15
[2018-10-09] MEDS: Vancomycin 1gm/D5W 275ml IVPB SCH ×4 (12:39→23:58)
--- NOTE | 2018-10-09 12:51 | NUR ---
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 97.8 HR 106 RR 21 B/P 148/76 BIPAP 20/5 FIO2 35% PH 7.32 PCO2 62.1 PO2 60.5 HCO3 37.5 O2 91 WBC 15.3 CXR= SUSPECTED SMALL AMINATA PLEURAL EFFUSION IS: VANCO IV ZITHROMAX IV AMIKACIN IV ALB HHN ICU STATUS
--- NOTE | 2018-10-09 13:00 | NUR ---
NURSE NOTES: VS stable at this time. Patient eating lunch at this time. Patient complaining of pain in her IV site. Will replace PIV at this time.
--- NOTE | 2018-10-09 13:23 | NUR ---
NURSE NOTES: Patient reported that she has had bad side effects from statin medications in the past. I told the patient that she is taking Lipitor at this time. She asked if she could take the medication that she was taking at home instead. I asked Dr Cruz and he ordered for the medication to be switched to the patient's home medication which is Ezetimibe 10mg PO QHS.
--- NOTE | 2018-10-09 14:00 | NUR ---
NURSE NOTES: Patient has a new PIV 22G on right wrist that is patent, asymptomatic, and running Zosyn at this time. The IV that was causing the patient pain has been removed. Patient now has one 22G PIV On the left forearm and one 22G PIV on the right wrist. Patient bed in low position with bed alarm on and call light in reach at this time.
--- NOTE | 2018-10-09 14:14 | Infectious Diseases Prog Note ---
Assessment/Plan Assessment/Plan ASSESSMENT: The patient is a 78-year-old female with history of Lyme disease 25 years ago. 1. Possible aspiration pneumonia. Chronic obstructive pulmonary disease exacerbation. -10/08 CXR: Development of hazy bibasilar opacities which may be related to layering small pleural effusions versus airspace disease. Attention on follow- up recommended. -CXR: Lungs remain clear. -sp cx normal resp storm -legionella ag urine 2. Abnormal liver function tests (acute), SP -hep serologies neg -Abd US: Trace ascites.Bilateral pleural effusions. Possible medical renal disease. Correlate clinically. Liver cyst. Tiny right renal cysts. Atherosclerotic vascular disease 3. Probable non-STEMI. 4. Leukocytosis, increased (s/p high dose steroids)- now improving -u/a neg, ucx NTD -Bcx NTD Fever; improving Acute respiratory failure s/p intubation 10/04, sp extubated 10/08 PLAN: 1. We will continue the patient on Zosyn #6 and empiric Vancomycin #3 pending repeat cultures -10/08 SP Zithromax #5 -10/04 SP LEvaquin #2 2. Monitor CBC/CMP 3. f/u Bcx x2, u/a w/ reflex 4. Monitor liver function tests. 5. Sp cx 6. f/u Hep C PCR. 7. Monitor cultures (blood, urine, sputum). 8. We will follow Cardiology recommendations. 9. Based on the patient's clinical course and laboratories, we will do further recommendations. 10. No need for continuing minocycline at this point. : Subjective Allergies: Coded Allergies: HEPARIN (Verified Allergy, Unknown, 10/05/18) RAMIPRIL (Verified Allergy, Unknown, 10/03/18) SULFA (SULFONAMIDE ANTIBIOTICS) (Unverified Allergy, Unknown, 10/05/18) Uncoded Allergies: SULFA (Allergy, Unknown, 10/03/18) Subjective afebrile >48hs wbc improving on bipap Bcx NTD Objective Vital Signs Last 24 Hour Vital Signs Date Time Temp Pulse Resp B/P (MAP) Pulse Ox O2 Delivery O2 Flow Rate FiO2 10/09/18 13:00 102 20 145/95 (112) 99 10/09/18 12:30 101 22 99 10/09/18 12:00 100 10/09/18 12:00 Bi-pap 10/09/18 12:00 98.9 102 20 144/57 (86) 99 10/09/18 11:47 98 15 99 Facial 35 10/09/18 11:00 100 19 130/65 (86) 99 10/09/18 10:36 98 99 10/09/18 10:00 100 20 136/117 (123) 100 10/09/18 09:01 97 23 96 Facial 35 10/09/18 09:00 94 14 137/67 (90) 100 10/09/18 08:00 83 10/09/18 08:00 98.2 95 18 140/59 (86) 99 10/09/18 08:00 Simple Mask 10.0 10/09/18 07:00 87 18 Venturi Mask 10.0 35 10/09/18 07:00 Venturi Mask 10.0 35 10/09/18 07:00 86 18 140/59 (86) 91 10/09/18 07:00 93 Venturi Mask 10.0 35 10/09/18 06:00 84 19 130/55 (80) 94 10/09/18 05:00 86 21 126/54 (78) 95 10/09/18 04:00 110 10/09/18 04:00 30.0 10/09/18 04:00 92 21 155/70 (98) 99 10/09/18 04:00 Simple Mask 10.0 Simple Mask 10.0 10/09/18 03:00 86 19 125/59 (81) 95 10/09/18 03:00 86 19 125/59 (81) 95 10/09/18 02:00 99 17 154/62 (92) 94 10/09/18 02:00 99 17 154/62 (92) 94 10/09/18 01:00 102 22 147/60 (89) 92 10/09/18 01:00 102 22 147/60 (89) 92 10/09/18 00:00 100 25 158/67 (97) 98 10/09/18 00:00 100 25 158/67 (97) 98 10/09/18 00:00 Simple Mask 10.0 Simple Mask 10.0 10/09/18 00:00 30.0 10/09/18 00:00 112 10/08/18 23:00 93 22 132/51 (78) 95 10/08/18 22:00 102 23 148/66 (93) 10/08/18 21:00 106 21 120/61 (80) 97 10/08/18 20:56 100 Venturi Mask 10.0 35 10/08/18 20:00 101 20 Venturi Mask 10.0 35 10/08/18 20:00 Simple Mask 10.0 Simple Mask 10.0 10/08/18 20:00 97.8 106 26 156/71 (99) 100 10/08/18 20:00 Venturi Mask 10.0 35 10/08/18 20:00 110 10/08/18 20:00 2.0 10/08/18 19:00 105 23 134/60 (84) 100 10/08/18 19:00 101 27 134/60 (84) 99 10/08/18 18:11 168/76 10/08/18 18:00 115 24 138/76 (96) 99 10/08/18 17:10 137 22 100 Simple Mask 12.0 40 10/08/18 17:00 115 19 147/67 (93) 100 10/08/18 17:00 130 20 100 Room Air 21 10/08/18 16:00 120 10/08/18 16:00 2.0 10/08/18 16:00 97.6 108 19 169/112 (131) 100 10/08/18 16:00 Simple Mask 10.0 Simple Mask 10.0 10/08/18 15:00 112 19 171/73 (105) 100 Height (Feet): 5 Height (Inches): 3.00 Weight (Pounds): 120 Objective HEENT: Mild pale conjunctivae. No icterus. NECK: No lymphadenopathy. CHEST: Coarse breathing sounds. HEART: S1 and S2. ABDOMEN: Soft. ABDOMEN: Soft. EXTREMITIES: No cyanosis. NEUROLOGIC: Sedated. Microbiology Date/Time Source Procedure Growth Status 10/07/18 12:15 Blood Blood Culture - Preliminary NO GROWTH AFTER 24 HOURS Resulted 10/07/18 12:05 Blood Blood Culture - Preliminary NO GROWTH AFTER 24 HOURS Resulted 10/09/18 00:00 Sputum Induced Gram Stain - Final Resulted 10/09/18 00:00 Sputum Induced Sputum Culture Pending Resulted Laboratory Tests Test 10/09/18 01:00 10/09/18 04:30 10/09/18 06:26 Vancomycin Level Trough 12.3 ug/mL (5.0-12.0) H White Blood Count 15.3 K/UL (4.8-10.8) H Red Blood Count 4.47 M/UL (4.20-5.40) Hemoglobin 14.7 G/DL (12.0-16.0) Hematocrit 45.0 % (37.0-47.0) Mean Corpuscular Volume 101 FL (80-99) H Mean Corpuscular Hemoglobin 32.8 PG (27.0-31.0) H Mean Corpuscular Hemoglobin Concent 32.6 G/DL (32.0-36.0) Red Cell Distribution Width 14.3 % (11.6-14.8) Platelet Count 217 K/UL (150-450) Mean Platelet Volume 7.8 FL (6.5-10.1) Neutrophils (%) (Auto) 83.1 % (45.0-75.0) H Lymphocytes (%) (Auto) 7.0 % (20.0-45.0) L Monocytes (%) (Auto) 8.6 % (1.0-10.0) Eosinophils (%) (Auto) 1.0 % (0.0-3.0) Basophils (%) (Auto) 0.4 % (0.0-2.0) Sodium Level 145 MMOL/L (136-145) Potassium Level 3.7 MMOL/L (3.5-5.1) Chloride Level 108 MMOL/L (98-107) H Carbon Dioxide Level 35 MMOL/L (21-32) H Anion Gap 2 mmol/L (5-15) L Blood Urea Nitrogen 5 mg/dL (7-18) L Creatinine 0.5 MG/DL (0.55-1.30) L Estimat Glomerular Filtration Rate mL/min (>60) Glucose Level 93 MG/DL (74-106) Calcium Level 8.7 MG/DL (8.5-10.1) Phosphorus Level 3.0 MG/DL (2.5-4.9) Magnesium Level 2.0 MG/DL (1.8-2.4) Total Bilirubin 0.8 MG/DL (0.2-1.0) Aspartate Amino Transf (AST/SGOT) 20 U/L (15-37) Alanine Aminotransferase (ALT/SGPT) 45 U/L (12-78) Alkaline Phosphatase 90 U/L (46-116) Total Protein 5.9 G/DL (6.4-8.2) L Albumin 2.5 G/DL (3.4-5.0) L Globulin 3.4 g/dL Albumin/Globulin Ratio 0.7 (1.0-2.7) L Arterial Blood pH 7.323 (7.350-7.450) Arterial Blood Partial Pressure CO2 62.1 mmHg (35.0-45.0) *H Arterial Blood Partial Pressure O2 60.5 mmHg (75.0-100.0) L Arterial Blood HCO3 31.5 mmol/L (22.0-26.0) H Arterial Blood Oxygen Saturation 91.0 % (95-100) L Arterial Blood Base Excess 3.5 (-2-2) H Clyde Test Positive Current Medications Medications (Trade) Dose Ordered Sig/Aleah Route PRN Reason Start Time Stop Time Status Last Admin Dose Admin Albuterol/ Ipratropium (Albuterol/ Ipratropium) 3 ml Q4H PRN HHN Shortness of Breath 10/08/18 14:15 10/13/18 14:14 10/08/18 17:01 Aspirin (ASA) 81 mg DAILY NG 10/05/18 09:00 11/04/18 08:59 10/09/18 09:58 Atorvastatin Calcium (Lipitor) 10 mg BEDTIME ORAL 10/04/18 21:00 11/03/18 20:59 10/08/18 22:03 Azithromycin 500 mg/Dextrose 275 ml @ 275 mls/hr Q24H IV 10/07/18 20:00 10/10/18 20:59 10/08/18 19:54 Dextrose (Dextrose 50%) 25 ml Q30M PRN IV Hypoglycemia 10/04/18 08:00 11/03/18 07:53 Dextrose (Dextrose 50%) 50 ml Q30M PRN IV hypoglycemia 10/04/18 08:00 11/03/18 07:59 Insulin Aspart (NovoLOG) Q6HR SUBQ 10/04/18 12:00 11/03/18 11:29 10/06/18 17:24 Lorazepam (Ativan 2mg/ml 1ml) 2 mg Q4H PRN IV For Anxiety 10/04/18 08:00 10/11/18 07:59 10/06/18 21:50 Morphine Sulfate (Morphine Sulfate) 2 mg Q4H PRN IVP Moderate Pain (Pain Scale 4-6) 10/04/18 08:00 10/11/18 07:59 10/06/18 01:12 Morphine Sulfate (Morphine Sulfate) 4 mg Q4H PRN IVP Severe Pain (Pain Scale 7-10) 10/04/18 08:00 10/11/18 07:59 Nitroglycerin (Ntg) 1 patch Q24H TDERMAL 10/05/18 18:00 11/04/18 17:59 10/08/18 18:11 Pantoprazole (Protonix) 40 mg Q12HR IV 10/04/18 21:00 11/03/18 08:59 10/09/18 09:58 Piperacillin Sod/ Tazobactam Sod 3.375 gm/Sodium Chloride 110 ml @ 27.5 mls/hr Q8H IVPB 10/08/18 02:00 10/15/18 01:59 10/09/18 09:59 Vancomycin HCl (Vanco rx to dose) 1 ea DAILY PRN MISC Per rx protocol 10/07/18 11:45 11/06/18 11:44 Vancomycin HCl 1 gm/Dextrose 275 ml @ 183.708 mls/hr Q12HR@0000,1200 IVPB 10/09/18 12:00 10/14/18 11:59 10/09/18 12:39 Clementina Flor M.D. October 09, 2018 14:13
--- NOTE | 2018-10-09 15:00 | NUR ---
NURSE NOTES: Patient speaking with Dr Jung regarding her concerns about her history of chenega disease.
--- NOTE | 2018-10-09 16:00 | NUR ---
NURSE NOTES: Patient VS stable at this time. Patient is being assisted by the socially responsible investment adviser to pay some bills over the phone at this time. A landline has been set up in the room for the patient. Bed in low position with bed alarm on and call light in reach at this time.
--- NOTE | 2018-10-09 16:50 | NUR ---
RESPIRATORY NOTE: Pt's been coughing up small to moderate thick yellow/green secretions. So Pt refused to be on Bipap because she's afraid she would get aspirated. Talked to the pt about her concern, she stated that she wanted to sleep right now, she would back on Bipap when she woke up, so she could take off the mask when she needed to spit the secretions out. SLOANE Vieyra also talk to the pt. Pt is on 4L NC 36%, no SOB or resp distress noted. Will continue to monitor pt.
--- NOTE | 2018-10-09 17:00 | NUR ---
NURSE NOTES: Patient VS stable at this time with no sign of acute distress. Patient has been talking on the phone. Patient was ready to be placed back on the BiPAP but is afraid she will not be able to get it off when she needs to cough up phlegm. She does not want to have the BiPAP on right now as she is afraid she will throw up in it. She is on 4L NC at this time. Oxygen saturation is 99-100%. Patient denies discomfort at this time. Bed in low position with bed alarm on and call light in reach at this time.
[2018-10-09] MEDS: Nitroglycerin Patch 0.4mg TDERMAL SCH (17:51)
--- NOTE | 2018-10-09 19:15 | NUR ---
HAND-OFF: Report given to SLOANE Delcid. Patient VS stable at this time with no sign of acute distress.
--- NOTE | 2018-10-09 19:20 | NUR ---
NURSE NOTES: Received report from Azalia Self Patient in bed awake,alert able top make needs known to staff. On 4L oxygen via N/C satting 100%. HOB elevated. Offered BIPAP explained the importance v/s risk and benefits per patient she will try later. Instructed patient to use call light for assistance. No complain of pain or discomfort. SR on the monitor. Barnhart draining with clear yellow urine. IV site intact no s/s of infiltration. Bed alarm on. Bed locked and in low position. Will continue plan of care.
--- NOTE | 2018-10-09 21:20 | NUR ---
NURSE NOTES: Patient with episode of x1 loose bowel movement, kept clean and dry. Repositioned. All needs attended promptly. Will continue plan of care.
--- NOTE | 2018-10-09 23:20 | NUR ---
HAND-OFF: Report given to Jarvis ANTON.patient in bed resting comfortably. On 4L oxygen via N/C satting 100%. denies any pain or discomfort. Call light within easy reach. Will continue plan of care.
--- NOTE | 2018-10-09 23:21 | NUR ---
NURSE NOTES: Endorsement received from SLOANE Delcid for continuity of care. Patient asleep. Arousable by voice. On 4LPM nasal cannula,refusing BiPAP. Explained risks and benefits, still refused. No shortness of breath. With left forearm g 22 and right wrist g22. Barnhart catheter draining to urimeter. Head of bed elevated. Bed locked an in low position. Bed alarm on. Call light within reach. Reminded to use call light for assistance.
[2018-10-10] VITALS (21 sets, daily range): BP systolic 110–179; BP diastolic 49–83
[2018-10-10] MEDS: Zosyn 3.375gm q8h **Extended infusion IVPB SCH ×6 (01:47→17:09)
--- NOTE | 2018-10-10 02:00 | NUR ---
NURSE NOTES: Patient asleep at this time. Periodically wakes up. Talkative when awake. Encouraged to get rest and sleep.
--- NOTE | 2018-10-10 05:00 | NUR ---
NURSE NOTES: Assisted patient with bedpan. Passed soft brown stool. Bed bath, change of linens done. No redness noted at sacral area
[2018-10-10 06:02] LABS: BASOPHILS % (AUTO) 0.6 % (0.0-2.0); EOSINOPHILS % (AUTO) 5.9 % (0.0-3.0); HEMATOCRIT 42.7 % (37.0-47.0); HEMOGLOBIN 13.7 G/DL (12.0-16.0); LYMPHOCYTES % (AUTO) 8.2 % (20.0-45.0); MEAN CORPUSCULAR VOLUME 101 FL (80-99); MONOCYTES % (AUTO) 8.5 % (1.0-10.0); NEUTROPHILS % (AUTO) 76.9 % (45.0-75.0); PLATELET COUNT 200 K/UL (150-450); RED BLOOD COUNT 4.21 M/UL (4.20-5.40); RED CELL DISTRIBUTION WIDTH 13.6 % (11.6-14.8)
[2018-10-10 06:24] LABS: ALANINE AMINOTRANSFERASE 29 U/L (12-78); ALBUMIN 2.2 G/DL (3.4-5.0); ALBUMIN/GLOBULIN RATIO 0.7 (1.0-2.7); ALKALINE PHOSPHATASE 89 U/L (46-116); ANION GAP -2 mmol/L (5-15); ASPARTATE AMINO TRANSFERASE 15 U/L (15-37); BILIRUBIN,TOTAL 0.4 MG/DL (0.2-1.0); BLOOD UREA NITROGEN 9 mg/dL (7-18); CALCIUM 8.4 MG/DL (8.5-10.1); CARBON DIOXIDE 37 MMOL/L (21-32); CHLORIDE 104 MMOL/L (98-107); CREATININE 0.7 MG/DL (0.55-1.30); POTASSIUM 3.1 MMOL/L (3.5-5.1); SODIUM 139 MMOL/L (136-145)
--- NOTE | 2018-10-10 06:50 | NUR ---
RESPIRATORY NOTE: Pt has been refusing using Bipap last night, concerning she would get aspirated since she has been coughing a lots of secretions. Pt agreed to be back on Bipap after breakfast. Bipap is standby, ambu bag is at bedside. Pt is on 4L NC 36%, saturates at 100%, no SOB or resp distress noted. RN notified. Will continue to monitor.
[2018-10-10] MEDS: NovoLOG Insulin Flexpen SUBQ SCH ×4 (06:57→20:52)
--- NOTE | 2018-10-10 07:30 | NUR ---
NURSE NOTES: Received report from Shannan ANTON. Patient in bed awake,alert, very talkative. HR 93, BP 137/59, RR20 O2SAT 100%On 4L oxygen via N/C sating 100%. diet soft chew.HOB elevated. Instructed patient to use call light for assistance. No complain of pain or discomfort. SR on the monitor. Barnhart draining with clear yellow urine. IV site intact no s/s of infiltration. Bed alarm on. Bed locked and in low position. Will continue plan of care.
--- NOTE | 2018-10-10 07:34 | NUR ---
HAND-OFF: Report given to SLOANE Mohmaud.
[2018-10-10] MEDS ORDERED: Sodium Chloride for KCL Premix X 4hrs IV SCH ×2 (08:15→09:00)
[2018-10-10] MEDS: Pantoprazole Inj IV SCH ×2 (09:54→20:50)
[2018-10-10] MEDS: Aspirin Baby 81mg NG SCH (09:54)
--- NOTE | 2018-10-10 10:23 | Pulmonolgy Critical Care Note ---
Critical Care - Asmt/Plan Problems: (1) Acute respiratory failure (2) COPD (chronic obstructive pulmonary disease) (3) Diabetes (4) Severe protein-calorie malnutrition Respiratory: monitor respiratory rate, adjust FIO2, CXR, other - titrate BIPAP Cardiac: continue to monitor HR/BP Renal: F/U I&O, keep IV fluid Infectious Disease: check cultures Gastrointestinal: continue feedings/current rate Endocrine: monitor blood sugar Hematologic: monitor H/H Neurologic: PRN Morphine Prophylaxis: Protonix Disposition: transfer to - best Critical Care - Objective Last 24 Hour Vital Signs Date Time Temp Pulse Resp B/P (MAP) Pulse Ox O2 Delivery O2 Flow Rate FiO2 10/10/18 09:00 99 17 100 10/10/18 06:50 100 Nasal Cannula 4.0 36 10/10/18 06:50 Nasal Cannula 4.0 36 10/10/18 06:50 95 22 100 10/10/18 06:00 96 20 144/63 (90) 100 10/10/18 05:30 98 19 100 10/10/18 05:00 94 20 137/56 (83) 100 10/10/18 04:00 4.0 10/10/18 04:00 87 10/10/18 04:00 98.0 100 20 137/56 (83) 100 10/10/18 04:00 Nasal Cannula 4.0 10/10/18 03:00 100 20 149/73 (98) 100 10/10/18 02:59 97 18 100 10/10/18 02:00 94 20 143/49 (80) 100 10/10/18 01:00 99 20 137/56 (83) 100 10/10/18 01:00 98 23 100 10/10/18 00:00 98 10/10/18 00:00 4.0 10/10/18 00:00 Nasal Cannula 4.0 10/10/18 00:00 97.9 94 20 149/64 (92) 100 10/09/18 23:15 94 20 100 10/09/18 23:00 94 20 129/58 (81) 100 10/09/18 22:52 98 23 100 10/09/18 22:00 101 21 137/64 (88) 99 10/09/18 21:00 97 22 128/56 (80) 100 10/09/18 20:00 101 10/09/18 20:00 97.9 99 19 148/57 (87) 100 10/09/18 20:00 4.0 10/09/18 19:17 100 Nasal Cannula 4.0 36 10/09/18 19:17 Nasal Cannula 4.0 36 10/09/18 19:17 98 18 100 10/09/18 19:10 Bi-pap 10/09/18 19:00 100 27 163/63 (96) 100 10/09/18 18:00 100 17 149/88 (108) 99 10/09/18 17:51 121/63 10/09/18 17:00 98 20 149/88 (108) 100 10/09/18 16:50 97 19 98 10/09/18 16:00 97.9 100 20 121/63 (82) 99 10/09/18 16:00 4.0 10/09/18 16:00 Bi-pap 10/09/18 16:00 111 10/09/18 15:06 98 10/09/18 15:00 107 20 129/73 (91) 99 10/09/18 14:00 98 20 134/53 (80) 100 10/09/18 13:00 102 20 145/95 (112) 99 10/09/18 12:30 101 22 99 10/09/18 12:00 4.0 10/09/18 12:00 100 10/09/18 12:00 Bi-pap 10/09/18 12:00 98.9 102 20 144/57 (86) 99 10/09/18 11:47 98 15 99 Facial 35 10/09/18 11:00 100 19 130/65 (86) 99 10/09/18 10:36 98 99 Status: awake Condition: critical HEENT: atraumatic Neck: full ROM Lungs: clear Heart: HR/BP stable Abdomen: soft, non-tender Extremities: no C/C/E Decubiti: location Micro: Microbiology Date/Time Source Procedure Growth Status 10/07/18 12:15 Blood Blood Culture - Preliminary NO GROWTH AFTER 48 HOURS Resulted 10/07/18 12:05 Blood Blood Culture - Preliminary NO GROWTH AFTER 48 HOURS Resulted 10/09/18 00:00 Sputum Induced Gram Stain - Final Resulted 10/09/18 00:00 Sputum Induced Sputum Culture - Preliminary NO GROWTH AFTER 24 HOURS Resulted Accucheck: 131 Critical Care - Subjective ROS Limited/Unobtainable: Yes Condition: critical EKG Rhythm: Sinus Rhythm FI02: 36 Vent Support Breath Rate: 16 Vent Support Mode: CPAP Vent Tidal Volume: 600 Sputum Amount: None PEEP: 0.0 PIP: 11 Tube Feeding Amount: 20 I&O: Intake and Output 10/09/18 10/10/18 19:00 07:00 Intake Total 1020.598 ml 590.000 ml Output Total 720 ml 555 ml Balance 300.598 ml 35.000 ml Intake Oral 580 ml 150 ml IV Total 440.598 ml 440.000 ml Output Urine Total 720 ml 555 ml # Bowel Movements 4 CXR: RIP ET-Tube: 7.5 ET Position: 22 Labs: Laboratory Tests Test 10/10/18 05:25 White Blood Count 17.0 K/UL (4.8-10.8) H Red Blood Count 4.21 M/UL (4.20-5.40) Hemoglobin 13.7 G/DL (12.0-16.0) Hematocrit 42.7 % (37.0-47.0) Mean Corpuscular Volume 101 FL (80-99) H Mean Corpuscular Hemoglobin 32.5 PG (27.0-31.0) H Mean Corpuscular Hemoglobin Concent 32.1 G/DL (32.0-36.0) Red Cell Distribution Width 13.6 % (11.6-14.8) Platelet Count 200 K/UL (150-450) Mean Platelet Volume 7.7 FL (6.5-10.1) Neutrophils (%) (Auto) 76.9 % (45.0-75.0) H Lymphocytes (%) (Auto) 8.2 % (20.0-45.0) L Monocytes (%) (Auto) 8.5 % (1.0-10.0) Eosinophils (%) (Auto) 5.9 % (0.0-3.0) H Basophils (%) (Auto) 0.6 % (0.0-2.0) Sodium Level 139 MMOL/L (136-145) Potassium Level 3.1 MMOL/L (3.5-5.1) L Chloride Level 104 MMOL/L (98-107) Carbon Dioxide Level 37 MMOL/L (21-32) H Anion Gap -2 mmol/L (5-15) L Blood Urea Nitrogen 9 mg/dL (7-18) Creatinine 0.7 MG/DL (0.55-1.30) Estimat Glomerular Filtration Rate mL/min (>60) Glucose Level 182 MG/DL (74-106) H Calcium Level 8.4 MG/DL (8.5-10.1) L Total Bilirubin 0.4 MG/DL (0.2-1.0) Aspartate Amino Transf (AST/SGOT) 15 U/L (15-37) Alanine Aminotransferase (ALT/SGPT) 29 U/L (12-78) Alkaline Phosphatase 89 U/L (46-116) Pro-B-Type Natriuretic Peptide 3861 pg/mL (0-125) H Total Protein 5.4 G/DL (6.4-8.2) L Albumin 2.2 G/DL (3.4-5.0) L Globulin 3.2 g/dL Albumin/Globulin Ratio 0.7 (1.0-2.7) L Steven Romo MD October 10, 2018 10:23
--- NOTE | 2018-10-10 10:32 | NUR ---
RD ASSESSMENT & RECOMMENDATIONS SEE CARE ACTIVITY FOR COMPLETE ASSESSMENT DAILY ESTIMATED NEEDS: Needs based on Pulmonary, wound, wasting 49kg 25-35 kcals/kg 9499-8790 total kcals 1.25-1.5 g protein/kg 61-74 g total protein 25-30 mL/kg 6058-9321 total fluid mLs NUTRITION DIAGNOSIS: 1) Increased kcal and pro needs r/t wound healing as evidenced by non-blanchable erythema buttocks 2) Swallowing difficulty r/t resp status as evidenced by s/p RR, now extubated, on soft easy chew diet w/ thin liquids per TELEGRAPH OPERATOR recs. 3) Altered nutrition related lab values r/t hyperglycemia as evidenced by elev BG (288-> now wnl), A1C 6.2, now off D5 + steroidal meds. CURRENT DIET: Low Na soft easy chew w/ Thin liquids PO DIET RECOMMENDATIONS: Low Na diet (texture per TELEGRAPH OPERATOR) ADDITIONAL RECOMMENDATIONS: 1) Maintain Low Na diet-> REC TO ADD CCHO DIET W/ CONSISTENTLY ELEV BLOOD SUGARS 2) Check lytes daily, replete as needed (LOW K) 3) RECALIBRATE bed scale for accurate CBW 4) Wound care: Add GAMAL BID + Vit C 250mg daily .
--- NOTE | 2018-10-10 10:40 | NUR ---
NURSE NOTES: P.T HERE TO WORK WITH PT. PT REQUESTED COME BACK AFTER FINISH LUNCH. WILL RETURN LATER.
--- NOTE | 2018-10-10 11:00 | NUR ---
NURSE NOTES: P.T HERE TO WORK WITH PT. OOB STANDING WITH ASSISTANCE. NO DISTRESS AT THIS TIME.
--- NOTE | 2018-10-10 12:13 | Cardiac Electrophysiology PN ---
Assessment/Plan Assessment/Plan 1. NSTEMI. likely type 2. No acute ECG changes. EF nl and no WMA. On aspirin and lipitor. 2. S/P Resp Failure, extubated 3. Lyme's disease 4. Sepsis on Abx per ID DW shuffle board operator out of ICU Subjective Subjective Extubated in ICU. No SVT or VT. Walked with the therapist with walker Objective Last 24 Hour Vital Signs Date Time Temp Pulse Resp B/P (MAP) Pulse Ox O2 Delivery O2 Flow Rate FiO2 10/10/18 11:00 99 22 148/83 (104) 99 10/10/18 10:45 99 23 100 10/10/18 10:00 103 23 130/54 (79) 99 10/10/18 09:00 104 21 161/66 (97) 99 10/10/18 09:00 99 17 100 10/10/18 08:00 Nasal Cannula 4.0 10/10/18 08:00 92 10/10/18 08:00 4.0 10/10/18 08:00 93 20 126/54 (78) 100 10/10/18 07:00 97.7 93 20 137/59 (85) 100 10/10/18 06:50 100 Nasal Cannula 4.0 36 10/10/18 06:50 Nasal Cannula 4.0 36 10/10/18 06:50 95 22 100 10/10/18 06:00 96 20 144/63 (90) 100 10/10/18 05:30 98 19 100 10/10/18 05:00 94 20 137/56 (83) 100 10/10/18 04:00 4.0 10/10/18 04:00 87 10/10/18 04:00 98.0 100 20 137/56 (83) 100 10/10/18 04:00 Nasal Cannula 4.0 10/10/18 03:00 100 20 149/73 (98) 100 10/10/18 02:59 97 18 100 10/10/18 02:00 94 20 143/49 (80) 100 10/10/18 01:00 99 20 137/56 (83) 100 10/10/18 01:00 98 23 100 10/10/18 00:00 98 10/10/18 00:00 4.0 10/10/18 00:00 Nasal Cannula 4.0 10/10/18 00:00 97.9 94 20 149/64 (92) 100 10/09/18 23:15 94 20 100 10/09/18 23:00 94 20 129/58 (81) 100 10/09/18 22:52 98 23 100 10/09/18 22:00 101 21 137/64 (88) 99 10/09/18 21:00 97 22 128/56 (80) 100 10/09/18 20:00 101 10/09/18 20:00 97.9 99 19 148/57 (87) 100 10/09/18 20:00 4.0 10/09/18 19:17 100 Nasal Cannula 4.0 36 10/09/18 19:17 Nasal Cannula 4.0 36 10/09/18 19:17 98 18 100 10/09/18 19:10 Bi-pap 10/09/18 19:00 100 27 163/63 (96) 100 10/09/18 18:00 100 17 149/88 (108) 99 10/09/18 17:51 121/63 10/09/18 17:00 98 20 149/88 (108) 100 10/09/18 16:50 97 19 98 10/09/18 16:00 97.9 100 20 121/63 (82) 99 10/09/18 16:00 4.0 10/09/18 16:00 Bi-pap 10/09/18 16:00 111 10/09/18 15:06 98 10/09/18 15:00 107 20 129/73 (91) 99 10/09/18 14:00 98 20 134/53 (80) 100 10/09/18 13:00 102 20 145/95 (112) 99 10/09/18 12:30 101 22 99 Intake and Output 10/09/18 10/10/18 19:00 07:00 Intake Total 1020.598 ml 590.000 ml Output Total 720 ml 555 ml Balance 300.598 ml 35.000 ml Intake Oral 580 ml 150 ml IV Total 440.598 ml 440.000 ml Output Urine Total 720 ml 555 ml # Bowel Movements 4 Laboratory Tests Test 10/10/18 05:25 White Blood Count 17.0 K/UL (4.8-10.8) H Red Blood Count 4.21 M/UL (4.20-5.40) Hemoglobin 13.7 G/DL (12.0-16.0) Hematocrit 42.7 % (37.0-47.0) Mean Corpuscular Volume 101 FL (80-99) H Mean Corpuscular Hemoglobin 32.5 PG (27.0-31.0) H Mean Corpuscular Hemoglobin Concent 32.1 G/DL (32.0-36.0) Red Cell Distribution Width 13.6 % (11.6-14.8) Platelet Count 200 K/UL (150-450) Mean Platelet Volume 7.7 FL (6.5-10.1) Neutrophils (%) (Auto) 76.9 % (45.0-75.0) H Lymphocytes (%) (Auto) 8.2 % (20.0-45.0) L Monocytes (%) (Auto) 8.5 % (1.0-10.0) Eosinophils (%) (Auto) 5.9 % (0.0-3.0) H Basophils (%) (Auto) 0.6 % (0.0-2.0) Sodium Level 139 MMOL/L (136-145) Potassium Level 3.1 MMOL/L (3.5-5.1) L Chloride Level 104 MMOL/L (98-107) Carbon Dioxide Level 37 MMOL/L (21-32) H Anion Gap -2 mmol/L (5-15) L Blood Urea Nitrogen 9 mg/dL (7-18) Creatinine 0.7 MG/DL (0.55-1.30) Estimat Glomerular Filtration Rate mL/min (>60) Glucose Level 182 MG/DL (74-106) H Calcium Level 8.4 MG/DL (8.5-10.1) L Total Bilirubin 0.4 MG/DL (0.2-1.0) Aspartate Amino Transf (AST/SGOT) 15 U/L (15-37) Alanine Aminotransferase (ALT/SGPT) 29 U/L (12-78) Alkaline Phosphatase 89 U/L (46-116) Pro-B-Type Natriuretic Peptide 3861 pg/mL (0-125) H Total Protein 5.4 G/DL (6.4-8.2) L Albumin 2.2 G/DL (3.4-5.0) L Globulin 3.2 g/dL Albumin/Globulin Ratio 0.7 (1.0-2.7) L Microbiology Date/Time Source Procedure Growth Status 10/07/18 12:15 Blood Blood Culture - Preliminary NO GROWTH AFTER 48 HOURS Resulted 10/09/18 00:00 Sputum Induced Gram Stain - Final Resulted 10/09/18 00:00 Sputum Induced Sputum Culture - Preliminary NO GROWTH AFTER 24 HOURS Resulted Objective HEENT: No JVD. Lungs: Rhonchi at bases, few scattered wheezes Heart: RRR, No G/R/M Abdomen: soft, non-tender, active bowel sounds Extremities: no C/C/E Braulio Cruz MD October 10, 2018 12:13
[2018-10-10] MEDS: Vancomycin 1gm/D5W 275ml IVPB SCH ×2 (12:27)
--- NOTE | 2018-10-10 12:55 | NUR ---
NURSE NOTES: SPEECH THERAPIST HERE TO RE-EVAL PT AND WORK OF BREATHING. OFFERED LUNCH TRAY, HAD EATEN BREAKFAST LATE, BUT WILL TRY TO EAT MORE. HOB>35. WILL CONTINUE TO FOLLOW PT PROGRESS.
--- NOTE | 2018-10-10 13:16 | Nephrology Progress Note ---
Assessment/Plan Problem List: (1) Severe protein-calorie malnutrition (2) NSTEMI (non-ST elevated myocardial infarction) (3) COPD (chronic obstructive pulmonary disease) (4) Acute respiratory failure Assessment Acute respiratory failure COPD Azotemia, High Na , elevated LFTs Elevated troponin Plan extubated K IV as needed as needed Hydrate Per cardiology Pulm management taper steroid as possible monitor renal parameters discussed with RN Subjective ROS Limited/Unobtainable: No Constitutional: Reports: malaise Objective Objective Last 24 Hour Vital Signs Date Time Temp Pulse Resp B/P (MAP) Pulse Ox O2 Delivery O2 Flow Rate FiO2 10/10/18 13:13 98 15 100 10/10/18 11:00 99 22 148/83 (104) 99 10/10/18 10:45 99 23 100 10/10/18 10:00 103 23 130/54 (79) 99 10/10/18 09:00 104 21 161/66 (97) 99 10/10/18 09:00 99 17 100 10/10/18 08:00 Nasal Cannula 4.0 10/10/18 08:00 92 10/10/18 08:00 4.0 10/10/18 08:00 93 20 126/54 (78) 100 10/10/18 07:00 97.7 93 20 137/59 (85) 100 10/10/18 06:50 100 Nasal Cannula 4.0 36 10/10/18 06:50 Nasal Cannula 4.0 36 10/10/18 06:50 95 22 100 10/10/18 06:00 96 20 144/63 (90) 100 10/10/18 05:30 98 19 100 10/10/18 05:00 94 20 137/56 (83) 100 10/10/18 04:00 4.0 10/10/18 04:00 87 10/10/18 04:00 98.0 100 20 137/56 (83) 100 10/10/18 04:00 Nasal Cannula 4.0 10/10/18 03:00 100 20 149/73 (98) 100 10/10/18 02:59 97 18 100 10/10/18 02:00 94 20 143/49 (80) 100 10/10/18 01:00 99 20 137/56 (83) 100 10/10/18 01:00 98 23 100 10/10/18 00:00 98 10/10/18 00:00 4.0 10/10/18 00:00 Nasal Cannula 4.0 10/10/18 00:00 97.9 94 20 149/64 (92) 100 10/09/18 23:15 94 20 100 10/09/18 23:00 94 20 129/58 (81) 100 10/09/18 22:52 98 23 100 10/09/18 22:00 101 21 137/64 (88) 99 10/09/18 21:00 97 22 128/56 (80) 100 10/09/18 20:00 101 10/09/18 20:00 97.9 99 19 148/57 (87) 100 10/09/18 20:00 4.0 10/09/18 19:17 100 Nasal Cannula 4.0 36 10/09/18 19:17 Nasal Cannula 4.0 36 10/09/18 19:17 98 18 100 10/09/18 19:10 Bi-pap 10/09/18 19:00 100 27 163/63 (96) 100 10/09/18 18:00 100 17 149/88 (108) 99 10/09/18 17:51 121/63 10/09/18 17:00 98 20 149/88 (108) 100 10/09/18 16:50 97 19 98 10/09/18 16:00 97.9 100 20 121/63 (82) 99 10/09/18 16:00 4.0 10/09/18 16:00 Bi-pap 10/09/18 16:00 111 10/09/18 15:06 98 10/09/18 15:00 107 20 129/73 (91) 99 10/09/18 14:00 98 20 134/53 (80) 100 Intake and Output 10/09/18 10/10/18 18:59 06:59 Intake Total 993.098 ml 617.500 ml Output Total 720 ml 555 ml Balance 273.098 ml 62.500 ml Intake Oral 580 ml 150 ml IV Total 413.098 ml 467.500 ml Output Urine Total 720 ml 555 ml # Bowel Movements 4 Laboratory Tests 10/10/18 05:25: White Blood Count 17.0H, Red Blood Count 4.21, Hemoglobin 13.7, Hematocrit 42.7 , Mean Corpuscular Volume 101H, Mean Corpuscular Hemoglobin 32.5H, Mean Corpuscular Hemoglobin Concent 32.1, Red Cell Distribution Width 13.6, Platelet Count 200, Mean Platelet Volume 7.7, Neutrophils (%) (Auto) 76.9H, Lymphocytes ( %) (Auto) 8.2L, Monocytes (%) (Auto) 8.5, Eosinophils (%) (Auto) 5.9H, Basophils (%) (Auto) 0.6, Sodium Level 139, Potassium Level 3.1L, Chloride Level 104, Carbon Dioxide Level 37H, Anion Gap -2L, Blood Urea Nitrogen 9, Creatinine 0.7, Estimat Glomerular Filtration Rate , Glucose Level 182H, Calcium Level 8.4L, Total Bilirubin 0.4, Aspartate Amino Transf (AST/SGOT) 15, Alanine Aminotransferase (ALT/SGPT) 29, Alkaline Phosphatase 89, Pro-B-Type Natriuretic Peptide 3861H, Total Protein 5.4L, Albumin 2.2L, Globulin 3.2, Albumin/Globulin Ratio 0.7L Height (Feet): 5 Height (Inches): 3.00 Weight (Pounds): 112 General Appearance: other - remains extubated Cardiovascular: tachycardia Respiratory/Chest: decreased breath sounds Abdomen: distended Objective no change Robbie Garza MD October 10, 2018 13:16
--- NOTE | 2018-10-10 13:27 | Infectious Diseases Prog Note ---
Assessment/Plan Assessment/Plan ASSESSMENT: The patient is a 78-year-old female with history of Lyme disease 25 years ago. 1. Possible aspiration pneumonia. Chronic obstructive pulmonary disease exacerbation. -10/08 CXR: Development of hazy bibasilar opacities which may be related to layering small pleural effusions versus airspace disease. Attention on follow- up recommended. -CXR: Lungs remain clear. -10/04 sp cx normal resp storm; 10/09 sp cx normal storm to date -legionella ag urine 2. Abnormal liver function tests (acute), SP -hep serologies neg -Abd US: Trace ascites.Bilateral pleural effusions. Possible medical renal disease. Correlate clinically. Liver cyst. Tiny right renal cysts. Atherosclerotic vascular disease 3. Probable non-STEMI. 4. Leukocytosis, increased (s/p high dose steroids)- now improving -u/a neg, ucx NTD -Bcx NTD Fever; SP Acute respiratory failure s/p intubation 10/04, sp extubated 10/08 PLAN: 1. We will continue the patient on Zosyn #7/10 and d/c empiric Vancomycin #4 -10/08 SP Zithromax #5 -10/04 SP LEvaquin #2 2. Monitor CBC/CMP 3. f/u Bcx x2 4. Monitor liver function tests. 5.f/u Sp cx 6. f/u Hep C PCR. 7. Monitor cultures (blood, urine, sputum). 8. We will follow Cardiology recommendations. 9. Based on the patient's clinical course and laboratories, we will do further recommendations. 10. No need for continuing minocycline at this point. : Subjective Allergies: Coded Allergies: HEPARIN (Verified Allergy, Unknown, 10/05/18) RAMIPRIL (Verified Allergy, Unknown, 10/03/18) SULFA (SULFONAMIDE ANTIBIOTICS) (Unverified Allergy, Unknown, 10/05/18) Uncoded Allergies: SULFA (Allergy, Unknown, 10/03/18) Subjective afebrile >72 hs wbc overall improved on 4 l NC now Bcx NTD Objective Vital Signs Last 24 Hour Vital Signs Date Time Temp Pulse Resp B/P (MAP) Pulse Ox O2 Delivery O2 Flow Rate FiO2 10/10/18 11:00 99 22 148/83 (104) 99 10/10/18 10:45 99 23 100 10/10/18 10:00 103 23 130/54 (79) 99 10/10/18 09:00 104 21 161/66 (97) 99 10/10/18 09:00 99 17 100 10/10/18 08:00 Nasal Cannula 4.0 10/10/18 08:00 92 10/10/18 08:00 4.0 10/10/18 08:00 93 20 126/54 (78) 100 10/10/18 07:00 97.7 93 20 137/59 (85) 100 10/10/18 06:50 100 Nasal Cannula 4.0 36 10/10/18 06:50 Nasal Cannula 4.0 36 10/10/18 06:50 95 22 100 10/10/18 06:00 96 20 144/63 (90) 100 10/10/18 05:30 98 19 100 10/10/18 05:00 94 20 137/56 (83) 100 10/10/18 04:00 4.0 10/10/18 04:00 87 10/10/18 04:00 98.0 100 20 137/56 (83) 100 10/10/18 04:00 Nasal Cannula 4.0 10/10/18 03:00 100 20 149/73 (98) 100 10/10/18 02:59 97 18 100 10/10/18 02:00 94 20 143/49 (80) 100 10/10/18 01:00 99 20 137/56 (83) 100 10/10/18 01:00 98 23 100 10/10/18 00:00 98 10/10/18 00:00 4.0 10/10/18 00:00 Nasal Cannula 4.0 10/10/18 00:00 97.9 94 20 149/64 (92) 100 10/09/18 23:15 94 20 100 10/09/18 23:00 94 20 129/58 (81) 100 10/09/18 22:52 98 23 100 10/09/18 22:00 101 21 137/64 (88) 99 10/09/18 21:00 97 22 128/56 (80) 100 10/09/18 20:00 101 10/09/18 20:00 97.9 99 19 148/57 (87) 100 10/09/18 20:00 4.0 10/09/18 19:17 100 Nasal Cannula 4.0 36 10/09/18 19:17 Nasal Cannula 4.0 36 10/09/18 19:17 98 18 100 10/09/18 19:10 Bi-pap 10/09/18 19:00 100 27 163/63 (96) 100 10/09/18 18:00 100 17 149/88 (108) 99 10/09/18 17:51 121/63 10/09/18 17:00 98 20 149/88 (108) 100 10/09/18 16:50 97 19 98 10/09/18 16:00 97.9 100 20 121/63 (82) 99 10/09/18 16:00 4.0 10/09/18 16:00 Bi-pap 10/09/18 16:00 111 10/09/18 15:06 98 10/09/18 15:00 107 20 129/73 (91) 99 10/09/18 14:00 98 20 134/53 (80) 100 Height (Feet): 5 Height (Inches): 3.00 Weight (Pounds): 112 Objective HEENT: Mild pale conjunctivae. No icterus. NECK: No lymphadenopathy. CHEST: Coarse breathing sounds. HEART: S1 and S2. ABDOMEN: Soft. ABDOMEN: Soft. EXTREMITIES: No cyanosis. NEUROLOGIC: Sedated. Microbiology Date/Time Source Procedure Growth Status 10/09/18 00:00 Sputum Induced Gram Stain - Final Resulted 10/09/18 00:00 Sputum Induced Sputum Culture - Preliminary NO GROWTH AFTER 24 HOURS Resulted Laboratory Tests Test 10/10/18 05:25 White Blood Count 17.0 K/UL (4.8-10.8) H Red Blood Count 4.21 M/UL (4.20-5.40) Hemoglobin 13.7 G/DL (12.0-16.0) Hematocrit 42.7 % (37.0-47.0) Mean Corpuscular Volume 101 FL (80-99) H Mean Corpuscular Hemoglobin 32.5 PG (27.0-31.0) H Mean Corpuscular Hemoglobin Concent 32.1 G/DL (32.0-36.0) Red Cell Distribution Width 13.6 % (11.6-14.8) Platelet Count 200 K/UL (150-450) Mean Platelet Volume 7.7 FL (6.5-10.1) Neutrophils (%) (Auto) 76.9 % (45.0-75.0) H Lymphocytes (%) (Auto) 8.2 % (20.0-45.0) L Monocytes (%) (Auto) 8.5 % (1.0-10.0) Eosinophils (%) (Auto) 5.9 % (0.0-3.0) H Basophils (%) (Auto) 0.6 % (0.0-2.0) Sodium Level 139 MMOL/L (136-145) Potassium Level 3.1 MMOL/L (3.5-5.1) L Chloride Level 104 MMOL/L (98-107) Carbon Dioxide Level 37 MMOL/L (21-32) H Anion Gap -2 mmol/L (5-15) L Blood Urea Nitrogen 9 mg/dL (7-18) Creatinine 0.7 MG/DL (0.55-1.30) Estimat Glomerular Filtration Rate mL/min (>60) Glucose Level 182 MG/DL (74-106) H Calcium Level 8.4 MG/DL (8.5-10.1) L Total Bilirubin 0.4 MG/DL (0.2-1.0) Aspartate Amino Transf (AST/SGOT) 15 U/L (15-37) Alanine Aminotransferase (ALT/SGPT) 29 U/L (12-78) Alkaline Phosphatase 89 U/L (46-116) Pro-B-Type Natriuretic Peptide 3861 pg/mL (0-125) H Total Protein 5.4 G/DL (6.4-8.2) L Albumin 2.2 G/DL (3.4-5.0) L Globulin 3.2 g/dL Albumin/Globulin Ratio 0.7 (1.0-2.7) L Current Medications Medications (Trade) Dose Ordered Sig/Aleah Route PRN Reason Start Time Stop Time Status Last Admin Dose Admin Albuterol/ Ipratropium (Albuterol/ Ipratropium) 3 ml Q4H PRN HHN Shortness of Breath 10/08/18 14:15 10/13/18 14:14 10/08/18 17:01 Aspirin (ASA) 81 mg DAILY NG 10/05/18 09:00 11/04/18 08:59 10/10/18 09:54 Dextrose (Dextrose 50%) 25 ml Q30M PRN IV Hypoglycemia 10/04/18 08:00 11/03/18 07:53 Dextrose (Dextrose 50%) 50 ml Q30M PRN IV hypoglycemia 10/04/18 08:00 11/03/18 07:59 EZETIMIBE (Zetia) 10 mg BEDTIME ORAL 10/09/18 21:00 11/08/18 20:59 10/09/18 21:43 Insulin Aspart (NovoLOG) AC+HS SUBQ 10/10/18 06:30 11/03/18 11:29 10/10/18 06:57 Lorazepam (Ativan 2mg/ml 1ml) 2 mg Q4H PRN IV For Anxiety 10/04/18 08:00 10/11/18 07:59 10/06/18 21:50 Morphine Sulfate (Morphine Sulfate) 2 mg Q4H PRN IVP Moderate Pain (Pain Scale 4-6) 10/04/18 08:00 10/11/18 07:59 10/06/18 01:12 Morphine Sulfate (Morphine Sulfate) 4 mg Q4H PRN IVP Severe Pain (Pain Scale 7-10) 10/04/18 08:00 10/11/18 07:59 Nitroglycerin (Ntg) 1 patch Q24H TDERMAL 10/05/18 18:00 11/04/18 17:59 10/09/18 17:51 Pantoprazole (Protonix) 40 mg Q12HR IV 10/04/18 21:00 11/03/18 08:59 10/10/18 09:54 Piperacillin Sod/ Tazobactam Sod 3.375 gm/Sodium Chloride 110 ml @ 27.5 mls/hr Q8H IVPB 10/08/18 02:00 10/15/18 01:59 10/10/18 09:56 Vancomycin HCl (Vanco rx to dose) 1 ea DAILY PRN MISC Per rx protocol 10/07/18 11:45 11/06/18 11:44 Vancomycin HCl 1 gm/Dextrose 275 ml @ 183.708 mls/hr Q12HR@0000,1200 IVPB 10/09/18 12:00 10/14/18 11:59 10/10/18 12:27 Clementina Flor M.D. October 10, 2018 13:27
--- NOTE | 2018-10-10 13:41 | NUR ---
PT Note PT claudette completed, treatment initiated. Patient was able to stand and take small steps at the EOB. She c/o dizziness upon sitting at the EOB. Patient needs PT services to increase her muscle strength and balance and educate don proper breathing and energy conservation techniques to improve her functional mobility and gait. Addendum: 10/10/18 at 1341 by JAMES VAUGHN PT Amended: Links added.
--- NOTE | 2018-10-10 14:50 | General Progress Note ---
Assessment/Plan Problem List: (1) UTI (urinary tract infection) ICD Codes: N39.0 - Urinary tract infection, site not specified SNOMED: 62887247 (2) Diabetes ICD Codes: E11.9 - Type 2 diabetes mellitus without complications SNOMED: 35931684 (3) COPD (chronic obstructive pulmonary disease) ICD Codes: J44.9 - Chronic obstructive pulmonary disease, unspecified SNOMED: 08717198 Qualifiers: Qualified Codes: J44.9 - Chronic obstructive pulmonary disease, unspecified (4) NSTEMI (non-ST elevated myocardial infarction) ICD Codes: I21.4 - Non-ST elevation (NSTEMI) myocardial infarction SNOMED: 50757591 (5) Episode of generalized weakness ICD Codes: R53.1 - Weakness SNOMED: 63779621 Status: stable, progressing Assessment/Plan: vent abx pain control cardio f/u cbc bmp am aru eval Subjective Allergies: Coded Allergies: HEPARIN (Verified Allergy, Unknown, 10/05/18) RAMIPRIL (Verified Allergy, Unknown, 10/03/18) SULFA (SULFONAMIDE ANTIBIOTICS) (Unverified Allergy, Unknown, 10/05/18) Uncoded Allergies: SULFA (Allergy, Unknown, 10/03/18) All Systems: reviewed and negative except above Subjective o2 nc in icu Objective Last 24 Hour Vital Signs Date Time Temp Pulse Resp B/P (MAP) Pulse Ox O2 Delivery O2 Flow Rate FiO2 10/10/18 13:13 98 15 100 10/10/18 13:00 98 21 155/63 (93) 99 10/10/18 12:00 97.8 101 20 110/53 (72) 100 10/10/18 12:00 4.0 10/10/18 12:00 Nasal Cannula 4.0 10/10/18 11:00 99 22 148/83 (104) 99 10/10/18 10:45 99 23 100 10/10/18 10:00 103 23 130/54 (79) 99 10/10/18 09:00 104 21 161/66 (97) 99 10/10/18 09:00 99 17 100 10/10/18 08:00 Nasal Cannula 4.0 10/10/18 08:00 92 10/10/18 08:00 4.0 10/10/18 08:00 93 20 126/54 (78) 100 10/10/18 07:00 97.7 93 20 137/59 (85) 100 10/10/18 06:50 100 Nasal Cannula 4.0 36 10/10/18 06:50 Nasal Cannula 4.0 36 10/10/18 06:50 95 22 100 10/10/18 06:00 96 20 144/63 (90) 100 10/10/18 05:30 98 19 100 10/10/18 05:00 94 20 137/56 (83) 100 10/10/18 04:00 4.0 10/10/18 04:00 87 10/10/18 04:00 98.0 100 20 137/56 (83) 100 10/10/18 04:00 Nasal Cannula 4.0 10/10/18 03:00 100 20 149/73 (98) 100 10/10/18 02:59 97 18 100 10/10/18 02:00 94 20 143/49 (80) 100 10/10/18 01:00 99 20 137/56 (83) 100 10/10/18 01:00 98 23 100 10/10/18 00:00 98 10/10/18 00:00 4.0 10/10/18 00:00 Nasal Cannula 4.0 10/10/18 00:00 97.9 94 20 149/64 (92) 100 10/09/18 23:15 94 20 100 10/09/18 23:00 94 20 129/58 (81) 100 10/09/18 22:52 98 23 100 10/09/18 22:00 101 21 137/64 (88) 99 10/09/18 21:00 97 22 128/56 (80) 100 10/09/18 20:00 101 10/09/18 20:00 97.9 99 19 148/57 (87) 100 10/09/18 20:00 4.0 10/09/18 19:17 100 Nasal Cannula 4.0 36 10/09/18 19:17 Nasal Cannula 4.0 36 10/09/18 19:17 98 18 100 10/09/18 19:10 Bi-pap 10/09/18 19:00 100 27 163/63 (96) 100 10/09/18 18:00 100 17 149/88 (108) 99 10/09/18 17:51 121/63 10/09/18 17:00 98 20 149/88 (108) 100 10/09/18 16:50 97 19 98 10/09/18 16:00 97.9 100 20 121/63 (82) 99 10/09/18 16:00 4.0 10/09/18 16:00 Bi-pap 10/09/18 16:00 111 10/09/18 15:06 98 10/09/18 15:00 107 20 129/73 (91) 99 Intake and Output 10/09/18 10/10/18 18:59 06:59 Intake Total 993.098 ml 617.500 ml Output Total 720 ml 555 ml Balance 273.098 ml 62.500 ml Intake Oral 580 ml 150 ml IV Total 413.098 ml 467.500 ml Output Urine Total 720 ml 555 ml # Bowel Movements 4 Laboratory Tests 10/10/18 05:25: White Blood Count 17.0H, Red Blood Count 4.21, Hemoglobin 13.7, Hematocrit 42.7 , Mean Corpuscular Volume 101H, Mean Corpuscular Hemoglobin 32.5H, Mean Corpuscular Hemoglobin Concent 32.1, Red Cell Distribution Width 13.6, Platelet Count 200, Mean Platelet Volume 7.7, Neutrophils (%) (Auto) 76.9H, Lymphocytes ( %) (Auto) 8.2L, Monocytes (%) (Auto) 8.5, Eosinophils (%) (Auto) 5.9H, Basophils (%) (Auto) 0.6, Sodium Level 139, Potassium Level 3.1L, Chloride Level 104, Carbon Dioxide Level 37H, Anion Gap -2L, Blood Urea Nitrogen 9, Creatinine 0.7, Estimat Glomerular Filtration Rate , Glucose Level 182H, Calcium Level 8.4L, Total Bilirubin 0.4, Aspartate Amino Transf (AST/SGOT) 15, Alanine Aminotransferase (ALT/SGPT) 29, Alkaline Phosphatase 89, Pro-B-Type Natriuretic Peptide 3861H, Total Protein 5.4L, Albumin 2.2L, Globulin 3.2, Albumin/Globulin Ratio 0.7L Height (Feet): 5 Height (Inches): 3.00 Weight (Pounds): 112 General Appearance: lethargic EENT: normal ENT inspection Neck: normal alignment Cardiovascular: normal peripheral pulses, normal rate, regular rhythm Respiratory/Chest: chest wall non-tender, decreased breath sounds Abdomen: normal bowel sounds, non tender, soft Extremities: normal inspection Edema: no edema noted Arm (L), no edema noted Arm (R), no edema noted Leg (L), no edema noted Leg (R), no edema noted Pedal (L), no edema noted Pedal (R), no edema noted Generalized Neurologic: responsive, motor weakness Skin: normal pigmentation, warm/dry Osei Naranjo DO October 10, 2018 14:50
--- NOTE | 2018-10-10 15:00 | NUR ---
NURSE NOTES: Patient with episode of x1 loose bowel movement, kept clean and dry. Repositioned. Will continue plan of care.
--- NOTE | 2018-10-10 15:37 | NUR ---
ST NOTE: SWALLOW/SPEECH/LANGUAGE/COGNITION STATUS S: PT SEEN AT BEDSIDE DURING LUNCH. PT ALERT, COOPERATIVE, PT WITH NC(4L). O2: 98%, BUT SHALLOW BREATHING WAS NOTED. O: ASSESS PT'S SWALLOWING FUNCTION DURING MEAL. A: PT TOLERATED CURRENT DIET(SOFT, EASY CHEW WITH THIN LIQUIDS) WITHOUT OVERT S/S OF ASPIRATION DURING MEAL. EDUCATED AND TRAINED PT RE: ASPIRATION PRECAUTIONS DURING MEAL. PER MD NOTE, POSSIBLE ASPIRATION PNA. AND PT HAS SHORTNESS OF BREATH OVERALL. COMPLETED BREATHING EXS WITH PT PRIOR THE MEAL. A: CONTINUE CURRENT POC. CONSIDER MBSS. D/W RNCURT, RT AND PT.
--- NOTE | 2018-10-10 16:30 | NUR ---
NURSE NOTES: BLOOD SUGAR 118, PT REFUSED NOVOLOG.
[2018-10-10] MEDS: Nitroglycerin Patch 0.4mg TDERMAL SCH (17:10)
--- NOTE | 2018-10-10 18:29 | NUR ---
CASE MANAGEMENT: REVIEW SI: SOB . RESPIRATORY FAILURE T 97.8 HR 103 RR 26 BP 143/56 SAT 99% NC/4L WBC 17.0 BNP 3861 IS: KCl 10mEq IVF @100ML/HR NS IVF @ 100ML/HR ZOSYN IV Q8HR ICU STATUS DCP: PATIENT IS FROM HOME
--- NOTE | 2018-10-10 19:41 | NUR ---
HAND-OFF: Report given to Kashif, ENDORSED TRANSFER TO SDU 238. PT IN NO ACUTE DISTRESS.
--- NOTE | 2018-10-10 19:50 | NUR ---
TRANSFER TO FLOOR: Patient transferred to [address] [facility], per hospital bed. Report given to SLOANE Cruz. Report, belongings and medications given to staff. Family and or S/O informed of transfer.
--- NOTE | 2018-10-10 19:58 | NUR ---
NURSE NOTES: BEDSIDE REPORT RECEIVED FROM SLOANE RODRIGUEZ. PT IS X4, VERY TALKATIVE, ABLE TO MAKE NEEDS KNOWN. LEAN SIX SIGMA BLACK BELT SHOWING NSR. 4L NC SATING IN 90'S. SKIN IS CLEAN, DRY, DRESSINGS INTACT. LFA 22, RW 22; ASYMPTOMATIC SL. LABS OK PER RN, 40 MEQ POTASSIUM GIVEN ON AM SHIFT. BED IS LOCKED IN LOWEST POSITION, SR X3, BED ALARM ON, CALL PAYAN W/ IN REACH. WILL CONTINUE TO MONITOR AND FOLLOW W/ PLAN OF CARE.
[2018-10-10] MEDS ORDERED: Morphine Sulfate 2mg/ml Inj(IV/IM USE ONLY) IVP PRN (20:00)
[2018-10-10] MEDS ORDERED: Morphine Sulfate 4mg/ml Inj (IV USE ONLY) IVP PRN (20:00)
[2018-10-10] MEDS ORDERED: LORazepam Inj 2mg/ml 1ml IV PRN (20:00)
[2018-10-10] MEDS ORDERED: Albuterol/Ipratropium 3ml neb HHN PRN (21:00)
[2018-10-11] VITALS: BP_SYST 144; BP_SYST 161; BP_DIAS 63; BP_DIAS 73
[2018-10-11] MEDS: Piperacillin/Tazobactam 3.375 GM in NS 110 ML IVPB SCH ×3 (01:52→18:19)
[2018-10-11 04:00] VITALS: BP 147/72
[2018-10-11 05:34] LABS: BASOPHILS % (AUTO) 0.5 % (0.0-2.0); EOSINOPHILS % (AUTO) 4.9 % (0.0-3.0); HEMATOCRIT 47.5 % (37.0-47.0); LYMPHOCYTES % (AUTO) 9.1 % (20.0-45.0); MEAN CORPUSCULAR VOLUME 101 FL (80-99); MONOCYTES % (AUTO) 8.8 % (1.0-10.0); NEUTROPHILS % (AUTO) 76.8 % (45.0-75.0); PLATELET COUNT 264 K/UL (150-450); RED BLOOD COUNT 4.69 M/UL (4.20-5.40); RED CELL DISTRIBUTION WIDTH 13.7 % (11.6-14.8); WHITE BLOOD COUNT 13.5 K/UL (4.8-10.8)
[2018-10-11] MEDS: NovoLOG Insulin Flexpen SUBQ SCH ×4 (05:35→20:49)
[2018-10-11 05:59] LABS: ALANINE AMINOTRANSFERASE 28 U/L (12-78); ALBUMIN 2.5 G/DL (3.4-5.0); ALBUMIN/GLOBULIN RATIO 0.7 (1.0-2.7); ALKALINE PHOSPHATASE 79 U/L (46-116); ANION GAP -1 mmol/L (5-15); ASPARTATE AMINO TRANSFERASE 12 U/L (15-37); BILIRUBIN,TOTAL 0.5 MG/DL (0.2-1.0); BLOOD UREA NITROGEN 5 mg/dL (7-18); CALCIUM 8.9 MG/DL (8.5-10.1); CARBON DIOXIDE 40 MMOL/L (21-32); CHLORIDE 104 MMOL/L (98-107); CREATININE 0.5 MG/DL (0.55-1.30); PHOSPHORUS 1.7 MG/DL (2.5-4.9); SODIUM 143 MMOL/L (136-145)
--- NOTE | 2018-10-11 07:46 | NUR ---
HAND-OFF: Report given to SLOANE Barclay.
--- NOTE | 2018-10-11 07:47 | NUR ---
HAND-OFF: Report given to SLOANE Barclay.
[2018-10-11 08:00] VITALS: BP 150/70
--- NOTE | 2018-10-11 08:15 | NUR ---
NURSE NOTES: received pt in the bed, awake, alert, oriented, vital signs stable, no co pain, no SOB, o2 3l, skin warm and dry to touch, intact, bed in low position, call light within reach.
[2018-10-11] MEDS: Pantoprazole Inj IV SCH (08:48)
[2018-10-11] MEDS ORDERED: Aspirin Baby 81mg NG SCH (09:00)
--- NOTE | 2018-10-11 09:01 | General Progress Note ---
Assessment/Plan Problem List: (1) UTI (urinary tract infection) ICD Codes: N39.0 - Urinary tract infection, site not specified SNOMED: 39025944 (2) Diabetes ICD Codes: E11.9 - Type 2 diabetes mellitus without complications SNOMED: 42570078 (3) COPD (chronic obstructive pulmonary disease) ICD Codes: J44.9 - Chronic obstructive pulmonary disease, unspecified SNOMED: 78054440 Qualifiers: Qualified Codes: J44.9 - Chronic obstructive pulmonary disease, unspecified (4) NSTEMI (non-ST elevated myocardial infarction) ICD Codes: I21.4 - Non-ST elevation (NSTEMI) myocardial infarction SNOMED: 84910122 (5) Episode of generalized weakness ICD Codes: R53.1 - Weakness SNOMED: 06325565 Status: stable, progressing Assessment/Plan: vent abx pain control cardio f/u cbc bmp am aru eval Subjective Constitutional: Reports: weakness Respiratory: Reports: shortness of breath Allergies: Coded Allergies: HEPARIN (Verified Allergy, Unknown, 10/05/18) RAMIPRIL (Verified Allergy, Unknown, 10/03/18) SULFA (SULFONAMIDE ANTIBIOTICS) (Unverified Allergy, Unknown, 10/05/18) Uncoded Allergies: SULFA (Allergy, Unknown, 10/03/18) All Systems: reviewed and negative except above Subjective o2 nc calm Objective Last 24 Hour Vital Signs Date Time Temp Pulse Resp B/P (MAP) Pulse Ox O2 Delivery O2 Flow Rate FiO2 10/11/18 08:00 3.0 10/11/18 08:00 Nasal Cannula 3.0 10/11/18 08:00 98.1 91 18 150/70 (96) 96 10/11/18 07:19 2.0 28 10/11/18 07:08 97 Nasal Cannula 2.0 28 10/11/18 07:08 Nasal Cannula 2.0 28 10/11/18 05:05 2.0 28 10/11/18 04:00 97 10/11/18 04:00 3.0 10/11/18 04:00 98.0 95 20 147/72 (97) 98 10/11/18 04:00 Nasal Cannula 3.0 10/11/18 03:05 2.0 28 10/11/18 00:31 2.0 28 10/11/18 00:00 Nasal Cannula 3.0 10/11/18 00:00 3.0 10/11/18 00:00 96.8 93 20 144/73 (96) 95 10/11/18 00:00 93 10/11/18 00:00 96 20 161/63 (95) 98 10/10/18 22:44 96 26 95 Facial 2.0 30 10/10/18 21:29 78 24 96 2.0 28 10/10/18 20:00 92 10/10/18 20:00 3.0 10/10/18 20:00 97.6 98 18 156/77 (103) 100 10/10/18 20:00 Nasal Cannula 4.0 10/10/18 19:00 76 22 97 2.0 28 10/10/18 19:00 98.0 99 22 160/65 (96) 100 10/10/18 19:00 Nasal Cannula 2.0 28 10/10/18 19:00 96 Nasal Cannula 2.0 28 10/10/18 18:00 99 22 174/65 (101) 100 10/10/18 17:10 143/56 10/10/18 17:00 96 21 179/63 (101) 100 10/10/18 16:58 103 26 100 10/10/18 16:00 4.0 10/10/18 16:00 97 10/10/18 16:00 Nasal Cannula 4.0 10/10/18 16:00 97.8 100 22 143/56 (85) 98 10/10/18 15:00 99 22 136/58 (84) 99 10/10/18 14:38 102 21 98 10/10/18 14:00 103 21 150/52 (84) 98 10/10/18 13:13 98 15 100 10/10/18 13:00 98 21 155/63 (93) 99 10/10/18 12:00 97.8 101 20 110/53 (72) 100 10/10/18 12:00 4.0 10/10/18 12:00 Nasal Cannula 4.0 10/10/18 11:00 99 22 148/83 (104) 99 10/10/18 10:45 99 23 100 10/10/18 10:00 103 23 130/54 (79) 99 Intake and Output 10/10/18 10/11/18 19:00 07:00 Intake Total 923.708 ml 310.0 ml Output Total 580 ml 800 ml Balance 343.708 ml -490.0 ml Intake Oral 330 ml 200 ml IV Total 593.708 ml 110.0 ml Output Urine Total 580 ml 800 ml # Bowel Movements 2 Laboratory Tests 10/11/18 05:22: White Blood Count 13.5H, Red Blood Count 4.69, Hemoglobin 15.0, Hematocrit 47.5H , Mean Corpuscular Volume 101H, Mean Corpuscular Hemoglobin 32.0H, Mean Corpuscular Hemoglobin Concent 31.6L, Red Cell Distribution Width 13.7, Platelet Count 264, Mean Platelet Volume 7.2, Neutrophils (%) (Auto) 76.8H, Lymphocytes (%) (Auto) 9.1L, Monocytes (%) (Auto) 8.8, Eosinophils (%) (Auto) 4.9H, Basophils (%) (Auto) 0.5, Erythrocyte Sedimentation Rate 15, Sodium Level 143, Potassium Level 3.0L, Chloride Level 104, Carbon Dioxide Level 40H, Anion Gap -1L, Blood Urea Nitrogen 5L, Creatinine 0.5L, Estimat Glomerular Filtration Rate , Glucose Level 102, Calcium Level 8.9, Phosphorus Level 1.7L, Magnesium Level 2.0, Total Bilirubin 0.5, Aspartate Amino Transf (AST/SGOT) 12L, Alanine Aminotransferase (ALT/SGPT) 28, Alkaline Phosphatase 79, C-Reactive Protein, Quantitative 1.8H, Total Protein 5.9L, Albumin 2.5L, Globulin 3.4, Albumin/ Globulin Ratio 0.7L Height (Feet): 5 Height (Inches): 3.00 Weight (Pounds): 114 General Appearance: lethargic EENT: normal ENT inspection Neck: normal alignment Cardiovascular: normal peripheral pulses, normal rate, regular rhythm Respiratory/Chest: chest wall non-tender, decreased breath sounds Abdomen: normal bowel sounds, non tender, soft Extremities: normal inspection Edema: no edema noted Arm (L), no edema noted Arm (R), no edema noted Leg (L), no edema noted Leg (R), no edema noted Pedal (L), no edema noted Pedal (R), no edema noted Generalized Neurologic: responsive, motor weakness Skin: normal pigmentation, warm/dry Osei NaranjoRadha October 11, 2018 09:01
[2018-10-11] MEDS ORDERED: Tubing IV Secondary IV ONE ×3 (09:03→19:53)
[2018-10-11] MEDS ORDERED: 1/2 NS 1000ml IV ONE (09:03)
[2018-10-11] MEDS ORDERED: NS 275ml ONE ×2 (09:03→19:53)
--- NOTE | 2018-10-11 10:24 | Infectious Diseases Prog Note ---
Assessment/Plan Assessment/Plan ASSESSMENT: The patient is a 78-year-old female with history of Lyme disease 25 years ago. 1. Possible aspiration pneumonia. Chronic obstructive pulmonary disease exacerbation. -10/08 CXR: Development of hazy bibasilar opacities which may be related to layering small pleural effusions versus airspace disease. Attention on follow- up recommended. -CXR: Lungs remain clear. -10/04 sp cx normal resp storm; 10/09 sp cx normal storm and yeast -legionella ag urine 2. Abnormal liver function tests (acute), SP -hep serologies neg -Abd US: Trace ascites.Bilateral pleural effusions. Possible medical renal disease. Correlate clinically. Liver cyst. Tiny right renal cysts. Atherosclerotic vascular disease 3. Probable non-STEMI. 4. Leukocytosis, increased (s/p high dose steroids)- now improving -u/a neg, ucx NTD -Bcx NTD Fever; SP Acute respiratory failure s/p intubation 10/04, sp extubated 10/08 PLAN: 1. We will continue the patient on Zosyn # / -10/10 sp Vancomycin #4 -10/08 SP Zithromax #5 -10/04 SP LEvaquin #2 2. Monitor CBC/CMP 3. f/u Bcx x2 4. Monitor liver function tests. 5.f/u Sp cx 6. f/u Hep C PCR. 7. Monitor cultures (blood, urine, sputum). 8. We will follow Cardiology recommendations. 9. Based on the patient's clinical course and laboratories, we will do further recommendations. 10. No need for continuing minocycline at this point. Subjective Allergies: Coded Allergies: HEPARIN (Verified Allergy, Unknown, 10/05/18) RAMIPRIL (Verified Allergy, Unknown, 10/03/18) SULFA (SULFONAMIDE ANTIBIOTICS) (Unverified Allergy, Unknown, 10/05/18) Uncoded Allergies: SULFA (Allergy, Unknown, 10/03/18) Subjective Comfortable Objective Vital Signs Last 24 Hour Vital Signs Date Time Temp Pulse Resp B/P (MAP) Pulse Ox O2 Delivery O2 Flow Rate FiO2 10/11/18 09:04 2.0 28 10/11/18 08:00 3.0 10/11/18 08:00 Nasal Cannula 3.0 10/11/18 08:00 98.1 91 18 150/70 (96) 96 10/11/18 07:48 88 10/11/18 07:19 2.0 28 10/11/18 07:08 97 Nasal Cannula 2.0 28 10/11/18 07:08 Nasal Cannula 2.0 28 10/11/18 05:05 2.0 28 10/11/18 04:00 97 10/11/18 04:00 3.0 10/11/18 04:00 98.0 95 20 147/72 (97) 98 10/11/18 04:00 Nasal Cannula 3.0 10/11/18 03:05 2.0 28 10/11/18 00:31 2.0 28 10/11/18 00:00 Nasal Cannula 3.0 10/11/18 00:00 3.0 10/11/18 00:00 96.8 93 20 144/73 (96) 95 10/11/18 00:00 93 10/11/18 00:00 96 20 161/63 (95) 98 10/10/18 22:44 96 26 95 Facial 2.0 30 10/10/18 21:29 78 24 96 2.0 28 10/10/18 20:00 92 10/10/18 20:00 3.0 10/10/18 20:00 97.6 98 18 156/77 (103) 100 10/10/18 20:00 Nasal Cannula 4.0 10/10/18 19:00 76 22 97 2.0 28 10/10/18 19:00 98.0 99 22 160/65 (96) 100 10/10/18 19:00 Nasal Cannula 2.0 28 10/10/18 19:00 96 Nasal Cannula 2.0 28 10/10/18 18:00 99 22 174/65 (101) 100 10/10/18 17:10 143/56 10/10/18 17:00 96 21 179/63 (101) 100 10/10/18 16:58 103 26 100 10/10/18 16:00 4.0 10/10/18 16:00 97 10/10/18 16:00 Nasal Cannula 4.0 10/10/18 16:00 97.8 100 22 143/56 (85) 98 10/10/18 15:00 99 22 136/58 (84) 99 10/10/18 14:38 102 21 98 10/10/18 14:00 103 21 150/52 (84) 98 10/10/18 13:13 98 15 100 10/10/18 13:00 98 21 155/63 (93) 99 10/10/18 12:00 97.8 101 20 110/53 (72) 100 10/10/18 12:00 4.0 10/10/18 12:00 Nasal Cannula 4.0 10/10/18 11:00 99 22 148/83 (104) 99 10/10/18 10:45 99 23 100 Height (Feet): 5 Height (Inches): 3.00 Weight (Pounds): 114 HEENT: atraumatic Respiratory/Chest: normal breath sounds Cardiovascular: normal rate Abdomen: soft, non tender Microbiology Date/Time Source Procedure Growth Status 10/09/18 00:00 Sputum Induced Gram Stain - Final Resulted 10/09/18 00:00 Sputum Culture - Preliminary Yeast Species Resulted Laboratory Tests Test 10/11/18 05:22 White Blood Count 13.5 K/UL (4.8-10.8) H Red Blood Count 4.69 M/UL (4.20-5.40) Hemoglobin 15.0 G/DL (12.0-16.0) Hematocrit 47.5 % (37.0-47.0) H Mean Corpuscular Volume 101 FL (80-99) H Mean Corpuscular Hemoglobin 32.0 PG (27.0-31.0) H Mean Corpuscular Hemoglobin Concent 31.6 G/DL (32.0-36.0) L Red Cell Distribution Width 13.7 % (11.6-14.8) Platelet Count 264 K/UL (150-450) Mean Platelet Volume 7.2 FL (6.5-10.1) Neutrophils (%) (Auto) 76.8 % (45.0-75.0) H Lymphocytes (%) (Auto) 9.1 % (20.0-45.0) L Monocytes (%) (Auto) 8.8 % (1.0-10.0) Eosinophils (%) (Auto) 4.9 % (0.0-3.0) H Basophils (%) (Auto) 0.5 % (0.0-2.0) Erythrocyte Sedimentation Rate 15 MM/HR (0-30) Sodium Level 143 MMOL/L (136-145) Potassium Level 3.0 MMOL/L (3.5-5.1) L Chloride Level 104 MMOL/L (98-107) Carbon Dioxide Level 40 MMOL/L (21-32) H Anion Gap -1 mmol/L (5-15) L Blood Urea Nitrogen 5 mg/dL (7-18) L Creatinine 0.5 MG/DL (0.55-1.30) L Estimat Glomerular Filtration Rate mL/min (>60) Glucose Level 102 MG/DL (74-106) Calcium Level 8.9 MG/DL (8.5-10.1) Phosphorus Level 1.7 MG/DL (2.5-4.9) L Magnesium Level 2.0 MG/DL (1.8-2.4) Total Bilirubin 0.5 MG/DL (0.2-1.0) Aspartate Amino Transf (AST/SGOT) 12 U/L (15-37) L Alanine Aminotransferase (ALT/SGPT) 28 U/L (12-78) Alkaline Phosphatase 79 U/L (46-116) C-Reactive Protein, Quantitative 1.8 mg/dL (0.00-0.90) H Total Protein 5.9 G/DL (6.4-8.2) L Albumin 2.5 G/DL (3.4-5.0) L Globulin 3.4 g/dL Albumin/Globulin Ratio 0.7 (1.0-2.7) L Current Medications Medications (Trade) Dose Ordered Sig/Aleah Route PRN Reason Start Time Stop Time Status Last Admin Dose Admin Albuterol/ Ipratropium (Albuterol/ Ipratropium) 3 ml Q4H PRN HHN Shortness of Breath 10/10/18 21:00 10/13/18 20:59 Aspirin (ASA) 81 mg DAILY NG 10/11/18 09:00 11/04/18 08:59 10/11/18 08:48 Dextrose (Dextrose 50%) 25 ml Q30M PRN IV Hypoglycemia 10/10/18 20:00 11/03/18 07:53 Dextrose (Dextrose 50%) 50 ml Q30M PRN IV hypoglycemia 10/10/18 20:00 11/03/18 07:59 EZETIMIBE (Zetia) 10 mg BEDTIME ORAL 10/10/18 21:00 11/08/18 20:59 10/10/18 20:50 Insulin Aspart (NovoLOG) AC+HS SUBQ 10/10/18 21:00 11/03/18 11:29 10/10/18 20:52 Nitroglycerin (Ntg) 1 patch Q24H TDERMAL 10/11/18 18:00 11/04/18 17:59 Pantoprazole (Protonix) 40 mg Q12HR IV 10/10/18 21:00 11/03/18 08:59 10/11/18 08:48 Piperacillin Sod/ Tazobactam Sod 3.375 gm/Sodium Chloride 110 ml @ 27.5 mls/hr Q8H IVPB 10/11/18 02:00 10/15/18 01:59 10/11/18 01:52 Potassium Phosphate 30 mm/ Sodium Chloride 285 ml @ 47.5 mls/hr ONCE IV 10/11/18 11:00 10/11/18 18:00 Potassium Chloride (K-Dur) 40 meq DAILY ORAL 10/11/18 10:15 11/10/18 10:14 Celso Cortez MD October 11, 2018 10:24
[2018-10-11] MEDS ORDERED: Potassium Phosphate 30 MM in NS 275 ML IV SCH (11:00)
--- NOTE | 2018-10-11 11:41 | Nephrology Progress Note ---
Assessment/Plan Problem List: (1) Severe protein-calorie malnutrition (2) NSTEMI (non-ST elevated myocardial infarction) (3) COPD (chronic obstructive pulmonary disease) (4) Acute respiratory failure Assessment Acute respiratory failure COPD Azotemia, High Na , elevated LFTs Elevated troponin Plan extubated K IV and PO as needed as needed Hydrate Per cardiology Pulm management monitor renal parameters discussed with RN Subjective ROS Limited/Unobtainable: No Constitutional: Reports: malaise Objective Objective Last 24 Hour Vital Signs Date Time Temp Pulse Resp B/P (MAP) Pulse Ox O2 Delivery O2 Flow Rate FiO2 10/11/18 11:05 2.0 28 10/11/18 09:04 2.0 28 10/11/18 08:00 3.0 10/11/18 08:00 Nasal Cannula 3.0 10/11/18 08:00 98.1 91 18 150/70 (96) 96 10/11/18 07:48 88 10/11/18 07:19 2.0 28 10/11/18 07:08 97 Nasal Cannula 2.0 28 10/11/18 07:08 Nasal Cannula 2.0 28 10/11/18 05:05 2.0 28 10/11/18 04:00 97 10/11/18 04:00 3.0 10/11/18 04:00 98.0 95 20 147/72 (97) 98 10/11/18 04:00 Nasal Cannula 3.0 10/11/18 03:05 2.0 28 10/11/18 00:31 2.0 28 10/11/18 00:00 Nasal Cannula 3.0 10/11/18 00:00 3.0 10/11/18 00:00 96.8 93 20 144/73 (96) 95 10/11/18 00:00 93 10/11/18 00:00 96 20 161/63 (95) 98 10/10/18 22:44 96 26 95 Facial 2.0 30 10/10/18 21:29 78 24 96 2.0 28 10/10/18 20:00 92 10/10/18 20:00 3.0 10/10/18 20:00 97.6 98 18 156/77 (103) 100 10/10/18 20:00 Nasal Cannula 4.0 10/10/18 19:00 76 22 97 2.0 28 10/10/18 19:00 98.0 99 22 160/65 (96) 100 10/10/18 19:00 Nasal Cannula 2.0 28 10/10/18 19:00 96 Nasal Cannula 2.0 28 10/10/18 18:00 99 22 174/65 (101) 100 10/10/18 17:10 143/56 10/10/18 17:00 96 21 179/63 (101) 100 10/10/18 16:58 103 26 100 10/10/18 16:00 4.0 10/10/18 16:00 97 10/10/18 16:00 Nasal Cannula 4.0 10/10/18 16:00 97.8 100 22 143/56 (85) 98 10/10/18 15:00 99 22 136/58 (84) 99 10/10/18 14:38 102 21 98 10/10/18 14:00 103 21 150/52 (84) 98 10/10/18 13:13 98 15 100 10/10/18 13:00 98 21 155/63 (93) 99 10/10/18 12:00 97.8 101 20 110/53 (72) 100 10/10/18 12:00 4.0 10/10/18 12:00 Nasal Cannula 4.0 Intake and Output 10/10/18 10/11/18 19:00 07:00 Intake Total 923.708 ml 310.0 ml Output Total 580 ml 800 ml Balance 343.708 ml -490.0 ml Intake Oral 330 ml 200 ml IV Total 593.708 ml 110.0 ml Output Urine Total 580 ml 800 ml # Bowel Movements 2 Laboratory Tests 10/11/18 05:22: White Blood Count 13.5H, Red Blood Count 4.69, Hemoglobin 15.0, Hematocrit 47.5H , Mean Corpuscular Volume 101H, Mean Corpuscular Hemoglobin 32.0H, Mean Corpuscular Hemoglobin Concent 31.6L, Red Cell Distribution Width 13.7, Platelet Count 264, Mean Platelet Volume 7.2, Neutrophils (%) (Auto) 76.8H, Lymphocytes (%) (Auto) 9.1L, Monocytes (%) (Auto) 8.8, Eosinophils (%) (Auto) 4.9H, Basophils (%) (Auto) 0.5, Erythrocyte Sedimentation Rate 15, Sodium Level 143, Potassium Level 3.0L, Chloride Level 104, Carbon Dioxide Level 40H, Anion Gap -1L, Blood Urea Nitrogen 5L, Creatinine 0.5L, Estimat Glomerular Filtration Rate , Glucose Level 102, Calcium Level 8.9, Phosphorus Level 1.7L, Magnesium Level 2.0, Total Bilirubin 0.5, Aspartate Amino Transf (AST/SGOT) 12L, Alanine Aminotransferase (ALT/SGPT) 28, Alkaline Phosphatase 79, C-Reactive Protein, Quantitative 1.8H, Total Protein 5.9L, Albumin 2.5L, Globulin 3.4, Albumin/ Globulin Ratio 0.7L Height (Feet): 5 Height (Inches): 3.00 Weight (Pounds): 114 General Appearance: no apparent distress Objective no change Robbie Garza MD October 11, 2018 11:41
[2018-10-11 12:00] VITALS: BP 154/78
--- NOTE | 2018-10-11 12:55 | NUR ---
NURSE NOTES: vital signs stable, K 3.0, Phos 1.7, dr. Garza aware, placed order.
[2018-10-11] MEDS ORDERED: Docusate 100mg cap ORAL SCH (13:00)
--- NOTE | 2018-10-11 13:07 | Cardiology Progress Note ---
Assessment/Plan Status: stable Assessment/Plan Assessment/Plan Assessment/Plan 1. NSTEMI. likely type 2. No acute ECG changes. EF nl and no WMA. On aspirin and lipitor. Outpatient stress test 2. S/P Resp Failure, extubated and stable 3. Lyme's disease 4. Sepsis on Abx per ID 5. Replete electrolytes per nephrology Subjective Cardiovascular: Reports: no symptoms Respiratory: Reports: no symptoms Gastrointestinal/Abdominal: Reports: no symptoms Genitourinary: Reports: no symptoms Subjective Coverage for [place] Objective Last 24 Hour Vital Signs Date Time Temp Pulse Resp B/P (MAP) Pulse Ox O2 Delivery O2 Flow Rate FiO2 10/11/18 12:57 2.0 28 10/11/18 12:08 94 10/11/18 12:00 98.0 96 18 154/78 (103) 98 10/11/18 12:00 3.0 10/11/18 12:00 Nasal Cannula 3.0 10/11/18 11:05 2.0 28 10/11/18 09:04 2.0 28 10/11/18 08:00 3.0 10/11/18 08:00 Nasal Cannula 3.0 10/11/18 08:00 98.1 91 18 150/70 (96) 96 10/11/18 07:48 88 10/11/18 07:19 2.0 28 10/11/18 07:08 97 Nasal Cannula 2.0 28 10/11/18 07:08 Nasal Cannula 2.0 28 10/11/18 05:05 2.0 28 10/11/18 04:00 97 10/11/18 04:00 3.0 10/11/18 04:00 98.0 95 20 147/72 (97) 98 10/11/18 04:00 Nasal Cannula 3.0 10/11/18 03:05 2.0 28 10/11/18 00:31 2.0 28 10/11/18 00:00 Nasal Cannula 3.0 10/11/18 00:00 3.0 10/11/18 00:00 96.8 93 20 144/73 (96) 95 10/11/18 00:00 93 10/11/18 00:00 96 20 161/63 (95) 98 10/10/18 22:44 96 26 95 Facial 2.0 30 10/10/18 21:29 78 24 96 2.0 28 10/10/18 20:00 92 10/10/18 20:00 3.0 10/10/18 20:00 97.6 98 18 156/77 (103) 100 10/10/18 20:00 Nasal Cannula 4.0 10/10/18 19:00 76 22 97 2.0 28 10/10/18 19:00 98.0 99 22 160/65 (96) 100 10/10/18 19:00 Nasal Cannula 2.0 28 10/10/18 19:00 96 Nasal Cannula 2.0 28 10/10/18 18:00 99 22 174/65 (101) 100 10/10/18 17:10 143/56 10/10/18 17:00 96 21 179/63 (101) 100 10/10/18 16:58 103 26 100 10/10/18 16:00 4.0 10/10/18 16:00 97 10/10/18 16:00 Nasal Cannula 4.0 10/10/18 16:00 97.8 100 22 143/56 (85) 98 10/10/18 15:00 99 22 136/58 (84) 99 10/10/18 14:38 102 21 98 10/10/18 14:00 103 21 150/52 (84) 98 10/10/18 13:13 98 15 100 General Appearance: no apparent distress, alert EENT: PERRL/EOMI, normal ENT inspection, TMs normal, pharynx normal Neck: non-tender, normal alignment, supple, normal inspection, no JVD Rhythm: NSR Cardiovascular: normal peripheral pulses, normal rate Respiratory/Chest: chest wall non-tender, lungs clear, normal breath sounds, no respiratory distress, no accessory muscle use Abdomen: normal bowel sounds, non tender, soft, no organomegaly, no mass Extremities: normal range of motion, non-tender, normal inspection 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, no motor/sensory deficits, abnormal gait Intake and Output 10/10/18 10/11/18 19:00 07:00 Intake Total 923.708 ml 310.0 ml Output Total 580 ml 800 ml Balance 343.708 ml -490.0 ml Intake Oral 330 ml 200 ml IV Total 593.708 ml 110.0 ml Output Urine Total 580 ml 800 ml # Bowel Movements 2 Laboratory Tests Test 10/11/18 05:22 White Blood Count 13.5 K/UL (4.8-10.8) H Red Blood Count 4.69 M/UL (4.20-5.40) Hemoglobin 15.0 G/DL (12.0-16.0) Hematocrit 47.5 % (37.0-47.0) H Mean Corpuscular Volume 101 FL (80-99) H Mean Corpuscular Hemoglobin 32.0 PG (27.0-31.0) H Mean Corpuscular Hemoglobin Concent 31.6 G/DL (32.0-36.0) L Red Cell Distribution Width 13.7 % (11.6-14.8) Platelet Count 264 K/UL (150-450) Mean Platelet Volume 7.2 FL (6.5-10.1) Neutrophils (%) (Auto) 76.8 % (45.0-75.0) H Lymphocytes (%) (Auto) 9.1 % (20.0-45.0) L Monocytes (%) (Auto) 8.8 % (1.0-10.0) Eosinophils (%) (Auto) 4.9 % (0.0-3.0) H Basophils (%) (Auto) 0.5 % (0.0-2.0) Erythrocyte Sedimentation Rate 15 MM/HR (0-30) Sodium Level 143 MMOL/L (136-145) Potassium Level 3.0 MMOL/L (3.5-5.1) L Chloride Level 104 MMOL/L (98-107) Carbon Dioxide Level 40 MMOL/L (21-32) H Anion Gap -1 mmol/L (5-15) L Blood Urea Nitrogen 5 mg/dL (7-18) L Creatinine 0.5 MG/DL (0.55-1.30) L Estimat Glomerular Filtration Rate mL/min (>60) Glucose Level 102 MG/DL (74-106) Calcium Level 8.9 MG/DL (8.5-10.1) Phosphorus Level 1.7 MG/DL (2.5-4.9) L Magnesium Level 2.0 MG/DL (1.8-2.4) Total Bilirubin 0.5 MG/DL (0.2-1.0) Aspartate Amino Transf (AST/SGOT) 12 U/L (15-37) L Alanine Aminotransferase (ALT/SGPT) 28 U/L (12-78) Alkaline Phosphatase 79 U/L (46-116) C-Reactive Protein, Quantitative 1.8 mg/dL (0.00-0.90) H Total Protein 5.9 G/DL (6.4-8.2) L Albumin 2.5 G/DL (3.4-5.0) L Globulin 3.4 g/dL Albumin/Globulin Ratio 0.7 (1.0-2.7) L Microbiology Date/Time Source Procedure Growth Status 10/09/18 00:00 Sputum Induced Gram Stain - Final Resulted 10/09/18 00:00 Sputum Culture - Preliminary Yeast Species Resulted Clayton Rutledge MD October 11, 2018 13:07
--- NOTE | 2018-10-11 15:13 | Pulmonology Progress Note ---
Assessment/Plan Problems: (1) NSTEMI (non-ST elevated myocardial infarction) (2) Acute respiratory failure (3) COPD (chronic obstructive pulmonary disease) (4) Diabetes (5) UTI (urinary tract infection) (6) Episode of generalized weakness (7) Severe protein-calorie malnutrition Assessment/Plan titrate fio2 to sat of 85 to 90% to increase the hypoxemic drive of the brain CT chest to rule out emphysema BIPAP for pulse oximeter less than 85% f/u cardiology recommendations Subjective Interval Events: doing better Allergies: Coded Allergies: HEPARIN (Verified Allergy, Unknown, 10/05/18) RAMIPRIL (Verified Allergy, Unknown, 10/03/18) SULFA (SULFONAMIDE ANTIBIOTICS) (Unverified Allergy, Unknown, 10/05/18) Uncoded Allergies: SULFA (Allergy, Unknown, 10/03/18) Objective Last 24 Hour Vital Signs Date Time Temp Pulse Resp B/P (MAP) Pulse Ox O2 Delivery O2 Flow Rate FiO2 10/11/18 14:48 2.0 28 10/11/18 12:57 2.0 28 10/11/18 12:08 94 10/11/18 12:00 98.0 96 18 154/78 (103) 98 10/11/18 12:00 3.0 10/11/18 12:00 Nasal Cannula 3.0 10/11/18 11:05 2.0 28 10/11/18 09:04 2.0 28 10/11/18 08:00 3.0 10/11/18 08:00 Nasal Cannula 3.0 10/11/18 08:00 98.1 91 18 150/70 (96) 96 10/11/18 07:48 88 10/11/18 07:19 2.0 28 10/11/18 07:08 97 Nasal Cannula 2.0 28 10/11/18 07:08 Nasal Cannula 2.0 28 10/11/18 05:05 2.0 28 10/11/18 04:00 97 10/11/18 04:00 3.0 10/11/18 04:00 98.0 95 20 147/72 (97) 98 10/11/18 04:00 Nasal Cannula 3.0 10/11/18 03:05 2.0 28 10/11/18 00:31 2.0 28 10/11/18 00:00 Nasal Cannula 3.0 10/11/18 00:00 3.0 10/11/18 00:00 96.8 93 20 144/73 (96) 95 10/11/18 00:00 93 10/11/18 00:00 96 20 161/63 (95) 98 10/10/18 22:44 96 26 95 Facial 2.0 30 10/10/18 21:29 78 24 96 2.0 28 10/10/18 20:00 92 10/10/18 20:00 3.0 10/10/18 20:00 97.6 98 18 156/77 (103) 100 10/10/18 20:00 Nasal Cannula 4.0 10/10/18 19:00 76 22 97 2.0 28 10/10/18 19:00 98.0 99 22 160/65 (96) 100 10/10/18 19:00 Nasal Cannula 2.0 28 10/10/18 19:00 96 Nasal Cannula 2.0 28 10/10/18 18:00 99 22 174/65 (101) 100 10/10/18 17:10 143/56 10/10/18 17:00 96 21 179/63 (101) 100 10/10/18 16:58 103 26 100 10/10/18 16:00 4.0 10/10/18 16:00 97 10/10/18 16:00 Nasal Cannula 4.0 10/10/18 16:00 97.8 100 22 143/56 (85) 98 Intake and Output 10/10/18 10/11/18 18:59 06:59 Intake Total 923.708 ml 310.0 ml Output Total 570 ml 860 ml Balance 353.708 ml -550.0 ml Intake Oral 330 ml 200 ml IV Total 593.708 ml 110.0 ml Output Urine Total 570 ml 860 ml # Bowel Movements 2 General Appearance: cachetic HEENT: normocephalic, atraumatic Respiratory/Chest: decreased breath sounds, crackles/rales Breasts: no masses Cardiovascular: normal peripheral pulses, regular rhythm Abdomen: normal bowel sounds, soft, non tender Genitourinary: normal external genitalia Extremities: no cyanosis Skin: no lesions, no ulcers Neurologic/Psychiatric: [employer] II-XII grossly normal Microbiology Date/Time Source Procedure Growth Status 10/09/18 00:00 Sputum Induced Gram Stain - Final Resulted 10/09/18 00:00 Sputum Culture - Preliminary Yeast Species Resulted Laboratory Tests 10/11/18 05:22: White Blood Count 13.5H, Red Blood Count 4.69, Hemoglobin 15.0, Hematocrit 47.5H , Mean Corpuscular Volume 101H, Mean Corpuscular Hemoglobin 32.0H, Mean Corpuscular Hemoglobin Concent 31.6L, Red Cell Distribution Width 13.7, Platelet Count 264, Mean Platelet Volume 7.2, Neutrophils (%) (Auto) 76.8H, Lymphocytes (%) (Auto) 9.1L, Monocytes (%) (Auto) 8.8, Eosinophils (%) (Auto) 4.9H, Basophils (%) (Auto) 0.5, Erythrocyte Sedimentation Rate 15, Sodium Level 143, Potassium Level 3.0L, Chloride Level 104, Carbon Dioxide Level 40H, Anion Gap -1L, Blood Urea Nitrogen 5L, Creatinine 0.5L, Estimat Glomerular Filtration Rate , Glucose Level 102, Calcium Level 8.9, Phosphorus Level 1.7L, Magnesium Level 2.0, Total Bilirubin 0.5, Aspartate Amino Transf (AST/SGOT) 12L, Alanine Aminotransferase (ALT/SGPT) 28, Alkaline Phosphatase 79, C-Reactive Protein, Quantitative 1.8H, Total Protein 5.9L, Albumin 2.5L, Globulin 3.4, Albumin/ Globulin Ratio 0.7L Current Medications Medications (Trade) Dose Ordered Sig/Aleah Route PRN Reason Start Time Stop Time Status Last Admin Dose Admin Albuterol/ Ipratropium (Albuterol/ Ipratropium) 3 ml Q4H PRN HHN Shortness of Breath 10/10/18 21:00 10/13/18 20:59 Aspirin (ASA) 81 mg DAILY NG 10/11/18 09:00 11/04/18 08:59 10/11/18 08:48 Dextrose (Dextrose 50%) 25 ml Q30M PRN IV Hypoglycemia 10/10/18 20:00 11/03/18 07:53 Dextrose (Dextrose 50%) 50 ml Q30M PRN IV hypoglycemia 10/10/18 20:00 11/03/18 07:59 Docusate Sodium (Colace) 100 mg THREE TIMES A DAY ORAL 10/11/18 13:00 11/10/18 12:59 EZETIMIBE (Zetia) 10 mg BEDTIME ORAL 10/10/18 21:00 11/08/18 20:59 10/10/18 20:50 Insulin Aspart (NovoLOG) AC+HS SUBQ 10/10/18 21:00 11/03/18 11:29 10/10/18 20:52 Nitroglycerin (Ntg) 1 patch Q24H TDERMAL 10/11/18 18:00 11/04/18 17:59 Pantoprazole (Protonix) 40 mg EVERY 12 HOURS ORAL 10/11/18 21:00 11/10/18 20:59 Piperacillin Sod/ Tazobactam Sod 3.375 gm/Sodium Chloride 110 ml @ 27.5 mls/hr Q8H IVPB 10/11/18 02:00 10/15/18 01:59 10/11/18 10:25 Potassium Phosphate 30 mm/ Sodium Chloride 285 ml @ 47.5 mls/hr ONCE IV 10/11/18 11:00 10/11/18 18:00 10/11/18 10:50 Potassium Chloride (K-Dur) 40 meq DAILY ORAL 10/11/18 10:15 11/10/18 10:14 10/11/18 10:23 Steven Romo MD October 11, 2018 15:13
[2018-10-11 16:00] VITALS: BP 163/90
--- NOTE | 2018-10-11 16:25 | NUR ---
NURSE NOTES: pt transferred to 2E as ordered, condition stable, report given to DEEPA RN.
--- NOTE | 2018-10-11 16:25 | NUR ---
NURSE NOTES: Patient transferred form [facility], Report received from Susy/SLOANE. No acute distress/SOB noted at this time, In stable condition. Skin Intact. Inventory check done. All safety measures done. Bed in lowest position and locked. Call light within reach. Will continue plan of care.
[2018-10-11] MEDS: Docusate 100mg cap ORAL SCH (18:00)
[2018-10-11] MEDS ORDERED: Nitroglycerin Patch 0.4mg TDERMAL SCH (18:00)
[2018-10-11] MEDS: Nitroglycerin Patch 0.4mg TDERMAL SCH (18:17)
--- NOTE | 2018-10-11 19:25 | NUR ---
HAND-OFF: Report given to Cal/RN, Patient awake and alert, no acute distress. Endorsed plan of care.
[2018-10-11 20:00] VITALS: BP 152/91
--- NOTE | 2018-10-11 20:10 | NUR ---
NURSE NOTES: Received report from SLOANE Campbell. Pt is awake and resting in bed. In no acute distress. IV lines intact and patent. Bed in lowest position, call light within reach. Will continue plan of care.
[2018-10-12] VITALS: BP 157/75
[2018-10-12] MEDS: Piperacillin/Tazobactam 3.375 GM in NS 110 ML IVPB SCH ×3 (03:11→18:24)
[2018-10-12 04:00] VITALS: BP 154/71
[2018-10-12] MEDS: Albuterol/Ipratropium 3ml neb HHN PRN ×2 (04:41→21:42)
[2018-10-12 06:17] LABS: BASOPHILS % (AUTO) 0.6 % (0.0-2.0); EOSINOPHILS % (AUTO) 4.5 % (0.0-3.0); HEMATOCRIT 43.2 % (37.0-47.0); HEMOGLOBIN 13.9 G/DL (12.0-16.0); LYMPHOCYTES % (AUTO) 10.7 % (20.0-45.0); MEAN CORPUSCULAR VOLUME 100 FL (80-99); MONOCYTES % (AUTO) 9.9 % (1.0-10.0); NEUTROPHILS % (AUTO) 74.3 % (45.0-75.0); PLATELET COUNT 271 K/UL (150-450); RED BLOOD COUNT 4.31 M/UL (4.20-5.40); RED CELL DISTRIBUTION WIDTH 13.5 % (11.6-14.8); WHITE BLOOD COUNT 13.3 K/UL (4.8-10.8)
[2018-10-12] MEDS: NovoLOG Insulin Flexpen SUBQ SCH ×4 (06:30→20:34)
[2018-10-12 06:35] LABS: ALANINE AMINOTRANSFERASE 24 U/L (12-78); ALBUMIN 2.5 G/DL (3.4-5.0); ALBUMIN/GLOBULIN RATIO 0.7 (1.0-2.7); ALKALINE PHOSPHATASE 72 U/L (46-116); ANION GAP 2 mmol/L (5-15); ASPARTATE AMINO TRANSFERASE 19 U/L (15-37); BILIRUBIN,TOTAL 0.7 MG/DL (0.2-1.0); BLOOD UREA NITROGEN 5 mg/dL (7-18); CALCIUM 9.4 MG/DL (8.5-10.1); CARBON DIOXIDE 37 MMOL/L (21-32); CHLORIDE 105 MMOL/L (98-107); CREATININE 0.4 MG/DL (0.55-1.30); PHOSPHORUS 2.2 MG/DL (2.5-4.9); POTASSIUM 3.5 MMOL/L (3.5-5.1); SODIUM 144 MMOL/L (136-145)
--- NOTE | 2018-10-12 06:55 | NUR ---
RESPIRATORY NOTE: Pt is awake, alert and resting comfortably in the bed. Pt has been refusing the Bipap due to aspiration concerns. Explained to pt the purpose of using Bipap, pt stated that she is more concern about the aspiration than her CO2 and she is more comfortable with the NC than Bipap. Pt is on 2L NC 28%, saturates at 99%. Bipap is standby and is plugged into the red outlet. Will continue to monitor.
--- NOTE | 2018-10-12 07:00 | NUR ---
NURSE NOTES: Received report from Cal/SLOANE. Patient is awake and resting in bed. No acute distress at this time. Bed in lowest position and locked, call light within reach. Will continue plan of care.
--- NOTE | 2018-10-12 07:00 | NUR ---
HAND-OFF: Report given to SLOANE Campbell.
[2018-10-12 08:00] VITALS: BP 163/78
--- NOTE | 2018-10-12 08:31 | General Progress Note ---
Assessment/Plan Problem List: (1) UTI (urinary tract infection) ICD Codes: N39.0 - Urinary tract infection, site not specified SNOMED: 18537948 (2) Diabetes ICD Codes: E11.9 - Type 2 diabetes mellitus without complications SNOMED: 28240481 (3) COPD (chronic obstructive pulmonary disease) ICD Codes: J44.9 - Chronic obstructive pulmonary disease, unspecified SNOMED: 02045868 Qualifiers: Qualified Codes: J44.9 - Chronic obstructive pulmonary disease, unspecified (4) NSTEMI (non-ST elevated myocardial infarction) ICD Codes: I21.4 - Non-ST elevation (NSTEMI) myocardial infarction SNOMED: 16831618 (5) Episode of generalized weakness ICD Codes: R53.1 - Weakness SNOMED: 04040822 Status: unchanged Assessment/Plan: o2 pulm tx abx pain control cardio f/u cbc bmp am aru eval Subjective Constitutional: Reports: weakness Respiratory: Reports: shortness of breath Allergies: Coded Allergies: HEPARIN (Verified Allergy, Unknown, 10/05/18) RAMIPRIL (Verified Allergy, Unknown, 10/03/18) SULFA (SULFONAMIDE ANTIBIOTICS) (Unverified Allergy, Unknown, 10/05/18) Uncoded Allergies: SULFA (Allergy, Unknown, 10/03/18) All Systems: reviewed and negative except above Subjective o2 nc sleepy Objective Last 24 Hour Vital Signs Date Time Temp Pulse Resp B/P (MAP) Pulse Ox O2 Delivery O2 Flow Rate FiO2 10/12/18 06:55 99 Nasal Cannula 2.0 28 10/12/18 06:55 Nasal Cannula 2.0 28 10/12/18 06:55 95 21 99 2.0 28 10/12/18 04:50 2.0 28 10/12/18 04:49 96 20 100 Nasal Cannula 2.0 28 10/12/18 04:41 94 20 98 Nasal Cannula 2.0 28 10/12/18 04:00 98 10/12/18 04:00 3.0 10/12/18 04:00 97.0 98 20 154/71 (98) 97 10/12/18 03:00 2.0 28 10/12/18 01:05 2.0 28 10/12/18 00:00 97.2 92 20 157/75 (102) 99 10/12/18 00:00 92 10/11/18 23:18 2.0 28 10/11/18 21:26 2.0 28 10/11/18 21:00 Nasal Cannula 3.0 10/11/18 20:00 97.0 95 20 152/91 (111) 97 10/11/18 20:00 3.0 10/11/18 20:00 95 10/11/18 19:55 2.0 28 10/11/18 19:51 Nasal Cannula 2.0 28 10/11/18 19:51 98 Nasal Cannula 2.0 28 10/11/18 18:17 163/90 10/11/18 17:07 2.0 28 10/11/18 16:00 3.0 10/11/18 16:00 Nasal Cannula 3.0 10/11/18 16:00 101 10/11/18 16:00 98.0 93 18 163/90 (114) 95 10/11/18 14:48 2.0 28 10/11/18 12:57 2.0 28 10/11/18 12:08 94 10/11/18 12:00 98.0 96 18 154/78 (103) 98 10/11/18 12:00 3.0 10/11/18 12:00 Nasal Cannula 3.0 10/11/18 11:05 2.0 28 10/11/18 09:04 2.0 28 Intake and Output 10/11/18 10/12/18 19:00 07:00 Intake Total 579.374 ml 110 ml Output Total 2500 ml Balance 579.374 ml -2390 ml Intake Oral 220 ml IV Total 359.374 ml 110 ml Output Urine Total 2500 ml # Bowel Movements 3 1 Laboratory Tests 10/12/18 04:50: White Blood Count 13.3H, Red Blood Count 4.31, Hemoglobin 13.9, Hematocrit 43.2 , Mean Corpuscular Volume 100H, Mean Corpuscular Hemoglobin 32.2H, Mean Corpuscular Hemoglobin Concent 32.2, Red Cell Distribution Width 13.5, Platelet Count 271, Mean Platelet Volume 6.4L, Neutrophils (%) (Auto) 74.3, Lymphocytes ( %) (Auto) 10.7L, Monocytes (%) (Auto) 9.9, Eosinophils (%) (Auto) 4.5H, Basophils (%) (Auto) 0.6, Sodium Level 144, Potassium Level 3.5, Chloride Level 105, Carbon Dioxide Level 37H, Anion Gap 2L, Blood Urea Nitrogen 5L, Creatinine 0.4L, Estimat Glomerular Filtration Rate , Glucose Level 94, Uric Acid 1.9L, Calcium Level 9.4, Phosphorus Level 2.2L, Magnesium Level 2.0, Total Bilirubin 0.7, Aspartate Amino Transf (AST/SGOT) 19, Alanine Aminotransferase (ALT/SGPT) 24, Alkaline Phosphatase 72, Total Protein 6.1L, Albumin 2.5L, Globulin 3.6, Albumin/Globulin Ratio 0.7L 10/12/18 08:10: Arterial Blood pH 7.340L, Arterial Blood Partial Pressure CO2 75.0*H, Arterial Blood Partial Pressure O2 135.2H, Arterial Blood HCO3 39.6H, Arterial Blood Oxygen Saturation 98.5, Arterial Blood Base Excess 10.5*H, Clyde Test Positive Height (Feet): 5 Height (Inches): 3.00 Weight (Pounds): 108 General Appearance: lethargic EENT: normal ENT inspection Neck: normal alignment Cardiovascular: normal peripheral pulses, normal rate, regular rhythm Respiratory/Chest: chest wall non-tender, decreased breath sounds Abdomen: normal bowel sounds, non tender, soft Extremities: normal inspection Edema: no edema noted Arm (L), no edema noted Arm (R), no edema noted Leg (L), no edema noted Leg (R), no edema noted Pedal (L), no edema noted Pedal (R), no edema noted Generalized Neurologic: motor weakness Skin: normal pigmentation, warm/dry Osei Naranjo DO October 12, 2018 08:31
--- NOTE | 2018-10-12 08:40 | NUR ---
RESPIRATORY NOTE: ABG done and reported to charge nurse SLOANE Hubbard. Talked to pt about the ABG result, PCO2 is at 75, the risk of having high CO2 and the need to be on Bipap to blow out the CO2. Pt is agreed to be on Bipap but not right now cause she is eating. Since pt concerns about the aspiration after eating and be on Bipap. I told her I will put her on Bipap at 1000, so she has time to digest her food. Pt agreed. Charge nurse SLOANE Hubbard made aware. Will continue to monitor pt.
[2018-10-12] MEDS: Docusate 100mg cap ORAL SCH ×3 (09:00→18:00)
[2018-10-12] MEDS: Aspirin Baby 81mg NG SCH (09:01)
[2018-10-12] MEDS ORDERED: Potassium Phosphate 20 MM in NS 275 ML IV ONE (10:00)
--- NOTE | 2018-10-12 10:16 | NUR ---
CASE MANAGEMENT: REVIEW 10/12/2018 SI: NSTEMI. A/C RESP FAILURE. T 97.7 HR 98 RR 20 B/P 163/78 SATS 98% ON 3L/NC WBC 13.3 CO2 37 BUN 5 CR 0.4 PHOS 2.2 IS: PROTONIX PO Q12H INSULIN ASPART SUBQ AC/HS ZETIA PO QHS ASA PO QD K DUR PO QD K PHOS IV X1 ZOSYN IV Q8H TELE STATUS DCP: PATIENT IS FROM HOME
--- NOTE | 2018-10-12 10:58 | NUR ---
PT note Attempted to see patient for treatment but patient was asleep and on bipap due to CO2 of 75. Will hold PT for now.
--- NOTE | 2018-10-12 11:09 | Nephrology Progress Note ---
Assessment/Plan Problem List: (1) Severe protein-calorie malnutrition (2) NSTEMI (non-ST elevated myocardial infarction) (3) COPD (chronic obstructive pulmonary disease) (4) Acute respiratory failure Assessment Acute respiratory failure COPD Azotemia, High Na , elevated LFTs Elevated troponin Plan start diamox K phos on bipap K IV and PO as needed as needed Hydrate Per cardiology Pulm management monitor renal parameters discussed with RN Subjective ROS Limited/Unobtainable: Yes Objective Objective Last 24 Hour Vital Signs Date Time Temp Pulse Resp B/P (MAP) Pulse Ox O2 Delivery O2 Flow Rate FiO2 10/12/18 10:15 102 19 92 Facial 25 10/12/18 09:00 Nasal Cannula 3.0 Nasal Cannula 3.0 10/12/18 08:40 2.0 28 10/12/18 08:00 3.0 10/12/18 08:00 97.7 98 20 163/78 (106) 98 10/12/18 06:55 99 Nasal Cannula 2.0 28 10/12/18 06:55 Nasal Cannula 2.0 28 10/12/18 06:55 95 21 99 2.0 28 10/12/18 04:50 2.0 28 10/12/18 04:49 96 20 100 Nasal Cannula 2.0 28 10/12/18 04:41 94 20 98 Nasal Cannula 2.0 28 10/12/18 04:00 98 10/12/18 04:00 3.0 10/12/18 04:00 97.0 98 20 154/71 (98) 97 10/12/18 03:00 2.0 28 10/12/18 01:05 2.0 28 10/12/18 00:00 97.2 92 20 157/75 (102) 99 10/12/18 00:00 92 10/11/18 23:18 2.0 28 10/11/18 21:26 2.0 28 10/11/18 21:00 Nasal Cannula 3.0 10/11/18 20:00 97.0 95 20 152/91 (111) 97 10/11/18 20:00 3.0 10/11/18 20:00 95 10/11/18 19:55 2.0 28 10/11/18 19:51 Nasal Cannula 2.0 28 10/11/18 19:51 98 Nasal Cannula 2.0 28 10/11/18 18:17 163/90 10/11/18 17:07 2.0 28 10/11/18 16:00 3.0 10/11/18 16:00 Nasal Cannula 3.0 10/11/18 16:00 101 10/11/18 16:00 98.0 93 18 163/90 (114) 95 10/11/18 14:48 2.0 28 10/11/18 12:57 2.0 28 10/11/18 12:08 94 10/11/18 12:00 98.0 96 18 154/78 (103) 98 10/11/18 12:00 3.0 10/11/18 12:00 Nasal Cannula 3.0 Intake and Output 10/11/18 10/12/18 19:00 07:00 Intake Total 579.374 ml 110 ml Output Total 2500 ml Balance 579.374 ml -2390 ml Intake Oral 220 ml IV Total 359.374 ml 110 ml Output Urine Total 2500 ml # Bowel Movements 3 1 Laboratory Tests 10/12/18 04:50: White Blood Count 13.3H, Red Blood Count 4.31, Hemoglobin 13.9, Hematocrit 43.2 , Mean Corpuscular Volume 100H, Mean Corpuscular Hemoglobin 32.2H, Mean Corpuscular Hemoglobin Concent 32.2, Red Cell Distribution Width 13.5, Platelet Count 271, Mean Platelet Volume 6.4L, Neutrophils (%) (Auto) 74.3, Lymphocytes ( %) (Auto) 10.7L, Monocytes (%) (Auto) 9.9, Eosinophils (%) (Auto) 4.5H, Basophils (%) (Auto) 0.6, Sodium Level 144, Potassium Level 3.5, Chloride Level 105, Carbon Dioxide Level 37H, Anion Gap 2L, Blood Urea Nitrogen 5L, Creatinine 0.4L, Estimat Glomerular Filtration Rate , Glucose Level 94, Uric Acid 1.9L, Calcium Level 9.4, Phosphorus Level 2.2L, Magnesium Level 2.0, Total Bilirubin 0.7, Aspartate Amino Transf (AST/SGOT) 19, Alanine Aminotransferase (ALT/SGPT) 24, Alkaline Phosphatase 72, Total Protein 6.1L, Albumin 2.5L, Globulin 3.6, Albumin/Globulin Ratio 0.7L 10/12/18 08:10: Arterial Blood pH 7.340L, Arterial Blood Partial Pressure CO2 75.0*H, Arterial Blood Partial Pressure O2 135.2H, Arterial Blood HCO3 39.6H, Arterial Blood Oxygen Saturation 98.5, Arterial Blood Base Excess 10.5*H, Clyde Test Positive Height (Feet): 5 Height (Inches): 3.00 Weight (Pounds): 108 EENT: other - bipap Cardiovascular: tachycardia Respiratory/Chest: decreased breath sounds Abdomen: distended Objective no change Robbie Garza MD October 12, 2018 11:09
[2018-10-12 12:00] VITALS: BP 137/80
[2018-10-12 16:00] VITALS: BP 130/81
--- NOTE | 2018-10-12 17:27 | NUR ---
RESPIRATORY NOTE: Pt has been refusing the Bipap the whole day. Many attempts to place pt on the Bipap but unsuccessful. Explained the important of having the Bipap on every time come in but pt still refused and asked to be put on later. Pt stated that the Bipap mask made her uncomfortable, more distress and more tired, she still concerned about the aspiration. pt stated that she has been coughing up a lot of secretions up, if she can't take the mask off herself, she afraid she will swallow it back leading to aspiration. Have been trying to practice with the pt taking the mask off but pt unable to do so since her hands are weak, offer to come in often to check on her and whenever she need to take the mask off but pt still concern and refuse the Bipap. Charge nurse and RN made aware. Pt is eating dinner at this time, no SOB or resp distress noted. pt agreed to be on Bipap at 0700. Will continue to monitor pt.
[2018-10-12] MEDS: Nitroglycerin Patch 0.4mg TDERMAL SCH (18:24)
--- NOTE | 2018-10-12 19:30 | NUR ---
HAND-OFF: Report given to Clare/SLOANE, Endorsed plan of care.
--- NOTE | 2018-10-12 19:37 | NUR ---
NURSE NOTES: Received report from SLOANE Campbell. Patient is awake lying semi-crawford's; resting comfortably. No signs of acute distress noted; denies pain at this time. On 1L nasal cannula saturating at 90%. Patient strongly refuses BiPAP at this time. AOx4; able to make needs known. Checked IV sites; patent and flushed. No erythema, bleeding, or infiltration noted. Bed at lowest position, brakes on, siderails up x3. Call light within reach. Will continue to monitor.
[2018-10-12 20:00] VITALS: BP 168/82
--- NOTE | 2018-10-12 21:26 | Cardiology Progress Note ---
Assessment/Plan Status: stable Assessment/Plan Assessment/Plan Assessment/Plan 1. NSTEMI. likely type 2. No acute ECG changes. EF nl and no WMA. On aspirin and lipitor. Outpatient stress test 2. S/P Resp Failure, extubated and stable 3. Lyme's disease 4. Sepsis on Abx per ID 5. Replete electrolytes per nephrology Subjective Cardiovascular: Reports: no symptoms Respiratory: Reports: no symptoms Gastrointestinal/Abdominal: Reports: no symptoms Genitourinary: Reports: no symptoms Subjective Coverage for [place] Objective Last 24 Hour Vital Signs Date Time Temp Pulse Resp B/P (MAP) Pulse Ox O2 Delivery O2 Flow Rate FiO2 10/12/18 20:00 1.0 10/12/18 20:00 98.0 95 20 168/82 (110) 90 10/12/18 19:40 101 24 90 24 10/12/18 19:39 Nasal Cannula 1.0 24 10/12/18 19:39 90 Nasal Cannula 1.0 24 10/12/18 18:24 130/81 10/12/18 17:27 90 10/12/18 16:00 2.0 21 10/12/18 16:00 97 10/12/18 16:00 98.2 97 16 130/81 (97) 88 10/12/18 15:04 99 24 89 21 10/12/18 12:00 97.9 96 16 137/80 (99) 92 10/12/18 12:00 2.0 21 10/12/18 11:51 90 10/12/18 11:24 102 26 91 Facial 21 10/12/18 10:15 102 19 92 Facial 25 10/12/18 09:00 Nasal Cannula 3.0 Nasal Cannula 3.0 10/12/18 08:40 2.0 28 10/12/18 08:00 3.0 10/12/18 08:00 97.7 98 20 163/78 (106) 98 10/12/18 07:50 98 10/12/18 06:55 99 Nasal Cannula 2.0 28 10/12/18 06:55 Nasal Cannula 2.0 28 10/12/18 06:55 95 21 99 2.0 28 10/12/18 04:50 2.0 28 10/12/18 04:49 96 20 100 Nasal Cannula 2.0 10/12/18 04:41 94 20 98 Nasal Cannula 2.0 28 10/12/18 04:00 98 10/12/18 04:00 3.0 10/12/18 04:00 97.0 98 20 154/71 (98) 97 10/12/18 03:00 2.0 28 10/12/18 01:05 2.0 28 10/12/18 00:00 97.2 92 20 157/75 (102) 99 10/12/18 00:00 92 10/11/18 23:18 2.0 28 10/11/18 21:26 2.0 28 General Appearance: no apparent distress, alert EENT: PERRL/EOMI, normal ENT inspection, TMs normal, pharynx normal Neck: non-tender, normal alignment, supple, normal inspection, no JVD Rhythm: NSR Cardiovascular: normal peripheral pulses, normal rate, regular rhythm Respiratory/Chest: chest wall non-tender, lungs clear Abdomen: normal bowel sounds, non tender, soft, no organomegaly, no mass Extremities: normal range of motion, non-tender, normal inspection, no calf tenderness 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, no motor/sensory deficits Intake and Output 10/11/18 10/12/18 18:59 06:59 Intake Total 579.374 ml 110 ml Output Total 2500 ml Balance 579.374 ml -2390 ml Intake Oral 220 ml IV Total 359.374 ml 110 ml Output Urine Total 2500 ml # Bowel Movements 3 1 Laboratory Tests Test 10/12/18 04:50 10/12/18 08:10 10/12/18 16:02 White Blood Count 13.3 K/UL (4.8-10.8) H Red Blood Count 4.31 M/UL (4.20-5.40) Hemoglobin 13.9 G/DL (12.0-16.0) Hematocrit 43.2 % (37.0-47.0) Mean Corpuscular Volume 100 FL (80-99) H Mean Corpuscular Hemoglobin 32.2 PG (27.0-31.0) H Mean Corpuscular Hemoglobin Concent 32.2 G/DL (32.0-36.0) Red Cell Distribution Width 13.5 % (11.6-14.8) Platelet Count 271 K/UL (150-450) Mean Platelet Volume 6.4 FL (6.5-10.1) L Neutrophils (%) (Auto) 74.3 % (45.0-75.0) Lymphocytes (%) (Auto) 10.7 % (20.0-45.0) L Monocytes (%) (Auto) 9.9 % (1.0-10.0) Eosinophils (%) (Auto) 4.5 % (0.0-3.0) H Basophils (%) (Auto) 0.6 % (0.0-2.0) Sodium Level 144 MMOL/L (136-145) Potassium Level 3.5 MMOL/L (3.5-5.1) Chloride Level 105 MMOL/L (98-107) Carbon Dioxide Level 37 MMOL/L (21-32) H Anion Gap 2 mmol/L (5-15) L Blood Urea Nitrogen 5 mg/dL (7-18) L Creatinine 0.4 MG/DL (0.55-1.30) L Estimat Glomerular Filtration Rate mL/min (>60) Glucose Level 94 MG/DL (74-106) Uric Acid 1.9 MG/DL (2.6-7.2) L Calcium Level 9.4 MG/DL (8.5-10.1) Phosphorus Level 2.2 MG/DL (2.5-4.9) L Magnesium Level 2.0 MG/DL (1.8-2.4) Total Bilirubin 0.7 MG/DL (0.2-1.0) Aspartate Amino Transf (AST/SGOT) 19 U/L (15-37) Alanine Aminotransferase (ALT/SGPT) 24 U/L (12-78) Alkaline Phosphatase 72 U/L (46-116) Total Protein 6.1 G/DL (6.4-8.2) L Albumin 2.5 G/DL (3.4-5.0) L Globulin 3.6 g/dL Albumin/Globulin Ratio 0.7 (1.0-2.7) L Arterial Blood pH 7.340 (7.350-7.450) Arterial Blood Partial Pressure CO2 75.0 mmHg (35.0-45.0) *H Arterial Blood Partial Pressure O2 135.2 mmHg (75.0-100.0) H Arterial Blood HCO3 39.6 mmol/L (22.0-26.0) H Arterial Blood Oxygen Saturation 98.5 % (95-100) Arterial Blood Base Excess 10.5 (-2-2) *H Clyde Test Positive Troponin I 0.057 ng/mL (0.000-0.056) Clayton Rutledge MD October 12, 2018 21:26
--- NOTE | 2018-10-12 22:06 | NUR ---
NURSE NOTES: Patient is still refusing BiPAP at this time. Risks and benefits explained x3; still adamantly refusing.
--- NOTE | 2018-10-12 23:47 | NUR ---
HAND-OFF: Report given to SLOANE Elmore. Patient is asleep lying semi-crawford's; resting comfortably. On 1L nasal cannula. In stable condition.
[2018-10-13] MEDS: Piperacillin/Tazobactam 3.375 GM in NS 110 ML IVPB SCH ×3 (02:31→17:03)
[2018-10-13 04:00] VITALS: BP 173/89
[2018-10-13 05:59] LABS: BASOPHILS % (AUTO) 0.6 % (0.0-2.0); EOSINOPHILS % (AUTO) 4.4 % (0.0-3.0); HEMATOCRIT 40.7 % (37.0-47.0); HEMOGLOBIN 13.2 G/DL (12.0-16.0); LYMPHOCYTES % (AUTO) 13.4 % (20.0-45.0); MEAN CORPUSCULAR VOLUME 99 FL (80-99); MONOCYTES % (AUTO) 10.5 % (1.0-10.0); NEUTROPHILS % (AUTO) 71.2 % (45.0-75.0); PLATELET COUNT 276 K/UL (150-450); RED CELL DISTRIBUTION WIDTH 13.2 % (11.6-14.8); WHITE BLOOD COUNT 9.4 K/UL (4.8-10.8)
[2018-10-13] MEDS: NovoLOG Insulin Flexpen SUBQ SCH ×4 (06:19→21:00)
[2018-10-13 06:20] LABS: PHOSPHORUS 2.6 MG/DL (2.5-4.9)
[2018-10-13 06:21] LABS: ALANINE AMINOTRANSFERASE 23 U/L (12-78); ALBUMIN 2.5 G/DL (3.4-5.0); ALBUMIN/GLOBULIN RATIO 0.7 (1.0-2.7); ALKALINE PHOSPHATASE 70 U/L (46-116); ANION GAP 3 mmol/L (5-15); ASPARTATE AMINO TRANSFERASE 13 U/L (15-37); BILIRUBIN,TOTAL 0.6 MG/DL (0.2-1.0); BLOOD UREA NITROGEN 5 mg/dL (7-18); CALCIUM 9.3 MG/DL (8.5-10.1); CARBON DIOXIDE 35 MMOL/L (21-32); CHLORIDE 105 MMOL/L (98-107); CREATININE 0.5 MG/DL (0.55-1.30); POTASSIUM 3.2 MMOL/L (3.5-5.1); SODIUM 143 MMOL/L (136-145)
--- NOTE | 2018-10-13 07:30 | NUR ---
NURSE NOTES: Report received from SLOANE Elmore. Pt is lying comfortably in semi-fowlers with no signs of distress. A+Ox4, denies pain and SOB. Respirations are even and unlabored on room air. Barnhart is in place and patent, draining to gravity at foot of bed. IV sites are intact and saline locked. Bed is at lowest position, brakes engaged, siderails x2, bed alarm on, and call light within reach. Pt is in stable condition at this time; will continue to monitor.
--- NOTE | 2018-10-13 07:42 | NUR ---
Report given to Salome ANTON. Pt compfortable in bed. no c/o pain at this time, alert and oriented x4. call light within reach. gayle catheter draining to gravity at foot of bed. IV sites intact, bed in lowest position, bed alarm on. Patient is stable at this time. endorsed to dayshivishnu ANTON
[2018-10-13 08:00] VITALS: BP 172/88
[2018-10-13] MEDS: Aspirin Baby 81mg NG SCH (10:08)
[2018-10-13] MEDS: Docusate 100mg cap ORAL SCH ×3 (10:08→17:00)
--- NOTE | 2018-10-13 10:37 | NUR ---
ST NOTE: SWALLOW/BREATHING STATUS: PT SEEN AT BEDSIDE IN AM. ALERT, COOPERATIVE, PT WITH NC(2L). HOWEVER, SOME SHALLOW BREATHING WAS NOTED. PER PT, FEELING BETTER, HOWEVER, SOME INSUFFICIENT BREATHING WAS NOTED. DISCUSSED WITH PT RE: PT'S CURRENT CONDITIONS AND HER MEDICAL HISTORY REGARDING LYME'S DISEASE. COMPLETED BREATHING EXS, DEEP AND DIAPHRAGMATIC BREATHING EXS WITH CUES. PT WAS ABLE TO FOLLOW DIRECTIONS AND COMPLETED THE TASKS. PT TOLERATED CURRENT DIET WITHOUT OVERT S/S OF ASPIRATION; AND PT WAS ABLE TO DEMONSTRATE SAFE SWALLOW STRATEGIES. PER RECENT CXR: Suspect small bilateral pleural effusions shifted or decreased since the last day. DISCUSSED WITH THE REHAB TEAM RE: PT'S CONDITIONS; AND RNALEXANDRA.
[2018-10-13 12:00] VITALS: BP 175/95
--- NOTE | 2018-10-13 12:02 | Nephrology Progress Note ---
Assessment/Plan Problem List: (1) Severe protein-calorie malnutrition (2) NSTEMI (non-ST elevated myocardial infarction) (3) COPD (chronic obstructive pulmonary disease) (4) Acute respiratory failure Assessment Acute respiratory failure COPD Azotemia, High Na , elevated LFTs Elevated troponin Plan increase diamox lasix low dose cardiazem for high bp K phos as needed as needed: bipap K IV and or PO as needed Per cardiology Pulm management monitor renal parameters discussed with RN Subjective ROS Limited/Unobtainable: No Constitutional: Reports: malaise Objective Objective Last 24 Hour Vital Signs Date Time Temp Pulse Resp B/P (MAP) Pulse Ox O2 Delivery O2 Flow Rate FiO2 10/13/18 10:25 96 172/88 10/13/18 09:00 Nasal Cannula 2.0 10/13/18 08:00 97.2 96 20 172/88 (116) 97 10/13/18 08:00 2.0 10/13/18 08:00 82 10/13/18 07:29 90 Nasal Cannula 1.0 24 10/13/18 07:29 Nasal Cannula 1.0 24 10/13/18 04:00 97.2 95 22 173/89 (117) 92 10/13/18 04:00 1.0 10/13/18 04:00 86 10/13/18 00:00 94 10/13/18 00:00 1.0 10/13/18 00:00 98.3 18 93 10/12/18 22:06 90 22 99 Nasal Cannula 1.0 24 10/12/18 21:46 92 22 92 Nasal Cannula 1.0 24 10/12/18 21:00 Nasal Cannula 1.0 10/12/18 20:00 1.0 10/12/18 20:00 101 10/12/18 20:00 98.0 95 20 168/82 (110) 90 10/12/18 19:40 101 24 90 24 10/12/18 19:39 Nasal Cannula 1.0 24 10/12/18 19:39 90 Nasal Cannula 1.0 24 10/12/18 18:24 130/81 10/12/18 17:27 90 10/12/18 16:00 2.0 21 10/12/18 16:00 97 10/12/18 16:00 98.2 97 16 130/81 (97) 88 10/12/18 15:04 99 24 89 21 Intake and Output 10/12/18 10/13/18 18:59 06:59 Intake Total 880 ml 486.5 ml Output Total 1200 ml 900 ml Balance -320 ml -413.5 ml Intake Oral 770 ml 360 ml IV Total 110 ml 126.5 ml Output Urine Total 1200 ml 900 ml # Bowel Movements 2 1 Laboratory Tests 10/12/18 16:02: Troponin I 0.057H 10/13/18 05:15: White Blood Count 9.4, Red Blood Count 4.10L, Hemoglobin 13.2, Hematocrit 40.7, Mean Corpuscular Volume 99, Mean Corpuscular Hemoglobin 32.1H, Mean Corpuscular Hemoglobin Concent 32.3, Red Cell Distribution Width 13.2, Platelet Count 276, Mean Platelet Volume 6.6, Neutrophils (%) (Auto) 71.2, Lymphocytes (%) (Auto) 13.4L, Monocytes (%) (Auto) 10.5H, Eosinophils (%) (Auto) 4.4H, Basophils (%) ( Auto) 0.6, Sodium Level 143, Potassium Level 3.2L, Chloride Level 105, Carbon Dioxide Level 35H, Anion Gap 3L, Blood Urea Nitrogen 5L, Creatinine 0.5L, Estimat Glomerular Filtration Rate , Glucose Level 104, Calcium Level 9.3, Phosphorus Level 2.6, Magnesium Level 1.8, Total Bilirubin 0.6, Aspartate Amino Transf (AST/SGOT) 13L, Alanine Aminotransferase (ALT/SGPT) 23, Alkaline Phosphatase 70, C-Reactive Protein, Quantitative 2.3H, Pro-B-Type Natriuretic Peptide 4016H, Total Protein 6.1L, Albumin 2.5L, Globulin 3.6, Albumin/Globulin Ratio 0.7L Height (Feet): 5 Height (Inches): 3.00 Weight (Pounds): 108 General Appearance: no apparent distress Cardiovascular: tachycardia Respiratory/Chest: decreased breath sounds Abdomen: soft Objective no change Robbie Garza MD October 13, 2018 12:02
--- NOTE | 2018-10-13 12:12 | General Progress Note ---
Assessment/Plan Problem List: (1) UTI (urinary tract infection) ICD Codes: N39.0 - Urinary tract infection, site not specified SNOMED: 24395450 (2) Diabetes ICD Codes: E11.9 - Type 2 diabetes mellitus without complications SNOMED: 09720626 (3) COPD (chronic obstructive pulmonary disease) ICD Codes: J44.9 - Chronic obstructive pulmonary disease, unspecified SNOMED: 91110894 Qualifiers: Qualified Codes: J44.9 - Chronic obstructive pulmonary disease, unspecified (4) NSTEMI (non-ST elevated myocardial infarction) ICD Codes: I21.4 - Non-ST elevation (NSTEMI) myocardial infarction SNOMED: 73839121 (5) Episode of generalized weakness ICD Codes: R53.1 - Weakness SNOMED: 50931060 Status: unchanged Assessment/Plan: o2 pulm tx abx pain control cardio f/u cbc bmp am aru eval Subjective Constitutional: Reports: weakness Respiratory: Reports: shortness of breath Allergies: Coded Allergies: HEPARIN (Verified Allergy, Unknown, 10/05/18) RAMIPRIL (Verified Allergy, Unknown, 10/03/18) SULFA (SULFONAMIDE ANTIBIOTICS) (Unverified Allergy, Unknown, 10/05/18) Uncoded Allergies: SULFA (Allergy, Unknown, 10/03/18) All Systems: reviewed and negative except above Subjective o2 nc sleepy Objective Last 24 Hour Vital Signs Date Time Temp Pulse Resp B/P (MAP) Pulse Ox O2 Delivery O2 Flow Rate FiO2 10/13/18 10:25 96 172/88 10/13/18 09:00 Nasal Cannula 2.0 10/13/18 08:00 97.2 96 20 172/88 (116) 97 10/13/18 08:00 2.0 10/13/18 08:00 82 10/13/18 07:29 90 Nasal Cannula 1.0 24 10/13/18 07:29 Nasal Cannula 1.0 24 10/13/18 04:00 97.2 95 22 173/89 (117) 92 10/13/18 04:00 1.0 10/13/18 04:00 86 10/13/18 00:00 94 10/13/18 00:00 1.0 10/13/18 00:00 98.3 18 93 10/12/18 22:06 90 22 99 Nasal Cannula 1.0 24 10/12/18 21:46 92 22 92 Nasal Cannula 1.0 24 10/12/18 21:00 Nasal Cannula 1.0 10/12/18 20:00 1.0 10/12/18 20:00 101 10/12/18 20:00 98.0 95 20 168/82 (110) 90 10/12/18 19:40 101 24 90 24 10/12/18 19:39 Nasal Cannula 1.0 24 10/12/18 19:39 90 Nasal Cannula 1.0 24 10/12/18 18:24 130/81 10/12/18 17:27 90 10/12/18 16:00 2.0 21 10/12/18 16:00 97 10/12/18 16:00 98.2 97 16 130/81 (97) 88 10/12/18 15:04 99 24 89 21 Intake and Output 10/12/18 10/13/18 19:00 07:00 Intake Total 896.5 ml 470.0 ml Output Total 1200 ml 900 ml Balance -303.5 ml -430.0 ml Intake Oral 770 ml 360 ml IV Total 126.5 ml 110.0 ml Output Urine Total 1200 ml 900 ml # Bowel Movements 2 1 Laboratory Tests 10/12/18 16:02: Troponin I 0.057H 10/13/18 05:15: White Blood Count 9.4, Red Blood Count 4.10L, Hemoglobin 13.2, Hematocrit 40.7, Mean Corpuscular Volume 99, Mean Corpuscular Hemoglobin 32.1H, Mean Corpuscular Hemoglobin Concent 32.3, Red Cell Distribution Width 13.2, Platelet Count 276, Mean Platelet Volume 6.6, Neutrophils (%) (Auto) 71.2, Lymphocytes (%) (Auto) 13.4L, Monocytes (%) (Auto) 10.5H, Eosinophils (%) (Auto) 4.4H, Basophils (%) ( Auto) 0.6, Sodium Level 143, Potassium Level 3.2L, Chloride Level 105, Carbon Dioxide Level 35H, Anion Gap 3L, Blood Urea Nitrogen 5L, Creatinine 0.5L, Estimat Glomerular Filtration Rate , Glucose Level 104, Calcium Level 9.3, Phosphorus Level 2.6, Magnesium Level 1.8, Total Bilirubin 0.6, Aspartate Amino Transf (AST/SGOT) 13L, Alanine Aminotransferase (ALT/SGPT) 23, Alkaline Phosphatase 70, C-Reactive Protein, Quantitative 2.3H, Pro-B-Type Natriuretic Peptide 4016H, Total Protein 6.1L, Albumin 2.5L, Globulin 3.6, Albumin/Globulin Ratio 0.7L Height (Feet): 5 Height (Inches): 3.00 Weight (Pounds): 108 General Appearance: lethargic EENT: normal ENT inspection Neck: normal alignment Cardiovascular: normal peripheral pulses, normal rate, regular rhythm Respiratory/Chest: chest wall non-tender, decreased breath sounds Abdomen: normal bowel sounds, non tender, soft Extremities: normal inspection Edema: no edema noted Arm (L), no edema noted Arm (R), no edema noted Leg (L), no edema noted Leg (R), no edema noted Pedal (L), no edema noted Pedal (R), no edema noted Generalized Neurologic: responsive, motor weakness Skin: normal pigmentation, warm/dry Osei Naranjo DO October 13, 2018 12:12
[2018-10-13] MEDS: dilTIAZem HCl 30mg tab ORAL SCH ×2 (12:46→17:04)
--- NOTE | 2018-10-13 13:30 | NUR ---
NURSE NOTES: Spoke to Dr. Romo. New orders were entered about O2 and bipap with parameters. Endorsed to Salome.
[2018-10-13] MEDS: Albuterol/Ipratropium 3ml neb HHN PRN ×2 (14:12→22:42)
--- NOTE | 2018-10-13 14:19 | NUR ---
Social Service Note SW met with patient to address questions she had regarding impending placement upon discharge. Patient states she will only agree to a skilled facility which is only a few miles from her home [address] [place], [address]. Patient states she needs to be close to friends. Patient doesn't have adequate home support at this time. Patient continues to require respiratory support. Patient states she receives assistance from Kera Stanley [phone] and her SW is Gary. FANNIE left Gary a message she is in the office [id number] [phone]. 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 Will monitor and follow up.
--- NOTE | 2018-10-13 15:58 | Diagnostic Imaging Report ---
Indication: Chest pain. Dyspnea Technique: Continuous helical transaxial imaging of the chest was obtained from the thoracic inlet to the upper abdomen. No intravenous contrast was administered. Coronal 2-D reformats were also obtained. Total Dose length Product (DLP): 385.[address] Dose Index Volume (CTDIvol): 10.16 mGy Comparison: none Findings: Trace bilateral pleural effusions are present. The lungs are hyperexpanded. There are areas of hyperlucency present especially in the upper lobes consistent with emphysema. There is no consolidation or evidence of interstitial fibrosis. No adenopathy seen. The aorta is moderately calcified. Visualized part of the upper abdomen shows a hypodensity at the dome of the liver nonspecific measuring 1 cm. Other smaller hypodensities in the liver too small to characterize on this study. There is narrowing of intervertebral discs and accompanying endplate osteophyte formation. Hypertrophied facet joints also demonstrated. IMPRESSION: Emphysema/COPD. Trace bilateral pleural effusions Atherosclerotic vascular disease. Degenerative changes of the thoracic spine Nonspecific hypodensities within the liver The CT scanner at [facility] is accredited by the [employer] and the scans are performed using dose optimization techniques as appropriate to a performed exam including Automatic Exposure control.
[2018-10-13 16:00] VITALS: BP 144/67
[2018-10-13] MEDS: Nitroglycerin Patch 0.4mg TDERMAL SCH (17:48)
--- NOTE | 2018-10-13 17:50 | Cardiology Progress Note ---
Assessment/Plan Status: stable, progressing Assessment/Plan Assessment/Plan Assessment/Plan 1. NSTEMI. likely type 2. No acute ECG changes. EF nl and no WMA. On aspirin and lipitor. Outpatient stress test 2. S/P Resp Failure, extubated and stable 3. Lyme's disease 4. Sepsis on Abx per ID 5. Replete electrolytes per nephrology Subjective Cardiovascular: Reports: no symptoms Respiratory: Reports: no symptoms Gastrointestinal/Abdominal: Reports: no symptoms Genitourinary: Reports: no symptoms Subjective Coverage for [place] Objective Last 24 Hour Vital Signs Date Time Temp Pulse Resp B/P (MAP) Pulse Ox O2 Delivery O2 Flow Rate FiO2 10/13/18 17:48 126/68 10/13/18 17:04 93 144/67 10/13/18 16:00 97.7 59 20 144/67 (92) 98 10/13/18 16:00 86 10/13/18 16:00 1.0 10/13/18 14:23 93 20 99 Nasal Cannula 1.0 24 10/13/18 14:11 91 20 98 Nasal Cannula 2.0 28 10/13/18 14:11 24 10/13/18 12:46 100 175/95 10/13/18 12:00 84 10/13/18 12:00 2.0 10/13/18 12:00 97.6 100 20 175/95 (121) 95 10/13/18 10:25 96 172/88 10/13/18 09:00 Nasal Cannula 2.0 10/13/18 08:00 97.2 96 20 172/88 (116) 97 10/13/18 08:00 2.0 10/13/18 08:00 82 10/13/18 07:29 90 Nasal Cannula 1.0 24 10/13/18 07:29 Nasal Cannula 1.0 24 10/13/18 04:00 97.2 95 22 173/89 (117) 92 10/13/18 04:00 1.0 10/13/18 04:00 86 10/13/18 00:00 94 10/13/18 00:00 1.0 10/13/18 00:00 98.3 18 93 10/12/18 22:06 90 22 99 Nasal Cannula 1.0 24 10/12/18 21:46 92 22 92 Nasal Cannula 1.0 24 10/12/18 21:00 Nasal Cannula 1.0 10/12/18 20:00 1.0 10/12/18 20:00 101 10/12/18 20:00 98.0 95 20 168/82 (110) 90 10/12/18 19:40 101 24 90 24 10/12/18 19:39 Nasal Cannula 1.0 24 10/12/18 19:39 90 Nasal Cannula 1.0 24 10/12/18 18:24 130/81 General Appearance: no apparent distress, alert EENT: PERRL/EOMI, normal ENT inspection, TMs normal, pharynx normal Neck: non-tender, normal alignment, supple, normal inspection, no JVD Rhythm: NSR Cardiovascular: normal peripheral pulses, normal rate, regular rhythm Respiratory/Chest: chest wall non-tender, lungs clear Abdomen: normal bowel sounds, non tender, soft, no organomegaly, no mass Extremities: normal range of motion, non-tender Neurologic: simulation educator II-XII grossly normal, no motor/sensory deficits Intake and Output 10/12/18 10/13/18 19:00 07:00 Intake Total 896.5 ml 470.0 ml Output Total 1200 ml 900 ml Balance -303.5 ml -430.0 ml Intake Oral 770 ml 360 ml IV Total 126.5 ml 110.0 ml Output Urine Total 1200 ml 900 ml # Bowel Movements 2 1 Laboratory Tests Test 10/13/18 05:15 White Blood Count 9.4 K/UL (4.8-10.8) Red Blood Count 4.10 M/UL (4.20-5.40) L Hemoglobin 13.2 G/DL (12.0-16.0) Hematocrit 40.7 % (37.0-47.0) Mean Corpuscular Volume 99 FL (80-99) Mean Corpuscular Hemoglobin 32.1 PG (27.0-31.0) H Mean Corpuscular Hemoglobin Concent 32.3 G/DL (32.0-36.0) Red Cell Distribution Width 13.2 % (11.6-14.8) Platelet Count 276 K/UL (150-450) Mean Platelet Volume 6.6 FL (6.5-10.1) Neutrophils (%) (Auto) 71.2 % (45.0-75.0) Lymphocytes (%) (Auto) 13.4 % (20.0-45.0) L Monocytes (%) (Auto) 10.5 % (1.0-10.0) H Eosinophils (%) (Auto) 4.4 % (0.0-3.0) H Basophils (%) (Auto) 0.6 % (0.0-2.0) Sodium Level 143 MMOL/L (136-145) Potassium Level 3.2 MMOL/L (3.5-5.1) L Chloride Level 105 MMOL/L (98-107) Carbon Dioxide Level 35 MMOL/L (21-32) H Anion Gap 3 mmol/L (5-15) L Blood Urea Nitrogen 5 mg/dL (7-18) L Creatinine 0.5 MG/DL (0.55-1.30) L Estimat Glomerular Filtration Rate mL/min (>60) Glucose Level 104 MG/DL (74-106) Calcium Level 9.3 MG/DL (8.5-10.1) Phosphorus Level 2.6 MG/DL (2.5-4.9) Magnesium Level 1.8 MG/DL (1.8-2.4) Total Bilirubin 0.6 MG/DL (0.2-1.0) Aspartate Amino Transf (AST/SGOT) 13 U/L (15-37) L Alanine Aminotransferase (ALT/SGPT) 23 U/L (12-78) Alkaline Phosphatase 70 U/L (46-116) C-Reactive Protein, Quantitative 2.3 mg/dL (0.00-0.90) H Pro-B-Type Natriuretic Peptide 4016 pg/mL (0-125) H Total Protein 6.1 G/DL (6.4-8.2) L Albumin 2.5 G/DL (3.4-5.0) L Globulin 3.6 g/dL Albumin/Globulin Ratio 0.7 (1.0-2.7) L Clayton Rutledge MD October 13, 2018 17:50
--- NOTE | 2018-10-13 18:22 | Infectious Diseases Prog Note ---
Assessment/Plan Assessment/Plan ASSESSMENT: The patient is a 78-year-old female with history of Lyme disease 25 years ago. 1. Possible aspiration pneumonia. Chronic obstructive pulmonary disease exacerbation. -10/13 CT chest: Emphysema/COPD. Trace bilateral pleural effusions. Atherosclerotic vascular disease. Degenerative changes of the thoracic spine. Nonspecific hypodensities within the liver -10/08 CXR: Development of hazy bibasilar opacities which may be related to layering small pleural effusions versus airspace disease. Attention on follow- up recommended. -CXR: Lungs remain clear. -10/04 sp cx normal resp storm; 10/09 sp cx normal storm and yeast -legionella ag urine 2. Abnormal liver function tests (acute), SP -hep serologies neg -Abd US: Trace ascites.Bilateral pleural effusions. Possible medical renal disease. Correlate clinically. Liver cyst. Tiny right renal cysts. Atherosclerotic vascular disease 3. Probable non-STEMI. 4. Leukocytosis, increased (s/p high dose steroids)- now resolved -u/a neg, ucx Neg -Bcx NTD Fever; SP Acute respiratory failure s/p intubation 10/04, sp extubated 10/08 PLAN: 1. We will continue the patient on Zosyn # 10/10 for PNA -10/10 sp Vancomycin #4 -10/08 SP Zithromax #5 -10/04 SP LEvaquin #2 2. Monitor CBC/CMP 3. f/u Bcx x2 4. Monitor cultures 5. We will follow Cardiology recommendations. 6. Based on the patient's clinical course and laboratories, we will do further recommendations. 7. No need for continuing minocycline at this point. : Subjective Allergies: Coded Allergies: HEPARIN (Verified Allergy, Unknown, 10/05/18) RAMIPRIL (Verified Allergy, Unknown, 10/03/18) SULFA (SULFONAMIDE ANTIBIOTICS) (Unverified Allergy, Unknown, 10/05/18) Uncoded Allergies: SULFA (Allergy, Unknown, 10/03/18) Subjective afebrile leukocytosis resolved at 1l NC Objective Vital Signs Last 24 Hour Vital Signs Date Time Temp Pulse Resp B/P (MAP) Pulse Ox O2 Delivery O2 Flow Rate FiO2 10/13/18 17:48 126/68 10/13/18 17:04 93 144/67 10/13/18 16:00 97.7 59 20 144/67 (92) 98 10/13/18 16:00 86 10/13/18 16:00 1.0 10/13/18 14:23 93 20 99 Nasal Cannula 1.0 24 10/13/18 14:11 91 20 98 Nasal Cannula 2.0 28 10/13/18 14:11 24 10/13/18 12:46 100 175/95 10/13/18 12:00 84 10/13/18 12:00 2.0 10/13/18 12:00 97.6 100 20 175/95 (121) 95 10/13/18 10:25 96 172/88 10/13/18 09:00 Nasal Cannula 2.0 10/13/18 08:00 97.2 96 20 172/88 (116) 97 10/13/18 08:00 2.0 10/13/18 08:00 82 10/13/18 07:29 90 Nasal Cannula 1.0 24 10/13/18 07:29 Nasal Cannula 1.0 24 10/13/18 04:00 97.2 95 22 173/89 (117) 92 10/13/18 04:00 1.0 10/13/18 04:00 86 10/13/18 00:00 94 10/13/18 00:00 1.0 10/13/18 00:00 98.3 18 93 10/12/18 22:06 90 22 99 Nasal Cannula 1.0 24 10/12/18 21:46 92 22 92 Nasal Cannula 1.0 24 10/12/18 21:00 Nasal Cannula 1.0 10/12/18 20:00 1.0 10/12/18 20:00 101 10/12/18 20:00 98.0 95 20 168/82 (110) 90 10/12/18 19:40 101 24 90 24 10/12/18 19:39 Nasal Cannula 1.0 24 10/12/18 19:39 90 Nasal Cannula 1.0 24 10/12/18 18:24 130/81 Height (Feet): 5 Height (Inches): 3.00 Weight (Pounds): 108 Objective HEENT: Mild pale conjunctivae. No icterus. NECK: No lymphadenopathy. CHEST: Coarse breathing sounds. HEART: S1 and S2. ABDOMEN: Soft. ABDOMEN: Soft. EXTREMITIES: No cyanosis. NEUROLOGIC: Sedated. Laboratory Tests Test 10/13/18 05:15 White Blood Count 9.4 K/UL (4.8-10.8) Red Blood Count 4.10 M/UL (4.20-5.40) L Hemoglobin 13.2 G/DL (12.0-16.0) Hematocrit 40.7 % (37.0-47.0) Mean Corpuscular Volume 99 FL (80-99) Mean Corpuscular Hemoglobin 32.1 PG (27.0-31.0) H Mean Corpuscular Hemoglobin Concent 32.3 G/DL (32.0-36.0) Red Cell Distribution Width 13.2 % (11.6-14.8) Platelet Count 276 K/UL (150-450) Mean Platelet Volume 6.6 FL (6.5-10.1) Neutrophils (%) (Auto) 71.2 % (45.0-75.0) Lymphocytes (%) (Auto) 13.4 % (20.0-45.0) L Monocytes (%) (Auto) 10.5 % (1.0-10.0) H Eosinophils (%) (Auto) 4.4 % (0.0-3.0) H Basophils (%) (Auto) 0.6 % (0.0-2.0) Sodium Level 143 MMOL/L (136-145) Potassium Level 3.2 MMOL/L (3.5-5.1) L Chloride Level 105 MMOL/L (98-107) Carbon Dioxide Level 35 MMOL/L (21-32) H Anion Gap 3 mmol/L (5-15) L Blood Urea Nitrogen 5 mg/dL (7-18) L Creatinine 0.5 MG/DL (0.55-1.30) L Estimat Glomerular Filtration Rate mL/min (>60) Glucose Level 104 MG/DL (74-106) Calcium Level 9.3 MG/DL (8.5-10.1) Phosphorus Level 2.6 MG/DL (2.5-4.9) Magnesium Level 1.8 MG/DL (1.8-2.4) Total Bilirubin 0.6 MG/DL (0.2-1.0) Aspartate Amino Transf (AST/SGOT) 13 U/L (15-37) L Alanine Aminotransferase (ALT/SGPT) 23 U/L (12-78) Alkaline Phosphatase 70 U/L (46-116) C-Reactive Protein, Quantitative 2.3 mg/dL (0.00-0.90) H Pro-B-Type Natriuretic Peptide 4016 pg/mL (0-125) H Total Protein 6.1 G/DL (6.4-8.2) L Albumin 2.5 G/DL (3.4-5.0) L Globulin 3.6 g/dL Albumin/Globulin Ratio 0.7 (1.0-2.7) L Current Medications Medications (Trade) Dose Ordered Sig/Aleah Route PRN Reason Start Time Stop Time Status Last Admin Dose Admin Acetazolamide (Diamox) 250 mg Q8HR ORAL 10/13/18 14:00 11/11/18 17:59 10/13/18 14:06 Amlodipine Besylate (Norvasc) 5 mg DAILY ORAL 10/13/18 10:30 11/12/18 10:29 10/13/18 10:25 Aspirin (ASA) 81 mg DAILY NG 10/12/18 09:00 11/04/18 08:59 10/13/18 10:08 Dextrose (Dextrose 50%) 25 ml Q30M PRN IV Hypoglycemia 10/11/18 16:00 11/03/18 07:53 Dextrose (Dextrose 50%) 50 ml Q30M PRN IV hypoglycemia 10/11/18 16:00 11/03/18 07:59 Diltiazem HCl (Cardizem) 30 mg EVERY 6 HOURS ORAL 10/13/18 12:00 11/12/18 11:59 10/13/18 17:04 Docusate Sodium (Colace) 100 mg THREE TIMES A DAY ORAL 10/11/18 18:00 11/10/18 12:59 10/13/18 10:08 EZETIMIBE (Zetia) 10 mg BEDTIME ORAL 10/11/18 21:00 11/08/18 20:59 10/12/18 20:31 Furosemide (Lasix) 20 mg DAILY IV 10/13/18 12:00 11/12/18 11:59 10/13/18 12:46 Insulin Aspart (NovoLOG) AC+HS SUBQ 10/11/18 16:30 11/03/18 11:29 10/12/18 16:19 Nitroglycerin (Ntg) 1 patch Q24H TDERMAL 10/11/18 18:00 11/04/18 17:59 10/13/18 17:48 Pantoprazole (Protonix) 40 mg EVERY 12 HOURS ORAL 10/11/18 21:00 11/10/18 20:59 10/13/18 10:09 Piperacillin Sod/ Tazobactam Sod 3.375 gm/Sodium Chloride 110 ml @ 27.5 mls/hr Q8H IVPB 10/11/18 18:00 10/15/18 01:59 10/13/18 17:03 Potassium Chloride (K-Dur) 40 meq BID ORAL 10/13/18 10:30 11/12/18 10:29 10/13/18 17:06 Clementina Flor M.D. October 13, 2018 18:22
--- NOTE | 2018-10-13 19:09 | NUR ---
HAND-OFF: Report given to SLOANE Palma. Pt is in stable condition; plan of care endorsed.
--- NOTE | 2018-10-13 19:10 | NUR ---
NURSE NOTES: Received report from Salima Houston RN. Patient in bed AAO X4 with HOB elevated at semi-fowlers, and no complaints of acute pain or distress at this time. Kept patient clean, dry, and comfortable in bed. Patient able to express needs and wants verbally with no difficulty. Placed on 1L NC to maintain 02 sat of 85-90%, mo S/S of resp distress or Sob at this time. Patient on FC for retention; kept clear, patent and intact at all times and given bedpan PRN. Continuous cardiac monitoring in place per protocol. Safety precaution in place; siderails X3 up, call light within reach, bed in lowest position, brakes and alarm on at all times. IV line intact and patent SL. Needs and wants anticipated and attended, will continue plan of care and monitor for any changes noted.
[2018-10-13 20:00] VITALS: BP 143/68
[2018-10-13] MEDS ORDERED: Albuterol/Ipratropium 3ml neb HHN PRN (22:15)
[2018-10-14] VITALS: BP 136/64
[2018-10-14] MEDS: Piperacillin/Tazobactam 3.375 GM in NS 110 ML IVPB SCH (02:05)
[2018-10-14 04:00] VITALS: BP 140/62
--- NOTE | 2018-10-14 04:18 | NUR ---
NURSE NOTES: Patient in bed asleep with no S/S of distress at this time. Will continue to monitor.
[2018-10-14] MEDS: dilTIAZem HCl 30mg tab ORAL SCH ×3 (05:52→12:00)
[2018-10-14 06:10] LABS: EOSINOPHILS % (AUTO) 4.7 % (0.0-3.0); HEMATOCRIT 42.1 % (37.0-47.0); HEMOGLOBIN 13.5 G/DL (12.0-16.0); LYMPHOCYTES % (AUTO) 17.3 % (20.0-45.0); MEAN CORPUSCULAR VOLUME 100 FL (80-99); MONOCYTES % (AUTO) 10.7 % (1.0-10.0); NEUTROPHILS % (AUTO) 66.3 % (45.0-75.0); PLATELET COUNT 323 K/UL (150-450); RED CELL DISTRIBUTION WIDTH 13.9 % (11.6-14.8); WHITE BLOOD COUNT 8.4 K/UL (4.8-10.8)
[2018-10-14] MEDS: NovoLOG Insulin Flexpen SUBQ SCH ×4 (06:30→21:00)
[2018-10-14 06:39] LABS: ALANINE AMINOTRANSFERASE 20 U/L (12-78); ALBUMIN 2.6 G/DL (3.4-5.0); ALBUMIN/GLOBULIN RATIO 0.7 (1.0-2.7); ALKALINE PHOSPHATASE 70 U/L (46-116); ANION GAP 5 mmol/L (5-15); ASPARTATE AMINO TRANSFERASE 17 U/L (15-37); BILIRUBIN,TOTAL 0.4 MG/DL (0.2-1.0); BLOOD UREA NITROGEN 8 mg/dL (7-18); CARBON DIOXIDE 31 MMOL/L (21-32); CHLORIDE 107 MMOL/L (98-107); CREATININE 0.6 MG/DL (0.55-1.30); PHOSPHORUS 3.5 MG/DL (2.5-4.9); POTASSIUM 3.3 MMOL/L (3.5-5.1); SODIUM 143 MMOL/L (136-145)
--- NOTE | 2018-10-14 07:37 | NUR ---
HAND-OFF: Report given to Cecil Matta RN. Patient in bed in stable condition. Endorsed plan of care.
--- NOTE | 2018-10-14 07:45 | NUR ---
NURSE NOTES: Pt received from SLOANE Palma currently asleep in bed with no acute s/s of distress. Currently on 2L NC, no acute s/s of SOB. Respirations even and unlabored. IV site asymptomatic and patent. Barnhart patent and draining to clear and yellow urine. Bed alarm on. Bed in lowest position, call light and belongings within reach.
[2018-10-14 08:00] VITALS: BP 126/57
[2018-10-14] MEDS: Docusate 100mg cap ORAL SCH ×3 (08:58→17:32)
[2018-10-14] MEDS: Aspirin Baby 81mg NG SCH (08:58)
--- NOTE | 2018-10-14 09:54 | NUR ---
NURSE NOTES: Pt SOB during conversations when awake, advised pt to conserve her energy and re-educated to use Bipap to reduce CO2 levels in her system. Per pt, "I will try to do some exercises with physical therapy first and then try to go on the 'mask' for a little while but I can't go on it for long." RN educated pt on necessity of Bipap, pt verbalized understanding. Informed RT.
--- NOTE | 2018-10-14 10:42 | Infectious Diseases Prog Note ---
Assessment/Plan Assessment/Plan ASSESSMENT: The patient is a 78-year-old female with history of Lyme disease 25 years ago. 1. Possible aspiration pneumonia. Chronic obstructive pulmonary disease exacerbation., s/p Rx -10/13 CT chest: Emphysema/COPD. Trace bilateral pleural effusions. Atherosclerotic vascular disease. Degenerative changes of the thoracic spine. Nonspecific hypodensities within the liver -10/08 CXR: Development of hazy bibasilar opacities which may be related to layering small pleural effusions versus airspace disease. Attention on follow- up recommended. -CXR: Lungs remain clear. -10/04 sp cx normal resp storm; 10/09 sp cx normal storm and yeast -legionella ag urine 2. Abnormal liver function tests (acute), SP -hep serologies neg -Abd US: Trace ascites.Bilateral pleural effusions. Possible medical renal disease. Correlate clinically. Liver cyst. Tiny right renal cysts. Atherosclerotic vascular disease 3. Probable non-STEMI. 4. Leukocytosis, increased (s/p high dose steroids)- now resolved -u/a neg, ucx Neg -Bcx NTD Fever; SP Acute respiratory failure s/p intubation 10/04, sp extubated 10/08 PLAN: 1. Cont to monitor off abx -10/14 SP Zosyn # 10 -10/10 sp Vancomycin #4 -10/08 SP Zithromax #5 -10/04 SP LEvaquin #2 2. Monitor CBC/CMP 3. f/u Bcx x2 4. Monitor cultures 5. We will follow Cardiology recommendations. 6. Based on the patient's clinical course and laboratories, we will do further recommendations. 7. No need for continuing minocycline at this point. : Subjective Allergies: Coded Allergies: HEPARIN (Verified Allergy, Unknown, 10/05/18) RAMIPRIL (Verified Allergy, Unknown, 10/03/18) SULFA (SULFONAMIDE ANTIBIOTICS) (Unverified Allergy, Unknown, 10/05/18) Uncoded Allergies: SULFA (Allergy, Unknown, 10/03/18) Subjective afebrile no leukocytosis at 0.5L NC now off abx discharge planning Objective Vital Signs Last 24 Hour Vital Signs Date Time Temp Pulse Resp B/P (MAP) Pulse Ox O2 Delivery O2 Flow Rate FiO2 10/14/18 09:00 Nasal Cannula 0.5 10/14/18 08:59 83 120/57 10/14/18 08:00 82 10/14/18 08:00 97.5 83 8 126/57 (80) 96 10/14/18 08:00 1.0 10/14/18 06:44 97 Nasal Cannula 1.0 24 10/14/18 06:44 Nasal Cannula 1.0 24 10/14/18 05:52 83 140/62 10/14/18 04:00 82 10/14/18 04:00 97.2 83 20 140/62 (88) 97 10/14/18 04:00 1.0 10/14/18 00:00 95 10/14/18 00:00 93 136/64 10/14/18 00:00 1.0 10/14/18 00:00 97.1 93 20 136/64 (88) 99 10/13/18 22:53 88 18 98 Nasal Cannula 1.0 24 10/13/18 22:44 24 10/13/18 22:44 84 18 97 Nasal Cannula 1.0 24 10/13/18 21:00 Nasal Cannula 1.0 10/13/18 20:00 86 10/13/18 20:00 1.0 10/13/18 20:00 97.7 92 20 143/68 (93) 97 10/13/18 19:25 Nasal Cannula 1.0 24 10/13/18 19:25 96 Nasal Cannula 1.0 24 10/13/18 17:48 126/68 10/13/18 17:04 93 144/67 10/13/18 16:00 97.7 59 20 144/67 (92) 98 10/13/18 16:00 86 10/13/18 16:00 1.0 10/13/18 14:23 93 20 99 Nasal Cannula 1.0 24 10/13/18 14:11 91 20 98 Nasal Cannula 2.0 28 10/13/18 14:11 24 10/13/18 12:46 100 175/95 10/13/18 12:00 84 10/13/18 12:00 2.0 10/13/18 12:00 97.6 100 20 175/95 (121) 95 Height (Feet): 5 Height (Inches): 3.00 Weight (Pounds): 104 Objective HEENT: Mild pale conjunctivae. No icterus. NECK: No lymphadenopathy. CHEST: Coarse breathing sounds. HEART: S1 and S2. ABDOMEN: Soft. ABDOMEN: Soft. EXTREMITIES: No cyanosis. NEUROLOGIC: Sedated. Laboratory Tests Test 10/14/18 05:49 10/14/18 08:00 White Blood Count 8.4 K/UL (4.8-10.8) Red Blood Count 4.20 M/UL (4.20-5.40) Hemoglobin 13.5 G/DL (12.0-16.0) Hematocrit 42.1 % (37.0-47.0) Mean Corpuscular Volume 100 FL (80-99) H Mean Corpuscular Hemoglobin 32.2 PG (27.0-31.0) H Mean Corpuscular Hemoglobin Concent 32.1 G/DL (32.0-36.0) Red Cell Distribution Width 13.9 % (11.6-14.8) Platelet Count 323 K/UL (150-450) Mean Platelet Volume 6.2 FL (6.5-10.1) L Neutrophils (%) (Auto) 66.3 % (45.0-75.0) Lymphocytes (%) (Auto) 17.3 % (20.0-45.0) L Monocytes (%) (Auto) 10.7 % (1.0-10.0) H Eosinophils (%) (Auto) 4.7 % (0.0-3.0) H Basophils (%) (Auto) 1.0 % (0.0-2.0) Sodium Level 143 MMOL/L (136-145) Potassium Level 3.3 MMOL/L (3.5-5.1) L Chloride Level 107 MMOL/L (98-107) Carbon Dioxide Level 31 MMOL/L (21-32) Anion Gap 5 mmol/L (5-15) Blood Urea Nitrogen 8 mg/dL (7-18) Creatinine 0.6 MG/DL (0.55-1.30) Estimat Glomerular Filtration Rate mL/min (>60) Glucose Level 102 MG/DL (74-106) Uric Acid 2.1 MG/DL (2.6-7.2) L Calcium Level 10.0 MG/DL (8.5-10.1) Phosphorus Level 3.5 MG/DL (2.5-4.9) Magnesium Level 2.1 MG/DL (1.8-2.4) Total Bilirubin 0.4 MG/DL (0.2-1.0) Aspartate Amino Transf (AST/SGOT) 17 U/L (15-37) Alanine Aminotransferase (ALT/SGPT) 20 U/L (12-78) Alkaline Phosphatase 70 U/L (46-116) Total Protein 6.4 G/DL (6.4-8.2) Albumin 2.6 G/DL (3.4-5.0) L Globulin 3.8 g/dL Albumin/Globulin Ratio 0.7 (1.0-2.7) L Arterial Blood pH 7.299 (7.350-7.450) Arterial Blood Partial Pressure CO2 58.0 mmHg (35.0-45.0) *H Arterial Blood Partial Pressure O2 < 45.3 mmHg (75.0-100.0) Arterial Blood HCO3 27.8 mmol/L (22.0-26.0) H Arterial Blood Oxygen Saturation 80.9 % (95-100) *L Arterial Blood Base Excess 0.1 (-2-2) Clyde Test Positive Current Medications Medications (Trade) Dose Ordered Sig/Aleah Route PRN Reason Start Time Stop Time Status Last Admin Dose Admin Acetazolamide (Diamox) 250 mg Q8HR ORAL 10/13/18 14:00 11/11/18 17:59 10/14/18 05:53 Albuterol/ Ipratropium (Albuterol/ Ipratropium) 3 ml Q4HRT PRN HHN Shortness of Breath 10/13/18 22:30 10/18/18 22:14 10/13/18 22:42 Amlodipine Besylate (Norvasc) 5 mg DAILY ORAL 10/13/18 10:30 11/12/18 10:29 10/14/18 08:59 Aspirin (ASA) 81 mg DAILY NG 10/12/18 09:00 11/04/18 08:59 10/14/18 08:58 Dextrose (Dextrose 50%) 25 ml Q30M PRN IV Hypoglycemia 10/11/18 16:00 11/03/18 07:53 Dextrose (Dextrose 50%) 50 ml Q30M PRN IV hypoglycemia 10/11/18 16:00 11/03/18 07:59 Diltiazem HCl (Cardizem) 30 mg EVERY 6 HOURS ORAL 10/13/18 12:00 11/12/18 11:59 10/14/18 05:52 Docusate Sodium (Colace) 100 mg THREE TIMES A DAY ORAL 10/11/18 18:00 11/10/18 12:59 10/14/18 08:58 EZETIMIBE (Zetia) 10 mg BEDTIME ORAL 10/11/18 21:00 11/08/18 20:59 10/13/18 21:29 Furosemide (Lasix) 20 mg DAILY IV 10/13/18 12:00 11/12/18 11:59 10/14/18 08:58 Insulin Aspart (NovoLOG) AC+HS SUBQ 10/11/18 16:30 11/03/18 11:29 10/12/18 16:19 Nitroglycerin (Ntg) 1 patch Q24H TDERMAL 10/11/18 18:00 11/04/18 17:59 10/13/18 17:48 Pantoprazole (Protonix) 40 mg EVERY 12 HOURS ORAL 10/11/18 21:00 11/10/18 20:59 10/14/18 08:59 Potassium Chloride (K-Dur) 40 meq BID ORAL 10/13/18 10:30 11/12/18 10:29 10/14/18 08:58 Clementina Flor M.D. October 14, 2018 10:42
--- NOTE | 2018-10-14 11:15 | NUR ---
NURSE NOTES: Endorsed pt's weight loss and stated lethargy after eating which prevents her from eating enough. Per Ivania Voip Technician, she will assess what the patient can have for supplement.
--- NOTE | 2018-10-14 11:41 | Pulmonology Progress Note ---
Assessment/Plan Problems: (1) NSTEMI (non-ST elevated myocardial infarction) (2) Acute respiratory failure (3) COPD (chronic obstructive pulmonary disease) (4) Diabetes (5) UTI (urinary tract infection) (6) Episode of generalized weakness (7) Severe protein-calorie malnutrition Assessment/Plan titrate fio2 to sat of 85 to 90% to increase the hypoxemic drive of the brain CT chest to rule out emphysema still pending BIPAP for pulse oximeter less than 85% f/u cardiology recommendations pt /ot on lasix 20 check electrolytes K supplement if needed. Subjective ROS Limited/Unobtainable: No Interval Events: late note for October 13 Constitutional: Reports: no symptoms HEENT: Repors: no symptoms Respiratory: Reports: no symptoms Allergies: Coded Allergies: HEPARIN (Verified Allergy, Unknown, 10/05/18) RAMIPRIL (Verified Allergy, Unknown, 10/03/18) SULFA (SULFONAMIDE ANTIBIOTICS) (Unverified Allergy, Unknown, 10/05/18) Uncoded Allergies: SULFA (Allergy, Unknown, 10/03/18) Objective Last 24 Hour Vital Signs Date Time Temp Pulse Resp B/P (MAP) Pulse Ox O2 Delivery O2 Flow Rate FiO2 10/14/18 09:00 Nasal Cannula 0.5 10/14/18 08:59 83 120/57 10/14/18 08:00 82 10/14/18 08:00 97.5 83 8 126/57 (80) 96 10/14/18 08:00 1.0 10/14/18 06:44 97 Nasal Cannula 1.0 24 10/14/18 06:44 Nasal Cannula 1.0 24 10/14/18 05:52 83 140/62 10/14/18 04:00 82 10/14/18 04:00 97.2 83 20 140/62 (88) 97 10/14/18 04:00 1.0 10/14/18 00:00 95 10/14/18 00:00 93 136/64 10/14/18 00:00 1.0 10/14/18 00:00 97.1 93 20 136/64 (88) 99 10/13/18 22:53 88 18 98 Nasal Cannula 1.0 24 10/13/18 22:44 24 10/13/18 22:44 84 18 97 Nasal Cannula 1.0 24 10/13/18 21:00 Nasal Cannula 1.0 10/13/18 20:00 86 10/13/18 20:00 1.0 10/13/18 20:00 97.7 92 20 143/68 (93) 97 10/13/18 19:25 Nasal Cannula 1.0 24 10/13/18 19:25 96 Nasal Cannula 1.0 24 10/13/18 17:48 126/68 10/13/18 17:04 93 144/67 10/13/18 16:00 97.7 59 20 144/67 (92) 98 10/13/18 16:00 86 10/13/18 16:00 1.0 10/13/18 14:23 93 20 99 Nasal Cannula 1.0 24 10/13/18 14:11 91 20 98 Nasal Cannula 2.0 28 10/13/18 14:11 24 10/13/18 12:46 100 175/95 10/13/18 12:00 84 10/13/18 12:00 2.0 10/13/18 12:00 97.6 100 20 175/95 (121) 95 Intake and Output 10/13/18 10/14/18 19:00 07:00 Intake Total 600 ml Output Total 1600 ml 1400 ml Balance -1000 ml -1400 ml Intake Oral 600 ml Output Urine Total 1600 ml 1400 ml General Appearance: cachetic HEENT: normocephalic, atraumatic Respiratory/Chest: chest wall non-tender, lungs clear Breasts: no masses Cardiovascular: normal rate Abdomen: soft, non tender Extremities: no cyanosis, no clubbing Laboratory Tests 10/14/18 05:49: White Blood Count 8.4, Red Blood Count 4.20, Hemoglobin 13.5, Hematocrit 42.1, Mean Corpuscular Volume 100H, Mean Corpuscular Hemoglobin 32.2H, Mean Corpuscular Hemoglobin Concent 32.1, Red Cell Distribution Width 13.9, Platelet Count 323, Mean Platelet Volume 6.2L, Neutrophils (%) (Auto) 66.3, Lymphocytes ( %) (Auto) 17.3L, Monocytes (%) (Auto) 10.7H, Eosinophils (%) (Auto) 4.7H, Basophils (%) (Auto) 1.0, Sodium Level 143, Potassium Level 3.3L, Chloride Level 107, Carbon Dioxide Level 31, Anion Gap 5, Blood Urea Nitrogen 8, Creatinine 0.6, Estimat Glomerular Filtration Rate , Glucose Level 102, Uric Acid 2.1L, Calcium Level 10.0, Phosphorus Level 3.5, Magnesium Level 2.1, Total Bilirubin 0.4, Aspartate Amino Transf (AST/SGOT) 17, Alanine Aminotransferase ( ALT/SGPT) 20, Alkaline Phosphatase 70, Total Protein 6.4, Albumin 2.6L, Globulin 3.8, Albumin/Globulin Ratio 0.7L 10/14/18 08:00: Arterial Blood pH 7.299L, Arterial Blood Partial Pressure CO2 58.0*H, Arterial Blood Partial Pressure O2 < 45.3*L, Arterial Blood HCO3 27.8H, Arterial Blood Oxygen Saturation 80.9*L, Arterial Blood Base Excess 0.1, Clyde Test Positive Current Medications Medications (Trade) Dose Ordered Sig/Aleah Route PRN Reason Start Time Stop Time Status Last Admin Dose Admin Acetazolamide (Diamox) 250 mg Q8HR ORAL 10/13/18 14:00 11/11/18 17:59 10/14/18 05:53 Albuterol/ Ipratropium (Albuterol/ Ipratropium) 3 ml Q4HRT PRN HHN Shortness of Breath 10/13/18 22:30 10/18/18 22:14 10/13/18 22:42 Amlodipine Besylate (Norvasc) 5 mg DAILY ORAL 10/13/18 10:30 11/12/18 10:29 10/14/18 08:59 Aspirin (ASA) 81 mg DAILY NG 10/12/18 09:00 11/04/18 08:59 10/14/18 08:58 Dextrose (Dextrose 50%) 25 ml Q30M PRN IV Hypoglycemia 10/11/18 16:00 11/03/18 07:53 Dextrose (Dextrose 50%) 50 ml Q30M PRN IV hypoglycemia 10/11/18 16:00 11/03/18 07:59 Diltiazem HCl (Cardizem) 30 mg EVERY 6 HOURS ORAL 10/13/18 12:00 11/12/18 11:59 10/14/18 05:52 Docusate Sodium (Colace) 100 mg THREE TIMES A DAY ORAL 10/11/18 18:00 11/10/18 12:59 10/14/18 08:58 EZETIMIBE (Zetia) 10 mg BEDTIME ORAL 10/11/18 21:00 11/08/18 20:59 10/13/18 21:29 Furosemide (Lasix) 20 mg DAILY IV 10/13/18 12:00 11/12/18 11:59 10/14/18 08:58 Insulin Aspart (NovoLOG) AC+HS SUBQ 10/11/18 16:30 11/03/18 11:29 10/12/18 16:19 Nitroglycerin (Ntg) 1 patch Q24H TDERMAL 10/11/18 18:00 11/04/18 17:59 10/13/18 17:48 Pantoprazole (Protonix) 40 mg EVERY 12 HOURS ORAL 10/11/18 21:00 11/10/18 20:59 10/14/18 08:59 Potassium Chloride 100 ml @ 100 mls/hr Q1H IVPB 10/14/18 12:00 10/14/18 15:59 Potassium Chloride (K-Dur) 40 meq BID ORAL 10/13/18 10:30 11/12/18 10:29 10/14/18 08:58 Steven Romo MD October 14, 2018 11:41
--- NOTE | 2018-10-14 11:43 | Pulmonology Progress Note ---
Assessment/Plan Problems: (1) NSTEMI (non-ST elevated myocardial infarction) (2) Acute respiratory failure (3) COPD (chronic obstructive pulmonary disease) (4) Diabetes (5) UTI (urinary tract infection) (6) Episode of generalized weakness (7) Severe protein-calorie malnutrition Assessment/Plan doing better titrate fio2 to sat of 85 to 90% to increase the hypoxemic drive of the brain CT chest to rule out emphysema, done, results reviewed with the patient. BIPAP for pulse oximeter less than 85% f/u cardiology recommendations pt /ot on lasix 20 check electrolytes K supplement if needed. Subjective ROS Limited/Unobtainable: No Interval Events: CT scan results reviewed with the patient. showing Emphysema Allergies: Coded Allergies: HEPARIN (Verified Allergy, Unknown, 10/05/18) RAMIPRIL (Verified Allergy, Unknown, 10/03/18) SULFA (SULFONAMIDE ANTIBIOTICS) (Unverified Allergy, Unknown, 10/05/18) Uncoded Allergies: SULFA (Allergy, Unknown, 10/03/18) Objective Last 24 Hour Vital Signs Date Time Temp Pulse Resp B/P (MAP) Pulse Ox O2 Delivery O2 Flow Rate FiO2 10/14/18 09:00 Nasal Cannula 0.5 10/14/18 08:59 83 120/57 10/14/18 08:00 82 10/14/18 08:00 97.5 83 8 126/57 (80) 96 10/14/18 08:00 1.0 10/14/18 06:44 97 Nasal Cannula 1.0 24 10/14/18 06:44 Nasal Cannula 1.0 24 10/14/18 05:52 83 140/62 10/14/18 04:00 82 10/14/18 04:00 97.2 83 20 140/62 (88) 97 10/14/18 04:00 1.0 10/14/18 00:00 95 10/14/18 00:00 93 136/64 10/14/18 00:00 1.0 10/14/18 00:00 97.1 93 20 136/64 (88) 99 10/13/18 22:53 88 18 98 Nasal Cannula 1.0 24 10/13/18 22:44 24 10/13/18 22:44 84 18 97 Nasal Cannula 1.0 24 10/13/18 21:00 Nasal Cannula 1.0 10/13/18 20:00 86 10/13/18 20:00 1.0 10/13/18 20:00 97.7 92 20 143/68 (93) 97 10/13/18 19:25 Nasal Cannula 1.0 24 10/13/18 19:25 96 Nasal Cannula 1.0 24 10/13/18 17:48 126/68 10/13/18 17:04 93 144/67 10/13/18 16:00 97.7 59 20 144/67 (92) 98 10/13/18 16:00 86 10/13/18 16:00 1.0 10/13/18 14:23 93 20 99 Nasal Cannula 1.0 24 10/13/18 14:11 91 20 98 Nasal Cannula 2.0 28 10/13/18 14:11 24 10/13/18 12:46 100 175/95 10/13/18 12:00 84 10/13/18 12:00 2.0 10/13/18 12:00 97.6 100 20 175/95 (121) 95 Intake and Output 10/13/18 10/14/18 19:00 07:00 Intake Total 600 ml Output Total 1600 ml 1400 ml Balance -1000 ml -1400 ml Intake Oral 600 ml Output Urine Total 1600 ml 1400 ml General Appearance: WD/WN HEENT: normocephalic, atraumatic Respiratory/Chest: chest wall non-tender, lungs clear, normal breath sounds Breasts: no masses Cardiovascular: normal peripheral pulses, normal rate Abdomen: normal bowel sounds, soft, non tender Genitourinary: normal external genitalia Extremities: no cyanosis Skin: no ulcers 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, no motor/sensory deficits Lymphatic: no neck adenopathy Laboratory Tests 10/14/18 05:49: White Blood Count 8.4, Red Blood Count 4.20, Hemoglobin 13.5, Hematocrit 42.1, Mean Corpuscular Volume 100H, Mean Corpuscular Hemoglobin 32.2H, Mean Corpuscular Hemoglobin Concent 32.1, Red Cell Distribution Width 13.9, Platelet Count 323, Mean Platelet Volume 6.2L, Neutrophils (%) (Auto) 66.3, Lymphocytes ( %) (Auto) 17.3L, Monocytes (%) (Auto) 10.7H, Eosinophils (%) (Auto) 4.7H, Basophils (%) (Auto) 1.0, Sodium Level 143, Potassium Level 3.3L, Chloride Level 107, Carbon Dioxide Level 31, Anion Gap 5, Blood Urea Nitrogen 8, Creatinine 0.6, Estimat Glomerular Filtration Rate , Glucose Level 102, Uric Acid 2.1L, Calcium Level 10.0, Phosphorus Level 3.5, Magnesium Level 2.1, Total Bilirubin 0.4, Aspartate Amino Transf (AST/SGOT) 17, Alanine Aminotransferase ( ALT/SGPT) 20, Alkaline Phosphatase 70, Total Protein 6.4, Albumin 2.6L, Globulin 3.8, Albumin/Globulin Ratio 0.7L 10/14/18 08:00: Arterial Blood pH 7.299L, Arterial Blood Partial Pressure CO2 58.0*H, Arterial Blood Partial Pressure O2 < 45.3*L, Arterial Blood HCO3 27.8H, Arterial Blood Oxygen Saturation 80.9*L, Arterial Blood Base Excess 0.1, Clyde Test Positive Current Medications Medications (Trade) Dose Ordered Sig/Aleah Route PRN Reason Start Time Stop Time Status Last Admin Dose Admin Acetazolamide (Diamox) 250 mg Q8HR ORAL 10/13/18 14:00 11/11/18 17:59 10/14/18 05:53 Albuterol/ Ipratropium (Albuterol/ Ipratropium) 3 ml Q4HRT PRN HHN Shortness of Breath 10/13/18 22:30 10/18/18 22:14 10/13/18 22:42 Amlodipine Besylate (Norvasc) 5 mg DAILY ORAL 10/13/18 10:30 11/12/18 10:29 10/14/18 08:59 Aspirin (ASA) 81 mg DAILY NG 10/12/18 09:00 11/04/18 08:59 10/14/18 08:58 Dextrose (Dextrose 50%) 25 ml Q30M PRN IV Hypoglycemia 10/11/18 16:00 11/03/18 07:53 Dextrose (Dextrose 50%) 50 ml Q30M PRN IV hypoglycemia 10/11/18 16:00 11/03/18 07:59 Diltiazem HCl (Cardizem) 30 mg EVERY 6 HOURS ORAL 10/13/18 12:00 11/12/18 11:59 10/14/18 05:52 Docusate Sodium (Colace) 100 mg THREE TIMES A DAY ORAL 10/11/18 18:00 11/10/18 12:59 10/14/18 08:58 EZETIMIBE (Zetia) 10 mg BEDTIME ORAL 10/11/18 21:00 11/08/18 20:59 10/13/18 21:29 Furosemide (Lasix) 20 mg DAILY IV 10/13/18 12:00 11/12/18 11:59 10/14/18 08:58 Insulin Aspart (NovoLOG) AC+HS SUBQ 10/11/18 16:30 11/03/18 11:29 10/12/18 16:19 Nitroglycerin (Ntg) 1 patch Q24H TDERMAL 10/11/18 18:00 11/04/18 17:59 10/13/18 17:48 Pantoprazole (Protonix) 40 mg EVERY 12 HOURS ORAL 10/11/18 21:00 11/10/18 20:59 10/14/18 08:59 Potassium Chloride 100 ml @ 100 mls/hr Q1H IVPB 10/14/18 12:00 10/14/18 15:59 Potassium Chloride (K-Dur) 40 meq BID ORAL 10/13/18 10:30 11/12/18 10:29 10/14/18 08:58 Sodium Chloride 400 ml @ 100 mls/hr Q4H IV 10/14/18 12:00 10/14/18 15:59 Steven Romo MD October 14, 2018 11:43
[2018-10-14 12:00] VITALS: BP 121/78
[2018-10-14] MEDS ORDERED: Sodium Chloride for KCL Premix X 4hrs IV SCH (12:00)
--- NOTE | 2018-10-14 12:18 | Nephrology Progress Note ---
Assessment/Plan Problem List: (1) Acute respiratory failure (2) Severe protein-calorie malnutrition (3) NSTEMI (non-ST elevated myocardial infarction) (4) COPD (chronic obstructive pulmonary disease) (5) HTN (hypertension) (6) Hypercalcemia Assessment Acute respiratory failure COPD Azotemia, High Na , elevated LFTs Elevated troponin Plan Aredia 60mg for high Ca increase diamox lasix low dose cardiazem for high bp K phos as needed as needed: bipap K IV and or PO as needed Per cardiology Pulm management monitor renal parameters discussed with RN Subjective ROS Limited/Unobtainable: No Constitutional: Reports: malaise, weakness Objective Objective Last 24 Hour Vital Signs Date Time Temp Pulse Resp B/P (MAP) Pulse Ox O2 Delivery O2 Flow Rate FiO2 10/14/18 12:00 0.5 10/14/18 12:00 97.3 88 18 121/78 (92) 95 10/14/18 09:00 Nasal Cannula 0.5 10/14/18 08:59 83 120/57 10/14/18 08:00 82 10/14/18 08:00 97.5 83 18 126/57 (80) 96 10/14/18 08:00 1.0 10/14/18 06:44 97 Nasal Cannula 1.0 24 10/14/18 06:44 Nasal Cannula 1.0 24 10/14/18 05:52 83 140/62 10/14/18 04:00 82 10/14/18 04:00 97.2 83 20 140/62 (88) 97 10/14/18 04:00 1.0 10/14/18 00:00 95 10/14/18 00:00 93 136/64 10/14/18 00:00 1.0 10/14/18 00:00 97.1 93 20 136/64 (88) 99 10/13/18 22:53 88 18 98 Nasal Cannula 1.0 24 10/13/18 22:44 24 10/13/18 22:44 84 18 97 Nasal Cannula 1.0 24 10/13/18 21:00 Nasal Cannula 1.0 10/13/18 20:00 86 10/13/18 20:00 1.0 10/13/18 20:00 97.7 92 20 143/68 (93) 97 10/13/18 19:25 Nasal Cannula 1.0 24 10/13/18 19:25 96 Nasal Cannula 1.0 24 10/13/18 17:48 126/68 10/13/18 17:04 93 144/67 10/13/18 16:00 97.7 59 20 144/67 (92) 98 10/13/18 16:00 86 10/13/18 16:00 1.0 10/13/18 14:23 93 20 99 Nasal Cannula 1.0 24 10/13/18 14:11 91 20 98 Nasal Cannula 2.0 28 10/13/18 14:11 24 10/13/18 12:46 100 175/95 Intake and Output 10/13/18 10/14/18 19:00 07:00 Intake Total 600 ml Output Total 1600 ml 1400 ml Balance -1000 ml -1400 ml Intake Oral 600 ml Output Urine Total 1600 ml 1400 ml Laboratory Tests 10/14/18 05:49: White Blood Count 8.4, Red Blood Count 4.20, Hemoglobin 13.5, Hematocrit 42.1, Mean Corpuscular Volume 100H, Mean Corpuscular Hemoglobin 32.2H, Mean Corpuscular Hemoglobin Concent 32.1, Red Cell Distribution Width 13.9, Platelet Count 323, Mean Platelet Volume 6.2L, Neutrophils (%) (Auto) 66.3, Lymphocytes ( %) (Auto) 17.3L, Monocytes (%) (Auto) 10.7H, Eosinophils (%) (Auto) 4.7H, Basophils (%) (Auto) 1.0, Sodium Level 143, Potassium Level 3.3L, Chloride Level 107, Carbon Dioxide Level 31, Anion Gap 5, Blood Urea Nitrogen 8, Creatinine 0.6, Estimat Glomerular Filtration Rate , Glucose Level 102, Uric Acid 2.1L, Calcium Level 10.0, Phosphorus Level 3.5, Magnesium Level 2.1, Total Bilirubin 0.4, Aspartate Amino Transf (AST/SGOT) 17, Alanine Aminotransferase ( ALT/SGPT) 20, Alkaline Phosphatase 70, Total Protein 6.4, Albumin 2.6L, Globulin 3.8, Albumin/Globulin Ratio 0.7L 10/14/18 08:00: Arterial Blood pH 7.299L, Arterial Blood Partial Pressure CO2 58.0*H, Arterial Blood Partial Pressure O2 < 45.3*L, Arterial Blood HCO3 27.8H, Arterial Blood Oxygen Saturation 80.9*L, Arterial Blood Base Excess 0.1, Clyde Test Positive Height (Feet): 5 Height (Inches): 3.00 Weight (Pounds): 104 General Appearance: no apparent distress Cardiovascular: normal rate Respiratory/Chest: decreased breath sounds Abdomen: distended Objective no change Robbie Garza MD October 14, 2018 12:18
[2018-10-14] MEDS ORDERED: Pamidronate Disodium Inj 60 MG in Sodium Chloride 550 ML IVPB ONE (14:00)
--- NOTE | 2018-10-14 15:02 | General Progress Note ---
Assessment/Plan Problem List: (1) UTI (urinary tract infection) ICD Codes: N39.0 - Urinary tract infection, site not specified SNOMED: 12901427 (2) Diabetes ICD Codes: E11.9 - Type 2 diabetes mellitus without complications SNOMED: 67743249 (3) COPD (chronic obstructive pulmonary disease) ICD Codes: J44.9 - Chronic obstructive pulmonary disease, unspecified SNOMED: 99291275 Qualifiers: Qualified Codes: J44.9 - Chronic obstructive pulmonary disease, unspecified (4) NSTEMI (non-ST elevated myocardial infarction) ICD Codes: I21.4 - Non-ST elevation (NSTEMI) myocardial infarction SNOMED: 19324816 (5) Episode of generalized weakness ICD Codes: R53.1 - Weakness SNOMED: 26988767 Status: stable, progressing Assessment/Plan: o2 pulm tx abx pain control cardio f/u cbc bmp am aru eval Subjective Constitutional: Reports: weakness Respiratory: Reports: shortness of breath, wheezing Allergies: Coded Allergies: HEPARIN (Verified Allergy, Unknown, 10/05/18) RAMIPRIL (Verified Allergy, Unknown, 10/03/18) SULFA (SULFONAMIDE ANTIBIOTICS) (Unverified Allergy, Unknown, 10/05/18) Uncoded Allergies: SULFA (Allergy, Unknown, 10/03/18) All Systems: reviewed and negative except above Subjective o2 nc sleepy Objective Last 24 Hour Vital Signs Date Time Temp Pulse Resp B/P (MAP) Pulse Ox O2 Delivery O2 Flow Rate FiO2 10/14/18 12:00 0.5 10/14/18 12:00 97.3 88 18 121/78 (92) 95 10/14/18 12:00 88 119/78 10/14/18 09:00 Nasal Cannula 0.5 10/14/18 08:59 83 120/57 10/14/18 08:00 82 10/14/18 08:00 97.5 83 18 126/57 (80) 96 10/14/18 08:00 1.0 10/14/18 06:44 97 Nasal Cannula 1.0 24 10/14/18 06:44 Nasal Cannula 1.0 24 10/14/18 05:52 83 140/62 10/14/18 04:00 82 10/14/18 04:00 97.2 83 20 140/62 (88) 97 10/14/18 04:00 1.0 10/14/18 00:00 95 10/14/18 00:00 93 136/64 10/14/18 00:00 1.0 10/14/18 00:00 97.1 93 20 136/64 (88) 99 10/13/18 22:53 88 18 98 Nasal Cannula 1.0 24 10/13/18 22:44 24 10/13/18 22:44 84 18 97 Nasal Cannula 1.0 24 10/13/18 21:00 Nasal Cannula 1.0 10/13/18 20:00 86 10/13/18 20:00 1.0 10/13/18 20:00 97.7 92 20 143/68 (93) 97 10/13/18 19:25 Nasal Cannula 1.0 24 10/13/18 19:25 96 Nasal Cannula 1.0 24 10/13/18 17:48 126/68 10/13/18 17:04 93 144/67 10/13/18 16:00 97.7 59 20 144/67 (92) 98 10/13/18 16:00 86 10/13/18 16:00 1.0 Intake and Output 10/13/18 10/14/18 19:00 07:00 Intake Total 600 ml Output Total 1600 ml 1400 ml Balance -1000 ml -1400 ml Intake Oral 600 ml Output Urine Total 1600 ml 1400 ml Laboratory Tests 10/14/18 05:49: White Blood Count 8.4, Red Blood Count 4.20, Hemoglobin 13.5, Hematocrit 42.1, Mean Corpuscular Volume 100H, Mean Corpuscular Hemoglobin 32.2H, Mean Corpuscular Hemoglobin Concent 32.1, Red Cell Distribution Width 13.9, Platelet Count 323, Mean Platelet Volume 6.2L, Neutrophils (%) (Auto) 66.3, Lymphocytes ( %) (Auto) 17.3L, Monocytes (%) (Auto) 10.7H, Eosinophils (%) (Auto) 4.7H, Basophils (%) (Auto) 1.0, Sodium Level 143, Potassium Level 3.3L, Chloride Level 107, Carbon Dioxide Level 31, Anion Gap 5, Blood Urea Nitrogen 8, Creatinine 0.6, Estimat Glomerular Filtration Rate , Glucose Level 102, Uric Acid 2.1L, Calcium Level 10.0, Phosphorus Level 3.5, Magnesium Level 2.1, Total Bilirubin 0.4, Aspartate Amino Transf (AST/SGOT) 17, Alanine Aminotransferase ( ALT/SGPT) 20, Alkaline Phosphatase 70, Total Protein 6.4, Albumin 2.6L, Globulin 3.8, Albumin/Globulin Ratio 0.7L 10/14/18 08:00: Arterial Blood pH 7.299L, Arterial Blood Partial Pressure CO2 58.0*H, Arterial Blood Partial Pressure O2 < 45.3*L, Arterial Blood HCO3 27.8H, Arterial Blood Oxygen Saturation 80.9*L, Arterial Blood Base Excess 0.1, Clyde Test Positive Height (Feet): 5 Height (Inches): 3.00 Weight (Pounds): 104 General Appearance: lethargic EENT: normal ENT inspection Neck: normal alignment Cardiovascular: normal peripheral pulses, normal rate, regular rhythm Respiratory/Chest: chest wall non-tender, decreased breath sounds Abdomen: normal bowel sounds, non tender, soft Extremities: normal inspection Edema: no edema noted Arm (L), no edema noted Arm (R), no edema noted Leg (L), no edema noted Leg (R), no edema noted Pedal (L), no edema noted Pedal (R), no edema noted Generalized Neurologic: responsive, motor weakness Skin: normal pigmentation, warm/dry Osei Naranjo DO October 14, 2018 15:02
--- NOTE | 2018-10-14 15:17 | Cardiac Electrophysiology PN ---
Assessment/Plan Assessment/Plan 1. NSTEMI. likely type 2. No acute ECG changes. EF nl and no WMA. On aspirin and lipitor. 2. S/P Resp Failure, extubated 3. HTN. DC Cardizem as pt on Norvasc. Increase Norvasc to 10 daily 4. Lyme's disease 5. S/P Sepsis DW RN Subjective Subjective No SVT or VT. On tele in SR.No CP or SOB Objective Last 24 Hour Vital Signs Date Time Temp Pulse Resp B/P (MAP) Pulse Ox O2 Delivery O2 Flow Rate FiO2 10/14/18 12:00 0.5 10/14/18 12:00 97.3 88 18 121/78 (92) 95 10/14/18 12:00 88 119/78 10/14/18 09:00 Nasal Cannula 0.5 10/14/18 08:59 83 120/57 10/14/18 08:00 82 10/14/18 08:00 97.5 83 18 126/57 (80) 96 10/14/18 08:00 1.0 10/14/18 06:44 97 Nasal Cannula 1.0 24 10/14/18 06:44 Nasal Cannula 1.0 24 10/14/18 05:52 83 140/62 10/14/18 04:00 82 10/14/18 04:00 97.2 83 20 140/62 (88) 97 10/14/18 04:00 1.0 10/14/18 00:00 95 10/14/18 00:00 93 136/64 10/14/18 00:00 1.0 10/14/18 00:00 97.1 93 20 136/64 (88) 99 10/13/18 22:53 88 18 98 Nasal Cannula 1.0 24 10/13/18 22:44 24 10/13/18 22:44 84 18 97 Nasal Cannula 1.0 24 10/13/18 21:00 Nasal Cannula 1.0 10/13/18 20:00 86 10/13/18 20:00 1.0 10/13/18 20:00 97.7 92 20 143/68 (93) 97 10/13/18 19:25 Nasal Cannula 1.0 24 10/13/18 19:25 96 Nasal Cannula 1.0 24 10/13/18 17:48 126/68 10/13/18 17:04 93 144/67 10/13/18 16:00 97.7 59 20 144/67 (92) 98 10/13/18 16:00 86 10/13/18 16:00 1.0 Intake and Output 10/13/18 10/14/18 19:00 07:00 Intake Total 600 ml Output Total 1600 ml 1400 ml Balance -1000 ml -1400 ml Intake Oral 600 ml Output Urine Total 1600 ml 1400 ml Laboratory Tests Test 10/14/18 05:49 10/14/18 08:00 White Blood Count 8.4 K/UL (4.8-10.8) Red Blood Count 4.20 M/UL (4.20-5.40) Hemoglobin 13.5 G/DL (12.0-16.0) Hematocrit 42.1 % (37.0-47.0) Mean Corpuscular Volume 100 FL (80-99) H Mean Corpuscular Hemoglobin 32.2 PG (27.0-31.0) H Mean Corpuscular Hemoglobin Concent 32.1 G/DL (32.0-36.0) Red Cell Distribution Width 13.9 % (11.6-14.8) Platelet Count 323 K/UL (150-450) Mean Platelet Volume 6.2 FL (6.5-10.1) L Neutrophils (%) (Auto) 66.3 % (45.0-75.0) Lymphocytes (%) (Auto) 17.3 % (20.0-45.0) L Monocytes (%) (Auto) 10.7 % (1.0-10.0) H Eosinophils (%) (Auto) 4.7 % (0.0-3.0) H Basophils (%) (Auto) 1.0 % (0.0-2.0) Sodium Level 143 MMOL/L (136-145) Potassium Level 3.3 MMOL/L (3.5-5.1) L Chloride Level 107 MMOL/L (98-107) Carbon Dioxide Level 31 MMOL/L (21-32) Anion Gap 5 mmol/L (5-15) Blood Urea Nitrogen 8 mg/dL (7-18) Creatinine 0.6 MG/DL (0.55-1.30) Estimat Glomerular Filtration Rate mL/min (>60) Glucose Level 102 MG/DL (74-106) Uric Acid 2.1 MG/DL (2.6-7.2) L Calcium Level 10.0 MG/DL (8.5-10.1) Phosphorus Level 3.5 MG/DL (2.5-4.9) Magnesium Level 2.1 MG/DL (1.8-2.4) Total Bilirubin 0.4 MG/DL (0.2-1.0) Aspartate Amino Transf (AST/SGOT) 17 U/L (15-37) Alanine Aminotransferase (ALT/SGPT) 20 U/L (12-78) Alkaline Phosphatase 70 U/L (46-116) Total Protein 6.4 G/DL (6.4-8.2) Albumin 2.6 G/DL (3.4-5.0) L Globulin 3.8 g/dL Albumin/Globulin Ratio 0.7 (1.0-2.7) L Arterial Blood pH 7.299 (7.350-7.450) Arterial Blood Partial Pressure CO2 58.0 mmHg (35.0-45.0) *H Arterial Blood Partial Pressure O2 < 45.3 mmHg (75.0-100.0) Arterial Blood HCO3 27.8 mmol/L (22.0-26.0) H Arterial Blood Oxygen Saturation 80.9 % (95-100) *L Arterial Blood Base Excess 0.1 (-2-2) Clyde Test Positive Objective HEENT: No JVD. Lungs: Rhonchi at bases, Heart: RRR, No G/R/M Abdomen: soft, non-tender, active bowel sounds Extremities: no C/C/E Braulio Cruz MD October 14, 2018 15:17
--- NOTE | 2018-10-14 15:28 | NUR ---
DISCHARGE PLANNING FAXED REFERRAL TO [facility] WILL FOLLOW UP
--- NOTE | 2018-10-14 15:50 | NUR ---
NURSE NOTES: Pt complained of gayle catheter, per pt - "she feels wet and has had to be changed a couple times." RN assessed gayle catheter, possible leakage. RN endorsed to Dr. Romo to insert new one. Per Dr. Romo, "ok to reinsert new catheter."
[2018-10-14 16:00] VITALS: BP 123/81
[2018-10-14] MEDS: Nitroglycerin Patch 0.4mg TDERMAL SCH (17:32)
--- NOTE | 2018-10-14 19:26 | NUR ---
HAND-OFF: Report given to SLOANE Palma. No acute s/s of distress noted.
[2018-10-14 20:00] VITALS: BP 146/76
[2018-10-14] MEDS: Albuterol/Ipratropium 3ml neb HHN PRN (21:34)
[2018-10-15] VITALS: BP 151/71
[2018-10-15 04:00] VITALS: BP 121/70
[2018-10-15] MEDS: NovoLOG Insulin Flexpen SUBQ SCH ×4 (05:14→20:45)
[2018-10-15 07:00] LABS: ALANINE AMINOTRANSFERASE 18 U/L (12-78); ALBUMIN 2.6 G/DL (3.4-5.0); ALBUMIN/GLOBULIN RATIO 0.7 (1.0-2.7); ALKALINE PHOSPHATASE 72 U/L (46-116); ANION GAP 6 mmol/L (5-15); ASPARTATE AMINO TRANSFERASE 13 U/L (15-37); BILIRUBIN,TOTAL 0.3 MG/DL (0.2-1.0); BLOOD UREA NITROGEN 14 mg/dL (7-18); CALCIUM 9.9 MG/DL (8.5-10.1); CARBON DIOXIDE 27 MMOL/L (21-32); CHLORIDE 108 MMOL/L (98-107); CREATININE 0.5 MG/DL (0.55-1.30); PHOSPHORUS 3.8 MG/DL (2.5-4.9); POTASSIUM 3.5 MMOL/L (3.5-5.1); SODIUM 141 MMOL/L (136-145)
[2018-10-15 07:08] LABS: BASOPHILS % (AUTO) 0.5 % (0.0-2.0); EOSINOPHILS % (AUTO) 3.7 % (0.0-3.0); HEMATOCRIT 41.3 % (37.0-47.0); HEMOGLOBIN 13.3 G/DL (12.0-16.0); MEAN CORPUSCULAR VOLUME 101 FL (80-99); MONOCYTES % (AUTO) 7.7 % (1.0-10.0); NEUTROPHILS % (AUTO) 75.2 % (45.0-75.0); PLATELET COUNT 312 K/UL (150-450); RED BLOOD COUNT 4.11 M/UL (4.20-5.40); RED CELL DISTRIBUTION WIDTH 14.2 % (11.6-14.8); WHITE BLOOD COUNT 8.6 K/UL (4.8-10.8)
--- NOTE | 2018-10-15 07:10 | NUR ---
NURSE NOTES: Received report from Bimal Tabor Patient in bed, AAO X4 with HOB elevated at semi-fowlers, and deneis of acute pain or distress at this time. Patient is on 1L NC to maintain 02 sat of 85-90%; no S/S of resp distress or Sob at this time. Patient on Barnhart Catheter for retention; kept clear, patent and intact at all times and given bedpan PRN. Continuous cardiac monitoring in place per protocol. Safety precaution in place; side rails X3 up, call light within reach, bed in lowest position, brakes and alarm on at all times. IV line intact and patent SL. Will follow through plan of care.
--- NOTE | 2018-10-15 07:56 | NUR ---
HAND-OFF: Report given to Cecil Bee RN. Patient in stable condition. Will continue plan of care.
[2018-10-15 08:00] VITALS: BP 105/65
[2018-10-15] MEDS: Docusate 100mg cap ORAL SCH ×3 (09:00→17:58)
[2018-10-15] MEDS: Aspirin Baby 81mg NG SCH (09:00)
--- NOTE | 2018-10-15 10:15 | Nephrology Progress Note ---
Assessment/Plan Problem List: (1) Acute respiratory failure (2) Severe protein-calorie malnutrition (3) NSTEMI (non-ST elevated myocardial infarction) (4) COPD (chronic obstructive pulmonary disease) (5) HTN (hypertension) (6) Hypercalcemia Assessment Acute respiratory failure COPD Azotemia, High Na , elevated LFTs Elevated troponin Plan Aredia 60mg for high Ca increase diamox lasix low dose K phos as needed as needed: bipap K IV and or PO as needed Per cardiology Pulm management monitor renal parameters discussed with RN Subjective ROS Limited/Unobtainable: No Constitutional: Reports: malaise, weakness Objective Objective Last 24 Hour Vital Signs Date Time Temp Pulse Resp B/P (MAP) Pulse Ox O2 Delivery O2 Flow Rate FiO2 10/15/18 09:56 91 Nasal Cannula 1.0 24 10/15/18 09:56 Nasal Cannula 1.0 24 10/15/18 09:00 Nasal Cannula 1.0 10/15/18 09:00 78 105/65 10/15/18 08:33 1.0 10/15/18 08:00 97.9 78 18 105/65 (78) 97 10/15/18 07:54 95 10/15/18 04:00 82 10/15/18 04:00 1.0 10/15/18 04:00 98.4 89 17 121/70 (87) 97 10/15/18 00:00 86 10/15/18 00:00 1.0 10/15/18 00:00 98.1 97 20 151/71 (97) 95 10/14/18 21:49 86 18 98 Nasal Cannula 1.0 24 10/14/18 21:34 97 18 96 Nasal Cannula 1.0 24 10/14/18 21:34 24 10/14/18 21:00 Nasal Cannula 1.0 10/14/18 20:00 1.0 10/14/18 20:00 96 10/14/18 20:00 98.6 94 20 146/76 (99) 96 10/14/18 19:49 91 Nasal Cannula 1.0 24 10/14/18 19:49 Nasal Cannula 1.0 24 10/14/18 17:32 119/78 10/14/18 17:31 88 119/78 10/14/18 16:00 0.5 10/14/18 16:00 97.1 100 20 123/81 (95) 93 10/14/18 16:00 93 10/14/18 12:00 0.5 10/14/18 12:00 97.3 88 18 121/78 (92) 95 10/14/18 12:00 94 10/14/18 12:00 88 119/78 Intake and Output 10/14/18 10/15/18 19:00 07:00 Intake Total 680 ml 120 ml Output Total 1000 ml 950 ml Balance -320 ml -830 ml Intake Oral 680 ml 120 ml Output Urine Total 1000 ml 950 ml # Bowel Movements 3 Laboratory Tests 10/15/18 05:05: White Blood Count 8.6, Red Blood Count 4.11L, Hemoglobin 13.3, Hematocrit 41.3, Mean Corpuscular Volume 101H, Mean Corpuscular Hemoglobin 32.4H, Mean Corpuscular Hemoglobin Concent 32.2, Red Cell Distribution Width 14.2, Platelet Count 312, Mean Platelet Volume 5.9L, Neutrophils (%) (Auto) 75.2H, Lymphocytes (%) (Auto) 13.0L, Monocytes (%) (Auto) 7.7, Eosinophils (%) (Auto) 3.7H, Basophils (%) (Auto) 0.5, Erythrocyte Sedimentation Rate 40H, Sodium Level 141, Potassium Level 3.5, Chloride Level 108H, Carbon Dioxide Level 27, Anion Gap 6, Blood Urea Nitrogen 14, Creatinine 0.5L, Estimat Glomerular Filtration Rate , Glucose Level 97, Calcium Level 9.9, Phosphorus Level 3.8, Magnesium Level 2.2, Total Bilirubin 0.3, Aspartate Amino Transf (AST/SGOT) 13L, Alanine Aminotransferase (ALT/SGPT) 18, Alkaline Phosphatase 72, C-Reactive Protein, Quantitative < 0.4, Total Protein 6.2L, Albumin 2.6L, Globulin 3.6, Albumin/ Globulin Ratio 0.7L Height (Feet): 5 Height (Inches): 3.00 Weight (Pounds): 105 Objective no change Robbie Garza MD October 15, 2018 10:15
--- NOTE | 2018-10-15 11:29 | NUR ---
NURSE NOTES: 11:00 am- Patient was on 1L NC and patient is at 97% pulse ox. Change O2 to 0.5L. 11:25am- Patient is 97% on pulse ox. Patient is now on RA. Will reevaluate. Addendum: 10/15/18 at 1130 by Colten Bee RN 11:10- Dr. Romo saw patient.
--- NOTE | 2018-10-15 11:48 | Pulmonology Progress Note ---
Assessment/Plan Problems: (1) Emphysema of lung (2) Acute respiratory failure (3) NSTEMI (non-ST elevated myocardial infarction) (4) COPD (chronic obstructive pulmonary disease) (5) Diabetes (6) UTI (urinary tract infection) (7) Episode of generalized weakness (8) Severe protein-calorie malnutrition Assessment/Plan BP is borderline low, decrease Norvas to 2.5 BID doing better titrate fio2 to sat of 85 to 90% to increase the hypoxemic drive of the brain CT chest to rule out emphysema, done, results reviewed with the patient. BIPAP for pulse oximeter less than 85% f/u cardiology recommendations pt /ot on lasix 20, Negative fluid balance of 3.7 liters. watch bun/creatinine check electrolytes Subjective ROS Limited/Unobtainable: No Constitutional: Reports: no symptoms HEENT: Repors: no symptoms Respiratory: Reports: no symptoms Allergies: Coded Allergies: HEPARIN (Verified Allergy, Unknown, 10/05/18) RAMIPRIL (Verified Allergy, Unknown, 10/03/18) SULFA (SULFONAMIDE ANTIBIOTICS) (Unverified Allergy, Unknown, 10/05/18) Uncoded Allergies: SULFA (Allergy, Unknown, 10/03/18) Objective Last 24 Hour Vital Signs Date Time Temp Pulse Resp B/P (MAP) Pulse Ox O2 Delivery O2 Flow Rate FiO2 10/15/18 09:56 91 Nasal Cannula 1.0 24 10/15/18 09:56 Nasal Cannula 1.0 24 10/15/18 09:00 Nasal Cannula 1.0 10/15/18 09:00 78 105/65 10/15/18 08:33 1.0 10/15/18 08:00 97.9 78 18 105/65 (78) 97 10/15/18 07:54 95 10/15/18 04:00 82 10/15/18 04:00 1.0 10/15/18 04:00 98.4 89 17 121/70 (87) 97 10/15/18 00:00 86 10/15/18 00:00 1.0 10/15/18 00:00 98.1 97 20 151/71 (97) 95 10/14/18 21:49 86 18 98 Nasal Cannula 1.0 24 10/14/18 21:34 97 18 96 Nasal Cannula 1.0 24 10/14/18 21:34 24 10/14/18 21:00 Nasal Cannula 1.0 10/14/18 20:00 1.0 10/14/18 20:00 96 10/14/18 20:00 98.6 94 20 146/76 (99) 96 10/14/18 19:49 91 Nasal Cannula 1.0 24 10/14/18 19:49 Nasal Cannula 1.0 24 10/14/18 17:32 119/78 10/14/18 17:31 88 119/78 10/14/18 16:00 0.5 10/14/18 16:00 97.1 100 20 123/81 (95) 93 10/14/18 16:00 93 10/14/18 12:00 0.5 10/14/18 12:00 97.3 88 18 121/78 (92) 95 10/14/18 12:00 94 10/14/18 12:00 88 119/78 Intake and Output 10/14/18 10/15/18 19:00 07:00 Intake Total 680 ml 120 ml Output Total 1000 ml 950 ml Balance -320 ml -830 ml Intake Oral 680 ml 120 ml Output Urine Total 1000 ml 950 ml # Bowel Movements 3 General Appearance: WD/WN HEENT: normocephalic Respiratory/Chest: chest wall non-tender, lungs clear Breasts: no masses Cardiovascular: normal peripheral pulses, normal rate Abdomen: normal bowel sounds, soft, non tender Genitourinary: normal external genitalia Skin: no rash Neurologic/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: 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 grossly normal Laboratory Tests 10/15/18 05:05: White Blood Count 8.6, Red Blood Count 4.11L, Hemoglobin 13.3, Hematocrit 41.3, Mean Corpuscular Volume 101H, Mean Corpuscular Hemoglobin 32.4H, Mean Corpuscular Hemoglobin Concent 32.2, Red Cell Distribution Width 14.2, Platelet Count 312, Mean Platelet Volume 5.9L, Neutrophils (%) (Auto) 75.2H, Lymphocytes (%) (Auto) 13.0L, Monocytes (%) (Auto) 7.7, Eosinophils (%) (Auto) 3.7H, Basophils (%) (Auto) 0.5, Erythrocyte Sedimentation Rate 40H, Sodium Level 141, Potassium Level 3.5, Chloride Level 108H, Carbon Dioxide Level 27, Anion Gap 6, Blood Urea Nitrogen 14, Creatinine 0.5L, Estimat Glomerular Filtration Rate , Glucose Level 97, Calcium Level 9.9, Phosphorus Level 3.8, Magnesium Level 2.2, Total Bilirubin 0.3, Aspartate Amino Transf (AST/SGOT) 13L, Alanine Aminotransferase (ALT/SGPT) 18, Alkaline Phosphatase 72, C-Reactive Protein, Quantitative < 0.4, Total Protein 6.2L, Albumin 2.6L, Globulin 3.6, Albumin/ Globulin Ratio 0.7L Current Medications Medications (Trade) Dose Ordered Sig/Aleah Route PRN Reason Start Time Stop Time Status Last Admin Dose Admin Acetazolamide (Diamox) 250 mg Q8HR ORAL 10/13/18 14:00 11/11/18 17:59 10/15/18 05:06 Albuterol/ Ipratropium (Albuterol/ Ipratropium) 3 ml Q4HRT PRN HHN Shortness of Breath 10/13/18 22:30 10/18/18 22:14 10/14/18 21:34 Amlodipine Besylate (Norvasc) 5 mg BID ORAL 10/14/18 18:00 11/12/18 10:29 Aspirin (ASA) 81 mg DAILY NG 10/12/18 09:00 11/04/18 08:59 10/14/18 08:58 Dextrose (Dextrose 50%) 25 ml Q30M PRN IV Hypoglycemia 10/11/18 16:00 11/03/18 07:53 Dextrose (Dextrose 50%) 50 ml Q30M PRN IV hypoglycemia 10/11/18 16:00 11/03/18 07:59 Docusate Sodium (Colace) 100 mg THREE TIMES A DAY ORAL 10/11/18 18:00 11/10/18 12:59 10/14/18 12:47 EZETIMIBE (Zetia) 10 mg BEDTIME ORAL 10/11/18 21:00 11/08/18 20:59 10/14/18 21:48 Furosemide (Lasix) 20 mg DAILY IV 10/13/18 12:00 11/12/18 11:59 10/15/18 09:43 Insulin Aspart (NovoLOG) AC+HS SUBQ 10/11/18 16:30 11/03/18 11:29 10/12/18 16:19 Nitroglycerin (Ntg) 1 patch Q24H TDERMAL 10/11/18 18:00 11/04/18 17:59 10/14/18 17:32 Pantoprazole (Protonix) 40 mg EVERY 12 HOURS ORAL 10/11/18 21:00 11/10/18 20:59 10/15/18 09:42 Potassium Chloride (K-Dur) 40 meq BID ORAL 10/13/18 10:30 11/12/18 10:29 10/15/18 09:42 Steven Romo MD October 15, 2018 11:48
[2018-10-15 12:00] VITALS: BP 135/70
--- NOTE | 2018-10-15 13:58 | Cardiac Electrophysiology PN ---
Assessment/Plan Assessment/Plan 1. NSTEMI, type 2. No acute ECG changes. EF nl and no WMA. On aspirin and lipitor. 2. S/P Resp Failure, extubated 3. HTN. On Norvasc 5 bid and Lasix [address] Garza 4. Lyme's disease 5. S/P Sepsis DW RN Subjective Subjective No SVT or VT.or CP or SOB. Asking for Ensure Objective Last 24 Hour Vital Signs Date Time Temp Pulse Resp B/P (MAP) Pulse Ox O2 Delivery O2 Flow Rate FiO2 10/15/18 12:00 98.4 89 19 135/70 (91) 92 10/15/18 12:00 0.5 10/15/18 09:56 91 Nasal Cannula 1.0 24 10/15/18 09:56 Nasal Cannula 1.0 24 10/15/18 09:00 Nasal Cannula 1.0 10/15/18 09:00 78 105/65 10/15/18 08:33 1.0 10/15/18 08:00 97.9 78 18 105/65 (78) 97 10/15/18 07:54 95 10/15/18 04:00 82 10/15/18 04:00 1.0 10/15/18 04:00 98.4 89 17 121/70 (87) 97 10/15/18 00:00 86 10/15/18 00:00 1.0 10/15/18 00:00 98.1 97 20 151/71 (97) 95 10/14/18 21:49 86 18 98 Nasal Cannula 1.0 24 10/14/18 21:34 97 18 96 Nasal Cannula 1.0 24 10/14/18 21:34 24 10/14/18 21:00 Nasal Cannula 1.0 10/14/18 20:00 1.0 10/14/18 20:00 96 10/14/18 20:00 98.6 94 20 146/76 (99) 96 10/14/18 19:49 91 Nasal Cannula 1.0 24 10/14/18 19:49 Nasal Cannula 1.0 24 10/14/18 17:32 119/78 10/14/18 17:31 88 119/78 10/14/18 16:00 0.5 10/14/18 16:00 97.1 100 20 123/81 (95) 93 10/14/18 16:00 93 Intake and Output 10/14/18 10/15/18 19:00 07:00 Intake Total 680 ml 120 ml Output Total 1000 ml 950 ml Balance -320 ml -830 ml Intake Oral 680 ml 120 ml Output Urine Total 1000 ml 950 ml # Bowel Movements 3 Laboratory Tests Test 10/15/18 05:05 White Blood Count 8.6 K/UL (4.8-10.8) Red Blood Count 4.11 M/UL (4.20-5.40) L Hemoglobin 13.3 G/DL (12.0-16.0) Hematocrit 41.3 % (37.0-47.0) Mean Corpuscular Volume 101 FL (80-99) H Mean Corpuscular Hemoglobin 32.4 PG (27.0-31.0) H Mean Corpuscular Hemoglobin Concent 32.2 G/DL (32.0-36.0) Red Cell Distribution Width 14.2 % (11.6-14.8) Platelet Count 312 K/UL (150-450) Mean Platelet Volume 5.9 FL (6.5-10.1) L Neutrophils (%) (Auto) 75.2 % (45.0-75.0) H Lymphocytes (%) (Auto) 13.0 % (20.0-45.0) L Monocytes (%) (Auto) 7.7 % (1.0-10.0) Eosinophils (%) (Auto) 3.7 % (0.0-3.0) H Basophils (%) (Auto) 0.5 % (0.0-2.0) Erythrocyte Sedimentation Rate 40 MM/HR (0-30) H Sodium Level 141 MMOL/L (136-145) Potassium Level 3.5 MMOL/L (3.5-5.1) Chloride Level 108 MMOL/L (98-107) H Carbon Dioxide Level 27 MMOL/L (21-32) Anion Gap 6 mmol/L (5-15) Blood Urea Nitrogen 14 mg/dL (7-18) Creatinine 0.5 MG/DL (0.55-1.30) L Estimat Glomerular Filtration Rate mL/min (>60) Glucose Level 97 MG/DL (74-106) Calcium Level 9.9 MG/DL (8.5-10.1) Phosphorus Level 3.8 MG/DL (2.5-4.9) Magnesium Level 2.2 MG/DL (1.8-2.4) Total Bilirubin 0.3 MG/DL (0.2-1.0) Aspartate Amino Transf (AST/SGOT) 13 U/L (15-37) L Alanine Aminotransferase (ALT/SGPT) 18 U/L (12-78) Alkaline Phosphatase 72 U/L (46-116) C-Reactive Protein, Quantitative < 0.4 mg/dL (0.00-0.90) Total Protein 6.2 G/DL (6.4-8.2) L Albumin 2.6 G/DL (3.4-5.0) L Globulin 3.6 g/dL Albumin/Globulin Ratio 0.7 (1.0-2.7) L Objective HEENT: No JVD. Lungs: Rhonchi at bases, Heart: RRR, No G/R/M Abdomen: soft, non-tender Extremities: no C/C/E Braulio Cruz MD October 15, 2018 13:58
--- NOTE | 2018-10-15 14:02 | NUR ---
DISCHARGE PLANNING SPOKE WITH BRIANNA AT [facility] AND THEY ARE WILLING TO TAKE PATIENT ONCE DISCHARGED.
--- NOTE | 2018-10-15 14:03 | NUR ---
RD ASSESSMENT & RECOMMENDATIONS SEE CARE ACTIVITY FOR COMPLETE ASSESSMENT DAILY ESTIMATED NEEDS: Needs based on Pulmonary, wound, wasting 49kg 25-35 kcals/kg 5619-0752 total kcals 1.25-1.5 g protein/kg 61-74 g total protein 25-30 mL/kg 9031-4584 total fluid mLs NUTRITION DIAGNOSIS: 1) Increased kcal and pro needs r/t wound healing as evidenced by non-blanchable erythema buttocks 2) Swallowing difficulty r/t resp status as evidenced by s/p RR, now extubated, on soft easy chew diet w/ thin liquids per SIDE STITCHING MACHINE OPERATOR recs. 3) Altered nutrition related lab values r/t hyperglyemia as evidenced by elev BG (288-> now wnl), A1C 6.2, now off D5 + steroidal meds. CURRENT DIET:Low Na soft easy chew w/ Thin liquids PO DIET RECOMMENDATIONS: Low Na diet (texture per SIDE STITCHING MACHINE OPERATOR) ADDITIONAL RECOMMENDATIONS: 1) Maintain Low Na diet-> REC TO ADD CCHO DIET W/ CONSISTENTLY ELEV BLOOD SUGARS 2) Check lytes daily, replete as needed 3) RECALIBRATE bed scale for accurate CBW 4) Wound care: Add GAMAL BID + MVI 1 tab QD + Vit C 250mg QD 5) Ensure Enlive TID w/ meals (350kcal/20g prot per bottle) -> Glucerna TID w/ elev BGs
--- NOTE | 2018-10-15 14:08 | NUR ---
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 LYME'S DISEASE VS: BP 105/65, P 78, T 98.4, RR 19, SpO2 91 NC O2 1.0 RBC 4.11, CR 0.5 IS:LASIX 20mg PROTONIX 40mg K-DUR 40meq DIAMOX 250mg PT. IS TO TRANSFERRED TO MED/SURG 10/15 TELE STATUS
--- NOTE | 2018-10-15 14:46 | General Progress Note ---
Assessment/Plan Problem List: (1) UTI (urinary tract infection) ICD Codes: N39.0 - Urinary tract infection, site not specified SNOMED: 00698268 (2) Diabetes ICD Codes: E11.9 - Type 2 diabetes mellitus without complications SNOMED: 02132906 (3) COPD (chronic obstructive pulmonary disease) ICD Codes: J44.9 - Chronic obstructive pulmonary disease, unspecified SNOMED: 15570109 Qualifiers: Qualified Codes: J44.9 - Chronic obstructive pulmonary disease, unspecified (4) NSTEMI (non-ST elevated myocardial infarction) ICD Codes: I21.4 - Non-ST elevation (NSTEMI) myocardial infarction SNOMED: 33159484 (5) Episode of generalized weakness ICD Codes: R53.1 - Weakness SNOMED: 19852323 Status: stable, progressing Assessment/Plan: o2 pulm tx abx pain control cardio f/u cbc bmp am dc plan w hh Subjective Constitutional: Reports: weakness Respiratory: Reports: shortness of breath Allergies: Coded Allergies: HEPARIN (Verified Allergy, Unknown, 10/05/18) RAMIPRIL (Verified Allergy, Unknown, 10/03/18) SULFA (SULFONAMIDE ANTIBIOTICS) (Unverified Allergy, Unknown, 10/05/18) Uncoded Allergies: SULFA (Allergy, Unknown, 10/03/18) All Systems: reviewed and negative except above Subjective calm Objective Last 24 Hour Vital Signs Date Time Temp Pulse Resp B/P (MAP) Pulse Ox O2 Delivery O2 Flow Rate FiO2 10/15/18 12:00 98.4 89 19 135/70 (91) 92 10/15/18 12:00 0.5 10/15/18 09:56 91 Nasal Cannula 1.0 24 10/15/18 09:56 Nasal Cannula 1.0 24 10/15/18 09:00 Nasal Cannula 1.0 10/15/18 09:00 78 105/65 10/15/18 08:33 1.0 10/15/18 08:00 97.9 78 18 105/65 (78) 97 10/15/18 07:54 95 10/15/18 04:00 82 10/15/18 04:00 1.0 10/15/18 04:00 98.4 89 17 121/70 (87) 97 10/15/18 00:00 86 10/15/18 00:00 1.0 10/15/18 00:00 98.1 97 20 151/71 (97) 95 10/14/18 21:49 86 18 98 Nasal Cannula 1.0 24 10/14/18 21:34 97 18 96 Nasal Cannula 1.0 24 10/14/18 21:34 24 10/14/18 21:00 Nasal Cannula 1.0 10/14/18 20:00 1.0 10/14/18 20:00 96 10/14/18 20:00 98.6 94 20 146/76 (99) 96 10/14/18 19:49 91 Nasal Cannula 1.0 24 10/14/18 19:49 Nasal Cannula 1.0 24 10/14/18 17:32 119/78 10/14/18 17:31 88 119/78 10/14/18 16:00 0.5 10/14/18 16:00 97.1 100 20 123/81 (95) 93 10/14/18 16:00 93 Intake and Output 10/14/18 10/15/18 19:00 07:00 Intake Total 680 ml 120 ml Output Total 1000 ml 950 ml Balance -320 ml -830 ml Intake Oral 680 ml 120 ml Output Urine Total 1000 ml 950 ml # Bowel Movements 3 Laboratory Tests 10/15/18 05:05: White Blood Count 8.6, Red Blood Count 4.11L, Hemoglobin 13.3, Hematocrit 41.3, Mean Corpuscular Volume 101H, Mean Corpuscular Hemoglobin 32.4H, Mean Corpuscular Hemoglobin Concent 32.2, Red Cell Distribution Width 14.2, Platelet Count 312, Mean Platelet Volume 5.9L, Neutrophils (%) (Auto) 75.2H, Lymphocytes (%) (Auto) 13.0L, Monocytes (%) (Auto) 7.7, Eosinophils (%) (Auto) 3.7H, Basophils (%) (Auto) 0.5, Erythrocyte Sedimentation Rate 40H, Sodium Level 141, Potassium Level 3.5, Chloride Level 108H, Carbon Dioxide Level 27, Anion Gap 6, Blood Urea Nitrogen 14, Creatinine 0.5L, Estimat Glomerular Filtration Rate , Glucose Level 97, Calcium Level 9.9, Phosphorus Level 3.8, Magnesium Level 2.2, Total Bilirubin 0.3, Aspartate Amino Transf (AST/SGOT) 13L, Alanine Aminotransferase (ALT/SGPT) 18, Alkaline Phosphatase 72, C-Reactive Protein, Quantitative < 0.4, Total Protein 6.2L, Albumin 2.6L, Globulin 3.6, Albumin/ Globulin Ratio 0.7L Height (Feet): 5 Height (Inches): 3.00 Weight (Pounds): 105 General Appearance: lethargic EENT: normal ENT inspection Neck: normal alignment Cardiovascular: normal peripheral pulses, normal rate, regular rhythm Respiratory/Chest: chest wall non-tender, decreased breath sounds Abdomen: normal bowel sounds, non tender, soft Extremities: normal inspection Edema: no edema noted Arm (L), no edema noted Arm (R), no edema noted Leg (L), no edema noted Leg (R), no edema noted Pedal (L), no edema noted Pedal (R), no edema noted Generalized Neurologic: responsive, motor weakness Skin: normal pigmentation, warm/dry Osei Naranjo DO October 15, 2018 14:46
[2018-10-15 16:00] VITALS: BP 117/71
--- NOTE | 2018-10-15 16:01 | NUR ---
NURSE NOTES: Pt received from Tele . Visibly anxious, asking multiple questions. States she feels isolated , unable to redirect pt. Belonging are on her bed would like them in eye view. Per report of transferring nurse pt would like to transfer to [facility] to partake in a sleep which she states she started 15 years ago. Does not have Psychiatric diagnosis . Pt breathing with one liter , and continuos talking despite getting winded during talking. Current plan of care will be monitored Addendum: 10/15/18 at 1607 by Alicia Brewer RN NURSE NOTES: current plan of care will be followed
--- NOTE | 2018-10-15 16:07 | NUR ---
HAND-OFF: Report given to SLOANE Vargas. Patient is on 1L NC o2. Patient is AAOx4. Patient belonging sheet signed. Bipap was brought. Heart monitor was already removed. patient has left forearm SL patent and intact. Attended all needs.
[2018-10-15] MEDS ORDERED: Albuterol/Ipratropium 3ml neb HHN PRN (16:10)
--- NOTE | 2018-10-15 16:27 | NUR ---
NURSE NOTES: Pt has multiple discolorations to bilateral wrist appearing to be from iv insertion attempts. Frail thin skin. Bed is in safe position
[2018-10-15] MEDS: Nitroglycerin Patch 0.4mg TDERMAL SCH (18:00)
--- NOTE | 2018-10-15 18:29 | Infectious Diseases Prog Note ---
Assessment/Plan Assessment/Plan ASSESSMENT: The patient is a 78-year-old female with history of Lyme disease 25 years ago. 1. Possible aspiration pneumonia. Chronic obstructive pulmonary disease exacerbation., s/p Rx -10/13 CT chest: Emphysema/COPD. Trace bilateral pleural effusions. Atherosclerotic vascular disease. Degenerative changes of the thoracic spine. Nonspecific hypodensities within the liver -10/08 CXR: Development of hazy bibasilar opacities which may be related to layering small pleural effusions versus airspace disease. Attention on follow- up recommended. -CXR: Lungs remain clear. -10/04 sp cx normal resp storm; 10/09 sp cx normal storm and yeast -legionella ag urine 2. Abnormal liver function tests (acute), SP -hep serologies neg -Abd US: Trace ascites.Bilateral pleural effusions. Possible medical renal disease. Correlate clinically. Liver cyst. Tiny right renal cysts. Atherosclerotic vascular disease 3. Probable non-STEMI. 4. Leukocytosis, increased (s/p high dose steroids)- now resolved -u/a neg, ucx Neg -Bcx NTD Fever; SP Acute respiratory failure s/p intubation 10/04, sp extubated 10/08 PLAN: 1. Cont to monitor off abx -10/14 SP Zosyn # 10 -10/10 sp Vancomycin #4 -10/08 SP Zithromax #5 -10/04 SP LEvaquin #2 2. Monitor CBC/CMP 3. f/u Bcx x2 4. Monitor cultures 5. We will follow Cardiology recommendations. 6. Based on the patient's clinical course and laboratories, we will do further recommendations. 7. No need for continuing minocycline at this point. : Subjective Allergies: Coded Allergies: HEPARIN (Verified Allergy, Unknown, 10/05/18) RAMIPRIL (Verified Allergy, Unknown, 10/03/18) SULFA (SULFONAMIDE ANTIBIOTICS) (Unverified Allergy, Unknown, 10/05/18) Uncoded Allergies: SULFA (Allergy, Unknown, 10/03/18) Subjective afebrile no leukocytosis off abx discharge planning Objective Vital Signs Last 24 Hour Vital Signs Date Time Temp Pulse Resp B/P (MAP) Pulse Ox O2 Delivery O2 Flow Rate FiO2 10/15/18 18:00 127/72 10/15/18 17:59 69 127/72 10/15/18 16:00 97.3 69 20 117/71 (86) 10/15/18 16:00 1.0 10/15/18 12:00 98.4 89 19 135/70 (91) 92 10/15/18 12:00 0.5 10/15/18 09:56 91 Nasal Cannula 1.0 24 10/15/18 09:56 Nasal Cannula 1.0 24 10/15/18 09:00 Nasal Cannula 1.0 10/15/18 09:00 78 105/65 10/15/18 08:33 1.0 10/15/18 08:00 97.9 78 18 105/65 (78) 97 10/15/18 07:54 95 10/15/18 04:00 82 10/15/18 04:00 1.0 10/15/18 04:00 98.4 89 17 121/70 (87) 97 10/15/18 00:00 86 10/15/18 00:00 1.0 10/15/18 00:00 98.1 97 20 151/71 (97) 95 10/14/18 21:49 86 18 98 Nasal Cannula 1.0 24 10/14/18 21:34 97 18 96 Nasal Cannula 1.0 24 10/14/18 21:34 24 10/14/18 21:00 Nasal Cannula 1.0 10/14/18 20:00 1.0 10/14/18 20:00 96 10/14/18 20:00 98.6 94 20 146/76 (99) 96 10/14/18 19:49 91 Nasal Cannula 1.0 24 10/14/18 19:49 Nasal Cannula 1.0 24 Height (Feet): 5 Height (Inches): 3.00 Weight (Pounds): 105 Objective HEENT: Mild pale conjunctivae. No icterus. NECK: No lymphadenopathy. CHEST: Coarse breathing sounds. HEART: S1 and S2. ABDOMEN: Soft. ABDOMEN: Soft. EXTREMITIES: No cyanosis. NEUROLOGIC: Sedated. Laboratory Tests Test 10/15/18 05:05 White Blood Count 8.6 K/UL (4.8-10.8) Red Blood Count 4.11 M/UL (4.20-5.40) L Hemoglobin 13.3 G/DL (12.0-16.0) Hematocrit 41.3 % (37.0-47.0) Mean Corpuscular Volume 101 FL (80-99) H Mean Corpuscular Hemoglobin 32.4 PG (27.0-31.0) H Mean Corpuscular Hemoglobin Concent 32.2 G/DL (32.0-36.0) Red Cell Distribution Width 14.2 % (11.6-14.8) Platelet Count 312 K/UL (150-450) Mean Platelet Volume 5.9 FL (6.5-10.1) L Neutrophils (%) (Auto) 75.2 % (45.0-75.0) H Lymphocytes (%) (Auto) 13.0 % (20.0-45.0) L Monocytes (%) (Auto) 7.7 % (1.0-10.0) Eosinophils (%) (Auto) 3.7 % (0.0-3.0) H Basophils (%) (Auto) 0.5 % (0.0-2.0) Erythrocyte Sedimentation Rate 40 MM/HR (0-30) H Sodium Level 141 MMOL/L (136-145) Potassium Level 3.5 MMOL/L (3.5-5.1) Chloride Level 108 MMOL/L (98-107) H Carbon Dioxide Level 27 MMOL/L (21-32) Anion Gap 6 mmol/L (5-15) Blood Urea Nitrogen 14 mg/dL (7-18) Creatinine 0.5 MG/DL (0.55-1.30) L Estimat Glomerular Filtration Rate mL/min (>60) Glucose Level 97 MG/DL (74-106) Calcium Level 9.9 MG/DL (8.5-10.1) Phosphorus Level 3.8 MG/DL (2.5-4.9) Magnesium Level 2.2 MG/DL (1.8-2.4) Total Bilirubin 0.3 MG/DL (0.2-1.0) Aspartate Amino Transf (AST/SGOT) 13 U/L (15-37) L Alanine Aminotransferase (ALT/SGPT) 18 U/L (12-78) Alkaline Phosphatase 72 U/L (46-116) C-Reactive Protein, Quantitative < 0.4 mg/dL (0.00-0.90) Total Protein 6.2 G/DL (6.4-8.2) L Albumin 2.6 G/DL (3.4-5.0) L Globulin 3.6 g/dL Albumin/Globulin Ratio 0.7 (1.0-2.7) L Current Medications Medications (Trade) Dose Ordered Sig/Aleah Route PRN Reason Start Time Stop Time Status Last Admin Dose Admin Acetazolamide (Diamox) 250 mg Q8HR ORAL 10/15/18 22:00 11/11/18 17:59 Albuterol/ Ipratropium (Albuterol/ Ipratropium) 3 ml Q4HRT PRN HHN Shortness of Breath 10/15/18 16:10 10/20/18 16:09 Amlodipine Besylate (Norvasc) 5 mg BID ORAL 10/15/18 18:00 11/12/18 10:29 10/15/18 17:59 Aspirin (ASA) 81 mg DAILY ORAL 10/16/18 09:00 11/04/18 08:59 Dextrose (Dextrose 50%) 25 ml Q30M PRN IV Hypoglycemia 10/15/18 16:30 11/03/18 07:53 Dextrose (Dextrose 50%) 50 ml Q30M PRN IV hypoglycemia 10/15/18 16:30 11/03/18 07:59 Docusate Sodium (Colace) 100 mg THREE TIMES A DAY ORAL 10/15/18 18:00 11/10/18 12:59 10/15/18 17:58 EZETIMIBE (Zetia) 10 mg BEDTIME ORAL 10/15/18 21:00 11/08/18 20:59 Furosemide (Lasix) 20 mg DAILY IV 10/16/18 09:00 11/12/18 11:59 Insulin Aspart (NovoLOG) AC+HS SUBQ 10/15/18 16:30 11/03/18 11:29 Nitroglycerin (Ntg) 1 patch Q24H TDERMAL 10/15/18 18:00 11/04/18 17:59 10/15/18 18:00 Pantoprazole (Protonix) 40 mg EVERY 12 HOURS ORAL 10/15/18 21:00 11/10/18 20:59 Potassium Chloride (K-Dur) 40 meq BID ORAL 10/15/18 18:00 11/12/18 10:29 10/15/18 17:59 Clementina Flor M.D. October 15, 2018 18:29
--- NOTE | 2018-10-15 18:56 | NUR ---
NURSE NOTES: Pt had a bowel movement , on bed reis. FC urine output 600 cc . Able to verbalize known needs. Medications provided . Potassium given in water, able to tolerate it. Potassium levels improved
--- NOTE | 2018-10-15 19:45 | NUR ---
NURSE NOTES: Nitro patch placed right upper chest
--- NOTE | 2018-10-15 19:46 | NUR ---
NURSE NOTES: Received report & pt from SLOANE Vargas. Pt lying in bed, a&ox4, on O2 via NC @ 1LPM. No s/s of acute distress & no c/o pain. IV site intact & S/L'd. Pt would like breathing tx @ around 2100. RT made aware. Bed in lowest position, call light within reach. Will continue to monitor.
[2018-10-15 20:00] VITALS: BP 122/63
--- NOTE | 2018-10-15 20:42 | NUR ---
NURSE NOTES: BS checked, 125 result. Per pt, she's not diabetic, does not have any hx of DM and does not take insulin if BS<140. Explained risks & benefits. Refused Novolog.
--- NOTE | 2018-10-15 21:30 | NUR ---
NURSE NOTES: Pt saturating 97% in room air, no distress noted. O2 NC 1L off for now. PRN O2 available if pt wants NC back & pt aware. Will continue to monitor.
[2018-10-16] VITALS: BP 122/73
[2018-10-16 04:00] VITALS: BP 124/60
[2018-10-16 05:12] LABS: BASOPHILS % (AUTO) 0.7 % (0.0-2.0); EOSINOPHILS % (AUTO) 3.3 % (0.0-3.0); HEMOGLOBIN 13.6 G/DL (12.0-16.0); LYMPHOCYTES % (AUTO) 7.8 % (20.0-45.0); MEAN CORPUSCULAR VOLUME 100 FL (80-99); NEUTROPHILS % (AUTO) 83.1 % (45.0-75.0); PLATELET COUNT 310 K/UL (150-450); RED BLOOD COUNT 4.22 M/UL (4.20-5.40); RED CELL DISTRIBUTION WIDTH 14.1 % (11.6-14.8); WHITE BLOOD COUNT 8.9 K/UL (4.8-10.8)
[2018-10-16 05:25] LABS: ANION GAP 7 mmol/L (5-15); BLOOD UREA NITROGEN 20 mg/dL (7-18); CALCIUM 9.9 MG/DL (8.5-10.1); CARBON DIOXIDE 28 MMOL/L (21-32); CHLORIDE 108 MMOL/L (98-107); CREATININE 0.5 MG/DL (0.55-1.30); POTASSIUM 3.9 MMOL/L (3.5-5.1); SODIUM 143 MMOL/L (136-145)
[2018-10-16] MEDS: NovoLOG Insulin Flexpen SUBQ SCH ×3 (05:53→16:30)
--- NOTE | 2018-10-16 07:30 | NUR ---
HAND-OFF: Report given to SLOANE Arnold. Pt in stable condition. Rounds done.
--- NOTE | 2018-10-16 07:40 | NUR ---
NURSE NOTES: Received patient on bed, awake. Iv site intact and patent. Bed in low and locked position, call light in reach. No signs of respiratory distress. Room board updated, will continue to monitor.
[2018-10-16 08:00] VITALS: BP 115/66
[2018-10-16] MEDS ORDERED: Aspirin Baby 81mg ORAL SCH (09:00)
--- NOTE | 2018-10-16 09:17 | NUR ---
NURSE NOTES: Patient refused colace. Risks versus benefits explained.
[2018-10-16] MEDS: Docusate 100mg cap ORAL SCH ×3 (09:41→18:00)
--- NOTE | 2018-10-16 10:41 | Cardiac Electrophysiology PN ---
Assessment/Plan Assessment/Plan 1. NSTEMI, type 2. No acute ECG changes. EF nl and no WMA. On aspirin and lipitor. No CP 2. S/P Resp Failure, extubated 3. HTN. On Norvasc 5 bid and Lasix 20 iv and Diamox per Dr Garza 4. Lyme's disease 5. S/P Sepsis DW RN DC to [facility] pending bed Subjective Subjective No CP or SOB. transferred to [facility]. Objective Last 24 Hour Vital Signs Date Time Temp Pulse Resp B/P (MAP) Pulse Ox O2 Delivery O2 Flow Rate FiO2 10/16/18 09:41 89 115/66 10/16/18 09:00 Nasal Cannula 1.0 10/16/18 08:00 1.0 10/16/18 08:00 97.3 89 15 115/66 (82) 97 10/16/18 04:00 97.8 90 18 124/60 (81) 97 10/16/18 04:00 1.0 10/16/18 00:00 1.0 10/16/18 00:00 97.8 99 18 122/73 (89) 92 10/15/18 21:38 97 18 99 Room Air 21 10/15/18 21:23 100 20 97 Nasal Cannula 1.0 24 10/15/18 21:23 24 10/15/18 21:19 1.0 10/15/18 21:00 Nasal Cannula 1.0 10/15/18 20:25 Nasal Cannula 1.0 24 10/15/18 20:25 97 Nasal Cannula 1.0 24 10/15/18 20:00 97.7 99 17 122/63 (82) 97 10/15/18 18:00 127/72 10/15/18 17:59 69 127/72 10/15/18 16:00 97.3 69 20 117/71 (86) 10/15/18 16:00 1.0 10/15/18 12:00 98.4 89 19 135/70 (91) 92 10/15/18 12:00 0.5 Intake and Output 10/15/18 10/16/18 18:59 06:59 Intake Total 370 ml Output Total 600 ml 1450 ml Balance -600 ml -1080 ml Intake Oral 370 ml Output Urine Total 600 ml 1450 ml # Bowel Movements 1 Laboratory Tests Test 10/16/18 04:58 White Blood Count 8.9 K/UL (4.8-10.8) Red Blood Count 4.22 M/UL (4.20-5.40) Hemoglobin 13.6 G/DL (12.0-16.0) Hematocrit 42.0 % (37.0-47.0) Mean Corpuscular Volume 100 FL (80-99) H Mean Corpuscular Hemoglobin 32.2 PG (27.0-31.0) H Mean Corpuscular Hemoglobin Concent 32.3 G/DL (32.0-36.0) Red Cell Distribution Width 14.1 % (11.6-14.8) Platelet Count 310 K/UL (150-450) Mean Platelet Volume 6.2 FL (6.5-10.1) L Neutrophils (%) (Auto) 83.1 % (45.0-75.0) H Lymphocytes (%) (Auto) 7.8 % (20.0-45.0) L Monocytes (%) (Auto) 5.0 % (1.0-10.0) Eosinophils (%) (Auto) 3.3 % (0.0-3.0) H Basophils (%) (Auto) 0.7 % (0.0-2.0) Sodium Level 143 MMOL/L (136-145) Potassium Level 3.9 MMOL/L (3.5-5.1) Chloride Level 108 MMOL/L (98-107) H Carbon Dioxide Level 28 MMOL/L (21-32) Anion Gap 7 mmol/L (5-15) Blood Urea Nitrogen 20 mg/dL (7-18) H Creatinine 0.5 MG/DL (0.55-1.30) L Estimat Glomerular Filtration Rate mL/min (>60) Glucose Level 105 MG/DL (74-106) Calcium Level 9.9 MG/DL (8.5-10.1) Objective HEENT: No JVD. Lungs: Rhonchi at bases, Heart: RRR, No G/R/M Abdomen: soft, non-tender Extremities: no C/C/E Braulio Cruz MD October 16, 2018 10:41
--- NOTE | 2018-10-16 11:17 | Pulmonology Progress Note ---
Assessment/Plan Problems: (1) Emphysema of lung (2) Acute respiratory failure (3) NSTEMI (non-ST elevated myocardial infarction) (4) COPD (chronic obstructive pulmonary disease) (5) Diabetes (6) UTI (urinary tract infection) (7) Episode of generalized weakness (8) Severe protein-calorie malnutrition Assessment/Plan BP is borderline low, decrease Norvas to 2.5 BID doing better titrate fio2 to sat of 85 to 90% to increase the hypoxemic drive of the brain CT chest to rule out emphysema, done, results reviewed with the patient. BIPAP for pulse oximeter less than 85% f/u cardiology recommendations pt /ot dc lasix 20, Negative fluid balance of 5.4 liters. watch bun/creatinine, bun started to rise, there is no sign of fluid retention. check electrolytes Subjective ROS Limited/Unobtainable: No Interval Events: on 1liter/min Oxygen Constitutional: Reports: no symptoms HEENT: Repors: no symptoms Respiratory: Reports: no symptoms Allergies: Coded Allergies: HEPARIN (Verified Allergy, Unknown, 10/05/18) RAMIPRIL (Verified Allergy, Unknown, 10/03/18) SULFA (SULFONAMIDE ANTIBIOTICS) (Unverified Allergy, Unknown, 10/05/18) Uncoded Allergies: SULFA (Allergy, Unknown, 10/03/18) Objective Last 24 Hour Vital Signs Date Time Temp Pulse Resp B/P (MAP) Pulse Ox O2 Delivery O2 Flow Rate FiO2 10/16/18 09:41 89 115/66 10/16/18 09:00 Nasal Cannula 1.0 10/16/18 08:00 1.0 10/16/18 08:00 97.3 89 15 115/66 (82) 97 10/16/18 04:00 97.8 90 18 124/60 (81) 97 10/16/18 04:00 1.0 10/16/18 00:00 1.0 10/16/18 00:00 97.8 99 18 122/73 (89) 92 10/15/18 21:38 97 18 99 Room Air 21 10/15/18 21:23 100 20 97 Nasal Cannula 1.0 24 10/15/18 21:23 24 10/15/18 21:19 1.0 10/15/18 21:00 Nasal Cannula 1.0 10/15/18 20:25 Nasal Cannula 1.0 24 10/15/18 20:25 97 Nasal Cannula 1.0 24 10/15/18 20:00 97.7 99 17 122/63 (82) 97 10/15/18 18:00 127/72 10/15/18 17:59 69 127/72 10/15/18 16:00 97.3 69 20 117/71 (86) 10/15/18 16:00 1.0 10/15/18 12:00 98.4 89 19 135/70 (91) 92 10/15/18 12:00 0.5 Intake and Output 10/15/18 10/16/18 18:59 06:59 Intake Total 370 ml Output Total 600 ml 1450 ml Balance -600 ml -1080 ml Intake Oral 370 ml Output Urine Total 600 ml 1450 ml # Bowel Movements 1 General Appearance: cachetic HEENT: normocephalic, atraumatic Respiratory/Chest: chest wall non-tender, crackles/rales Cardiovascular: normal peripheral pulses, normal rate, regularly irregular Abdomen: normal bowel sounds, soft, non tender Genitourinary: normal external genitalia Extremities: no clubbing Skin: no rash Neurologic/Psychiatric: 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 II-XII grossly normal Laboratory Tests 10/16/18 04:58: White Blood Count 8.9, Red Blood Count 4.22, Hemoglobin 13.6, Hematocrit 42.0, Mean Corpuscular Volume 100H, Mean Corpuscular Hemoglobin 32.2H, Mean Corpuscular Hemoglobin Concent 32.3, Red Cell Distribution Width 14.1, Platelet Count 310, Mean Platelet Volume 6.2L, Neutrophils (%) (Auto) 83.1H, Lymphocytes (%) (Auto) 7.8L, Monocytes (%) (Auto) 5.0, Eosinophils (%) (Auto) 3.3H, Basophils (%) (Auto) 0.7, Sodium Level 143, Potassium Level 3.9, Chloride Level 108H, Carbon Dioxide Level 28, Anion Gap 7, Blood Urea Nitrogen 20H, Creatinine 0.5L, Estimat Glomerular Filtration Rate , Glucose Level 105, Calcium Level 9.9 Current Medications Medications (Trade) Dose Ordered Sig/Aleah Route PRN Reason Start Time Stop Time Status Last Admin Dose Admin Acetazolamide (Diamox) 250 mg Q8HR ORAL 10/15/18 22:00 11/11/18 17:59 10/16/18 06:15 Albuterol/ Ipratropium (Albuterol/ Ipratropium) 3 ml Q4HRT PRN HHN Shortness of Breath 10/15/18 16:10 10/20/18 16:09 10/15/18 21:22 Amlodipine Besylate (Norvasc) 5 mg BID ORAL 10/15/18 18:00 11/12/18 10:29 10/16/18 09:41 Aspirin (ASA) 81 mg DAILY ORAL 10/16/18 09:00 11/04/18 08:59 10/16/18 09:40 Dextrose (Dextrose 50%) 25 ml Q30M PRN IV Hypoglycemia 10/15/18 16:30 11/03/18 07:53 Dextrose (Dextrose 50%) 50 ml Q30M PRN IV hypoglycemia 10/15/18 16:30 11/03/18 07:59 Docusate Sodium (Colace) 100 mg THREE TIMES A DAY ORAL 10/15/18 18:00 11/10/18 12:59 10/15/18 17:58 EZETIMIBE (Zetia) 10 mg BEDTIME ORAL 10/15/18 21:00 11/08/18 20:59 10/15/18 20:33 Furosemide (Lasix) 20 mg DAILY IV 10/16/18 09:00 11/12/18 11:59 10/16/18 09:41 Insulin Aspart (NovoLOG) AC+HS SUBQ 10/15/18 16:30 11/03/18 11:29 Nitroglycerin (Ntg) 1 patch Q24H TDERMAL 10/15/18 18:00 11/04/18 17:59 10/15/18 18:00 Pantoprazole (Protonix) 40 mg EVERY 12 HOURS ORAL 10/15/18 21:00 11/10/18 20:59 10/16/18 09:40 Potassium Chloride (K-Dur) 40 meq BID ORAL 10/15/18 18:00 11/12/18 10:29 10/16/18 09:40 Steven Romo MD October 16, 2018 11:17
--- NOTE | 2018-10-16 11:55 | Infectious Diseases Prog Note ---
Assessment/Plan Assessment/Plan ASSESSMENT: The patient is a 78-year-old female with history of Lyme disease 25 years ago. 1. Possible aspiration pneumonia. Chronic obstructive pulmonary disease exacerbation., s/p Rx -10/13 CT chest: Emphysema/COPD. Trace bilateral pleural effusions. Atherosclerotic vascular disease. Degenerative changes of the thoracic spine. Nonspecific hypodensities within the liver -10/08 CXR: Development of hazy bibasilar opacities which may be related to layering small pleural effusions versus airspace disease. Attention on follow- up recommended. -CXR: Lungs remain clear. -10/04 sp cx normal resp storm; 10/09 sp cx normal storm and yeast -legionella ag urine 2. Abnormal liver function tests (acute), SP -hep serologies neg -Abd US: Trace ascites.Bilateral pleural effusions. Possible medical renal disease. Correlate clinically. Liver cyst. Tiny right renal cysts. Atherosclerotic vascular disease 3. Probable non-STEMI. 4. Leukocytosis, increased (s/p high dose steroids)- now resolved -u/a neg, ucx Neg -Bcx NTD Fever; SP Acute respiratory failure s/p intubation 10/04, sp extubated 10/08 PLAN: 1. Cont to monitor off abx -10/14 SP Zosyn # 10 -10/10 sp Vancomycin #4 -10/08 SP Zithromax #5 -10/04 SP LEvaquin #2 2. Monitor CBC/CMP 3. f/u Bcx x2 4. Monitor cultures 5. We will follow Cardiology recommendations. 6. Based on the patient's clinical course and laboratories, we will do further recommendations. 7. No need for continuing minocycline at this point. : Subjective Allergies: Coded Allergies: HEPARIN (Verified Allergy, Unknown, 10/05/18) RAMIPRIL (Verified Allergy, Unknown, 10/03/18) SULFA (SULFONAMIDE ANTIBIOTICS) (Unverified Allergy, Unknown, 10/05/18) Uncoded Allergies: SULFA (Allergy, Unknown, 10/03/18) Subjective afebrile no leukocytosis off abx discharge planning Objective Vital Signs Last 24 Hour Vital Signs Date Time Temp Pulse Resp B/P (MAP) Pulse Ox O2 Delivery O2 Flow Rate FiO2 10/16/18 09:41 89 115/66 10/16/18 09:00 Nasal Cannula 1.0 10/16/18 08:00 1.0 10/16/18 08:00 97.3 89 15 115/66 (82) 97 10/16/18 04:00 97.8 90 18 124/60 (81) 97 10/16/18 04:00 1.0 10/16/18 00:00 1.0 10/16/18 00:00 97.8 99 18 122/73 (89) 92 10/15/18 21:38 97 18 99 Room Air 21 10/15/18 21:23 100 20 97 Nasal Cannula 1.0 24 10/15/18 21:23 24 10/15/18 21:19 1.0 10/15/18 21:00 Nasal Cannula 1.0 10/15/18 20:25 Nasal Cannula 1.0 24 10/15/18 20:25 97 Nasal Cannula 1.0 24 10/15/18 20:00 97.7 99 17 122/63 (82) 97 10/15/18 18:00 127/72 10/15/18 17:59 69 127/72 10/15/18 16:00 97.3 69 20 117/71 (86) 10/15/18 16:00 1.0 10/15/18 12:00 98.4 89 19 135/70 (91) 92 10/15/18 12:00 0.5 Height (Feet): 5 Height (Inches): 3.00 Weight (Pounds): 104 Objective HEENT: Mild pale conjunctivae. No icterus. NECK: No lymphadenopathy. CHEST: Coarse breathing sounds. HEART: S1 and S2. ABDOMEN: Soft. ABDOMEN: Soft. EXTREMITIES: No cyanosis. NEUROLOGIC: Sedated. Laboratory Tests Test 10/16/18 04:58 White Blood Count 8.9 K/UL (4.8-10.8) Red Blood Count 4.22 M/UL (4.20-5.40) Hemoglobin 13.6 G/DL (12.0-16.0) Hematocrit 42.0 % (37.0-47.0) Mean Corpuscular Volume 100 FL (80-99) H Mean Corpuscular Hemoglobin 32.2 PG (27.0-31.0) H Mean Corpuscular Hemoglobin Concent 32.3 G/DL (32.0-36.0) Red Cell Distribution Width 14.1 % (11.6-14.8) Platelet Count 310 K/UL (150-450) Mean Platelet Volume 6.2 FL (6.5-10.1) L Neutrophils (%) (Auto) 83.1 % (45.0-75.0) H Lymphocytes (%) (Auto) 7.8 % (20.0-45.0) L Monocytes (%) (Auto) 5.0 % (1.0-10.0) Eosinophils (%) (Auto) 3.3 % (0.0-3.0) H Basophils (%) (Auto) 0.7 % (0.0-2.0) Sodium Level 143 MMOL/L (136-145) Potassium Level 3.9 MMOL/L (3.5-5.1) Chloride Level 108 MMOL/L (98-107) H Carbon Dioxide Level 28 MMOL/L (21-32) Anion Gap 7 mmol/L (5-15) Blood Urea Nitrogen 20 mg/dL (7-18) H Creatinine 0.5 MG/DL (0.55-1.30) L Estimat Glomerular Filtration Rate mL/min (>60) Glucose Level 105 MG/DL (74-106) Calcium Level 9.9 MG/DL (8.5-10.1) Current Medications Medications (Trade) Dose Ordered Sig/Aleah Route PRN Reason Start Time Stop Time Status Last Admin Dose Admin Acetazolamide (Diamox) 250 mg Q8HR ORAL 10/15/18 22:00 11/11/18 17:59 10/16/18 06:15 Albuterol/ Ipratropium (Albuterol/ Ipratropium) 3 ml Q4HRT PRN HHN Shortness of Breath 10/15/18 16:10 10/20/18 16:09 10/15/18 21:22 Amlodipine Besylate (Norvasc) 2.5 mg BID ORAL 10/17/18 18:00 11/16/18 17:59 Aspirin (ASA) 81 mg DAILY ORAL 10/16/18 09:00 11/04/18 08:59 10/16/18 09:40 Dextrose (Dextrose 50%) 25 ml Q30M PRN IV Hypoglycemia 10/15/18 16:30 11/03/18 07:53 Dextrose (Dextrose 50%) 50 ml Q30M PRN IV hypoglycemia 10/15/18 16:30 11/03/18 07:59 Docusate Sodium (Colace) 100 mg THREE TIMES A DAY ORAL 10/15/18 18:00 11/10/18 12:59 10/15/18 17:58 EZETIMIBE (Zetia) 10 mg BEDTIME ORAL 10/15/18 21:00 11/08/18 20:59 10/15/18 20:33 Insulin Aspart (NovoLOG) AC+HS SUBQ 10/15/18 16:30 11/03/18 11:29 Nitroglycerin (Ntg) 1 patch Q24H TDERMAL 10/15/18 18:00 11/04/18 17:59 10/15/18 18:00 Pantoprazole (Protonix) 40 mg EVERY 12 HOURS ORAL 10/15/18 21:00 11/10/18 20:59 10/16/18 09:40 Potassium Chloride (K-Dur) 40 meq BID ORAL 10/15/18 18:00 11/12/18 10:29 10/16/18 09:40 Clementina Flor M.D. October 16, 2018 11:55
[2018-10-16 12:00] VITALS: BP 140/80
--- NOTE | 2018-10-16 14:32 | General Progress Note ---
Assessment/Plan Problem List: (1) UTI (urinary tract infection) ICD Codes: N39.0 - Urinary tract infection, site not specified SNOMED: 99873072 (2) Diabetes ICD Codes: E11.9 - Type 2 diabetes mellitus without complications SNOMED: 46483804 (3) COPD (chronic obstructive pulmonary disease) ICD Codes: J44.9 - Chronic obstructive pulmonary disease, unspecified SNOMED: 65959793 Qualifiers: Qualified Codes: J44.9 - Chronic obstructive pulmonary disease, unspecified (4) NSTEMI (non-ST elevated myocardial infarction) ICD Codes: I21.4 - Non-ST elevation (NSTEMI) myocardial infarction SNOMED: 68739453 (5) Episode of generalized weakness ICD Codes: R53.1 - Weakness SNOMED: 90032580 Status: stable, progressing Assessment/Plan: o2 pulm tx abx pain control cardio f/u cbc bmp am dc plan ca rehab Subjective Constitutional: Reports: weakness Respiratory: Reports: shortness of breath Allergies: Coded Allergies: HEPARIN (Verified Allergy, Unknown, 10/05/18) RAMIPRIL (Verified Allergy, Unknown, 10/03/18) SULFA (SULFONAMIDE ANTIBIOTICS) (Unverified Allergy, Unknown, 10/05/18) Uncoded Allergies: SULFA (Allergy, Unknown, 10/03/18) All Systems: reviewed and negative except above Subjective o2nc calm Objective Last 24 Hour Vital Signs Date Time Temp Pulse Resp B/P (MAP) Pulse Ox O2 Delivery O2 Flow Rate FiO2 10/16/18 12:00 1.0 10/16/18 12:00 98.3 101 16 140/80 (100) 92 10/16/18 09:41 89 115/66 10/16/18 09:00 Nasal Cannula 1.0 10/16/18 08:00 1.0 10/16/18 08:00 97.3 89 15 115/66 (82) 97 10/16/18 04:00 97.8 90 18 124/60 (81) 97 10/16/18 04:00 1.0 10/16/18 00:00 1.0 10/16/18 00:00 97.8 99 18 122/73 (89) 92 10/15/18 21:38 97 18 99 Room Air 21 10/15/18 21:23 100 20 97 Nasal Cannula 1.0 24 10/15/18 21:23 24 10/15/18 21:19 1.0 10/15/18 21:00 Nasal Cannula 1.0 10/15/18 20:25 Nasal Cannula 1.0 24 10/15/18 20:25 97 Nasal Cannula 1.0 24 10/15/18 20:00 97.7 99 17 122/63 (82) 97 10/15/18 18:00 127/72 10/15/18 17:59 69 127/72 10/15/18 16:00 97.3 69 20 117/71 (86) 10/15/18 16:00 1.0 Intake and Output 10/15/18 10/16/18 19:00 07:00 Intake Total 370 ml Output Total 600 ml 1450 ml Balance -600 ml -1080 ml Intake Oral 370 ml Output Urine Total 600 ml 1450 ml # Bowel Movements 1 Laboratory Tests 10/16/18 04:58: White Blood Count 8.9, Red Blood Count 4.22, Hemoglobin 13.6, Hematocrit 42.0, Mean Corpuscular Volume 100H, Mean Corpuscular Hemoglobin 32.2H, Mean Corpuscular Hemoglobin Concent 32.3, Red Cell Distribution Width 14.1, Platelet Count 310, Mean Platelet Volume 6.2L, Neutrophils (%) (Auto) 83.1H, Lymphocytes (%) (Auto) 7.8L, Monocytes (%) (Auto) 5.0, Eosinophils (%) (Auto) 3.3H, Basophils (%) (Auto) 0.7, Sodium Level 143, Potassium Level 3.9, Chloride Level 108H, Carbon Dioxide Level 28, Anion Gap 7, Blood Urea Nitrogen 20H, Creatinine 0.5L, Estimat Glomerular Filtration Rate , Glucose Level 105, Calcium Level 9.9 Height (Feet): 5 Height (Inches): 3.00 Weight (Pounds): 104 General Appearance: lethargic EENT: normal ENT inspection Neck: normal alignment Cardiovascular: normal peripheral pulses, normal rate, regular rhythm Respiratory/Chest: chest wall non-tender, lungs clear, normal breath sounds Abdomen: normal bowel sounds, non tender, soft Extremities: normal inspection Edema: no edema noted Arm (L), no edema noted Arm (R), no edema noted Leg (L), no edema noted Leg (R), no edema noted Pedal (L), no edema noted Pedal (R), no edema noted Generalized Neurologic: motor weakness Skin: normal pigmentation, warm/dry Osei Naranjo DO October 16, 2018 14:32
--- NOTE | 2018-10-16 14:59 | Nephrology Progress Note ---
Assessment/Plan Problem List: (1) Acute respiratory failure (2) Severe protein-calorie malnutrition (3) NSTEMI (non-ST elevated myocardial infarction) (4) COPD (chronic obstructive pulmonary disease) (5) HTN (hypertension) (6) Hypercalcemia Assessment Acute respiratory failure COPD Azotemia, High Na , elevated LFTs Elevated troponin Plan Aredia 60mg for high Ca increase diamox lasix low dose K phos as needed as needed: bipap K IV and or PO as needed Per cardiology Pulm management monitor renal parameters discussed with RN Subjective ROS Limited/Unobtainable: No Constitutional: Reports: malaise Objective Objective Last 24 Hour Vital Signs Date Time Temp Pulse Resp B/P (MAP) Pulse Ox O2 Delivery O2 Flow Rate FiO2 10/16/18 12:00 1.0 10/16/18 12:00 98.3 101 16 140/80 (100) 92 10/16/18 09:41 89 115/66 10/16/18 09:00 Nasal Cannula 1.0 10/16/18 08:00 1.0 10/16/18 08:00 97.3 89 15 115/66 (82) 97 10/16/18 04:00 97.8 90 18 124/60 (81) 97 10/16/18 04:00 1.0 10/16/18 00:00 1.0 10/16/18 00:00 97.8 99 18 122/73 (89) 92 10/15/18 21:38 97 18 99 Room Air 21 10/15/18 21:23 100 20 97 Nasal Cannula 1.0 24 10/15/18 21:23 24 10/15/18 21:19 1.0 10/15/18 21:00 Nasal Cannula 1.0 10/15/18 20:25 Nasal Cannula 1.0 24 10/15/18 20:25 97 Nasal Cannula 1.0 24 10/15/18 20:00 97.7 99 17 122/63 (82) 97 10/15/18 18:00 127/72 10/15/18 17:59 69 127/72 10/15/18 16:00 97.3 69 20 117/71 (86) 10/15/18 16:00 1.0 Intake and Output 10/15/18 10/16/18 19:00 07:00 Intake Total 370 ml Output Total 600 ml 1450 ml Balance -600 ml -1080 ml Intake Oral 370 ml Output Urine Total 600 ml 1450 ml # Bowel Movements 1 Laboratory Tests 10/16/18 04:58: White Blood Count 8.9, Red Blood Count 4.22, Hemoglobin 13.6, Hematocrit 42.0, Mean Corpuscular Volume 100H, Mean Corpuscular Hemoglobin 32.2H, Mean Corpuscular Hemoglobin Concent 32.3, Red Cell Distribution Width 14.1, Platelet Count 310, Mean Platelet Volume 6.2L, Neutrophils (%) (Auto) 83.1H, Lymphocytes (%) (Auto) 7.8L, Monocytes (%) (Auto) 5.0, Eosinophils (%) (Auto) 3.3H, Basophils (%) (Auto) 0.7, Sodium Level 143, Potassium Level 3.9, Chloride Level 108H, Carbon Dioxide Level 28, Anion Gap 7, Blood Urea Nitrogen 20H, Creatinine 0.5L, Estimat Glomerular Filtration Rate , Glucose Level 105, Calcium Level 9.9 Height (Feet): 5 Height (Inches): 3.00 Weight (Pounds): 104 General Appearance: no apparent distress Objective no change Robbie Garza MD October 16, 2018 14:59
[2018-10-16] MEDS ORDERED: NORVASC2.5 MG ORAL (15:26)
[2018-10-16] MEDS ORDERED: ACETAZOLAMIDE250 MG ORAL (15:26)
[2018-10-16] MEDS ORDERED: COLACE100 MG ORAL (15:27)
[2018-10-16] MEDS ORDERED: ZETIA10 MG ORAL (15:28)
[2018-10-16] MEDS ORDERED: DUONEB 0.5-3(2.53 ML HHN (15:28)
[2018-10-16] MEDS ORDERED: NOVOLOG100 UNITS1 SQ (15:29)
[2018-10-16] MEDS ORDERED: NTG1 PATC2 TDERMAL (15:30)
[2018-10-16] MEDS ORDERED: PROTONIX40 MG ORAL (15:31)
[2018-10-16] MEDS ORDERED: POTASSIUM40 MEQ/11 PO (15:32)
[2018-10-16 16:00] VITALS: BP 140/62
--- NOTE | 2018-10-16 17:37 | NUR ---
NURSE NOTES: Gave report to licensed nurse Donna at [facility] over telephone.
[2018-10-16] MEDS: Nitroglycerin Patch 0.4mg TDERMAL SCH ×2 (18:00→19:11)
[2018-10-16 19:11] VITALS: BP 140/62
--- NOTE | 2018-10-16 19:26 | NUR ---
NURSE NOTES: Patient is discharged. IV removed and site covered. Barnhart removed. ID band removed and disposed of. Patient own medications given to patient. Personal belongings inventoried and sent with patient. Patient needs met and pateint kept comfortable at all times. Patient departed with [facility] ambulance drivers.
--- NOTE | 2018-10-17 15:01 | Discharge Summary ---
Discharge Summary Discharge Summary _ DATE OF ADMISSION: 10/04/2018 DATE OF DISCHARGE: 10/16/2018 DISCHARGED BY: Dr. Osei Naranoj CONSULTANTS: Dr. Steven Cruz BRIEF HOSPITAL COURSE: Patient is a 78-year-old female, who lives at home, presented to ED via EMS due to shortness of breath and generalized weakness. Patient was noted to be feeling weak. She lives alone. She denied fever or chills. Patient had a history of Lyme's disease and stated she was not adequately treated for this. Patient was currently on minocycline. She denied any sick contacts or recent travel. She has medical history significant for hypertension and COPD. On evaluation at the ED, vital signs were stable. She was saturating 94% on 4 L nasal cannula. Blood work showed WBC of 14, hemoglobin and hematocrit were stable. Electrolytes were normal. Glucose was 115. Kidney function was normal. Troponin was elevated to 1.89. proBNP was 7000. Urinalysis revealed 2 + protein, +2 ketones, +1 leukocyte esterase, 0-2 WBC. Urine toxicology screen was negative. EKG showed normal sinus rhythm with no acute changes. Chest x- ray showed hyperinflated lungs. Patient refused to take aspirin. She was given nebulizer treatment and was started on IV Solu-Medrol. She was given IV antibiotics. She was then admitted to [facility] for evaluation of non-ST elevated GA and COPD. Patient was transferred to [facility]. She was started on heparin drip. Hours after getting to the floor, patient was noted to be lethargic. FISCAL ECONOMIST was called. ABG showed pH 6.9 CO2 155, bicarb 36, PO2 110, base excess -1.4. Receptionist/Telephone Operator was consulted and recommended intubation and transfer to ICU. ER physician was called due to significant acidosis and hypercapnia. Patient was then intubated. She was given slow IV hydration. NGT was inserted. Steroids were tapered. She was placed on Zosyn. Zithromax was added by ID. No need to continue minocycline per ID. Clinical Researcher was consulted. She was taken off heparin drip per cardiology. She was given antiplatelet therapy. She was restarted on his statins since LFTs were trending down. Echocardiogram showed EF 55 to 60% with no wall motion abnormalities. Patient had abnormal liver function tests. Abdominal ultrasound showed trace ascites and bilateral pleural effusion. Liver cyst. Tiny right renal cyst. Atherosclerotic vascular disease. Hepatitis serologies were negative. Blood culture did not isolate any growth. Urine culture with no growth. On 10/07/2018, she developed a fever of 100.1, and WBC went up to 23. She was continued on Zosyn and Zithromax. She was started empirically on vancomycin pending repeat cultures. On 10/08/2018, she was eventually extubated. She was placed on Ventimask. She eventually defervesced. Legionella urine antigen was negative. She was eventually transferred out of ICU. She was given physical therapy and speech evaluation. Leukocytosis was downtrending. Vancomycin and Zithromax were discontinued. She was continued on Zosyn. Troponin levels down trended. She was recommended outpatient stress test. O2 was eventually titrated down to nasal cannula. Ordered to titrate FiO2 to saturation of 85 to 90% increase hypoxemic drive of the brain. Ordered BiPAP for FiO2 less than 85%. CT of the chest showed emphysema/COPD. Results were discussed with the patient. She completed 10 days of Zosyn. She was taken off antibiotics. She was given Aredia. Diamox was increased. She was given low-dose Lasix. Antihypertensives were titrated. Norvasc was initially increased to 10 mg daily , however BP was borderline low. Norvasc was then decreased to 2.5 mg twice daily. Social service was consulted to aid with placement. Patient was referred and was [facility]. Patient was then transferred to acute rehab. FINAL DIAGNOSES: Acute respiratory failure status post intubation 10/04/2018 and extubation 10/08 Possible aspiration pneumonia COPD exacerbation Non-ST elevated GA, type II Emphysema Hypertension Elevated liver transaminases Hypernatremia Hypercalcemia Diabetes mellitus type II Generalized weakness Severe protein calorie malnutrition DISPOSITION: Patient was transferred to acute rehab. DISCHARGE MEDICATIONS: Refer to Discharge Medication List. I have been assigned to complete a discharge summary on this account, I was not involved with the patient's management. Ann Marie Luu NP October 17, 2018 15:01
== END 2018-10-16 19:30 | disposition short-term general hospital (02) | DRG 870 ==
LOC: EDBD 21:57 → EMR 22:30 → EDBEDREQSVC 23:27 → EDBEDREQ 23:27 → 2W 10-04 01:45 → EDBEDREQ 10-04 01:48 → ICU 10-04 06:18 → 2W 10-10 19:48 → 2E 10-11 16:13 → 3E 10-15 16:12
PROC: 5A1955Z Respiratory Ventilation, Greater than 96 Consecutive Hours (ICD-10-PCS; principal; 2018-10-04)
PROC: 0BH17EZ Insertion of Endotracheal Airway into Trachea, Via Natural or Artificial Opening (ICD-10-PCS; principal; 2018-10-04)
DX: A41.9 Sepsis, unspecified organism (principal); J96.22 Acute and chronic respiratory failure with hypercapnia; J96.21 Acute and chronic respiratory failure with hypoxia; J69.0 Pneumonitis due to inhalation of food and vomit; E43 Unspecified severe protein-calorie malnutrition; I21.A1 Myocardial infarction type 2; N39.0 Urinary tract infection, site not specified; E87.0 Hyperosmolality and hypernatremia; J44.1 Chronic obstructive pulmonary disease with (acute) exacerbation; Z68.1 Body mass index [BMI] 19.9 or less, adult; N17.9 Acute kidney failure, unspecified; I10 Essential (primary) hypertension; R94.5 Abnormal results of liver function studies; E86.0 Dehydration; E83.52 Hypercalcemia
CPT/HCPCS: 36415; 36600; 71045; 71250; 76700; 80048; 80053; 80061; 80202; 80307; 81003; 82140; 82150; 82164; 82248; 82550; 82553; 82607; 82728; 82746; 82803; 82962; 82977; 83036; 83605; 83690; 83735; 83880; 84100; 84443; 84484; 84550; 85007; 85025; 85610; 85651; 85730; 86140; 86705; 86709; 86713; 86803; 87040; 87070; 87081; 87086; 87205; 87340; 93005; 93306; 94002; 94003; 94640; 94660; 94664; 94760; 96361; 96374; 99291; J1815; J2430; J7620; J8499